=== PATIENT | female | born 1940 | race African-American/Black ===

== ENCOUNTER 2019-10-04 09:08 | Outpatient (CLI) | payer MEDICARE, SELFPAY ==
--- NOTE | ~2019-10-04 | US_ITS ---
EXAMINATION: US renal BI, US retroperitoneal duplex ltd DATE: 10/04/2019 10:21 INDICATION: Stage IV chronic kidney disease. Atherosclerosis of the renal artery. TECHNIQUE: 1. Multiple grayscale and color Doppler images of the kidneys were obtained. 2. Multiple grayscale and pulsed Doppler images of the aorta and renal arteries were obtained. COMPARISON: None. FINDINGS: Kidneys: The right kidney measures 8.1 x 3.4 x 4.2 cm. The left kidney measures 8.8 x 4.4 x 4.1 cm. The kidney s demonstrate increased echogenicity consistent with medical renal disease. There are several simple appearing anechoic renal cysts, one at the lower pole of the right kidney measuring up to 1.8 cm in m aximal diameter and the largest of four in the left kidney at the upper pole measuring 1.7 cm. There is no hydronephrosis in either kidney. No stones identified. The bladder is normal. Renal arteries/vascular: The aorta peak systolic velocity is 44 cm/s. The right renal artery peak systolic velocity is 171 cm/ s in the proximal segment, 52 cm/s in the mid segment, and 82 cm/s in the distal segment. The relativ paris elevated velocity at the origin of the right renal artery remains less than the threshold for wou ld be expected for a >50% stenosis. The left renal artery peak systolic velocity is 53 cm/s in the pr oximal segment, 51 cm/s in the mid segment, and 53 cm/s in the distal segment. IMPRESSION: 1. Bilateral increased renal cortical echogenicity consistent with medical renal disease. No hydronep hrosis. 2. No Doppler evidence of significant renal artery stenosis. Reviewed, dictated and finalized at location A. IMPRESSION: 1. Bilateral increased renal cortical echogenicity consistent with medical bert l disease. No hydronephrosis. 2. No Doppler evidence of significant renal artery stenosis.
== END 2019-10-04 09:09 | disposition home or self-care (01) ==
PROVIDERS: PCP Internal Medicine
DX: I70.1 Atherosclerosis of renal artery (principal); N18.4 Chronic kidney disease, stage 4 (severe)
CPT/HCPCS: 76775; 93976

== ENCOUNTER 2019-10-12 09:02 | Outpatient (CLI) | payer MEDICARE, SELFPAY ==
--- NOTE | ~2019-10-12 | MM_ITS ---
EXAMINATION: MM screening [facility] BI w ramo HISTORY: Screening TECHNIQUE: Craniocaudal and mediolateral oblique 3-D tomosynthesis images were obtained and synthetic 2-D images were generated. CAD analysis was submitted and interpreted. COMPARISON: Comparison to multiple prior studies sequentially, with oldest reviewed study dated 01/28. BREAST PARENCHYMAL COMPOSITION: There are scattered areas of fibroglandular density. FINDINGS: There are benign calcifications. There is no evidence of suspicious mass, calcification, or architectural distortion to suggest malignancy in either breast. There has been no suspicious interv al change. IMPRESSION: 1. No mammographic evidence of malignancy. 2. Recommend routine screening mammography in one year. BI-RADS Category 2: Benign finding(s). Reviewed, dictated and finalized at location A.
== END 2019-10-12 09:03 | disposition home or self-care (01) ==
PROVIDERS: PCP Internal Medicine; Visit Provider Radiology Radiation Oncology
DX: Z12.31 Encounter for screening mammogram for malignant neoplasm of breast (principal)
CPT/HCPCS: 77063; 77067

== ENCOUNTER 2021-03-20 15:17 | Outpatient (CLI) | payer MEDICARE, SELFPAY ==
--- NOTE | ~2021-03-20 | MM_ITS ---
EXAMINATION: MM screening [facility] BI w ramo HISTORY: Screening TECHNIQUE: Craniocaudal and mediolateral oblique 3-D tomosynthesis images were obtained and synthetic 2-D images were generated. CAD analysis was submitted and interpreted. COMPARISON: Comparison to multiple prior studies sequentially, with oldest reviewed study dated 01/28. BREAST PARENCHYMAL COMPOSITION: There are scattered areas of fibroglandular density. FINDINGS: There is no evidence of suspicious mass, calcification, or architectural distortion to sugg est malignancy in either breast. There has been no suspicious interval change. IMPRESSION: 1. No mammographic evidence of malignancy. 2. Recommend routine screening mammography in one year. BI-RADS Category 1: Negative Reviewed, dictated and finalized at location A. [employer]
== END 2021-03-20 15:18 | disposition home or self-care (01) ==
LOC: ANHIMG 15:23
PROVIDERS: PCP Internal Medicine; Visit Provider Internal Medicine Medical Oncology
DX: Z12.31 Encounter for screening mammogram for malignant neoplasm of breast (principal)
CPT/HCPCS: 77063; 77067

== ENCOUNTER 2021-05-30 11:57 | Inpatient (IN) | payer MEDICARE, SELFPAY ==
--- NOTE | ~2021-05-30 | XR_ITS ---
EXAMINATION: XR abdomen/kub 1V DATE: 06/01/2021 08:40 INDICATION: Small bowel obstruction. TECHNIQUE: A supine view of the abdomen on 2 radiographs was obtained. COMPARISON: Small bowel series 05/31/21 FINDINGS: There are multiple dilated loops of small bowel containing oral contrast. The colon is deco mpressed. The nasogastric tube tip is in the stomach. IMPRESSION: 1. Persistent small bowel obstruction. Reviewed, dictated and finalized at location A.
--- NOTE | ~2021-05-30 | XR_ITS ---
EXAMINATION: XR chest 1V portable DATE: 06/02/2021 16:47 INDICATION: Tachycardia. Crackles on exam. TECHNIQUE: frontal view of the chest was obtained. COMPARISON: Chest radiograph dated 05/31/2021 FINDINGS: Nasogastric tube coiled in the body of the stomach. Pulmonary vascular congestion. Increased intersti tial pattern in the bilateral lower lung zones, right greater than left. No pleural effusion or pneum othorax. Small calcified nodule at the left costophrenic angle consistent with old granulomatous dise ase. No pneumothorax. Heart size is normal. Surgical clip at the thoracic inlet. Additional surgical clips at the lateral right breast. IMPRESSION: 1. Pulmonary vascular congestion and increased interstitial pattern in the lower lungs and favor mild pulmonary edema over pneumonia. Reviewed, dictated and finalized at location B. IMPRESSION: 1. Pulmonary vascular congestion and increased interstitial pattern in the lowe r lungs and favor mild pulmonary edema over pneumonia.
--- NOTE | ~2021-05-30 | XR_ITS ---
EXAMINATION: XR small bowel follow through DATE: 05/31/2021 17:17 INDICATION: Small bowel obstruction. TECHNIQUE: Oral contrast was administered, and a time course of radiographs of the abdomen was obtain ed. Fluoroscopy of the small bowel was not performed. Fluoroscopy exposure time was 0 minutes. The to meet number of images was 8. COMPARISON: CT abdomen and pelvis 05/31/2021 FINDINGS: The nasogastric tube tip is in the stomach. There is oral contrast in stomach and multiple dilated lo ops of small bowel. At 3.5 hours, the contrast has not passed beyond the transition point in right ab domen identified by CT. The colon is normal in caliber. There is reflux of contrast into the esophagu s. IMPRESSION: 1. Small bowel obstruction. Reviewed, dictated and finalized at location E. IMPRESSION: 1. Small bowel obstruction.
--- NOTE | ~2021-05-30 | XR_ITS ---
EXAMINATION: XR fl Dobhoff insert/rad w img DATE: 06/11/2021 14:52 INDICATION: Aspiration. TECHNIQUE: I placed in a nasoenteric tube with fluoroscopic guidance. One image was obtained. The flu oroscopy exposure time was 1.1 minutes. COMPARISON: None. FINDINGS: The nasoenteric tube tip is in the distal stomach. IMPRESSION: 1. Fluoroscopy guided nasoenteric tube placement with tip in the distal stomach. Reviewed, dictated and finalized at location A. IMPRESSION: 1. Fluoroscopy guided nasoenteric tube placement with tip in the distal stomach .
--- NOTE | ~2021-05-30 | XR_ITS ---
EXAMINATION: XR barium swallow modified EXAM DATE: 06/16/2021 10:53 INDICATION: Dysphagia TECHNIQUE: Modified barium esophagram was performed by speech pathologist with radiologist Dr. Royal Hansen present to administered fluoroscopy. Speech pathologist administered barium in varying consis tencies as per speech pathologist documentation. This was recorded on tape. There was total fluorosc opic time of 2.6 minutes. The DAP for this procedure was 1.6 Gycm2. A total of 3 images sent to PAC S from the exam. FINDINGS: Oral stage: Adequate function. Pharyngeal phase: Mild reduced laryngeal elevation, tongue base retraction. Vallecular residual. Laryngeal penetration: Trace, ejected. Aspiration: None. Laryngeal sensitivity: Present. IMPRESSION: Patient tolerated oral feedings in the upright position. Please refer to speech patholo gist findings and specific feeding recommendations. Reviewed, dictated and finalized at location A. IMPRESSION: Patient tolerated oral feedings in the upright position. Please r efer to speech pathologist findings and specific feeding recommendations.
--- NOTE | ~2021-05-30 | XR_ITS ---
EXAMINATION: XR abdomen/kub 1V EXAM DATE: 06/08/2021 10:59 INDICATION: distended abd. . TECHNIQUE: Frontal projection(s) of the abdomen for interpretation. Comparison is made to prior exami nation from 06/05/2021. FINDINGS: Previously seen feeding tube has been removed. There are laparotomy latoya. Significantly distended air-filled small bowel, containing some amount of contrast and also some contrast within n onobstructed colon. Likely postoperative ileus. Small right pleural effusion. IMPRESSION: Interval progression of stomach, significant small bowel gas, likely postoperative ileus. Reviewed, dictated and finalized at location B. IMPRESSION: Interval progression of stomach, significant small bowel gas, likel y postoperative ileus.
--- NOTE | ~2021-05-30 | XR_ITS ---
EXAMINATION: XR abdomen/kub 1V DATE: 06/03/2021 05:33 INDICATION: Nasogastric tube placement. TECHNIQUE: A supine view of the abdomen was obtained. COMPARISON: CT abdomen and pelvis 05/31/2021 FINDINGS: There are multiple dilated loops of small bowel. The colon is decompressed. Skin latoya ar e noted. The nasogastric tube tip is in the stomach. IMPRESSION: 1. Nasogastric tube tip in the stomach. 2. Dilated small bowel, likely adynamic ileus. Reviewed, dictated and finalized at location A.
--- NOTE | ~2021-05-30 | CT_ITS ---
EXAMINATION: CT abdomen pelvis wo con DATE: 05/31/2021 13:28 INDICATION: Small bowel obstruction. TECHNIQUE: Computed tomography (CT) of the abdomen and pelvis was performed without intravenous contr ast. Automated exposure control and iterative reconstruction technique were employed. The dose-length product was 179.64 mGy-cm. COMPARISON: CT abdomen and pelvis 05/30/2021 FINDINGS: There are small pleural effusions. There is dependent atelectasis bilaterally. There is mil d emphysema. There is peripheral radiation fibrosis in anterolateral right lung. The heart size is no rmal. There are coronary artery calcifications. There is a small pericardial effusion. The nasogastri c tube tip is in the stomach. There is a small sliding hiatal hernia. The liver is normal. The gallbl adder is distended. The spleen, pancreas, are normal. There are masses in the adrenal glands measurin g low-attenuation measuring up to 2.1 cm on the right, consistent with adenomas. There are cysts in t he kidneys measuring up to 1.6 cm the left. There are changes of right hemicolectomy. There are multi ple dilated loops of small bowel. There is decompressed distal small bowel. There is a transition poi nt in right abdomen. There is a moderate volume of ascites. There is mild lumbar spondylosis. IMPRESSION: 1. Small bowel obstruction with transition point in right abdomen. 2. Worsened moderate volume of ascites. 3. Worsened small pleural effusions. 4. Stable small pericardial effusion. 5. Small sliding hiatal hernia. 6. Distended gallbladder, which may secondary to fasting. Reviewed, dictated and finalized at location E.
--- NOTE | ~2021-05-30 | XR_ITS ---
EXAMINATION: XR chest PICC line EXAM DATE: 06/03/2021 14:07 INDICATION: PICC line placement. TECHNIQUE: Portable AP frontal chest x-ray was obtained. Comparison is made to prior examination from 06/02/2021. FINDINGS: There is a new right-sided PICC line, tip at the cavoatrial junction. There is a feeding tu be tip and side-port projecting over gastric bubble. There are multiple loops of moderately distended air-filled jejunum in the left upper quadrant. This could be postoperative ileus given the laparotom y latoya. Small right pleural effusion with adjacent right basilar airspace disease probably atelect asis. IMPRESSION: 1. PICC line, feeding tube in position. 2. Small right pleural effusion, right basilar opacity probably subsegmental atelectasis. 3. Dilated jejunum probably postoperative ileus. Reviewed, dictated and finalized at location A. IMPRESSION: 1. PICC line, feeding tube in position. 2. Small right pleural effusion, right basilar opacity probably subsegmental a telectasis. 3. Dilated jejunum probably postoperative ileus.
--- NOTE | ~2021-05-30 | CT_ITS ---
EXAMINATION: CTA chest PE protocol EXAM DATE: 06/05/2021 09:40 INDICATION: hypoxia . TECHNIQUE: Spiral CTA of the chest (pulmonary arteries) was performed with 100 cc Omnipaque 350 intr avenous contrast injection. Images were acquired during the pulmonary arterial phase. Coronal maxi mum intensity projection 3D-reconstructions were created by the technologist on dedicated workstation . Axial, coronal and sagittal reformatted images were reviewed. The dose-length product (DLP) for t his examination was 115.68 mGy-cm. The exposure was tailored according to patient size (auto mA exp osure control), and iterative reconstruction (ASIR) was used as additional dose reduction technique. Correlation is made to abdomen pelvis CT from 05/31/2021. FINDINGS: The main, central pulmonary arteries are dilated which can indicate elevated pulmonary frida rial pressure, pulmonary arterial hypertension. There are no filling defects within the pulmonary art eries, no urinary emboli. There is mild cardiomegaly. Small pericardial and bilateral pleural effusio ns. Right basilar airspace disease with endobronchial mucous, appearance is consistent with pneumonia and atelectasis. Less amount of left basilar pneumonia and atelectasis. Mild to moderate emphysema. No pneumothorax. Small amount of ascites. Feeding tube is in position. Bilateral adrenal adenomas. There is small to m oderate sliding gastroesophageal hiatal hernia. No mediastinal lymphadenopathy. Left thyroid lobe enl argement, the right may have been resected. There are no osteoblastic or osteolytic lesions identifie d. Lung bases were imaged on recent abdomen pelvis CT. Pleural and pericardial effusions are present. Th e airspace disease has progressed. IMPRESSION: 1. Multi segmental right lower lobe, segmental left lower lobe pneumonia and atelectasis. Can't excl ude aspiration as etiology. 2. Cardiomegaly. Dilated pulmonary arteries. 3. Small pericardial, pleural effusions. Small ascites. 4. Small to moderate hiatal hernia. 5. Adrenal adenomas. 6. No pulmonary emboli suspected. Reviewed, dictated and finalized at location A. IMPRESSION: 1. Multi segmental right lower lobe, segmental left lower lobe pneumonia and a telectasis. Can't exclude aspiration as etiology. 2. Cardiomegaly. Dilated pulmonary arteries. 3. Small pericardial, pleural effusions. Small ascites. 4. Small to moderate hiatal hernia. 5. Adrenal adenomas. 6. No pulmonary emboli suspected.
--- NOTE | ~2021-05-30 | NM_ITS ---
EXAMINATION: NM pulmonary perfusion DATE: 06/04/2021 15:51 INDICATION: Tachycardia. Hypoxia. TECHNIQUE: 4.5 mCi Tc-99m MAA by intravenous route. Scintigraphic images of the chest were obtained. COMPARISON: Chest radiograph dated 06/04/2021 FINDINGS: Moderate-sized perfusion defects in the medial segment of the right middle lobe and anterobasilar seg ment of the right lower lobe. Stripe signs overlying the superior segments of the bilateral lower lob es on the posterior oblique projections. IMPRESSION: 1. Intermediate probability for pulmonary embolism. Reviewed, dictated and finalized at location B.
--- NOTE | ~2021-05-30 | US_ITS ---
EXAMINATION: US venous doppler [facility] DATE: 06/02/2021 17:19 INDICATION: Tachycardia. TECHNIQUE: Cook scale images without and with compression and Doppler images of the bilateral lower e xtremity veins were obtained. COMPARISON: None FINDINGS: The right common femoral vein, profunda femoral vein, femoral vein, popliteal vein, peroneal trunk, p osterior tibial veins, and greater saphenous vein are patent. The left common femoral vein, profunda femoral vein, femoral vein, popliteal vein, peroneal trunk, po sterior tibial veins, and greater saphenous vein are patent. IMPRESSION: 1. Patent bilateral lower extremity veins. No evidence of deep venous thrombosis. Reviewed, dictated and finalized at location K. IMPRESSION: 1. Patent bilateral lower extremity veins. No evidence of deep venous thrombosi s.
--- NOTE | ~2021-05-30 | XR_ITS ---
EXAMINATION: XR barium swallow modified DATE: 06/09/2021 13:12 INDICATION: Cough TECHNIQUE: Modified barium esophagram was performed by myself to administered fluoroscopy, in conjun ction with speech pathologist who administered barium in varying consistencies as per speech patholog ist documentation. This was recorded on tape. A single fluoroscopic spot image was recorded. The DAP for this procedure was 0.954 Gycm2. Fluoroscopy exposure time was 1.9 minutes. FINDINGS: Oral stage: Adequate function. Pharyngeal phase: Reduced laryngeal elevation, reduced laryngeal adduction, reduced tongue base retra ction, reduced pharyngeal squeeze, vallecular and piriform sinus residue. Laryngeal penetration: Present. Aspiration: Suspected. Laryngeal sensitivity: Absent. IMPRESSION: Abnormal modified barium swallow as described above. Please refer to speech pathologist f indings and specific feeding recommendations. Reviewed, dictated and finalized at location A. IMPRESSION: Abnormal modified barium swallow as described above. Please refer t o speech pathologist findings and specific feeding recommendations.
--- NOTE | ~2021-05-30 | XR_ITS ---
EXAMINATION: XR abdomen NG/feed tube insert DATE: 06/05/2021 01:28 INDICATION: Nasogastric tube placement. TECHNIQUE: A semiupright view of the abdomen was obtained. COMPARISON: Abdomen radiographs 06/03/2021 FINDINGS: There are dilated loops of small bowel containing oral contrast. The lower abdomen is exclu ded. Skin latoya are noted. The nasogastric tube tip is in the distal stomach. A right upper extremi ty peripherally inserted central venous catheter (PICC) is seen with tip in the proximal right atrium . IMPRESSION: 1. Nasogastric tube tip in the distal stomach. 2. Persistently dilated small bowel, consistent with adynamic ileus. Reviewed, dictated and finalized at location A.
--- NOTE | ~2021-05-30 | XR_ITS ---
EXAMINATION: XR chest 1V portable DATE: 06/04/2021 05:33 INDICATION: Hypoxia. TECHNIQUE: A single frontal view of the chest was obtained. COMPARISON: Chest single view 06/03/2021, CT abdomen and pelvis 05/31/2021 FINDINGS: There are interstitial opacities in right mid and lower lung zones, likely radiation fibros is. There is mild atelectasis in the lower lung zones. No pleural effusion or pneumothorax. The heart size is normal. The nasogastric tube tip is in the stomach. There is dilated small bowel in the abdo men, likely adynamic ileus. Surgical clips overlie the right chest wall. A right upper extremity jay pherally inserted central venous catheter (PICC) is seen with tip in the right atrium. IMPRESSION: 1. Mild atelectasis in the lower lung zones with interval improvement. 2. 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 3. Dilated small bowel, likely adynamic ileus. Reviewed, dictated and finalized at location A.
--- NOTE | ~2021-05-30 | CT_ITS ---
EXAMINATION: CT abdomen pelvis wo con DATE: 05/30/2021 13:04 INDICATION: Lower abdominal pain, history of breast cancer TECHNIQUE: Computed tomography (CT) of the abdomen and pelvis was performed without intravenous contr ast. The dose-length product (DLP) was 178.09 mGy-cm. Automated exposure control and iterative recons truction technique were employed. COMPARISON: None FINDINGS: Subpleural reticular opacities in the anterior right middle lobe likely reflect changes of radiation therapy. There is a small right pleural effusion. There is mild emphysema of the visualized lung bases. A small pericardial effusion is present. The heart size is normal. The liver, spleen, an d pancreas are normal. The gallbladder is distended. There are is a 2.1 cm adenoma of the right adren al gland. There is a 1.6 cm adenoma of the left adrenal gland. Cysts of the kidneys measure up to 2.2 cm on the right. There is calcified atherosclerosis of the aorta and many of the other arteries. No pathologically enlarged abdominal or pelvic lymph nodes are identified. There are changes of right he micolectomy. There are multiple dilated loops of small bowel with a transition point in the right mid abdomen. There is no free intraperitoneal gas. IMPRESSION: 1. Small bowel obstruction. Reviewed, dictated and finalized at location A. IMPRESSION: 1. Small bowel obstruction.
--- NOTE | ~2021-05-30 | XR_ITS ---
EXAMINATION: XR barium swallow modified EXAM DATE: 06/07/2021 13:53 INDICATION: Difficulty Swallowing/NG Removed TECHNIQUE: Modified barium esophagram was performed by speech pathologist with radiologist Dr. Royal Hansen present to administered fluoroscopy. Speech pathologist administered barium in varying consis tencies as per speech pathologist documentation. This was recorded on tape. There was total fluorosc opic time of 1.6 minutes The DAP for this procedure was 0.8 Gycm2. A total of 2 images sent to PAC S from the exam. FINDINGS: Oral stage: Uncoordinated. Pharyngeal phase: Dysfunction. Laryngeal penetration: Demonstrated. Aspiration: Demonstrated. Laryngeal sensitivity: Silent. IMPRESSION: Aspiration demonstrated; Please refer to speech pathologist findings and specific feedi ng recommendations. Reviewed, dictated and finalized at location A. IMPRESSION: Aspiration demonstrated; Please refer to speech pathologist findi ngs and specific feeding recommendations.
--- NOTE | ~2021-05-30 | XR_ITS ---
EXAMINATION: XR chest 2V DATE: 05/31/2021 13:50 INDICATION: Left sided crackles on exam. TECHNIQUE: Frontal and lateral views of the chest were obtained. COMPARISON: CT abdomen and pelvis 05/31/2021 FINDINGS: There are peripheral reticular opacities in right lung. There are airspace opacities in the lower lung zones. There are small pleural effusions. No pneumothorax. The heart size is normal. Ther e is oral contrast in the stomach and small bowel. There is dilated small bowel. The nasogastric tube tip is in the stomach. There are surgical clips overlying right chest. IMPRESSION: 1. Small pleural effusions. 2. Airspace opacities in the lower lung zones, likely atelectasis. 3. 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 4. Dilated small bowel, consistent with small bowel obstruction. Reviewed, dictated and finalized at location E.
--- NOTE | ~2021-05-30 | XR_ITS ---
EXAMINATION: XR chest 1V portable DATE: 06/17/2021 08:54 INDICATION: Aspiration. TECHNIQUE: A single frontal view of the chest was obtained. COMPARISON: Chest single view 06/04/2021, chest CT 06/05/2021 FINDINGS: There are airspace opacities in the lower lung zones. A calcified left lung nodule is consi stent with old granulomatous disease. There is a chronic interstitial pattern in right lung, consiste nt with radiation fibrosis. There is a small right pleural effusion. No pneumothorax. The heart size is normal. A right upper extremity peripherally inserted central venous catheter (PICC) is seen with tip at the superior cavoatrial junction. The nasoenteric tube tip is in either the distal stomach or proximal duodenum. IMPRESSION: 1. Airspace opacities in the lower lung zones, consistent with atelectasis versus pneumonia. 2. Small right pleural effusion. 3. 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 Reviewed, dictated and finalized at location B. IMPRESSION: 1. Airspace opacities in the lower lung zones, consistent with atelectasis vers us pneumonia. 2. Small right pleural effusion. 3. 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
--- NOTE | ~2021-05-30 | XR_ITS ---
EXAM: XR abdomen NG/feed tube insert HISTORY: Small bowel obstruction, NG TUBE INSERT COMPARISON: CT abdomen and pelvis performed on the same date. FINDINGS: NG tube, tip and side port object over the stomach. Multiple loops of dilated small bowel in the upper abdomen. Suture material projects over the right mid abdomen. Mild right costophrenic an gle blunting and basilar opacities. IMPRESSION: NG tube, in good position. Small bowel obstruction. Small right pleural effusion with adjacent subseg mental pulmonary opacities. Reviewed, dictated and finalized at location K. IMPRESSION: NG tube, in good position. Small bowel obstruction. Small right pleural effusio n with adjacent subsegmental pulmonary opacities.
[2021-05-30 11:59] VITALS: BP 140/89; PULSE 124; RESP 20; TEMP 36.6; O2SAT 100
[2021-05-30 12:27] LABS: Basophils Absolute Auto 0.1 K/mm3 (0.0-0.1); Basophils Percent Auto 0.6 % (0.2-1.2); Eosinophils Absolute Auto 0.3 K/mm3 (0-0.3); Eosinophils Percent Auto 3.1 % (0-4.4); Hematocrit 37.8 % (37.0-47.0); Immature Granulocyte Absolute 0.21 K/mm3 (0.00-0.031); Immature Granulocyte Percent A 2.6 % (0-0.5); Lymphocytes Absolute Auto 0.49 K/mm3 (0.9-3.2); Mean Corpuscular HGB Conc 31.7 g/dl (32-36); Mean Corpuscular Hemoglobin 36.1 pg (26-34); Mean Corpuscular Volume 113.9 fl (80-100); Mean Platelet Volume 11.8 fl (7.4-10.4); Monocytes Absolute Auto 1.4 K/mm3 (0.1-0.6); Monocytes Percent Auto 17.2 % (2.6-8.5); Neutrophils Absolute Auto 5.8 K/mm3 (1.3-6.7); Neutrophils Percent Auto 70.5 % (45.5-73.1); Nucleated Red Blood Cells Absolute Auto 0.3 K/mm3 (0.0-0.012); Nucleated Red Blood Cells Perc 3.1 % (0.0-0.2); Platelet Count Result 289 k/mm3 (150-375); Red Blood Count 3.32 M/mm3 (4.2-5.4); Red Cell Distribution Width 18.9 % (11.5-14.5); White Blood Count 8.2 K/mm3 (4.5-10.0)
[2021-05-30 12:41] LABS: Alanine Aminotransferase 15 U/L (4-35); Albumin Level 4.5 g/dL (3.5-5.1); Alkaline Phosphatase 81 U/L (38-126); Anion Gap 14 mmol/L (8-16); Aspartate Amino Transferase 33 U/L (14-36); Bilirubin,Total 0.8 mg/dL (0.2-1.3); Blood Urea Nitrogen 43 mg/dL (7-17); Calcium 9.3 mg/dL (8.4-10.2); Carbon Dioxide 18 mmol/L (22-30); Chloride 102 mmol/L (98-107); Estimated CRCL calculation 12 ml/min; Estimated Glomerular Filt Rate 23; Glucose 122 mg/dL (65-110); Lipase 58 U/L (23-300); Potassium 5.1 mmol/L (3.4-5.0); Sodium 134 mmol/L (137-145)
--- NOTE | 2021-05-30 13:14 | ED.ABDPAIN ---
HPI - Abdominal Pain General Chief Complaint: Abdominal Pain Stated Complaint: abd pain and hematuria x 3days Time Seen by Provider: 05/30/21 12:25 Source: patient and family History of Present Illness HPI narrative: Patient lives with her daughter who brought her to the emergency room because of chronic abdominal pain for over 1 year. Got worse over the last 3 days. Patient denies any fever, chills, nausea, vomiting, diarrhea, constipation. History of breast cancer, last colonoscopy was 1 year ago, polypectomy. Related Data Allergies Allergy/AdvReac Type Severity Reaction Status Date / Time No Known Allergies Allergy Verified 05/30/21 12:13 Review of Systems Review of Systems: CONSTITUTIONAL: Denies fever, chills, or sweats. EYES: Denies visual changes, redness, or discharge. ENT: Denies rhinorrhea, congestion, sore throat, or otalgia. CARDIOVASCULAR: Denies chest pain, palpitations, or edema. RESPIRATORY: Denies cough or dyspnea. GASTROINTESTINAL: Denies abdominal pain, nausea, vomiting, or diarrhea. GENITOURINARY: Denies dysuria or hematuria. SKIN: Denies rash or itching. MUSCULOSKELETAL: Denies back pain, joint pain, or myalgia. NEUROLOGIC: Denies headache, numbness, or weakness. PSYCHIATRIC: Denies anxiety or depression. [facility] Past Medical History Medical History (Updated 05/30/21 @ 15:22 by Luciana Gamble MD) Cancer of right breast Exam Narrative: General appearance: Well-developed, well-nourished Skin: Normal color Head: Normocephalic, nontraumatic Eyes: Clear conjunctiva ENT: Oropharynx normal, ears normal, nose normal Neck: Supple, nontender Chest and respiratory: Airway patent, no respiratory distress, no accessory muscle use Heart: Regular rate/rhythm Abdomen: Large distended abdomen, diffusely tender, midline old surgical scar, patient does not know what was for Vascular: Normal peripheral pulses, normal capillary refill. Musculoskeletal: Normal range of motion, nontender back Neurologic: Alert and oriented ?3, [employer] is normal as tested, no gross motor deficit Course Course Emergency Course: Work-up showed partial small bowel obstruction, admit to hospitalist, consult surgery Consultations Consultation #1: Dr. Hidalgo Date: 05/30/21 Time: 15:23 Vital Signs Vital signs: Vital Signs Temperature 36.6 C 05/30/21 11:59 Pulse Rate 124 H 05/30/21 11:59 Respiratory Rate 20 05/30/21 11:59 Blood Pressure 140/89 05/30/21 11:59 Pulse Oximetry 100 05/30/21 11:59 Temperature 36.6 C 05/30/21 11:59 Pulse Rate 95 05/30/21 14:28 Respiratory Rate 18 05/30/21 14:28 Blood Pressure 137/59 L 05/30/21 14:28 Pulse Oximetry 100 05/30/21 14:28 MDM - Abdominal Pain MDM Narrative Medical decision making narrative: Differential diagnosis as below Differential Diagnosis Differential diagnosis: Likely abdominal pain, constipation, diverticulitis, gastroenteritis, pancreatitis and small bowel obstruction Lab Data Result diagrams: 05/30/21 12:22 05/30/21 12:22 Labs: Lab Results 05/30/21 05/30/21 05/30/21 Range/Units 12:22 12:22 13:31 WBC 8.2 (4.5-10.0) K/mm3 RBC 3.32 L (4.2-5.4) M/mm3 Hgb 12.0 (12.0-15.0) g/dL Hct 37.8 (37.0-47.0) % MCV 113.9 H (80-100) fl MCH 36.1 H (26-34) pg MCHC 31.7 L (32-36) g/dl RDW 18.9 H (11.5-14.5) % Plt Count 289 (150-375) k/mm3 MPV 11.8 H (7.4-10.4) fl Immature Gran % (Auto) 2.6 H (0-0.5) % Neut % (Auto) 70.5 (45.5-73.1) % Lymph % (Auto) 6.0 L (18.3-44.2) % [place] % (Auto) 17.2 H (2.6-8.5) % Eos % (Auto) 3.1 (0-4.4) % Baso % (Auto) 0.6 (0.2-1.2) % Lymph # (Auto) 0
[2021-05-30] MEDS: SODIUM CHLORIDE 0.9% IV 1,000 ML 999 ML IV CONT (13:23)
[2021-05-30] MEDS: ONDANSETRON INJ 4 MG/2 ML VIAL IV PUSH (13:23)
[2021-05-30] MEDS: MORPHINE SULFATE (*CRX) 4 MG/ML INJ IV PUSH (13:23)
[2021-05-30 13:44] LABS: Add Urine Microscopic? YES; Appearance Urine Cloudy (Clear); Bacteria Urine Trace /hpf; Bilirubin Urine Negative (Negative); Blood Urine Negative (Negative); Color Urine Yellow (Yellow); Glucose Urine UA Negative (Negative); Ketones Urine Trace mg/dL (Negative); Leukocyte Esterase Ur Negative LEU/UL (Negative); Mucus Urine Rare /lpf; Nitrate Urine Negative (Negative); Protein Urine Negative (Negative); RBC Urine 0-2 /hpf (0-2); Specific Grav Ur 1.026 (1.001-1.035); Squamous Epithelial Cell Urine Rare /hpf (Few); Urobilinogen Urine Negative mg/dL (<2.0)
[2021-05-30 14:28] VITALS: BP 137/59; PULSE 95; RESP 18; O2SAT 100
--- NOTE | 2021-05-30 14:45 | PM.IMHP ---
H&P: HPI History of Present Illness Date/Time: 05/30/21 14:45 Chief Complaint: Abdominal pain. Narrative: This is a pleasant 80-year-old female smoker with history of emphysema, hypothyroidism, anxiety, breast cancer, and colon polyp status post right hemicolectomy who presented to the emergency department from home for evaluation of abdominal pain. The patient reports having intermittent abdominal pain over the past 1 year and in fact she has been to several specialists including machine bobbin winder Dr. Ontiveros. Apparently she has had several tests to include capsule endoscopy and colonoscopy, both which were reportedly unrevealing. Her pain once again returned 3 days ago and it has been pretty constant since that time. She describes a fairly diffuse throbbing discomfort throughout her abdomen although it seems to be worse in the right mid to lower quadrant. She has some mild nausea with bad in her appetite has been poor but she denies emesis. She had a normal bowel movement yesterday without blood or mucus in the stool. CT of the abdomen and pelvis today showed evidence of a small-bowel obstruction with transition point in the right mid abdomen and she is being admitted in this setting. She has no known history of bowel obstruction but again she has had intermittent episodes of abdominal pain over the year as detailed above. Currently she has no specific complaints and she denies fever, chills, sweats, chest pain, shortness a breath, vomiting, and diarrhea. Review of Systems Review of Systems: Twelve systems were reviewed and are negative except for as per HPI. [facility] Past Medical History Medical History (Updated 05/30/21 @ 20:27 by Zoe Baker PA-C) Anxiety Cancer of right breast Status post lumpectomy and radiation therapy. Chronic kidney disease Baseline creatinine and GFR unknown. Emphysema of lung Hypothyroidism Tobacco dependence Vitamin D deficiency Surgical History Surgical History (Updated 05/30/21 @ 20:18 by Zoe Baker PA-C) History of colonoscopy with polypectomy History of lumpectomy of right breast History of right hemicolectomy For a large, benign colon polyp. History of thyroidectomy For treatment of a goiter. Family History Family History (Updated 05/30/21 @ 20:19 by Zoe Baker PA-C) Other Cancer Diabetes mellitus Social History Social History (Updated 05/30/21 @ 20:20 by Zoe Baker PA-C) Social History: Surrogate decision maker: Stephanie Simental, daughter. Code status: Full code. Smoking packs per day: 1 Smoking cigarettes per day: 20.0 Years smoked: 60 Smoking pack-years: 60.00 Smoking status: Current every day smoker Tobacco type: cigarettes Alcohol intake: never Substance use: never Additional living arrangements comments: The patient lives in [place] with her daughter and son-in-law. Additional occupation/education comments: Retired, worked in [employer] at [employer] for many years. Spiritual care concerns: No Meds Home Medications and Allergies Home Medications Medication Instructions Recorded Confirmed Type anastrozole 1 mg PO DAILY 05/30/21 05/30/21 History calcitriol 0.25 mcg PO 2XW 05/30/21 05/30/21 History clonidine HCl 0.1 mg PO Q12H 05/30/21 05/30/21 History levothyroxine 50 mcg PO DAILY 05/30/21 05/30/21 History nortriptyline 50 mg PO HS 05/30/21 05/30/21 History olanzapine 20 mg PO DAILY 05/30/21 05/30/21 History sodium bicarbonate 1,300 mg PO TID 05/30/21 05/30/21 History umeclidinium-vilanterol [Anoro 1 inh INHALATION DAILY PRN 05/30/21 05/30/21 History Ellipta] Allergies Allergy/AdvReac Type Severity Reaction Status Date / Time No Known Allergies Allergy Verified 05/30/21 15:56 Vital Signs Vital Signs - 24 hr 05/30/21 11:59 Temperature 97.8 F Pulse Rate 124 H Respiratory Rate 20 Blood Pressure 140/89 Pulse Oximetry 100 Exam Narrative: General: Thin elderly female in the
--- NOTE | 2021-05-30 15:50 | ADMGEN ---
This patient, Rachel Lazar, was admitted to Medical Room 348-01. Patient/family oriented to hospital policies and general routines including ID bracelet, bed and alarms, visiting hours, pain management, procedures, bathroom and other care routines, personal items, smoking policy, room service/diet, and visiting hours. Information on how to activate the Rapid Response Team has been discussed. Patient/Family are encouraged to report perceived risks to care and to ask questions if they do not understand what they are told or what they should do.
[2021-05-30 16:00] VITALS: BP 132/82; PULSE 103; RESP 20; TEMP 36.1; O2SAT 100; BMI 18.8
[2021-05-30] MEDS: LACTATED RINGERS 1,000 ML 150 ML IV CONT (16:18)
[2021-05-30 21:04] VITALS: BP 148/55; PULSE 109; RESP 18; TEMP 36.2; O2SAT 96
[2021-05-30 21:50] VITALS: O2SAT 96
[2021-05-31] MEDS: LACTATED RINGERS 1,000 ML 75 ML IV CONT ×2 (00:01→15:04)
[2021-05-31 04:41] VITALS: BP 142/64; PULSE 102; RESP 16; TEMP 36.6; O2SAT 97
[2021-05-31 05:50] LABS: Hematocrit 34.2 % (37.0-47.0); Hemoglobin 11.2 g/dL (12.0-15.0); Mean Corpuscular HGB Conc 32.7 g/dl (32-36); Mean Corpuscular Hemoglobin 36.2 pg (26-34); Mean Corpuscular Volume 110.7 fl (80-100); Mean Platelet Volume 11.9 fl (7.4-10.4); Platelet Count Result 227 k/mm3 (150-375); Red Blood Count 3.09 M/mm3 (4.2-5.4); Red Cell Distribution Width 18.6 % (11.5-14.5); White Blood Count 4.9 K/mm3 (4.5-10.0)
[2021-05-31 06:02] LABS: Alanine Aminotransferase 8 U/L (4-35); Albumin Level 3.3 g/dL (3.5-5.1); Alkaline Phosphatase 82 U/L (38-126); Anion Gap 3 mmol/L (8-16); Aspartate Amino Transferase 20 U/L (14-36); Bilirubin,Total 0.5 mg/dL (0.2-1.3); Blood Urea Nitrogen 40 mg/dL (7-17); Calcium 8.8 mg/dL (8.4-10.2); Carbon Dioxide 25 mmol/L (22-30); Chloride 106 mmol/L (98-107); Estimated CRCL calculation 19 ml/min; Estimated Glomerular Filt Rate 33; Glucose 88 mg/dL (65-110); Magnesium 1.9 mg/dL (1.6-2.3); Potassium 4.4 mmol/L (3.4-5.0); Sodium 134 mmol/L (137-145)
[2021-05-31] MEDS: LEVOTHYROXINE SODIUM INJ 100 MCG/5 ML VIAL 25 MCG IV PUSH (06:16)
[2021-05-31 07:07] LABS: Thyroid Stimulating Hormone Reflex 0.808 uIU/mL (0.465-4.68)
[2021-05-31 07:39] VITALS: BP 138/73; PULSE 110; RESP 16; TEMP 35.8; O2SAT 96
[2021-05-31] MEDS: UMECLIDINIUM/VILANTEROL 62.5-25 MCG ELLIPTA 1 PUFF INHALATION (08:03)
[2021-05-31 08:05] VITALS: O2SAT 91
[2021-05-31] MEDS: NICOTINE (*PBKC) 14 MG PATCH 1 PATCH TRANSDERM (08:47)
[2021-05-31 08:59] LABS: Lactic Acid Reflex 0.8 mmol/L (0.7-2.1)
[2021-05-31 09:17] LABS: Procalcitonin 0.5 ng/mL
--- NOTE | 2021-05-31 11:12 | PM.IMPN ---
Progress Note: A&P Assessment and Plan (1) Small bowel obstruction: Code(s): K56.609 - Unspecified intestinal obstruction, unspecified as to partial versus complete obstruction Status: Acute Assessment and Plan: White blood cell count 4.9 this morning, procalcitonin 0.5, lactic acid 0.8. As of most recent vitals, Pt is mildly hypertensive and tachycardic, but resting comfortably. She is in some discomfort, however she states her pain is more a tightness in her belly which has improved greatly since starting the NG tube suction. NG tube has pulled 650 mL of bowel contents at the time of my exam this morning. Surgery, Dr. Hidalgo has been consulted. 05/31 CT abdomen pelvis not come showed multiple dilated loops of small bowel with a transition point in the right mid abdomen. There is no free intraperitoneal gas. -serial abdominal exams -trend procalcitonin -trend WBCs -monitor hemodynamics -daily CT -keep NPO -continue IV fluids (2) Altered breathing pattern: Code(s): R06.89 - Other abnormalities of breathing Status: Acute Assessment and Plan: Patient was noted to be tachypneic with shallow breathing during exam today, new crackles appreciated on the left side. CT abdomen pelvis on 05/30 showed mild emphysema in the lung bases along with a small right pleural effusion, and subpleural reticular opacities in the anterior right middle lobe, likely changes due to radiation, which do not explain the crackles on today's exam. Will proceed with imaging. Patient's O2 saturations at 91%, then rechecked to 95%. -Will start supplemental O2 via nasal cannula if O2 sats drop below 94% -CXR (3) Emphysema of lung: Code(s): J43.9 - Emphysema, unspecified Status: Acute Assessment and Plan: Continue home inhaler. - Supplemental O2 as necessary. (4) Hypothyroidism: Code(s): E03.9 - Hypothyroidism, unspecified Status: Acute Assessment and Plan: Patient is hypothyroid on 50 levothyroxine daily, continued IV Here. - Check TSH. (5) Chronic kidney disease: Code(s): N18.9 - Chronic kidney disease, unspecified Status: Acute Assessment and Plan: Today's creatinine 1.5, down from 2.1 yesterday. Patient has CKD, awaiting primary care records for baseline creatinine. -will continue IV fluids Additional Plan Patient on anastrozole, status post right right breast lumpectomy due to breast cancer. Held at this time due to NPO status. -All home medications that cannot be given IV are being held at this time due to small-bowel obstruction. Subjective Date/time seen: 05/31/21 11:12 Mrs. Lagunas is a pleasant 78-year-old female smoker with history of emphysema, hypothyroidism, anxiety, breast cancer, and colon polyp, s/p right hemicolectomy who was admitted to our care for a small-bowel obstruction. She was resting comfortably during our conversation. She endorses continued abdominal pain, although she has had Tylenol today. She states her abdomen was feeling quite tense and taut previously, and it has improved significantly after the NG tube was placed. She is able to sit up in bed. She denied chest pain, shortness a breath, diarrhea, nausea, vomiting, urinary or bowel changes. She denies fevers, chills. Exam Narrative: GENERAL APPEARANCE: Alert and oriented x 3, in no apparent distress. HEENT: PERRL, EOMI. Sclerae anicteric. Moist mucous membranes. NECK: Supple. No JVD or obvious carotid bruits. RESPIRATORY: Her breathing is shallow. Crackles in the left mid-lower lobe. No wheezes, Rhonchi, or rales. CARDIOVASCULAR: Regular rate and rhythm with normal S1-S2. No murmurs, gallops, or rubs. GASTROINTESTINAL: Tense, distended, tender. No peritoneal signs. hypoactive bowel sounds. SKIN: Warm, dry, well perfused. Good turgor. No lesions, nodules, or rashes noted. Warm and dry. No rash or lesions on limited exam. EX
[2021-05-31 11:55] VITALS: BP 141/63; PULSE 103; RESP 16; TEMP 36.3; O2SAT 95
--- NOTE | 2021-05-31 12:09 | PM.CNGS ---
Assessment and Plan Assessment and plan (1) Small bowel obstruction: Code(s): K56.609 - Unspecified intestinal obstruction, unspecified as to partial versus complete obstruction Status: Acute (2) Emphysema of lung: Code(s): J43.9 - Emphysema, unspecified Status: Acute Assessment and Plan: stable, mgmt per primary team (3) Tobacco dependence: Code(s): F17.200 - Nicotine dependence, unspecified, uncomplicated Status: Acute Assessment and Plan: discussed cessation, pt not interested History of Present Illness Consult details Consult date: 05/31/21 Reason for consult: abdominal pain Requesting physician: Dread Martins M.A., MD Narrative: Pt is a 80 y/o F c multiple med issues presenting to ED c/o crampy abd pain worsening over last 3 days. Pt reports she has had intermittent episodes over the last yr but this was more severe and constant. Pt reports assoc nausea, poor appetite. Pt has had extensive workup for the abd pain, but all tests have been essentially negative. Pt reports last BM was yest and normal. Pt reports pain is diffuse, but most severe in R abd. Pt does have h/o R colectomy for benign mass. Review of Systems Constitutional: Constitutional: Reports anorexia, Denies chills, Reports fatigue, Denies fever(s), Denies increased appetite, Reports lethargy, Denies malaise, Reports poor appetite, Reports weakness, Denies weight gain and Denies weight loss Eyes: Eyes: Reports no additional eye complaints ENT: Reports system reviewed and no additional complaints, except as documented Cardiovascular: Cardiovascular: Reports no additional cardiovascular complaints Respiratory: Respiratory: Reports no additional respiratory complaints Gastrointestinal: Gastrointestinal: Reports as per HPI, Reports abdominal pain, Reports bloating, Reports GI cramping, Reports nausea and Denies vomiting Genitourinary: Genitourinary: Reports no additional female genitourinary complaints Musculoskeletal: Musculoskeletal: Reports no additional musculoskeletal complaints Integumentary/Breasts: Skin/Breast: Reports system reviewed and no additional complaints, except as docu Neurologic: Reports system reviewed and no additional complaints, except as documented Psychiatric: Psychiatric: Reports no additional psychiatric complaints Endocrine: Endocrine: Reports no additional endocrine complaints Hematologic/Lymphatic: Hematologic/Lymphatic: Reports no additional hematologic/lymphatic complaints Allergic/Immunologic: Allergic/Immunologic: Reports no additional allergic/immunologic complaints PMFSH Past Medical History Medical History Anxiety Cancer of right breast Status post lumpectomy and radiation therapy. Chronic kidney disease Baseline creatinine and GFR unknown. Emphysema of lung Hypothyroidism Tobacco dependence Vitamin D deficiency Surgical History Surgical History History of colonoscopy with polypectomy History of lumpectomy of right breast History of right hemicolectomy For a large, benign colon polyp. History of thyroidectomy For treatment of a goiter. Family History Family History Other Cancer Diabetes mellitus Social History Social History Social History: Surrogate decision maker: Stephanie Simental, daughter. Code status: Full code. Smoking packs per day: 1 Smoking cigarettes per day: 20.0 Years smoked: 60 Smoking pack-years: 60.00 Smoking status: Current every day smoker Tobacco type: cigarettes Alcohol intake: never Substance use: never Additional living arrangements comments: The patient lives in [place] with her daughter and son-in-law. Additional occupation/education comments: Retired, worked in dietary at [employer]
[2021-05-31 13:55] LABS: Thyroid Stimulating Hormone Reflex 0.534 uIU/mL (0.465-4.68)
[2021-05-31] MEDS: ONDANSETRON INJ 4 MG/2 ML VIAL IV PUSH (15:03)
[2021-05-31 16:00] VITALS: BP 165/76; PULSE 124; RESP 18; TEMP 36.1; O2SAT 96
[2021-05-31 19:42] VITALS: BP 154/64; PULSE 110; RESP 18; TEMP 36.6; O2SAT 96
[2021-06-01] VITALS (17 sets, daily range): BP systolic 140–177; BP diastolic 40–71; PULSE 84–118; RESP 16–99; TEMP 36.2–37.4; O2SAT 93–100; BMI 18.6
[2021-06-01 05:30] LABS: Basophils Absolute Auto 0.1 K/mm3 (0.0-0.1); Basophils Percent Auto 0.6 % (0.2-1.2); Eosinophils Absolute Auto 0.2 K/mm3 (0-0.3); Eosinophils Percent Auto 2.5 % (0-4.4); Hematocrit 34.2 % (37.0-47.0); Hemoglobin 10.6 g/dL (12.0-15.0); Immature Granulocyte Absolute 0.11 K/mm3 (0.00-0.031); Immature Granulocyte Percent A 1.3 % (0-0.5); Lymphocytes Absolute Auto 0.33 K/mm3 (0.9-3.2); Lymphocytes Percent Auto 3.9 % (18.3-44.2); Mean Corpuscular Hemoglobin 36.1 pg (26-34); Mean Corpuscular Volume 116.3 fl (80-100); Mean Platelet Volume 12.2 fl (7.4-10.4); Monocytes Absolute Auto 1.7 K/mm3 (0.1-0.6); Monocytes Percent Auto 20.4 % (2.6-8.5); Neutrophils Percent Auto 71.3 % (45.5-73.1); Nucleated Red Blood Cells Absolute Auto 0.1 K/mm3 (0.0-0.012); Nucleated Red Blood Cells Perc 0.9 % (0.0-0.2); Platelet Count Result 242 k/mm3 (150-375); Red Blood Count 2.94 M/mm3 (4.2-5.4); Red Cell Distribution Width 19.2 % (11.5-14.5); White Blood Count 8.5 K/mm3 (4.5-10.0)
[2021-06-01] MEDS: LACTATED RINGERS 1,000 ML 75 ML IV CONT (06:29)
[2021-06-01] MEDS: LEVOTHYROXINE SODIUM INJ 100 MCG/5 ML VIAL 25 MCG IV PUSH (06:29)
[2021-06-01 06:41] LABS: Procalcitonin 0.8 ng/mL
[2021-06-01] MEDS: NICOTINE (*PBKC) 14 MG PATCH 1 PATCH TRANSDERM (07:52)
--- NOTE | 2021-06-01 10:42 | PM.PNGS ---
Progress Note: A&P Assessment and Plan (1) Small bowel obstruction: Code(s): K56.609 - Unspecified intestinal obstruction, unspecified as to partial versus complete obstruction Status: Acute Assessment and Plan: exam benign, imaging reviewed, will cont conservative mgmt x 1 more day, if no improvement plan for ex lap tomorrow Subjective Subjective Date/Time Seen: 06/01/21 10:42 feels better, but still no bowel fxn, pain still present but not as severe Review of Systems Review of Systems: All systems reviewed & are unremarkable except as noted in HPI and below Exam Const: General: cooperative, comfortable, no acute distress and ill appearing Nutritional Appearance: thin Orientation/consciousness: patient oriented x3 Limitations: no limitations Resp: Auscultation: clear to auscultation bilaterally Cardio: Rate: regular rate Rhythm: regular rhythm GI: Inspection: normal to inspection and distended GI Palp: Yes Soft to palpation, Yes Tenderness to palpation present (GI), No Guarding due to palpation present (GI) and No Rigid due to palpation Objective Data Vital Signs Vital Signs: Vital Signs - 24 hr 05/31/21 11:55 05/31/21 16:00 05/31/21 19:42 Temperature 36.3 C L 36.1 C L 36.6 C Pulse Rate 103 H 124 H 110 H Respiratory Rate 16 18 18 Blood Pressure 141/63 H 165/76 H 154/64 H Pulse Oximetry 95 96 96 06/01/21 03:55 06/01/21 07:55 Temperature 36.6 C Pulse Rate 112 H Respiratory Rate 16 Blood Pressure 158/71 H Pulse Oximetry 94 93 Intake/Output Intake/Output: Intake & Output 05/29/21 05/30/21 05/31/21 06/01/21 23:59 23:59 23:59 23:59 Intake Total 1000 2400 1000 Output Total 200 3000 1150 Balance 800 -600 -150 Meds/Results Medications: Active Medications Generic Name Dose Route Start Last Admin Trade Name Freq PRN Reason Stop Dose Admin Lactated Ringer's 1,000 mls @ 75 mls/hr 05/30/21 15:00 06/01/21 06:29 Lr - Lactated Ringers Iv IV CONT 75 mls/hr .[id number] JENISE Administration Acetaminophen 1,000 mg in 100 mls @ 400 mls/hr 05/31/21 14:59 05/31/21 21:55 Ofirmev 1,000 Mg Ivpb IVPB Infused Q6H PRN Infusion Pain Rated 4-6 Levothyroxine Sodium 25 mcg 05/31/21 06:30 06/01/21 06:29 Levothyroxine Sodium Inj 100 Mcg/5 Ml Vial IV PUSH 25 mcg DAILY@0630 JENISE Administration Nicotine 1 patch 05/31/21 09:00 06/01/21 07:52 Nicotine (*Nichokc) 14 Mg Patch TRANSDERM 1 patch QAM JENISE Administration Ondansetron HCl 4 mg 05/30/21 14:17 05/31/21 15:03 Ondansetron Inj 4 Mg/2 Ml Vial IV PUSH 4 mg Q4H PRN Administration Nausea Umeclidinium/Vilanterol 1 puff 05/30/21 20:32 05/31/21 08:03 Umeclidinium/Vilanterol 62.5-25 Mcg Ellipta INHALATION 1 puff DAILY PRN Administration Shortness Of Breath Radiology Results: ITS Impressions Chest X-Ray 05/31/21 15:48 IMPRESSION: 1. Small pleural effusions. 2. Airspace opacities in the lower lung zones, likely atelectasis. 3. 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 4. Dilated small bowel, consistent with small bowel obstruction. Abdomen/Pelvis CT 05/31/21 15:54 IMPRESSION: 1. Small bowel obstruction with transition point in right abdomen. 2. Worsened moderate volume of ascites. 3. Worsened small pleural effusions. 4. Stable small pericardial effusion. 5. Small sliding hiatal hernia. 6. Distended gallbladder, which may secondary to fasting. Upper GI and Small Bowel X-Ray 05/31/21 17:17 IMPRESSION: 1. Small bowel obstruction. Abdomen X-Ray 06/01/21 08:44 IMPRESSION: 1. Persistent small bowel obstruction. Labs Labs: Laboratory Results - last 24 hr 05/31/21 06/01/21 06/01/21 13:10 05:19 05:19 WBC 8.5 RBC 2.94 L Hgb 10.6 L Hct 34.2 L MCV 116.3 H D MCH 36.1 H MCHC 31.0 L RDW 19.2 H Plt Count 242 MPV 12.2 H Immature Gran % (Auto) 1.3 H Neut % (Auto) 71.3
[2021-06-01 11:49] LABS: Alanine Aminotransferase 10 U/L (4-35); Albumin Level 3.9 g/dL (3.5-5.1); Alkaline Phosphatase 88 U/L (38-126); Anion Gap 17 mmol/L (8-16); Aspartate Amino Transferase 43 U/L (14-36); Bilirubin,Total 0.5 mg/dL (0.2-1.3); Blood Urea Nitrogen 45 mg/dL (7-17); Calcium 9.4 mg/dL (8.4-10.2); Carbon Dioxide 22 mmol/L (22-30); Chloride 103 mmol/L (98-107); Estimated CRCL calculation 16 ml/min; Estimated Glomerular Filt Rate 29; Glucose 118 mg/dL (65-110); Potassium 4.4 mmol/L (3.4-5.0); Sodium 142 mmol/L (137-145)
--- NOTE | 2021-06-01 12:51 | WPDHPUPDATE1 ---
History and Physical Update Update Date/Time: 06/01/21 12:51 History and Physical has been reviewed, including an updated exam of the patient. There are NO changes in the patient's condition. Risks, benefits, and alternatives have been discussed and questions answered. Patient agrees to proceed with procedure. After reviewing KUB and d/w pt decision to proceed with ex lap today.
--- NOTE | 2021-06-01 13:35 | WPDANESEPPF ---
Anes - Initial Pre Proc Eval Procedure: Operation Date: 06/01/21 16:00 Proposed Procedures p Exploratory Laparotomy, Possible Bowel Resection - Jasmyn Hidalgo MD Date/Time: 06/01/21 13:35 Surgeon: Marian Dasilva PA-C Pre Op Diagnosis: Small bowel obstruction Patient Data Age: 80 Gender: F Height: 1.55 m Weight: 44.8 kg Last Vital Signs Temp 37.4 C 06/01/21 13:34 Pulse 114 H 06/01/21 13:34 Resp 18 06/01/21 13:34 BP 177/70 H 06/01/21 13:34 Pulse Ox 93 06/01/21 13:34 Allergies Allergy/AdvReac Type Severity Reaction Status Date / Time No Known Allergies Allergy Verified 05/30/21 15:56 Home Medications Medication Instructions Recorded Confirmed Type anastrozole 1 mg PO DAILY 05/30/21 05/30/21 History calcitriol 0.25 mcg PO 2XW 05/30/21 05/30/21 History clonidine HCl 0.1 mg PO Q12H 05/30/21 05/30/21 History levothyroxine 50 mcg PO DAILY 05/30/21 05/30/21 History nortriptyline 50 mg PO HS 05/30/21 05/30/21 History olanzapine 20 mg PO DAILY 05/30/21 05/30/21 History sodium bicarbonate 1,300 mg PO TID 05/30/21 05/30/21 History umeclidinium-vilanterol [Anoro 1 inh INHALATION DAILY PRN 05/30/21 05/30/21 History Ellipta] Laboratory Tests 05/31/21 06/01/21 06/01/21 13:10 05:19 05:19 WBC 8.5 K/mm3 K/mm3 (4.5-10.0) RBC 2.94 M/mm3 L M/mm3 (4.2-5.4) Hgb 10.6 g/dL L g/dL (12.0-15.0) Hct 34.2 % L % (37.0-47.0) MCV 116.3 fl H D fl (80-100) MCH 36.1 pg H pg (26-34) MCHC 31.0 g/dl L g/dl (32-36) RDW 19.2 % H % (11.5-14.5) Plt Count 242 k/mm3 k/mm3 (150-375) MPV 12.2 fl H fl (7.4-10.4) Immature Gran % (Auto) 1.3 % H % (0-0.5) Neut % (Auto) 71.3 % % (45.5-73.1) Lymph % (Auto) 3.9 % L % (18.3-44.2) [place] % (Auto) 20.4 % H % (2.6-8.5) Eos % (Auto) 2.5 % % (0-4.4) Baso % (Auto) 0.6 % % (0.2-1.2) Lymph # (Auto) 0.33 K/mm3 L K/mm3 (0.9-3.2) [place] # (Auto) 1.7 K/mm3 H K/mm3 (0.1-0.6) Eos # (Auto) 0.2 K/mm3 K/mm3 (0-0.3) Baso # (Auto) 0.1 K/mm3 K/mm3 (0.0-0.1) Abs Immat Gran (auto) 0.11 K/mm3 H K/mm3 (0.00-0.031) Absolute Neuts (auto) 6.0 K/mm3 K/mm3 (1.3-6.7) Absolute Nucleated RBC 0.1 K/mm3 H K/mm3 (0.0-0.012) Nucleated RBC % 0.9 % H % (0.0-0.2) Sodium 142 mmol/L mmol/L (137-145) Potassium 4.4 mmol/L mmol/L (3.4-5.0) Chloride 103 mmol/L mmol/L (98-107) Carbon Dioxide 22 mmol/L mmol/L (22-30) Anion Gap 17 mmol/L H mmol/L (8-16) BUN 45 mg/dL H mg/dL (7-17) Creatinine 1.70 mg/dL H mg/dL (0.7-1.0) Estim Creat Clear Calc 16 ml/min ml/min Estimated GFR 29 L (59 - ) Glucose 118 mg/dL H mg/dL (65-110) Calcium 9.4 mg/dL mg/dL (8.4-10.2) Total Bilirubin 0.5 mg/dL mg/dL (0.2-1.3) AST 43 U/L H U/L (14-36) ALT 10 U/L U/L (4-35) Alkaline Phosphatase 88 U/L U/L (38-126) Total Protein 7.0 g/dL g/dL (6.3-8.2) Albumin 3.9 g/dL g/dL (3.5-5.1) Procalcitonin TSH (Reflex) 0.534 uIU/mL uIU/mL (0.465-4.68) 06/01/21 05:19 WBC RBC Hgb Hct MCV MCH MCHC RDW Plt Count MPV Immature Gran % (Auto) Neut % (Auto) Lymph % (Auto) [place] % (Auto) Eos % (Auto) Baso % (Auto) Lymph # (Auto) [place] # (Auto) Eos # (Auto) Baso # (Auto) Abs Immat Gran (auto) Absolute Neuts (auto) Absolute Nucleated RBC Nucleated RBC % Sodium Potassium Chloride Carbon Dioxide Anion Gap BUN Creatinine Estim Creat Clear Calc Estimated GFR Gl
[2021-06-01] MEDS: LACTATED RINGERS 1,000 ML 30 ML IV CONT ×3 (13:39→16:02)
[2021-06-01] MEDS: fentaNYL CITRATE INJ (*CRX) 100 MCG/2 ML VIAL 25 MCG IV PUSH ×6 (13:46→16:43)
--- NOTE | 2021-06-01 13:57 | SUR.PREOP ---
[id number]; DR KUHN IN ROOM SPEAKING TO PT AND DAUGHTER. ORDERED IVF TO CONTINUE INFUSING QUICKLY TO FINISH 1 LITER
--- NOTE | 2021-06-01 14:01 | PM.IMPN ---
Progress Note: A&P Assessment and Plan (1) Small bowel obstruction: Code(s): K56.609 - Unspecified intestinal obstruction, unspecified as to partial versus complete obstruction Status: Acute Assessment and Plan: White blood cell count 8.5 this morning, procalcitonin 0.8, up from 0.5 yesterday. 06/01 KUB showed persistent small bowel obstruction. As of most recent vitals, Pt is mildly hypertensive and tachycardic, and she is uncomfortable today. NG tube hold 2400 mL yesterday, and additional 1000 today. 05/31 Small-bowel follow-through showed small-bowel obstruction, also confirmed by CT abdomen pelvis. Dr. Hidalgo has taken her for exploratory laparotomy with possible bowel resection today. -surgery today, who will direct her postoperative care. -pain control per surgery -continue to monitor hemodynamics -keep NPO -continue IV fluids (2) Altered breathing pattern: Code(s): R06.89 - Other abnormalities of breathing Status: Acute Assessment and Plan: Patient was noted to be tachypneic with shallow breathing during exam today, crackles not appreciated during today's exam. 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 Patient's O2 saturations at 93%, on room air today. -Will start supplemental O2 via nasal cannula if O2 sats drop below 94% (3) Emphysema of lung: Code(s): J43.9 - Emphysema, unspecified Status: Acute Assessment and Plan: Continue home inhaler. - Supplemental O2 as necessary. (4) Hypothyroidism: Code(s): E03.9 - Hypothyroidism, unspecified Status: Acute Assessment and Plan: TSH 0.534, will continue home medication (5) Chronic kidney disease: Code(s): N18.9 - Chronic kidney disease, unspecified Status: Acute Assessment and Plan: Today's creatinine 1.7, slightly increased from yesterday.. Patient has CKD, still awaiting primary care records for baseline creatinine. -will continue IV fluids Additional Plan Patient on anastrozole, status post right right breast lumpectomy due to breast cancer. Held at this time due to NPO status. -Continue to hold p.o. medications at this time. Subjective Date/time seen: 06/01/21 14:01 Ms. Lazar is a pleasant 80-year-old female smoker with past medical history emphysema, hypothyroidism, anxiety, breast cancer, colon polyps status post right hemicolectomy, who presented to the ER for abdominal pain. She slept well, however, continues to have pain, and reports a tight belly. She endorses nausea and vomiting late yesterday, continues to have nausea today. She denies fevers, chills, chest pain, or shortness of breath. She has not had a bowel movement since her admission, and she is not passing gas. She had her small-bowel follow-through yesterday, which she reports was difficult that caused her to throw up. She is requesting ice chips. Review of Systems Review of Systems: All systems reviewed & are unremarkable except as noted in HPI and below Exam Narrative: GENERAL APPEARANCE: Alert and oriented x 3, visibly uncomfortable. HEENT: PERRL, EOMI. Sclerae anicteric. Dry mucous membranes. NECK: Supple. No JVD or obvious carotid bruits. RESPIRATORY: Respirations are shallow and rapid. Breath sounds are diminished on the left side. CARDIOVASCULAR: Tachycardia with normal rhythm with normal S1-S2. No murmurs, gallops, or rubs. GASTROINTESTINAL: Tense abdomen, bowel sounds present, no rebound, but diffuse tenderness to palpation. No organomegaly or hernia. SKIN: Warm, dry, well perfused. Poor turgor, no lesions, nodules, or rashes noted. Warm and dry. No rash or lesions on limited exam. EXTREMITIES: No cyanosis. Radial and pedal pulses intact. NEUROLOGICAL: Alert. Cranial nerves 2-12 are grossly intact. No gross
[2021-06-01] MEDS: ceFAZolin 2 GM/D5W 50 ML 2 GM/50 ML BAG IVPB (14:18)
--- NOTE | 2021-06-01 15:34 | W.PM.PROC2 ---
Procedure Note - Detailed Date of Procedure 06/01/21 Pre-op Diagnosis Small bowel obstruction Post-op Diagnosis Same Procedure Performed Exploratory laparotomy, extensive lysis of adhesions approximately 30 minutes, small-bowel resection Surgeon Jasmyn Hidalgo MD Anesthesia General Indications 80 y/o F with history of previous abdominal surgery including right colectomy, presenting with complete bowel obstruction Findings dense adhesions in right lower quadrant causing complete bowel obstruction in mid ileum, noted ischemic changes in mid ileum Description of Procedure The patient was taken to the operating room and placed the supine position. After adequate induction of general anesthesia, the patient was prepped and draped in the normal sterile fashion. A time-out was then done to verify the patient's identity, as well as the procedure being performed. I began by making a midline incision through her previous open incision. This was carried into her peritoneal cavity. Once in her peritoneal cavity, a moderate amount of free fluid was encountered. There was noted to be adhesions to the anterior abdominal wall, especially near the right lower quadrant. I began by taking down these adhesions so I could run the entirety of the small intestine. Lysis of adhesions took approximately 1/2 hour. The proximal small intestine was noted to be extremely dilated until a transition point in the right lower quadrant. There was noted to be some duskiness in the jejunum however this resolved through the case. Upon freeing the adhesions in the right lower quadrant, I was able to bring up the area of obstruction. The area was noted to be quite ischemic appearing likely secondary to the tight adhesion. The bowel around this 6 in area was completely unremarkable. Given this finding, I went ahead and resected this area. During reanastomosis, we decompressed the proximal small intestine and approximately 1 L of succus was evacuated. I then performed a [id number] functional end-to-end anastomosis in the mid ileum using a 55 RAFAL followed by Tx 60 stapler. The mesenteric defect was closed with a running 3-0 silk suture. The anastomosis was noted to be widely patent and tension-free. I then again ran the entirety of the small bowel which was again dilated but viable. I then copiously irrigated the abdomen. No other pathology was encountered. I then closed the fascia with a looped PDS suture x2. The skin was closed with skin latoya. The patient tolerated the procedure well and was extubated in the operating room postoperatively. She will be sent to the recovery room in stable condition. Estimated Blood Loss 50 Urine Output 150 Drains No Packing No Pathology Yes Complications No immediate complications Condition Stable Disposition PACU
[2021-06-01] MEDS: MORPHINE SULFATE (*CRX) 2 MG/ML INJ IV PUSH (19:19)
[2021-06-01] MEDS: FAMOTIDINE 20 MG/2 ML VIAL IV PUSH (20:10)
[2021-06-01 20:25] LABS: Glucose Point of Care 153 mg/dl (65-105)
[2021-06-02] VITALS (9 sets, daily range): BP systolic 133–158; BP diastolic 41–62; PULSE 104–122; RESP 18–20; TEMP 35.9–37.2; O2SAT 92–100
[2021-06-02] MEDS: LACTATED RINGERS 1,000 ML 75 ML IV CONT (00:13)
[2021-06-02] MEDS: MORPHINE SULFATE (*CRX) 2 MG/ML INJ IV PUSH ×2 (00:14→11:57)
[2021-06-02 05:52] LABS: Basophils Percent Auto 0.3 % (0.2-1.2); Eosinophils Percent Auto 0.3 % (0-4.4); Hematocrit 30.3 % (37.0-47.0); Hemoglobin 9.7 g/dL (12.0-15.0); Immature Granulocyte Absolute 0.07 K/mm3 (0.00-0.031); Immature Granulocyte Percent A 0.7 % (0-0.5); Lymphocytes Absolute Auto 0.21 K/mm3 (0.9-3.2); Lymphocytes Percent Auto 2.2 % (18.3-44.2); Mean Corpuscular Hemoglobin 36.2 pg (26-34); Mean Corpuscular Volume 113.1 fl (80-100); Mean Platelet Volume 12.1 fl (7.4-10.4); Monocytes Absolute Auto 2.2 K/mm3 (0.1-0.6); Monocytes Percent Auto 22.5 % (2.6-8.5); Neutrophils Absolute Auto 7.1 K/mm3 (1.3-6.7); Nucleated Red Blood Cells Absolute Auto 0.1 K/mm3 (0.0-0.012); Nucleated Red Blood Cells Perc 1.1 % (0.0-0.2); Platelet Count Result 247 k/mm3 (150-375); Red Blood Count 2.68 M/mm3 (4.2-5.4); Red Cell Distribution Width 18.6 % (11.5-14.5); White Blood Count 9.6 K/mm3 (4.5-10.0)
[2021-06-02 06:08] LABS: Anion Gap 13 mmol/L (8-16); Blood Urea Nitrogen 42 mg/dL (7-17); Calcium 8.7 mg/dL (8.4-10.2); Carbon Dioxide 23 mmol/L (22-30); Chloride 106 mmol/L (98-107); Estimated CRCL calculation 20 ml/min; Estimated Glomerular Filt Rate 36; Glucose 142 mg/dL (65-110); Potassium 4.9 mmol/L (3.4-5.0); Sodium 142 mmol/L (137-145)
[2021-06-02 06:31] LABS: Procalcitonin 4.3 ng/mL
[2021-06-02] MEDS: LEVOTHYROXINE SODIUM INJ 100 MCG/5 ML VIAL 25 MCG IV PUSH (06:37)
[2021-06-02] MEDS: ENOXAPARIN 40 MG/0.4 ML SYRINGE SUB-Q (09:02)
[2021-06-02] MEDS: NICOTINE (*PBKC) 14 MG PATCH 1 PATCH TRANSDERM (09:02)
[2021-06-02] MEDS: FAMOTIDINE 20 MG/2 ML VIAL IV PUSH (09:02)
[2021-06-02 09:50] LABS: Partial Thromboplastin Time 38.5 SECONDS (22.3-36.8)
[2021-06-02] MEDS: FAT EMULSIONS IV 20% 250 ML 20.83 ML IVPB (09:53)
[2021-06-02] MEDS: AMINO ACIDS 4.25%/D5W/LYTES/CA 2,000 ML 80 ML IV CONT (09:53)
[2021-06-02 09:57] LABS: Transferrin 109 mg/dL (206-381)
--- NOTE | 2021-06-02 11:19 | PCNFU ---
Nutrition Follow-Up Complete: Altered GI function as related to SBO as evidenced by NPO Goal: Meet estimated nutritional needs Patient is progressing towards goal we will continue current goal. Pt current nutrition is PPN. Last recorded weight is 48.6 kg, up from 44.8 kg on admit. Bowel Motility: No BM to report. Labs Reviewed:Glu 142, BUN 42, Cr 1.4,Hct 30.3,Hgb 9.7 Meds Noted:Clinimix 4.25/5 at 80 ml/hr with 20% of 250 ml of Lipid Emulsion, Synthroid, Morphine Sulfate, Lovenox, Pepcid. Skin: WNL Additional Notes: Patient had right colectomy 06/01. PPN started today providing 1153 kcals and 82 gms protein. PPN is currently meeting 69% of caloric needs and 100% protein needs. Agree with PPN orders at this time. Will monitor every Tuesday and Tuesday.
--- NOTE | 2021-06-02 11:24 | PM.PNGS ---
Progress Note: A&P Assessment and Plan (1) Small bowel obstruction: Code(s): K56.609 - Unspecified intestinal obstruction, unspecified as to partial versus complete obstruction Status: Acute Assessment and Plan: Await return of bowel function Continue NG tube and bowel rest. Will start PPN/Clinimix today, stop IV fluids. May need to consider PICC/TPN if this needs to be longer term. Encouraged OOB/IS use Additional Plan I have discussed the patient's case and plan of care with Dr. Hidalgo. Subjective Subjective Date/Time Seen: 06/02/21 11:24 Post Op day: 1 (Ex lap, adhesiolysis, small bowel resection) Patient reports: no flatus, no bowel movement and afebrile Interval history: Patient seen and examined, chart reviewed. Her only complaint is incisional pain. She reports it is painful to move or sit up but she is comfortable at rest. She did have Morphine overnight that helped her pain. Per the nurse, she has not complained of pain for her this morning. Denies any other complaints or issues overnight. Review of Systems Review of Systems: All systems reviewed & are unremarkable except as noted in HPI and below Constitutional: Constitutional: Reports as per HPI, Reports no additional constitutional complaints, Denies chills and Denies fever(s) Cardiovascular: Cardiovascular: Reports no additional cardiovascular complaints, Denies chest pain, Denies leg edema and Denies dyspnea Respiratory: Respiratory: Reports no additional respiratory complaints, Denies cough and Denies dyspnea Gastrointestinal: Gastrointestinal: Reports as per HPI and Reports no additional gastrointestinal complaints Neurologic: Reports system reviewed and no additional complaints, except as documented, Denies Abnormal speech present and Denies focal weakness Exam Const: General: comfortable, no acute distress, alert and awake Orientation/consciousness: patient oriented x3 Cardio: Rate: tachycardic Rhythm: regular rhythm GI: Inspection: incision (Dressing saturated with serosang drainage, will change sterile gauze drsg) and other (mildly distended) GI Palp: Yes Soft to palpation and Yes Tenderness to palpation present (GI) (generalized abdominal tenderness) Auscultation: absent bowel sounds Neuro: General: moves all extremities and no focal motor deficits Extrem: General: no clubbing, cyanosis or edema and no calf tenderness Psych: Insight: Good insight present (Psych) Judgement: Good judgement present (Psych) Objective Data Vital Signs Vital Signs: Vital Signs - 24 hr 06/01/21 12:43 06/01/21 13:34 06/01/21 15:38 Temperature 97.6 F 99.3 F 98.2 F Pulse Rate 110 H 114 H 84 Respiratory Rate 16 18 99 H Blood Pressure 177/70 H 145/55 H Pulse Oximetry 93 93 99 06/01/21 15:53 06/01/21 16:08 06/01/21 16:23 Temperature 98.6 F Pulse Rate 93 97 102 H Respiratory Rate 24 H 22 H 23 H Blood Pressure 166/54 H 170/57 H 163/52 H Pulse Oximetry 99 100 93 06/01/21 16:38 06/01/21 16:53 06/01/21 17:10 Temperature 97.3 F L Pulse Rate 104 H 104 H 111 H Respiratory Rate 21 H 20 16 Blood Pressure 160/56 H 166/59 H 142/48 H Pulse Oximetry 97 96 96 06/01/21 17:25 06/01/21 17:55 06/01/21 18:55 Temperature 97.1 F L 97.2 F L 97.5 F L Pulse Rate 98 116 H 118 H Respiratory Rate 16 18 16 Blood Pressure 142/43 H 142/40 H 142/48 H Pulse Oximetry 96 98 98 06/01/21 18:56 06/01/21 20:00 06/01/21 21:00 Temperature 97.8 F 97.2 F L Pulse Rate 106 H 102 H Respiratory Rate 16 18 Blood Pressure 148/68 H 140/58 L Pulse Oximetry 96 96 100 06/02/21 00:00 06/02/21 04:13 06/02/21 05:47 Temperature 96.7 F L 98.9 F Pulse Rate 104 H 112 H Respiratory Rate 20 18 Blood Pressure 151/61 H 145/49 H Pulse Oximetry 100 92 100 06/02/21 06:58 06/02/21 10:00 Temperature 97.2 F L Pulse Rate 119 H Respiratory Rate 18 Blood Pressure 133/55 L Pulse Oximetry 96 92 Intake/Output Intake/Output: Intake & Output 05/30/21
--- NOTE | 2021-06-02 11:50 | WPDANESPN ---
Anes - Prog Note Post-Op Date/Time: 06/02/21 11:50 Cardiovascular status: normal Respiratory status: normal Airway patency: baseline Mental status: baseline Post-Op hydration status: normal Vital Signs: Last Vital Signs Temp 36.2 C L 06/02/21 10:00 Pulse 119 H 06/02/21 10:00 Resp 18 06/02/21 10:00 BP 133/55 L 06/02/21 10:00 Pulse Ox 92 06/02/21 10:00 Pain Score (VAS): 05/07 I/O: Intake & Output 06/01/21 06/02/21 06/02/21 23:59 07:59 15:59 Intake Total 1700 0 Output Total 405 400 Balance 1295 -400 0 Laboratory Tests 06/02/21 05:39 06/02/21 05:39 06/01/21 06/02/21 06/02/21 20:14 05:39 05:39 WBC 9.6 RBC 2.68 L Hgb 9.7 L Hct 30.3 L MCV 113.1 H MCH 36.2 H MCHC 32.0 RDW 18.6 H Plt Count 247 MPV 12.1 H Immature Gran % (Auto) 0.7 H Neut % (Auto) 74.0 H Lymph % (Auto) 2.2 L [place] % (Auto) 22.5 H Eos % (Auto) 0.3 Baso % (Auto) 0.3 Lymph # (Auto) 0.21 L [place] # (Auto) 2.2 H Eos # (Auto) 0.0 Baso # (Auto) 0.0 Abs Immat Gran (auto) 0.07 H Absolute Neuts (auto) 7.1 H Absolute Nucleated RBC 0.1 H Nucleated RBC % 1.1 H APTT Sodium Potassium Chloride Carbon Dioxide Anion Gap BUN Creatinine Estim Creat Clear Calc Estimated GFR Glucose POC Capillary Glucose 153 H Calcium Transferrin Procalcitonin 4.3 06/02/21 06/02/21 06/02/21 05:39 09:28 09:28 WBC RBC Hgb Hct MCV MCH MCHC RDW Plt Count MPV Immature Gran % (Auto) Neut % (Auto) Lymph % (Auto) [place] % (Auto) Eos % (Auto) Baso % (Auto) Lymph # (Auto) [place] # (Auto) Eos # (Auto) Baso # (Auto) Abs Immat Gran (auto) Absolute Neuts (auto) Absolute Nucleated RBC Nucleated RBC % APTT 38.5 H Sodium 142 Potassium 4.9 Chloride 106 Carbon Dioxide 23 Anion Gap 13 BUN 42 H Creatinine 1.40 H Estim Creat Clear Calc 20 Estimated GFR 36 L Glucose 142 H POC Capillary Glucose Calcium 8.7 Transferrin 109 L Procalcitonin Post-procedural complaints: none Patient Feedback: Patient satisfied with anesthetic care.
[2021-06-02 11:53] LABS: Glucose Point of Care 153 mg/dl (65-105)
--- NOTE | 2021-06-02 15:26 | ECG_ITS ---
Measurements Intervals [place] Rate: 116 P: 50 NE: 110 QRS: 15 QRSD: 84 T: 75 QT: 289 QTc: 402 Interpretive Statements SINUS TACHYCARDIA WITH SHORT NE INTERVAL NONSPECIFIC T-WAVE ABNORMALITY ABNORMAL RHYTHM ECG NO PREVIOUS ECG AVAILABLE FOR COMPARISON Electronically Signed On 06-02-2021 16:53:05 CDT by Polly Gil M.D.
--- NOTE | 2021-06-02 15:37 | PM.IMPN ---
Progress Note: A&P Assessment and Plan (1) Small bowel obstruction: Code(s): K56.609 - Unspecified intestinal obstruction, unspecified as to partial versus complete obstruction Status: Acute Assessment and Plan: Patient is 1 day s/p ex lap w/ adhesiolysis, partial small bowel resection. No elevations in WBC today, mild anemia noted on CBC. Patient is comfortable. -surgery will direct her postoperative care. -pain control per surgery -continue to monitor hemodynamics -continue IV nutrition -Await for return of bowel function. -Patient started on lovenox per surgery. (2) Altered breathing pattern: Code(s): R06.89 - Other abnormalities of breathing Status: Acute Assessment and Plan: Patient's O2 sats dipped to 92% today and she was started on supplemental O2 (2L) was noted to be tachypneic with shallow breathing during exam today, patient's lungs sound wet today, with rhonchi and inspiratory crackles. 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 - CXR & EKG today - Supplemental O2 if below 90% (3) Emphysema of lung: Code(s): J43.9 - Emphysema, unspecified Status: Acute Assessment and Plan: Continue home inhaler. (4) Hypothyroidism: Code(s): E03.9 - Hypothyroidism, unspecified Status: Acute Assessment and Plan: TSH 0.534, will continue home medication. (5) Chronic kidney disease: Code(s): N18.9 - Chronic kidney disease, unspecified Status: Acute Assessment and Plan: Today's creatinine 1.4, down from yesterday.. Patient has CKD, still awaiting primary care records for baseline creatinine. (6) Tachycardia: Code(s): R00.0 - Tachycardia, unspecified Status: Acute Assessment and Plan: Patient has been observed to be mildly tachycardic since arrival. She continues to be tachycardic 1 day s/p ex lap, with additional concerning lung findings on exam and oxygen desaturations. We will order an EKG and CXR to check for NSR. - EKG - Continue DVT prophylaxis with lovenox/ SCDs - Venous doppler Additional Plan Patient on anastrozole, status post right right breast lumpectomy due to breast cancer. Held at this time due to NPO status. -Continue to hold p.o. medications at this time. Subjective Date/time seen: 06/02/21 15:37 Ms. Lazar is an 80 yo female smoker w/ history of emphysema, hypothyroidism, anxiety, breast cancer, colon cancer s/p hemicolectomy, and now 1 day s/p ex lap due to SBO w/ partial small bowel resection. She reports minimal pain today. She denies chest pain, shortness of breath, fevers, chills, lower extremity swelling. She has been keeping an ice pack on her surgical site, and her nurse has changed the dressing once today. Review of Systems Review of Systems: All systems reviewed & are unremarkable except as noted in HPI and below Exam Narrative: GENERAL APPEARANCE: drousy, but easily roused, and oriented. HEENT: PERRL, EOMI. Sclerae anicteric. Ddry mucous membranes. NECK: Supple. No JVD or obvious carotid bruits. RESPIRATORY: Respirations are shallow and but non-rapid. Breath sounds wet with expiratory rhonci bilaterally and inspiratory crackles. CARDIOVASCULAR: tachycardic with regular rhythm with normal S1-S2. No murmurs, gallops, or rubs. GASTROINTESTINAL: bandage over midline laparotomy surgical site. + tenderness. No organomegaly or hernia. Bowel sounds are present. SKIN: Warm, dry, well perfused. poor turgor. No lesions, nodules, or rashes noted. No rash or lesions on limited exam. EXTREMITIES: No cyanosis edema. Radial and pedal pulses intact. NEUROLOGICAL: Alert. Cranial nerves 2-12 are grossly intact. No gross focal deficits to casual conversation. PSYCHIATRIC: Pleasant and cooperat
[2021-06-02 18:23] LABS: Glucose Point of Care 121 mg/dl (65-105)
[2021-06-03 02:12] LABS: Glucose Point of Care 123 mg/dl (65-105)
[2021-06-03 04:45] VITALS: BP 160/82; PULSE 117; RESP 18; TEMP 37.6; O2SAT 96
[2021-06-03 06:11] LABS: Hematocrit 26.4 % (37.0-47.0); Hemoglobin 8.4 g/dL (12.0-15.0); Mean Corpuscular HGB Conc 31.8 g/dl (32-36); Mean Corpuscular Hemoglobin 36.1 pg (26-34); Mean Corpuscular Volume 113.3 fl (80-100); Mean Platelet Volume 11.8 fl (7.4-10.4); Platelet Count Result 185 k/mm3 (150-375); Red Blood Count 2.33 M/mm3 (4.2-5.4); Red Cell Distribution Width 18.3 % (11.5-14.5); White Blood Count 7.3 K/mm3 (4.5-10.0)
[2021-06-03 06:27] LABS: Anion Gap 7 mmol/L (8-16); Blood Urea Nitrogen 42 mg/dL (7-17); Calcium 9.2 mg/dL (8.4-10.2); Carbon Dioxide 29 mmol/L (22-30); Chloride 105 mmol/L (98-107); Estimated CRCL calculation 24 ml/min; Estimated Glomerular Filt Rate 43; Glucose 115 mg/dL (65-110); Phosphorus 3.1 mg/dL (2.5-4.5); Potassium 4.2 mmol/L (3.4-5.0); Sodium 141 mmol/L (137-145); Triglycerides 54 mg/dL (<150)
[2021-06-03 06:39] LABS: Glucose Point of Care 133 mg/dl (65-105)
[2021-06-03 06:49] LABS: Procalcitonin 3.4 ng/mL
[2021-06-03] MEDS: NICOTINE (*PBKC) 14 MG PATCH 1 PATCH TRANSDERM (09:17)
[2021-06-03] MEDS: ENOXAPARIN 40 MG/0.4 ML SYRINGE SUB-Q (09:17)
--- NOTE | 2021-06-03 10:12 | PM.PNGS ---
Progress Note: A&P Assessment and Plan (1) Small bowel obstruction: Code(s): K56.609 - Unspecified intestinal obstruction, unspecified as to partial versus complete obstruction Status: Acute Assessment and Plan: Await return of bowel function Continue NG tube, NPO. Lost peripheral IV access, nursing calling [facility] to place midline or PICC line for TPN. Encouraged OOB/IS use. Ordered PT/OT to start increasing activity. Additional Plan I have discussed the patient's case and plan of care with Dr. Hidalgo. Discussed case with hospitalist regarding oxygen requirement and respiratory status, as well as confusion. They will assess today for need for diuresis or further diagnostic testing. Subjective Subjective Date/Time Seen: 06/03/21 09:12 Post Op day: 2 Patient reports: no new complaints, feels better, pain is less, no flatus, no bowel movement and afebrile Interval history: Patient seen and examined. She reportedly got confused overnight and pulled her NG tube out, and another NG has been replaced. Staff had to call family to come sit with her at the bedside overnight due to her confusion. Per nursing, this has improved this morning. The patient is oriented to person/time and is able to tell me she is in the hospital, but cannot recall what town. She also did not recall that she recently had surgery. She denies any pain at the time of my exam. She is still on 1 L O2 and denies cough or shortness of breath at rest. There is no documented NG output from yesterday or overnight. When looking at the canister, there is no additional output from yesterday --- and on further inspection the suction appears to be off. It is unclear how long the NG was off suction. Nursing fixed the problem while I was in the room. She also lost IV access overnight. They tried to call and there is no IV access nurse available in the hospital today. Nursing will try to call ICU to see if a nurse could come try to place a peripheral IV and if unable to do so, they will call in [facility] to evaluate for PICC/midline. No other acute events overnight. Review of Systems Review of Systems: ROS unobtainable: Yes unobtainable due to mental status Exam Const: General: comfortable, no acute distress and awake Orientation/consciousness: oriented to person, No oriented to place, oriented to time and confusion (improved this morning) Other: Calm and cooperative Resp: Effort & Inspection: normal respiratory effort Auscultation: crackles (coarse) diffuse and rhonchi throughout Cardio: Rate: tachycardic Rhythm: regular rhythm GI: Inspection: Abdominal wall edema (mild abd edema diffusely) and non-distended GI Palp: Yes Soft to palpation, Yes Tenderness to palpation present (GI) (incisional, improved today), No Guarding due to palpation present (GI) and No Rebound tenderness present Auscultation: Hypoactive bowel sounds present Other: Midline incision with latoya intact, min serosanguineous drainage at base of incision, no erythema or warmth Urinary Catheter: Urinary Catheter: patent and draining and urine clear Neuro: General: moves all extremities and no focal motor deficits Extrem: General: normal to inspection and no calf tenderness Psych: Insight: Fair insight present (Psych) Judgement: Fair judgement present (Psych) Objective Data Vital Signs Vital Signs: Vital Signs - 24 hr 06/02/21 13:04 06/02/21 16:46 06/02/21 20:00 Temperature 97.1 F L 97.0 F L 97.6 F Pulse Rate 120 H 122 H 119 H Respiratory Rate 20 18 18 Blood Pressure 158/41 H 144/51 H 145/62 H Pulse Oximetry 94 92 95 06/02/21 21:50 06/03/21 04:45 Temperature 99.6 F Pulse Rate 117 H Respiratory Rate 18 Blood Pressure 160/82 H Pulse Oximetry 94 96 Intake/Output Intake/Output: Intake & Output 05/31/21 06/01/21 06/02/21 06/03/21 23:59 23:59 23:59 23:59 Intake Total 2400 3750 0 Output Total 3000 2102 825 725 Balance -600 1645 -825 -725 Meds/Results Medications: A
[2021-06-03 11:43] LABS: Glucose Point of Care 109 mg/dl (65-105)
[2021-06-03 14:00] VITALS: BP 152/75; PULSE 103; RESP 18; TEMP 36.1; O2SAT 98
[2021-06-03] MEDS: AMINO ACIDS 4.25%/D5W/LYTES/CA 2,000 ML 80 ML IV CONT (14:10)
[2021-06-03] MEDS: FAT EMULSIONS IV 20% 250 ML 20.83 ML IVPB (14:12)
[2021-06-03] MEDS: LIDOCAINE HCL 1% PF INJ 5 ML VIAL INFILTRATE (14:13)
[2021-06-03] MEDS: FAMOTIDINE 20 MG/2 ML VIAL IV PUSH ×2 (14:13→20:49)
--- NOTE | 2021-06-03 14:19 | PM.IMPN ---
Progress Note: A&P Assessment and Plan (1) Small bowel obstruction: Code(s): K56.609 - Unspecified intestinal obstruction, unspecified as to partial versus complete obstruction Status: Acute Assessment and Plan: Patient is 2 day s/p ex lap w/ adhesiolysis, partial small bowel resection. No elevations in WBC today, mild anemia noted on CBC. Patient is comfortable. -surgery will direct her postoperative care. -pain control per surgery -continue to monitor hemodynamics -continue IV nutrition -Await for return of bowel function. -Patient started on lovenox per surgery. (2) Altered breathing pattern: Code(s): R06.89 - Other abnormalities of breathing Status: Acute Assessment and Plan: -Patient's O2 sats dipped to 92% 06/02/21 and she was started on supplemental O2 (2L) was noted to be tachypneic with shallow breathing during exam -patient's lungs sound wet today, with rhonchi and inspiratory crackles. 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 -repeat CXR today with small pleural effusion -will give one time dose of lasix 20 IV and monitor respiratory status and kidney function closely -Continue Supplemental O2 if below 90% -check a covid test (3) Emphysema of lung: Code(s): J43.9 - Emphysema, unspecified Status: Acute Assessment and Plan: -Continue home inhaler. (4) Hypothyroidism: Code(s): E03.9 - Hypothyroidism, unspecified Status: Acute Assessment and Plan: -TSH 0.534, will continue home medication. (5) Chronic kidney disease: Code(s): N18.9 - Chronic kidney disease, unspecified Status: Acute Assessment and Plan: -Patient has CKD, still awaiting primary care records for baseline creatinine. -creat was 2.1 on admission, down to 1.2 today (6) Tachycardia: Code(s): R00.0 - Tachycardia, unspecified Status: Acute Assessment and Plan: -Patient has been observed to be mildly tachycardic since arrival. She continues to be tachycardic 2 days s/p ex lap, with additional concerning lung findings on exam and oxygen desaturations. - EKG shows sinus tach - Continue DVT prophylaxis with lovenox/ SCDs - Venous dopplers negative bilaterally -seems to be improving today -will monitor closely (7) Pleural effusion: Code(s): J90 - Pleural effusion, not elsewhere classified Status: Acute Assessment and Plan: -lasix 20 IV once -repeat CXR in AM Subjective Date/time seen: 06/03/21 14:19 Interval history: 80-year-old female smoker with history of emphysema, hypothyroidism, anxiety, breast cancer, and colon polyp status post right hemicolectomy, admitted for SBO. Pt is POD 2. This afternoon she tells me she is feeling much better. Apparently had some confusion overnight but is A/Ox4 and answering all questions appropriately for me. She denies N/V/abd pain. She is not passing gas at this time. No cp/sob/cough. Review of Systems Review of Systems: All systems reviewed & are unremarkable except as noted in HPI and below Exam Narrative: General: No acute distress, non toxic appearing, elderly Eyes: PERRL, no scleral icterus HEENT: NCAT, external ears normal, MMM, edentulous Respiratory: No respiratory distress, breath sounds wet with expiratory rhonchi and inspiratory crackles bilaterally Cardiovascular: tachycardic with regular rhythm, no murmur Abdominal: Soft, nontender, no rebound or guarding, hypoactive bowel sounds Musculoskeletal: Moves all 4 extremities, no edema Neurological: A/Ox4, speech normal, no facial asymmetry Skin: Warm, dry, no rashes Psychiatric: Normal affect, normal mood Objective Data Vital Signs Vital Signs: Vital Signs - 24 hr 0
[2021-06-03] MEDS: FUROSEMIDE INJ 40 MG/4 ML VIAL 20 MG IV PUSH (14:50)
[2021-06-03 16:28] LABS: SARS-CoV-2 RNA PCR Negative
[2021-06-03] MEDS: MORPHINE SULFATE (*CRX) 2 MG/ML INJ IV PUSH (17:25)
[2021-06-03] MEDS: CENTRAL LINE FLUSH 10 ML IV PUSH (20:50)
[2021-06-03 21:30] VITALS: BP 155/65; PULSE 117; RESP 16; TEMP 36.1; O2SAT 91
[2021-06-04 04:43] VITALS: BP 170/72; PULSE 119; RESP 18; TEMP 36.4; O2SAT 94
[2021-06-04] MEDS: CENTRAL LINE FLUSH 10 ML IV PUSH ×3 (05:03→20:12)
[2021-06-04 05:08] LABS: Glucose Point of Care 126 mg/dl (65-105)
[2021-06-04 05:16] LABS: Hematocrit 26.9 % (37.0-47.0); Mean Corpuscular HGB Conc 33.5 g/dl (32-36); Mean Corpuscular Hemoglobin 36.4 pg (26-34); Mean Corpuscular Volume 108.9 fl (80-100); Mean Platelet Volume 12.6 fl (7.4-10.4); Platelet Count Result 190 k/mm3 (150-375); Red Blood Count 2.47 M/mm3 (4.2-5.4); Red Cell Distribution Width 17.8 % (11.5-14.5); White Blood Count 8.9 K/mm3 (4.5-10.0)
[2021-06-04 05:43] LABS: Alanine Aminotransferase 10 U/L (4-35); Albumin Level 3.3 g/dL (3.5-5.1); Alkaline Phosphatase 62 U/L (38-126); Anion Gap 6 mmol/L (8-16); Aspartate Amino Transferase 25 U/L (14-36); Blood Urea Nitrogen 43 mg/dL (7-17); Calcium 9.3 mg/dL (8.4-10.2); Carbon Dioxide 31 mmol/L (22-30); Chloride 99 mmol/L (98-107); Estimated CRCL calculation 29 ml/min; Estimated Glomerular Filt Rate 53; Glucose 124 mg/dL (65-110); Magnesium 1.9 mg/dL (1.6-2.3); Phosphorus 2.9 mg/dL (2.5-4.5); Potassium 4.2 mmol/L (3.4-5.0); Sodium 136 mmol/L (137-145)
[2021-06-04] MEDS: LEVOTHYROXINE SODIUM INJ 100 MCG/5 ML VIAL 25 MCG IV PUSH (06:17)
[2021-06-04 06:55] LABS: Band Neutrophils Percent 12 % (0-6); Basophils Absolute Manual 0.08 K/mm3 (0.0-0.1); Basophils Percent Manual 1 % (0-1); Eosinophils Absolute Manual 0.35 K/mm3 (0.02-0.5); Eosinophils Percent Manual 4 % (0-4); Lymphocytes Absolute Manual 0.89 K/mm3 (1.1-4.5); Monocytes Absolute Manual 0.44 K/mm3 (0.1-0.90); Monocytes Percent Manual 5 % (3-9); Neutrophils Absolute Manual 7.12 K/mm3 (1.7-7.2); Neutrophils Percent Manual 68 % (46-73); Nucleated Red Blood Cells 3 %; Total Cells Counted 100
[2021-06-04 06:56] LABS: Anisocytosis 1+ (NORMAL); Ovalocytes 1+ (NORMAL); Platelet Estimate Adequate (Adequate)
[2021-06-04 07:42] LABS: Glucose Point of Care 140 mg/dl (65-105)
[2021-06-04 08:20] VITALS: O2SAT 95
[2021-06-04] MEDS: ENOXAPARIN 40 MG/0.4 ML SYRINGE SUB-Q (08:52)
[2021-06-04] MEDS: NICOTINE (*PBKC) 14 MG PATCH 1 PATCH TRANSDERM (08:53)
[2021-06-04] MEDS: FAMOTIDINE 20 MG/2 ML VIAL IV PUSH ×2 (08:54→20:10)
[2021-06-04 10:11] VITALS: PULSE 120
[2021-06-04] MEDS: METOPROLOL TARTRATE INJ 5 MG/5 ML VIAL 2.5 MG IV PUSH (10:11)
[2021-06-04] MEDS: AMINO ACIDS 4.25%/D5W/LYTES/CA 2,000 ML 80 ML IV CONT (10:12)
[2021-06-04] MEDS: FAT EMULSIONS IV 20% 250 ML 20.8 ML IVPB (10:12)
--- NOTE | 2021-06-04 11:06 | PM.PNGS ---
Progress Note: A&P Assessment and Plan (1) Small bowel obstruction: Code(s): K56.609 - Unspecified intestinal obstruction, unspecified as to partial versus complete obstruction Status: Acute Assessment and Plan: Await return of bowel function Continue NG tube, NPO, and Clinimix. Will switch Clinimix from PPN at a rate of 80 mL/hr to TPN at a rate of 40 mL/hr to allow better control of her fluids. She was given one dose of IV Lasix from the Hospitalist yesterday. Encouraged increasing activity, OOB, IS use. Continue PT/OT. (2) Tachycardia: Code(s): R00.0 - Tachycardia, unspecified Status: Acute Assessment and Plan: Patient remains tachycardic following surgery. Pain is well-controlled. She is also now slightly hypoxic requiring oxygen. CXRs noted. EKG on 06/02 showed sinus tachycardia. Hospitalist ordered VQ scan to evaluate for PE. Additional Plan I have discussed the patient's case and plan of care with Dr. Hidalgo. Subjective Subjective Date/Time Seen: 06/04/21 11:06 Post Op day: 3 Patient reports: no new complaints, feels better, pain is less, no flatus, no bowel movement, shortness of breath and afebrile Interval history: Patient sitting up in the chair when seen today. She was able to walk in the room and get up to the chair yesterday with PT as well. She reports her post-op pain is well controlled and is improving daily. She does report feeling slightly short of breath today and yesterday. She is on 1L O2 currently. She has no other complaints at this time. 50 cc NG output yesterday and 200 cc output from NG overnight. No issues with confusion overnight per nursing. Patient appears more awake today and is oriented x 3. Review of Systems Review of Systems: All systems reviewed & are unremarkable except as noted in HPI and below Constitutional: Constitutional: Reports as per HPI, Reports no additional constitutional complaints, Denies chills and Denies fever(s) Cardiovascular: Cardiovascular: Reports no additional cardiovascular complaints, Denies chest pain and Denies leg edema Respiratory: Respiratory: Reports no additional respiratory complaints, Denies cough and Reports dyspnea Gastrointestinal: Gastrointestinal: Reports as per HPI and Reports no additional gastrointestinal complaints Neurologic: Reports system reviewed and no additional complaints, except as documented, Denies Abnormal speech present and Denies focal weakness Exam Const: General: comfortable, no acute distress and awake Nutritional Appearance: thin Orientation/consciousness: patient oriented x3 Resp: Effort & Inspection: normal respiratory effort Auscultation: rhonchi throughout Cardio: Rate: tachycardic Rhythm: regular rhythm GI: Inspection: incision (midline incision clean and dry, latoya intact) and other (mildly distended) GI Palp: Yes Soft to palpation, Yes Tenderness to palpation present (GI) (incisional) and No Guarding due to palpation present (GI) Auscultation: Hypoactive bowel sounds present (very hypoactive) Urinary Catheter: Urinary Catheter: patent and draining and urine clear Extrem: General: normal to inspection and no calf tenderness Psych: Judgement: Good judgement present (Psych) Objective Data Vital Signs Vital Signs: Vital Signs - 24 hr 06/03/21 14:00 06/03/21 21:30 06/04/21 04:43 Temperature 96.9 F L 97 F L 97.5 F L Pulse Rate 103 H 117 H 119 H Respiratory Rate 18 16 18 Blood Pressure 152/75 H 155/65 H 170/72 H Pulse Oximetry 98 91 94 06/04/21 10:11 Temperature Pulse Rate 120 H Respiratory Rate Blood Pressure Pulse Oximetry Intake/Output Intake/Output: Intake & Output 06/01/21 06/02/21 06/03/21 06/04/21 23:59 23:59 23:59 23:59 Intake Total 3750 0 2250 2350 Output Total 2105 825 1825 1500 Balance 1645 -825 425 850 Meds/Results Medications: Active Medications Generic Name Dose Route Start Last Admin Trade Name Freq PRN Reason Stop Dose Admi
[2021-06-04 11:14] LABS: Glucose Point of Care 132 mg/dl (65-105)
--- NOTE | 2021-06-04 11:20 | PM.IMPN ---
Progress Note: A&P Assessment and Plan (1) Small bowel obstruction: Code(s): K56.609 - Unspecified intestinal obstruction, unspecified as to partial versus complete obstruction Status: Acute Assessment and Plan: Patient is 3 day s/p ex lap w/ adhesiolysis, partial small bowel resection. -No elevations in WBC, mild anemia noted on CBC but stable -continue IV nutrition -Await for return of bowel function. -continue NG tube -Patient started on lovenox per surgery. -continued management per surgery (2) Acute respiratory failure: Code(s): J96.00 - Acute respiratory failure, unspecified whether with hypoxia or hypercapnia Status: Acute Assessment and Plan: -Patient's O2 sats dipped to 92% 06/02/21 and she was started on supplemental O2 (2L) was noted to be tachypneic with shallow breathing during exam -patient's lungs sound wet, with rhonchi and inspiratory crackles. 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 -repeat CXR 06/03/21 with small pleural effusion -gave one time dose of 20 IV lasix 06/03/21 and breath sounds have significantly improved. On 1L NC currently. -CXR 06/04/21 with improvement in atelectasis, no infiltrates -venous doppler negative for DVT, low creatinine clearance so will check VQ scan to evaluate for PE (3) Tachycardia: Code(s): R00.0 - Tachycardia, unspecified Status: Acute Assessment and Plan: -Patient has been observed to be mildly tachycardic since arrival. She continues to be tachycardic 3 days s/p ex lap, with oxygen desaturations. -EKG shows sinus tach -Continue DVT prophylaxis with lovenox/ SCDs -Venous dopplers negative bilaterally -check VQ scan for PE (4) Emphysema of lung: Code(s): J43.9 - Emphysema, unspecified Status: Acute Assessment and Plan: -Continue home inhaler. (5) Hypothyroidism: Code(s): E03.9 - Hypothyroidism, unspecified Status: Acute Assessment and Plan: -TSH 0.534, will continue home medication. (6) [id number]-edvnxpx kidney injury: Code(s): N17.9 - Acute kidney failure, unspecified; N18.9 - Chronic kidney disease, unspecified Status: Acute Assessment and Plan: -Patient has CKD, still awaiting primary care records for baseline creatinine. -creat was 2.1 on admission, down to 1.0 today (7) Pleural effusion: Code(s): J90 - Pleural effusion, not elsewhere classified Status: Acute Assessment and Plan: -lasix 20 IV once -repeat CXR with improvement, lung sounds also improved Additional Plan Patient on anastrozole, status post right right breast lumpectomy due to breast cancer. Held at this time due to NPO status. -Continue to hold p.o. medications at this time. Subjective Date/time seen: 06/04/21 11:20 Interval history: 80-year-old female smoker with history of emphysema, hypothyroidism, anxiety, breast cancer, and colon polyp status post right hemicolectomy, admitted for SBO. Pt is POD 3. A/Ox4 and answering all questions appropriately. No N/V but she is having some abdominal pain over her incision. No BM and she is not passing gas. No cp but does report some sob today. Denies cough but RN notes that she has heard her coughing at times. Walked 60 feet today with therapy. Review of Systems Review of Systems: All systems reviewed & are unremarkable except as noted in HPI and below Exam Narrative: General: No acute distress, non toxic appearing, elderly Eyes: PERRL, no scleral icterus HEENT: NCAT, external ears normal, MMM, edentulous Respiratory: No respiratory distress, breath sounds improved, still some crackles at the left lung base, no wheezing Cardiovascular: tachycardic with regular rhythm, no murmur Abd
[2021-06-04] MEDS: SODIUM CHLORIDE 0.9% IV 1,000 ML 30 ML IV CONT (13:03)
[2021-06-04] MEDS: AMINO ACIDS 5%/D15W/E-LYTES/CA 2,000 ML with MULTIVITAMINS-12 INJ VIAL 1 2.5 ML, MULTIV... 40 ML IV CONT (13:03)
[2021-06-04 16:33] LABS: Glucose Point of Care 156 mg/dl (65-105)
[2021-06-04 18:14] VITALS: BP 148/70; PULSE 105; RESP 20; TEMP 36.2; O2SAT 94
[2021-06-04 20:00] VITALS: O2SAT 94
[2021-06-04 20:07] VITALS: BP 142/64; PULSE 108; RESP 18; TEMP 36.6; O2SAT 94
[2021-06-05] VITALS (9 sets, daily range): BP systolic 135–152; BP diastolic 57–64; PULSE 110–121; RESP 16–21; TEMP 36.1–36.6; O2SAT 85–98
--- NOTE | 2021-06-05 | ECHO_ITS ---
Patient Info Name: Rachel Lazar Age: 80 years : 1940 Gender: Female Ht: 61 in Wt: 107 lbs BSA: 1.45 m2 HR: 109 bpm BP: 152 / 64 mmHg Technical Quality: Poor Exam Date: 06/05/2021 1:09 PM Exam Location: [facility] Patient Status: Inpatient Admit Date: 05/30/2021 Staff Ordering Physician: Viviana Spangler PA-C [employer] Teacher: Daniela Cao RDCS Attending Provider: Viviana Spangler PA-C Referring Physician: Aníbal GAVIN; Exam Type: CA echo doppler color flow Study Info Indications I50.9 - Heart failure, unspecified Complete two-dimensional, color flow and Doppler transthoracic echocardiogram is performed. Reason for Poor Study: poor echocardiographic windows Summary 1. Complete two-dimensional, color flow and Doppler transthoracic echocardiogram is performed. 2. Technically suboptimal study due to poor sonographic images. 3. Left ventricular chamber dimension is normal. 4. Left ventricular systolic function is normal, estimated at 60-65%. 5. The left ventricular diastolic function is grade I diastolic dysfunction. 6. E/e' 17 is elevated. 7. The mitral valve has severe calcified annulus. Left Ventricle Technically suboptimal study due to poor sonographic images. E/e' 17 is elevated. Left ventricular chamber dimension is normal. Left ventricular systolic function is normal, estimated at 60-65%. The left ventricular diastolic function is grade I diastolic dysfunction. Right Ventricle Right ventricular chamber dimension is normal. Right ventricular systolic function is normal. Left Atria Left atrial chamber dimension is normal. Right Atria Right atrial chamber dimension is normal. Aortic Valve The aortic valve is not well visualized. Cannot determine number of aortic valve leaflets. There is no aortic valve stenosis based on valve area and gradients. There is no aortic valve regurgitation. Pulmonic Valve The pulmonic valve is not well visualized. Mitral Valve The mitral valve has severe calcified annulus. There is no mitral valve stenosis. There is no mitral valve regurgitation. Tricuspid Valve The tricuspid valve leaflets are not well visualized. There is no tricuspid valve regurgitation. Pericardium/Pleural There is trivial pericardial effusion. Inferior Vena Cava Normal inferior vena cava with >50% collapse upon inspiration consistent with normal right atrial pressure, 5 mmHg. Aorta The aortic root size at the sinus of Valsalva is not well visualized. Left Ventricular Outflow Tract Name Value Normal LVOT 2D LVOT Diameter 1.9 cm LVOT Doppler LVOT Peak Gradient 7 mmHg LVOT Mean Gradient 4 mmHg LVOT VTI 20 cm LVOT VTI/AV VTI Ratio 0.9 LVOT Stroke Volume 57 ml LVOT CO 6.3 l/min LVOT CI 4.4 l/min/m2 Pulmonic Valve Name Value
--- NOTE | 2021-06-05 00:45 | PC.NURSE ---
QUILT MAKER informed this nurse during rounds that patient had removed O2, NG tube and stat lock. family at bedside at this time. O2 SAT currently at 94% on 1L. Denies nausea and any episode of emesis. Catheter garcia remains in place stat lock replaced.
[2021-06-05 01:15] LABS: Glucose Point of Care 119 mg/dl (65-105)
[2021-06-05] MEDS: LEVOTHYROXINE SODIUM INJ 100 MCG/5 ML VIAL 25 MCG IV PUSH (05:17)
[2021-06-05] MEDS: CENTRAL LINE FLUSH 20 ML IV PUSH (05:18)
[2021-06-05 05:27] LABS: Hematocrit 27.1 % (37.0-47.0); Hemoglobin 8.7 g/dL (12.0-15.0); Mean Corpuscular HGB Conc 32.1 g/dl (32-36); Mean Corpuscular Hemoglobin 35.4 pg (26-34); Mean Corpuscular Volume 110.2 fl (80-100); Mean Platelet Volume 12.9 fl (7.4-10.4); Platelet Count Result 183 k/mm3 (150-375); Red Blood Count 2.46 M/mm3 (4.2-5.4); Red Cell Distribution Width 17.2 % (11.5-14.5); White Blood Count 10.3 K/mm3 (4.5-10.0)
[2021-06-05 05:39] LABS: Alanine Aminotransferase 12 U/L (4-35); Albumin Level 3.2 g/dL (3.5-5.1); Alkaline Phosphatase 72 U/L (38-126); Anion Gap 4 mmol/L (8-16); Aspartate Amino Transferase 26 U/L (14-36); Bilirubin,Total 1.1 mg/dL (0.2-1.3); Blood Urea Nitrogen 38 mg/dL (7-17); Calcium 9.1 mg/dL (8.4-10.2); Carbon Dioxide 29 mmol/L (22-30); Chloride 101 mmol/L (98-107); Estimated CRCL calculation 36 ml/min; Estimated Glomerular Filt Rate > 60; Glucose 147 mg/dL (65-110); Phosphorus 2.8 mg/dL (2.5-4.5); Potassium 3.9 mmol/L (3.4-5.0); Sodium 134 mmol/L (137-145); Triglycerides 75 mg/dL (<150)
[2021-06-05 06:03] LABS: Band Neutrophils Percent 7 % (0-6); Eosinophils Percent Manual 2 % (0-4); Lymphocytes Percent Manual 3 % (18-44); Monocytes Absolute Manual 1.03 K/mm3 (0.1-0.90); Monocytes Percent Manual 10 % (3-9); Neutrophils Absolute Manual 8.75 K/mm3 (1.7-7.2); Neutrophils Percent Manual 78 % (46-73); Nucleated Red Blood Cells 3 %; Platelet Estimate Adequate (Adequate); Total Cells Counted 100
[2021-06-05 06:05] LABS: Anisocytosis 1+ (NORMAL)
[2021-06-05 06:21] LABS: Glucose Point of Care 144 mg/dl (65-105)
--- NOTE | 2021-06-05 08:05 | PCOTNOTE ---
Attempted to see patient this am, however patient sleeping soundly and did not wake upon entry. Daughter at beside stated She had a bad night. The last two nights actually. She's been getting confused on where she's at and pulling everything out.
--- NOTE | 2021-06-05 08:35 | PM.PNGS ---
Progress Note: A&P Assessment and Plan (1) Small bowel obstruction: Code(s): K56.609 - Unspecified intestinal obstruction, unspecified as to partial versus complete obstruction Status: Acute Assessment and Plan: will clamp NG, cont TPN for now, encourage OOB/IS Subjective Subjective Date/Time Seen: 06/05/21 08:35 feels ok, +flatus, no BM Review of Systems Review of Systems: All systems reviewed & are unremarkable except as noted in HPI and below Exam Const: General: cooperative, comfortable, no acute distress and ill appearing Orientation/consciousness: oriented to person and confusion Resp: Effort & Inspection: normal respiratory effort Auscultation: crackles and diminished lung sounds Cardio: Rate: tachycardic Rhythm: regular rhythm GI: Inspection: normal to inspection, distended and incision GI Palp: Yes Soft to palpation, No Tenderness to palpation present (GI), No Guarding due to palpation present (GI) and No Rigid due to palpation Objective Data Vital Signs Vital Signs: Vital Signs - 24 hr 06/04/21 10:11 06/04/21 18:14 06/04/21 20:00 Temperature 36.2 C L Pulse Rate 120 H 105 H Respiratory Rate 20 Blood Pressure 148/70 H Pulse Oximetry 94 94 06/04/21 20:07 06/05/21 04:22 06/05/21 08:28 Temperature 36.6 C 36.6 C Pulse Rate 108 H 110 H Respiratory Rate 18 18 Blood Pressure 142/64 H 152/64 H Pulse Oximetry 94 93 92 Intake/Output Intake/Output: Intake & Output 06/02/21 06/03/21 06/04/21 06/05/21 23:59 23:59 23:59 23:59 Intake Total 0 2250 2480 Output Total 825 1825 2250 825 Balance -825 425 230 -825 Meds/Results Medications: Active Medications Generic Name Dose Route Start Last Admin Trade Name Freq PRN Reason Stop Dose Admin Enoxaparin Sodium 40 mg 06/02/21 09:00 06/04/21 08:52 Enoxaparin 40 Mg/0.4 Ml Syringe SUB-Q 40 mg DAILY JENISE Administration Famotidine 20 mg 06/01/21 21:00 06/04/21 20:10 Famotidine 20 Mg/2 Ml Vial IV PUSH 20 mg Q12HR JENISE Administration Acetaminophen 1,000 mg in 100 mls @ 400 mls/hr 05/31/21 14:59 06/04/21 17:14 Ofirmev 1,000 Mg Ivpb IVPB Infused Q6H PRN Infusion Pain Rated 4-6 Dextrose 1,000 mls @ 50 mls/hr 06/02/21 08:41 Dextrose 10% IV CONT .Q20H PRN if PN is interrupted Fat Emulsion Intravenous 250 mls @ 20.833 mls/hr 06/02/21 09:00 06/04/21 10:12 Lipids 20% IVPB 20.8 mls/hr Q24H JENISE Administration Multivitamins 2.5 ml/ 2,005 mls @ 40 mls/hr 06/04/21 11:10 06/04/21 13:03 Multivitamins 2.5 ml/ Amino IV CONT 40 mls/hr Acids/Electrolytes/Dextrose .Q24H JENISE Administration Protocol Sodium Chloride 1,000 mls @ 30 mls/hr 06/04/21 11:45 06/04/21 13:03 Normal Saline Iv IV CONT 30 mls/hr .Q24H JENISE Administration Levothyroxine Sodium 25 mcg 05/31/21 06:30 06/05/21 05:17 Levothyroxine Sodium Inj 100 Mcg/5 Ml Vial IV PUSH 25 mcg DAILY@0630 JENISE Administration Morphine Sulfate 2 mg 06/01/21 16:59 06/03/21 17:25 Morphine Sulfate (*Crx) 2 Mg/Ml Inj IV PUSH 2 mg Q2H PRN Administration Pain Rated 4-6 Naloxone HCl 0.1 mg 06/01/21 16:59 Naloxone Hcl 0.4 Mg/Ml Vial IV PUSH Q2M PRN Opiate Reversal Nicotine 1 patch 05/31/21 09:00 06/04/21 08:53 Nicotine (*Pbkc) 14 Mg Patch TRANSDERM 1 patch QAM JENISE Administration Ondansetron HCl 4 mg 05/30/21 14:17 05/31/21 15:03 Ondansetron Inj 4 Mg/2 Ml Vial IV PUSH 4 mg Q4H PRN Administration Nausea Sodium Chloride 10 ml 06/03/21 22:00 06/05/21 05:18 Central Line Flush IV PUSH Not Given Q8HR JENISE Sodium Chloride 10 ml 06/03/21 14:32 Central Line Flush IV PUSH PRN PRN with TPN bag changes Sodium Chloride 20 ml 06/03/21 14:32 06/05/21 05:18 Central Line Flush IV PUSH 20 ml PRN PRN Administration after blood draws Umeclidinium/Vilanterol 1 puff 05/30/21 20:32 05/31/21 08:03 Umeclidinium/Vilanterol
[2021-06-05] MEDS: FAT EMULSIONS IV 20% 250 ML 20.8 ML IVPB (08:48)
[2021-06-05] MEDS: ENOXAPARIN 40 MG/0.4 ML SYRINGE SUB-Q (08:48)
[2021-06-05] MEDS: FAMOTIDINE 20 MG/2 ML VIAL IV PUSH ×2 (08:48→20:30)
[2021-06-05] MEDS: NICOTINE (*PBKC) 14 MG PATCH 1 PATCH TRANSDERM (08:49)
--- NOTE | 2021-06-05 09:42 | PM.IMPN ---
Progress Note: A&P Assessment and Plan (1) Small bowel obstruction: Code(s): K56.609 - Unspecified intestinal obstruction, unspecified as to partial versus complete obstruction Status: Acute Assessment and Plan: Patient is 4 day s/p ex lap w/ adhesiolysis, partial small bowel resection. -very minimal uptrend in WBC 10.3 today, mild anemia noted on CBC but stable -continue IV nutrition -Await for return of bowel function. -Surgery restarted Lovenox and clamped NG today -further management per surgery (2) Acute respiratory failure: Code(s): J96.00 - Acute respiratory failure, unspecified whether with hypoxia or hypercapnia Status: Acute Assessment and Plan: -Patient's O2 sats dipped to 92% 06/02/21 and she was started on supplemental O2 (2L) was noted to be tachypneic with shallow breathing during exam -patient's lungs sound wet, with rhonchi and inspiratory crackles. 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 -repeat CXR 06/03/21 with small pleural effusion -gave one time dose of 20 IV lasix 06/03/21 and breath sounds have significantly improved. On 1L NC currently. -CXR 06/04/21 with improvement in atelectasis, no infiltrates -venous doppler negative for DVT, low creatinine clearance so will check VQ scan to evaluate for PE -06/06/21 VQ intermediate probability for PE, kidney function improved so able to check CTA today. Her lungs sound worse again today wet with rhonchi and crackles. Will give another one time dose of lasix but need to be cautious due to her previous SARAH during this admission. We also reduced the rate of the clinimix and IVF (3) Tachycardia: Code(s): R00.0 - Tachycardia, unspecified Status: Acute Assessment and Plan: -Patient has been observed to be mildly tachycardic since arrival. She continues to be tachycardic 4 days s/p ex lap, with oxygen desaturations. -EKG shows sinus tach -Continue DVT prophylaxis with lovenox/ SCDs -Venous dopplers negative bilaterally -VQ scan intermediate probability for PE -CTA this morning (4) Emphysema of lung: Code(s): J43.9 - Emphysema, unspecified Status: Acute Assessment and Plan: -Continue home inhaler. (5) Hypothyroidism: Code(s): E03.9 - Hypothyroidism, unspecified Status: Acute Assessment and Plan: -TSH 0.534, will continue home medication. (6) Dexxf-za-atxiele kidney injury: Code(s): N17.9 - Acute kidney failure, unspecified; N18.9 - Chronic kidney disease, unspecified Status: Acute Assessment and Plan: -Patient has CKD, still awaiting primary care records for baseline creatinine. -creat was 2.1 on admission, down to 0.8 today -caution with lasix being used for fluid overload (7) Pleural effusion: Code(s): J90 - Pleural effusion, not elsewhere classified Status: Acute Assessment and Plan: -improved on CXR 06/04/21 after one dose of lasix however lung sounds are wet with crackles again today -checking CTA and giving another dose of lasix which seemed to help the first time Additional Plan Patient on anastrozole, status post right right breast lumpectomy due to breast cancer. Held at this time due to NPO status. -Continue to hold p.o. medications at this time. Subjective Date/time seen: 06/05/21 09:42 Interval history: 80-year-old female smoker with history of emphysema, hypothyroidism, anxiety, breast cancer, and colon polyp status post right hemicolectomy, admitted for SBO. Pt is POD 4. A/Ox4 and answering all questions appropriately. No N/V but she is having some abdominal pain over her incision. No BM but she is passing flatus. No cp or sob today. Admits to cough with some clear sputum a times. Remains
--- NOTE | 2021-06-05 11:13 | PCOTNOTE ---
Patient with PT. Echo and blood draw also waiting to see patient. Will continue plan of care.
[2021-06-05 11:21] LABS: Add Urine Microscopic? YES; Appearance Urine Clear (Clear); Bacteria Urine Trace /hpf; Bilirubin Urine Negative (Negative); Blood Urine 1+ (Negative); Color Urine Yellow (Yellow); Glucose Urine UA Negative (Negative); Ketones Urine Negative (Negative); Leukocyte Esterase Ur Negative LEU/UL (Negative); Nitrate Urine Negative (Negative); Protein Urine 2+ mg/dL (Negative); Squamous Epithelial Cell Urine Rare /hpf (Few)
--- NOTE | 2021-06-05 11:48 | PCNFU ---
Nutrition Follow-Up Complete: Altered GI function as related to SBO as evidenced by NPO goal: Meet estimated nutritional needs Patient will continue with current goal. Pt current nutrition is TPN. Last recorded weight is 48.6 kg, up from 44.8 kg on admit. Bowel Motility: No BM reported. Labs Reviewed: Glu 147, BUN 38, Na 134, Hct 27.1,Hgb 8.7 Meds Noted:Clinimix 5/15 at 40 ml/hr with 20% of Lipid Emulsion, Lovenox, Pepcid, Synthroid, NS Skin: WNL Additional Notes: Patient remains on TPN at 40 ml/hr providing 1152 kcals/60 gms protein. CTA today showing possible aspiration. NGT clamped today. Current TPN is meeting 70% of caloric needs and 100% protein needs. Nutrition recommendations for goal rate at 50 ml/hr. Will monitor every Tuesday and Tuesday.
[2021-06-05] MEDS: AMINO ACIDS 5%/D15W/E-LYTES/CA 2,000 ML with MULTIVITAMINS-12 INJ VIAL 1 2.5 ML, MULTIV... 40 ML IV CONT (12:17)
[2021-06-05] MEDS: FUROSEMIDE INJ 40 MG/4 ML VIAL 20 MG IV PUSH (12:18)
[2021-06-05] MEDS: SODIUM CHLORIDE 0.9% IV 1,000 ML 30 ML IV CONT (12:18)
[2021-06-05] MEDS: CENTRAL LINE FLUSH 10 ML IV PUSH ×2 (13:26→20:30)
--- NOTE | 2021-06-05 13:59 | PCOTNOTE ---
Attempted to see pt. for occupational therapy treatment, pt. declined d/t fatigue
[2021-06-05 17:50] LABS: Glucose Point of Care 150 mg/dl (65-105)
[2021-06-05 23:28] LABS: Glucose Point of Care 181 mg/dl (65-105)
[2021-06-06 05:16] LABS: Glucose Point of Care 159 mg/dl (65-105)
[2021-06-06 05:22] LABS: Basophils Percent Auto 0.4 % (0.2-1.2); Eosinophils Absolute Auto 0.1 K/mm3 (0-0.3); Hematocrit 25.9 % (37.0-47.0); Hemoglobin 8.4 g/dL (12.0-15.0); Immature Granulocyte Absolute 0.22 K/mm3 (0.00-0.031); Immature Platelet Fraction Pct 11.3 % (0.9-11.2); Lymphocytes Absolute Auto 0.41 K/mm3 (0.9-3.2); Lymphocytes Percent Auto 3.8 % (18.3-44.2); Mean Corpuscular HGB Conc 32.4 g/dl (32-36); Mean Corpuscular Hemoglobin 35.3 pg (26-34); Mean Corpuscular Volume 108.8 fl (80-100); Mean Platelet Volume 12.4 fl (7.4-10.4); Monocytes Absolute Auto 1.1 K/mm3 (0.1-0.6); Monocytes Percent Auto 10.4 % (2.6-8.5); Neutrophils Absolute Auto 8.8 K/mm3 (1.3-6.7); Neutrophils Percent Auto 82.4 % (45.5-73.1); Nucleated Red Blood Cells Absolute Auto 0.1 K/mm3 (0.0-0.012); Nucleated Red Blood Cells Perc 0.7 % (0.0-0.2); Platelet Count Result 173 k/mm3 (150-375); Red Blood Count 2.38 M/mm3 (4.2-5.4); Red Cell Distribution Width 17.2 % (11.5-14.5); White Blood Count 10.7 K/mm3 (4.5-10.0)
[2021-06-06 05:32] LABS: Alanine Aminotransferase 25 U/L (4-35); Albumin Level 3.1 g/dL (3.5-5.1); Alkaline Phosphatase 96 U/L (38-126); Anion Gap 7 mmol/L (8-16); Aspartate Amino Transferase 45 U/L (14-36); Bilirubin,Total 1.7 mg/dL (0.2-1.3); Blood Urea Nitrogen 43 mg/dL (7-17); Calcium 9.2 mg/dL (8.4-10.2); Carbon Dioxide 30 mmol/L (22-30); Chloride 102 mmol/L (98-107); Estimated CRCL calculation 26 ml/min; Estimated Glomerular Filt Rate 48; Glucose 158 mg/dL (65-110); Phosphorus 3.2 mg/dL (2.5-4.5); Potassium 4.2 mmol/L (3.4-5.0); Sodium 139 mmol/L (137-145)
[2021-06-06 05:46] LABS: Anisocytosis 1+ (NORMAL); Platelet Estimate Adequate (Adequate)
[2021-06-06 06:00] VITALS: BP 144/63; PULSE 109; RESP 18; TEMP 36.3; O2SAT 96
[2021-06-06] MEDS: CENTRAL LINE FLUSH 20 ML IV PUSH (06:05)
[2021-06-06] MEDS: LEVOTHYROXINE SODIUM INJ 100 MCG/5 ML VIAL 25 MCG IV PUSH (06:05)
--- NOTE | 2021-06-06 07:36 | PM.IMPN ---
Progress Note: A&P Assessment and Plan (1) Small bowel obstruction: Code(s): K56.609 - Unspecified intestinal obstruction, unspecified as to partial versus complete obstruction Status: Acute Assessment and Plan: Patient is 5 day s/p ex lap w/ adhesiolysis, partial small bowel resection. -very minimal uptrend in WBC 10.7 today, mild anemia noted on CBC but stable -continue IV nutrition -Await for return of bowel function -Surgery restarted Lovenox and clamped NG -further management per surgery (2) Acute respiratory failure with hypoxia: Code(s): J96.01 - Acute respiratory failure with hypoxia Status: Acute Assessment and Plan: -pulmonary edema/fluid overload vs pneumonia, likely combination of both -continue to wean oxygen as tolerated -gave two doses of lasix with improvement, also on IV abx (3) Tachycardia: Code(s): R00.0 - Tachycardia, unspecified Status: Acute Assessment and Plan: -EKG shows sinus tach -Continue DVT prophylaxis with lovenox/ SCDs -Venous dopplers negative bilaterally -VQ scan intermediate probability for PE -CTA negative for PE but does show pneumonia and atelectasis, tachy secondary to infection? (4) Pneumonia: Code(s): J18.9 - Pneumonia, unspecified organism Status: Acute Assessment and Plan: -seen on CTA -possibly aspiration pneumonia, also with atelectasis -blood cultures draw -started on zosyn and incentive spirometer -consider swallow study when no longer NPO as family reports hx of recurrent PNA (5) Pleural effusion: Code(s): J90 - Pleural effusion, not elsewhere classified Status: Acute Assessment and Plan: -resolved on CXR 06/04/21 after one dose of lasix (6) Lsfwx-vk-szwrvvw kidney injury: Code(s): N17.9 - Acute kidney failure, unspecified; N18.9 - Chronic kidney disease, unspecified Status: Acute Assessment and Plan: -Patient has CKD, still awaiting primary care records for baseline creatinine. -creat was 2.1 on admission -had improved but yesterday had to give lasix for fluid overload and IV contrast for a CTA. Creat up to 1.1 again. Holding additional lasix at this time, continue cautious IVF and IV nutrition as she is still NPO. (7) Emphysema of lung: Code(s): J43.9 - Emphysema, unspecified Status: Acute Assessment and Plan: -Continue home inhaler (8) Cardiomegaly: Code(s): I51.7 - Cardiomegaly Status: Acute Assessment and Plan: -echo w/ normal systolic function EF 60-65%, grade 1 diastolic dysfunction (9) Hypothyroidism: Code(s): E03.9 - Hypothyroidism, unspecified Status: Acute Assessment and Plan: -TSH 0.534, will continue home medication. Additional Plan Patient on anastrozole, status post right right breast lumpectomy due to breast cancer. Held at this time due to NPO status. -Continue to hold p.o. medications at this time. Subjective Date/time seen: 06/06/21 07:36 Interval history: 80-year-old female smoker with history of emphysema, hypothyroidism, anxiety, breast cancer, and colon polyp status post right hemicolectomy, admitted for SBO. Pt is POD 5. A/Ox4 and answering all questions appropriately however she is quite sleepy today. States breathing is better. Still coughing. No N/V but is having some mild abdominal pain. No BM yet. Review of Systems Review of Systems: All systems reviewed & are unremarkable except as noted in HPI and below Exam Narrative: General: No acute distress, non toxic appearing, elderly, thin stature Eyes: PERRL, no scleral icterus HEENT: NCAT, external ears normal, MMM, edentulous Respiratory: No respiratory distress, lung sounds wet with rhonchi and crackles Cardiovascular: tachycardic with regular rhythm, no murmur Abdominal: Soft, mildly tender diffusely, no rebound or
[2021-06-06] MEDS: FAMOTIDINE 20 MG/2 ML VIAL IV PUSH ×2 (09:11→20:38)
[2021-06-06] MEDS: ENOXAPARIN 40 MG/0.4 ML SYRINGE SUB-Q (09:11)
[2021-06-06] MEDS: NICOTINE (*PBKC) 14 MG PATCH 1 PATCH TRANSDERM (09:11)
--- NOTE | 2021-06-06 09:29 | PCOTNOTE ---
Attempted to see patient this am however RN advised not to see stating, She just fell asleep. She had a few bowel movements and didn't get much sleep through the night, so I'm trying to let her nap a little this morning.
--- NOTE | 2021-06-06 10:30 | PCOTNOTE ---
Attempted to see patient second time this am, however patient was still sleeping. Did not disturb for this reason.
[2021-06-06] MEDS: FAT EMULSIONS IV 20% 250 ML 20.8 ML IVPB (11:15)
[2021-06-06] MEDS: AMINO ACIDS 5%/D15W/E-LYTES/CA 2,000 ML with MULTIVITAMINS-12 INJ VIAL 1 2.5 ML, MULTIV... 40 ML IV CONT (11:15)
[2021-06-06 11:20] LABS: Glucose Point of Care 154 mg/dl (65-105)
--- NOTE | 2021-06-06 11:32 | PM.PNGS ---
Progress Note: A&P Assessment and Plan (1) Small bowel obstruction: Code(s): K56.609 - Unspecified intestinal obstruction, unspecified as to partial versus complete obstruction Status: Acute Assessment and Plan: bowel function returning now postop day 5. Tolerated NG tube being clamped. Will discontinue NG and start full liquids. Continue TPN for now. Monitor daily with exam, labs as before. (2) Emphysema of lung: Code(s): J43.9 - Emphysema, unspecified Status: Chronic Subjective Subjective Date/Time Seen: 06/06/21 11:32 Post Op day: 5 Patient reports: feels better, pain is less, bowel movement and afebrile Exam GI: Inspection: non-distended, incision ( Dressing dry and intact) and scaphoid GI Palp: Yes Soft to palpation and Yes Tenderness to palpation present (GI) ( mild appropriate tenderness) Auscultation: normal bowel sounds Objective Data Vital Signs Vital Signs: Vital Signs - 24 hr 06/05/21 17:30 06/05/21 17:49 06/05/21 20:00 Temperature 36.3 C L Pulse Rate 121 H Respiratory Rate 21 H Blood Pressure 142/57 H Pulse Oximetry 98 98 94 06/05/21 20:08 06/05/21 20:38 06/05/21 22:00 Temperature 36.1 C L Pulse Rate 115 H Respiratory Rate 16 Blood Pressure 135/59 L Pulse Oximetry 85 L 93 94 06/06/21 06:00 Temperature 36.3 C L Pulse Rate 109 H Respiratory Rate 18 Blood Pressure 144/63 H Pulse Oximetry 96 Intake/Output Intake/Output: Intake & Output 06/03/21 06/04/21 06/05/21 06/06/21 23:59 23:59 23:59 23:59 Intake Total 2250 2730 3405 2005 Output Total 1825 2250 1375 600 Balance 435 428 4085 1405 Meds/Results Medications: Active Medications Generic Name Dose Route Start Last Admin Trade Name Freq PRN Reason Stop Dose Admin Enoxaparin Sodium 40 mg 06/02/21 09:00 06/06/21 09:11 Enoxaparin 40 Mg/0.4 Ml Syringe SUB-Q 40 mg DAILY JENISE Administration Famotidine 20 mg 06/01/21 21:00 06/06/21 09:11 Famotidine 20 Mg/2 Ml Vial IV PUSH 20 mg Q12HR JENISE Administration Acetaminophen 1,000 mg in 100 mls @ 400 mls/hr 05/31/21 14:59 06/04/21 17:14 Ofirmev 1,000 Mg Ivpb IVPB Infused Q6H PRN Infusion Pain Rated 4-6 Dextrose 1,000 mls @ 50 mls/hr 06/02/21 08:41 Dextrose 10% IV CONT .Q20H PRN if PN is interrupted Fat Emulsion Intravenous 250 mls @ 20.833 mls/hr 06/02/21 09:00 06/06/21 11:15 Lipids 20% IVPB 20.8 mls/hr Q24H JENISE Administration Multivitamins 2.5 ml/ 2,005 mls @ 40 mls/hr 06/04/21 11:10 06/06/21 11:15 Multivitamins 2.5 ml/ Amino IV CONT 40 mls/hr Acids/Electrolytes/Dextrose .Q24H JENISE Administration Protocol Sodium Chloride 1,000 mls @ 30 mls/hr 06/04/21 11:45 06/05/21 12:18 Normal Saline Iv IV CONT 30 mls/hr .Q24H JENISE Administration Piperacillin Sod/Tazobactam Sod 2.25 gm in 50 mls @ 100 mls/hr 06/05/21 11:00 06/06/21 06:05 Zosyn 2.25 Gm/D5w 50 Ml IVPB 100 mls/hr Q6HR JENISE Administration Levothyroxine Sodium 25 mcg 05/31/21 06:30 06/06/21 06:05 Levothyroxine Sodium Inj 100 Mcg/5 Ml Vial IV PUSH 25 mcg DAILY@0630 JENISE Administration Morphine Sulfate 2 mg 06/01/21 16:59 06/03/21 17:25 Morphine Sulfate (*Crx) 2 Mg/Ml Inj IV PUSH 2 mg Q2H PRN Administration Pain Rated 4-6 Naloxone HCl 0.1 mg 06/01/21 16:59 Naloxone Hcl 0.4 Mg/Ml Vial IV PUSH Q2M PRN Opiate Reversal Nicotine 1 patch 05/31/21 09:00 06/06/21 09:11 Nicotine (*Pbkc) 14 Mg Patch TRANSDERM 1 patch QAM JENISE Administration Ondansetron HCl 4 mg 05/30/21 14:17 05/31/21 15:03 Ondansetron Inj 4 Mg/2 Ml Vial IV PUSH 4 mg Q4H PRN Administration Nausea Perflutren Lipid Microsphere 0 ml 06/05/21 10:13 Perflutren Lipid Microspheres 1.5 Ml Vial Diluted To 10 Ml Total Volume IV PUSH ONCE PRN adequate visualization Protocol Sodium Chloride 10 ml 06/03/21 22:00 06/06/21 06:06 Central Line Flush IV PU
[2021-06-06] MEDS: SODIUM CHLORIDE 0.9% IV 1,000 ML 30 ML IV CONT (11:52)
[2021-06-06 14:00] VITALS: BP 135/56; PULSE 106; RESP 14; TEMP 35.9; O2SAT 96
[2021-06-06] MEDS: MORPHINE SULFATE (*CRX) 2 MG/ML INJ IV PUSH (17:17)
[2021-06-06] MEDS: ONDANSETRON INJ 4 MG/2 ML VIAL IV PUSH (17:31)
[2021-06-06 18:07] LABS: Glucose Point of Care 163 mg/dl (65-105)
[2021-06-06 20:00] VITALS: O2SAT 99
[2021-06-06] MEDS: CENTRAL LINE FLUSH 10 ML IV PUSH (20:38)
[2021-06-06 20:45] VITALS: BP 141/63; PULSE 102; RESP 16; TEMP 36.9; O2SAT 99
--- NOTE | 2021-06-06 22:32 | PC.NURSE ---
1930: communicated from dayshift nursing staff. per Viviana Spangler to reinsert NG and reconnect to LIS if abdomen pain is unresolved with pain medication.
[2021-06-06 23:28] LABS: Glucose Point of Care 294 mg/dl (65-105)
[2021-06-06 23:28] LABS: Glucose Point of Care 204 mg/dl (65-105)
[2021-06-06 23:28] LABS: Glucose Point of Care 145 mg/dl (65-105)
[2021-06-07] VITALS (8 sets, daily range): BP systolic 134–146; BP diastolic 54–68; PULSE 91–101; RESP 16–20; TEMP 36.4–36.9; O2SAT 90–98
[2021-06-07] MEDS: LEVOTHYROXINE SODIUM INJ 100 MCG/5 ML VIAL 25 MCG IV PUSH (05:43)
[2021-06-07] MEDS: CENTRAL LINE FLUSH 20 ML IV PUSH (05:44)
[2021-06-07 06:07] LABS: Basophils Percent Auto 0.4 % (0.2-1.2); Eosinophils Absolute Auto 0.4 K/mm3 (0-0.3); Eosinophils Percent Auto 4.2 % (0-4.4); Hematocrit 24.5 % (37.0-47.0); Hemoglobin 7.8 g/dL (12.0-15.0); Immature Granulocyte Absolute 0.31 K/mm3 (0.00-0.031); Immature Granulocyte Percent A 3.6 % (0-0.5); Immature Platelet Fraction Pct 12.8 % (0.9-11.2); Lymphocytes Absolute Auto 0.33 K/mm3 (0.9-3.2); Lymphocytes Percent Auto 3.9 % (18.3-44.2); Mean Corpuscular HGB Conc 31.8 g/dl (32-36); Mean Corpuscular Hemoglobin 34.2 pg (26-34); Mean Corpuscular Volume 107.5 fl (80-100); Monocytes Absolute Auto 0.7 K/mm3 (0.1-0.6); Neutrophils Absolute Auto 6.8 K/mm3 (1.3-6.7); Neutrophils Percent Auto 79.9 % (45.5-73.1); Nucleated Red Blood Cells Absolute Auto 0.1 K/mm3 (0.0-0.012); Nucleated Red Blood Cells Perc 1.1 % (0.0-0.2); Platelet Count Result 151 k/mm3 (150-375); Red Blood Count 2.28 M/mm3 (4.2-5.4); Red Cell Distribution Width 17.7 % (11.5-14.5); White Blood Count 8.5 K/mm3 (4.5-10.0)
[2021-06-07 06:16] LABS: Anion Gap 6 mmol/L (8-16); Blood Urea Nitrogen 49 mg/dL (7-17); Calcium 9.1 mg/dL (8.4-10.2); Carbon Dioxide 27 mmol/L (22-30); Chloride 105 mmol/L (98-107); Estimated CRCL calculation 24 ml/min; Estimated Glomerular Filt Rate 43; Glucose 157 mg/dL (65-110); Phosphorus 3.6 mg/dL (2.5-4.5); Potassium 3.5 mmol/L (3.4-5.0); Sodium 138 mmol/L (137-145); Triglycerides 138 mg/dL (<150)
[2021-06-07 06:44] LABS: Glucose Point of Care 142 mg/dl (65-105)
[2021-06-07 07:09] LABS: Platelet Estimate Adequate (Adequate)
[2021-06-07 07:11] LABS: Anisocytosis 1+ (NORMAL); Helmet Cells 1+ (NORMAL); Poikilocytosis 1+ (NORMAL)
--- NOTE | 2021-06-07 08:02 | PM.IMPN ---
Progress Note: A&P Assessment and Plan (1) Small bowel obstruction: Code(s): K56.609 - Unspecified intestinal obstruction, unspecified as to partial versus complete obstruction Status: Acute Assessment and Plan: Patient is 6 day s/p ex lap w/ adhesiolysis, partial small bowel resection. -Slow decline in CBC currently with H&H today of 7.85/24.5. Was 8.4/25.9 yesterday. -continue IV nutrition with TPN and lipids. -Await for return of bowel function -Surgery ordered NG discontinued last evening. Full liquid diet started. -further management per surgery - 06/07: Surgery advance to soft diet. Patient has intact bowel sounds in all 4 quadrants. Per surgery TPN is discontinued at this time. (2) Acute respiratory failure with hypoxia: Code(s): J96.01 - Acute respiratory failure with hypoxia Status: Acute Assessment and Plan: -pulmonary edema/fluid overload vs pneumonia, likely combination of both -continue to wean oxygen as tolerated -gave two doses of lasix with improvement, also on IV abx - VSS without any decline. (3) Tachycardia: Code(s): R00.0 - Tachycardia, unspecified Status: Acute Assessment and Plan: -EKG shows sinus tach -Continue DVT prophylaxis with lovenox/ SCDs -Venous dopplers negative bilaterally -VQ scan intermediate probability for PE -CTA negative for PE but does show pneumonia and atelectasis, tachy secondary to infection? - 06/07/21: Remains tachycardic, low [id number]. BP is stable and running 130s-150s Systolic/40s-60s Diastolic. Low dose Beta Geovanna (Toprol XL 12.5 mg), ordered at this time for rate control. - Will continue to monitor VS trend. (4) Pneumonia: Qualifiers: Laterality: unspecified laterality Lung location: unspecified part of lung Pneumonia type: due to unspecified organism Qualified Code(s): J18.9 - Pneumonia, unspecified organism Code(s): J18.9 - Pneumonia, unspecified organism Status: Acute Assessment and Plan: -seen on CTA -possibly aspiration pneumonia, also with atelectasis -blood cultures draw -started on zosyn and incentive spirometer -06/07/21: Swallow evaluation ordered. Continuing IS and abx. Preliminary blood cultures are negative x2 as evaluated today. (5) Pleural effusion: Code(s): J90 - Pleural effusion, not elsewhere classified Status: Resolved Assessment and Plan: -resolved on CXR 06/04/21 after one dose of lasix - 06/07/21: RESOLVED (6) Ecsht-zn-bszrnhg kidney injury: Qualifiers: Acute renal failure type: unspecified Chronic kidney disease stage: unspecified stage Qualified Code(s): N17.9 - Acute kidney failure, unspecified; N18.9 - Chronic kidney disease, unspecified Code(s): N17.9 - Acute kidney failure, unspecified; N18.9 - Chronic kidney disease, unspecified Status: Acute Assessment and Plan: -Patient has CKD, still awaiting primary care records for baseline creatinine. -creat was 2.1 on admission -had improved but yesterday had to give lasix for fluid overload and IV contrast for a CTA. Creat up to 1.1 again. Holding additional lasix at this time, continue cautious IVF and IV nutrition as she is still NPO. - 06/07/21: TPN and lipids continued. Creatinine now 1.2 with BUN of 49 and GFR 43. Will continue to trend daily. Suspicion now that patient is taking in full liquids, her hydration level change.. Following. (7) Emphysema of lung: Qualifiers: Emphysema type: unspecified Qualified Code(s): J43.9 - Emphysema, unspecified Code(s): J43.9 - Emphysema, unspecified Status: Chronic Assessment and Plan: -Continue home inhaler (8) Cardiomegaly: Code(s): I51.7 - Cardiomegaly Status: Acute Assessment and Plan: -echo w/ normal systolic function EF 60-65%, grade 1 diastolic dysfunction (9) Hypothyroidism: Dustin
[2021-06-07] MEDS: FAT EMULSIONS IV 20% 250 ML 20.8 ML IVPB (08:35)
[2021-06-07] MEDS: ENOXAPARIN 40 MG/0.4 ML SYRINGE SUB-Q (08:39)
[2021-06-07] MEDS: METOPROLOL SUCCINATE EXT REL 12.5 MG TABCR PO (08:39)
[2021-06-07] MEDS: FAMOTIDINE 20 MG/2 ML VIAL IV PUSH ×2 (08:39→20:43)
[2021-06-07] MEDS: NICOTINE (*PBKC) 14 MG PATCH 1 PATCH TRANSDERM (08:41)
--- NOTE | 2021-06-07 11:14 | PM.PNGS ---
Progress Note: A&P Assessment and Plan (1) Small bowel obstruction: Code(s): K56.609 - Unspecified intestinal obstruction, unspecified as to partial versus complete obstruction Status: Acute Assessment and Plan: tolerated full liquids well. Wound healing nicely and has active normal bowel sounds. Will advance to soft diet. Stop TPN. Doing well from surgical standpoint. COPD management per hospitalist. Subjective Subjective Date/Time Seen: 06/07/21 11:14 Patient reports: no new complaints, feels better, tolerating liquids well and bowel movement Exam GI: Inspection: incision ( dry and healing well) GI Palp: Yes Soft to palpation and No Tenderness to palpation present (GI) Auscultation: normal bowel sounds Objective Data Vital Signs Vital Signs: Vital Signs - 24 hr 06/06/21 14:00 06/06/21 20:00 06/06/21 20:45 Temperature 35.9 C L 36.9 C Pulse Rate 106 H 102 H Respiratory Rate 14 16 Blood Pressure 135/56 L 141/63 H Pulse Oximetry 96 99 99 06/07/21 06:13 06/07/21 08:00 06/07/21 08:39 Temperature 36.9 C Pulse Rate 101 H 97 Respiratory Rate 16 Blood Pressure 146/58 H Pulse Oximetry 97 98 06/07/21 09:00 06/07/21 10:47 Temperature Pulse Rate Respiratory Rate Blood Pressure Pulse Oximetry 94 95 Intake/Output Intake/Output: Intake & Output 06/04/21 06/05/21 06/06/21 06/07/21 23:59 23:59 23:59 23:59 Intake Total 2730 3405 3955 180 Output Total 2250 1375 950 450 Balance 480 2030 3005 -270 Meds/Results Medications: Active Medications Generic Name Dose Route Start Last Admin Trade Name Freq PRN Reason Stop Dose Admin Acetaminophen 500 mg 06/06/21 11:30 Acetaminophen 500 Mg Tablet PO Q6H PRN Mild Pain (1-3) or Fever Hydrocodone Bitart/Acetaminophen 1 tab 06/06/21 11:30 Hydrocodone/Acetaminophen (*Crx) 5-325 Mg Tablet PO Q4H PRN Pain Rated 4-6 Enoxaparin Sodium 40 mg 06/02/21 09:00 06/07/21 08:39 Enoxaparin 40 Mg/0.4 Ml Syringe SUB-Q 40 mg DAILY JENISE Administration Famotidine 20 mg 06/01/21 21:00 06/07/21 08:39 Famotidine 20 Mg/2 Ml Vial IV PUSH 20 mg Q12HR JENISE Administration Dextrose 1,000 mls @ 50 mls/hr 06/02/21 08:41 Dextrose 10% IV CONT .Q20H PRN if PN is interrupted Sodium Chloride 1,000 mls @ 30 mls/hr 06/04/21 11:45 06/06/21 11:52 Normal Saline Iv IV CONT 30 mls/hr .Q24H JENISE Administration Piperacillin Sod/Tazobactam Sod 2.25 gm in 50 mls @ 100 mls/hr 06/05/21 11:00 06/07/21 05:43 Zosyn 2.25 Gm/D5w 50 Ml IVPB 50 mls/hr Q6HR JENISE Administration Levothyroxine Sodium 25 mcg 05/31/21 06:30 06/07/21 05:43 Levothyroxine Sodium Inj 100 Mcg/5 Ml Vial IV PUSH 25 mcg DAILY@0630 JENISE Administration Metoprolol Succinate 12.5 mg 06/07/21 09:00 06/07/21 08:39 Metoprolol Succinate Ext Rel 12.5 Mg Tabcr PO 12.5 mg QAM JENISE Administration Morphine Sulfate 2 mg 06/01/21 16:59 06/06/21 17:17 Morphine Sulfate (*Crx) 2 Mg/Ml Inj IV PUSH 2 mg Q2H PRN Administration Pain Rated 4-6 Naloxone HCl 0.1 mg 06/01/21 16:59 Naloxone Hcl 0.4 Mg/Ml Vial IV PUSH Q2M PRN Opiate Reversal Nicotine 1 patch 05/31/21 09:00 06/07/21 08:41 Nicotine (*Pbkc) 14 Mg Patch TRANSDERM 1 patch QAM JENISE Administration Ondansetron HCl 4 mg 05/30/21 14:17 06/06/21 17:31 Ondansetron Inj 4 Mg/2 Ml Vial IV PUSH 4 mg Q4H PRN Administration Nausea Perflutren Lipid Microsphere 0 ml 06/05/21 10:13 Perflutren Lipid Microspheres 1.5 Ml Vial Diluted To 10 Ml Total Volume IV PUSH ONCE PRN adequate visualization Protocol Sodium Chloride 10 ml 06/03/21 22:00 06/07/21 05:44 Central Line Flush IV PUSH Not Given Q8HR JENISE Sodium Chloride 10 ml 06/03/21 14:32 Central Line Flush IV PUSH PRN PRN with TPN bag changes Sodium Chloride 20 ml 06/03/21 14:32 06/07/21 05:44 Central Line Flush
[2021-06-07 12:35] LABS: Glucose Point of Care 149 mg/dl (65-105)
[2021-06-07] MEDS: CENTRAL LINE FLUSH 10 ML IV PUSH ×2 (12:42→20:47)
--- NOTE | 2021-06-07 13:09 | PCSTNOTE ---
Please refer to the Bedside Swallow Evaluation in the EMR. Please note, silent aspiration cannot be ruled out at bedside.
--- NOTE | 2021-06-07 14:55 | PCSTNOTE ---
Please refer to the Modified Barium Swallow Evaluation in the EMR.
[2021-06-07] MEDS: SODIUM CHLORIDE 0.9% IV 1,000 ML 100 ML IV CONT (15:57)
[2021-06-07 18:49] LABS: Glucose Point of Care 129 mg/dl (65-105)
[2021-06-07] MEDS: MORPHINE SULFATE (*CRX) 2 MG/ML INJ IV PUSH (19:40)
[2021-06-07] MEDS: ONDANSETRON INJ 4 MG/2 ML VIAL IV PUSH (20:47)
[2021-06-08 00:06] VITALS: RESP 20; O2SAT 90
[2021-06-08 00:06] LABS: Glucose Point of Care 85 mg/dl (65-105)
[2021-06-08] MEDS: SODIUM CHLORIDE 0.9% IV 1,000 ML 100 ML IV CONT ×2 (03:59→16:24)
[2021-06-08 05:15] LABS: Glucose Point of Care 111 mg/dl (65-105)
[2021-06-08] MEDS: CENTRAL LINE FLUSH 20 ML IV PUSH (05:17)
[2021-06-08 05:20] LABS: Basophils Percent Auto 0.3 % (0.2-1.2); Eosinophils Absolute Auto 0.5 K/mm3 (0-0.3); Eosinophils Percent Auto 5.3 % (0-4.4); Hematocrit 23.9 % (37.0-47.0); Hemoglobin 7.6 g/dL (12.0-15.0); Immature Granulocyte Absolute 0.61 K/mm3 (0.00-0.031); Immature Granulocyte Percent A 6.9 % (0-0.5); Immature Platelet Fraction Pct 13.3 % (0.9-11.2); Lymphocytes Absolute Auto 0.54 K/mm3 (0.9-3.2); Lymphocytes Percent Auto 6.1 % (18.3-44.2); Mean Corpuscular HGB Conc 31.8 g/dl (32-36); Mean Corpuscular Volume 110.1 fl (80-100); Mean Platelet Volume 13.9 fl (7.4-10.4); Monocytes Absolute Auto 0.8 K/mm3 (0.1-0.6); Monocytes Percent Auto 9.4 % (2.6-8.5); Neutrophils Absolute Auto 6.4 K/mm3 (1.3-6.7); Nucleated Red Blood Cells Absolute Auto 0.1 K/mm3 (0.0-0.012); Nucleated Red Blood Cells Perc 1.4 % (0.0-0.2); Platelet Count Result 185 k/mm3 (150-375); Red Blood Count 2.17 M/mm3 (4.2-5.4); Red Cell Distribution Width 18.5 % (11.5-14.5); White Blood Count 8.9 K/mm3 (4.5-10.0)
[2021-06-08 05:30] VITALS: BP 138/55; PULSE 92; RESP 20; TEMP 36.6; O2SAT 91
[2021-06-08 05:30] LABS: Alanine Aminotransferase 93 U/L (4-35); Albumin Level 2.7 g/dL (3.5-5.1); Alkaline Phosphatase 195 U/L (38-126); Anion Gap 8 mmol/L (8-16); Aspartate Amino Transferase 83 U/L (14-36); Bilirubin,Total 1.6 mg/dL (0.2-1.3); Blood Urea Nitrogen 44 mg/dL (7-17); Carbon Dioxide 23 mmol/L (22-30); Chloride 108 mmol/L (98-107); Estimated CRCL calculation 23 ml/min; Estimated Glomerular Filt Rate 39; Glucose 115 mg/dL (65-110); Magnesium 1.9 mg/dL (1.6-2.3); Potassium 3.6 mmol/L (3.4-5.0); Sodium 139 mmol/L (137-145)
[2021-06-08] MEDS: LEVOTHYROXINE SODIUM INJ 100 MCG/5 ML VIAL 25 MCG IV PUSH (05:33)
[2021-06-08 06:44] LABS: Anisocytosis 1+ (NORMAL); Helmet Cells 1+ (NORMAL); Hypochromasia 1+ (NORMAL); Platelet Estimate Adequate (Adequate); Poikilocytosis 1+ (NORMAL)
[2021-06-08 08:27] VITALS: PULSE 98
[2021-06-08] MEDS: ENOXAPARIN 40 MG/0.4 ML SYRINGE SUB-Q (08:27)
[2021-06-08] MEDS: FAMOTIDINE 20 MG/2 ML VIAL IV PUSH ×2 (08:27→21:08)
[2021-06-08] MEDS: NICOTINE (*PBKC) 14 MG PATCH 1 PATCH TRANSDERM (08:27)
[2021-06-08] MEDS: METOPROLOL SUCCINATE EXT REL 12.5 MG TABCR PO (08:27)
[2021-06-08 08:30] VITALS: O2SAT 92
--- NOTE | 2021-06-08 10:31 | PM.IMPN ---
Progress Note: A&P Assessment and Plan (1) Small bowel obstruction: Code(s): K56.609 - Unspecified intestinal obstruction, unspecified as to partial versus complete obstruction Status: Acute Assessment and Plan: Patient is 7 day s/p ex lap w/ adhesiolysis, partial small bowel resection. A slow decline in patient's hemoglobin and hematocrit, continue to trend IV nutrition discontinued, patient had a barium swallow on 06/07/2021 which revealed aspiration. Speech therapy suggested NPO status -Surgery ordered NG discontinued last evening. -further management per surgery (2) Acute respiratory failure with hypoxia: Code(s): J96.01 - Acute respiratory failure with hypoxia Status: Acute Assessment and Plan: -pulmonary edema/fluid overload vs pneumonia, likely combination of both -continue to wean oxygen as tolerated, patient is currently on room air. No signs of fluid volume overload (3) Tachycardia: Code(s): R00.0 - Tachycardia, unspecified Status: Acute Assessment and Plan: -EKG shows sinus tach, heart rate currently controlled -Continue DVT prophylaxis with lovenox/ SCDs -Venous dopplers negative bilaterally -VQ scan intermediate probability for PE -CTA negative for PE but does show pneumonia and atelectasis, tachy secondary to infection? Remains tachycardic, 90s to 110s. BP is stable and running 130s-150s Systolic/40s-60s Diastolic. Suggested tachycardia may be contributed to hypovolemia given her anemia - Will continue to monitor VS trend. (4) Pneumonia: Qualifiers: Pneumonia type: due to unspecified organism Laterality: unspecified laterality Lung location: unspecified part of lung Qualified Code(s): J18.9 - Pneumonia, unspecified organism Code(s): J18.9 - Pneumonia, unspecified organism Status: Acute Assessment and Plan: -seen on CTA -possibly aspiration pneumonia, also with atelectasis -blood cultures draw -started on zosyn and incentive spirometer -06/07/21: Swallow evaluation ordered. Which revealed aspiration, speech therapy suggested keeping patient NPO (5) Pleural effusion: Code(s): J90 - Pleural effusion, not elsewhere classified Status: Resolved Assessment and Plan: -resolved on CXR 06/04/21 after one dose of lasix - 06/07/21: RESOLVED (6) [id number] kidney injury: Qualifiers: Acute renal failure type: unspecified Chronic kidney disease stage: unspecified stage Qualified Code(s): N17.9 - Acute kidney failure, unspecified; N18.9 - Chronic kidney disease, unspecified Code(s): N17.9 - Acute kidney failure, unspecified; N18.9 - Chronic kidney disease, unspecified Status: Acute Assessment and Plan: -Patient has CKD, still awaiting primary care records for baseline creatinine. -creat was 2.1 on admission Will continue to trend daily. (7) Emphysema of lung: Qualifiers: Emphysema type: unspecified Qualified Code(s): J43.9 - Emphysema, unspecified Code(s): J43.9 - Emphysema, unspecified Status: Chronic Assessment and Plan: -Continue home inhaler (8) Cardiomegaly: Code(s): I51.7 - Cardiomegaly Status: Acute Assessment and Plan: -echo w/ normal systolic function EF 60-65%, grade 1 diastolic dysfunction (9) Hypothyroidism: Qualifiers: Hypothyroidism type: unspecified Qualified Code(s): E03.9 - Hypothyroidism, unspecified Code(s): E03.9 - Hypothyroidism, unspecified Status: Acute Assessment and Plan: -TSH 0.534, will continue home medication. (10) Acute anemia: Code(s): D64.9 - Anemia, unspecified Status: Acute Assessment and Plan: Monitor serum electrolytes, CBC, hemoglobin/hematocrit q.8 hours. If hemoglobin drops below 7 transfuse packed red blood cells Monitor for bloody bowel movement
--- NOTE | 2021-06-08 11:23 | PM.PNGS ---
Progress Note: A&P Assessment and Plan (1) Small bowel obstruction: Code(s): K56.609 - Unspecified intestinal obstruction, unspecified as to partial versus complete obstruction Status: Acute Assessment and Plan: Doing well from surgical standpoint and was previously tolerating her diet before being made NPO. Concern for silent aspiration that could have contributed to aspiration pneumonia. Speech therapy seeing patient and states they will speak with the Hospitalist today about her diet after reviewing the MBS. Okay from our standpoint to resume a diet per ST recommendations. Okay to remove garcia catheter from our standpoint if okay with medicine. Encouraged increasing activity, OOB, IS use - continue PT/OT. (2) Silent aspiration: Code(s): T17.900A - Unspecified foreign body in respiratory tract, part unspecified causing asphyxiation, initial encounter Status: Acute (3) Pneumonia: Qualifiers: Pneumonia type: due to unspecified organism Laterality: unspecified laterality Lung location: unspecified part of lung Qualified Code(s): J18.9 - Pneumonia, unspecified organism Code(s): J18.9 - Pneumonia, unspecified organism Status: Acute Additional Plan I have discussed the patient's case and plan of care with Dr. Hidalgo. Subjective Subjective Date/Time Seen: 06/08/21 11:23 Post Op day: 7 Patient reports: no new complaints, flatus, bowel movement and afebrile Interval history: Patient seen and examined. Chart reviewed from last evaluation. She is sitting in the chair and just finished with speech therapy. She reports feeling well today. She has some abdominal pain at the incision, but well controlled. She has been participating with PT/OT. She reports BM last night and yesterday, not yet today but passing gas. She was tolerating food up until there was concern for possible aspiration and she has been made NPO by the Hospitalist following a modified barium swallow. Review of Systems Review of Systems: All systems reviewed & are unremarkable except as noted in HPI and below Exam Const: General: no acute distress and awake Orientation/consciousness: patient oriented x3 GI: Inspection: non-distended and incision ( dry and healing well) GI Palp: Yes Soft to palpation, Yes Tenderness to palpation present (GI) (incisional) and No Guarding due to palpation present (GI) Auscultation: normal bowel sounds Urinary Catheter: Urinary Catheter: patent and draining and urine clear Neuro: General: moves all extremities and no focal motor deficits Extrem: General: normal to inspection and no calf tenderness Psych: Judgement: Good judgement present (Psych) Objective Data Vital Signs Vital Signs: Vital Signs - 24 hr 06/07/21 14:00 06/07/21 20:00 06/08/21 00:06 Temperature 97.6 F 97.8 F Pulse Rate 91 96 Respiratory Rate 16 20 20 Blood Pressure 139/68 134/54 L Pulse Oximetry 96 90 90 06/08/21 05:30 06/08/21 08:27 06/08/21 08:30 Temperature 97.8 F Pulse Rate 92 98 Respiratory Rate 20 Blood Pressure 138/55 L Pulse Oximetry 91 92 Intake/Output Intake/Output: Intake & Output 06/05/21 06/06/21 06/07/21 06/08/21 23:59 23:59 23:59 23:59 Intake Total 3405 3955 3087 1100 Output Total 1375 950 900 450 Balance 2030 3005 2187 650 Meds/Results Medications: Active Medications Generic Name Dose Route Start Last Admin Trade Name Freq PRN Reason Stop Dose Admin Acetaminophen 500 mg 06/06/21 11:30 Acetaminophen 500 Mg Tablet PO Q6H PRN Mild Pain (1-3) or Fever Hydrocodone Bitart/Acetaminophen 1 tab 06/06/21 11:30 Hydrocodone/Acetaminophen (*Crx) 5-325 Mg Tablet PO Q4H PRN Pain Rated 4-6 Enoxaparin Sodium 40 mg 06/02/21 09:00 06/08/21 08:27 Enoxaparin 40 Mg/0.4 Ml Syringe SUB-Q 40 mg DAILY JENISE Administration Famotidine 20 mg 06/01/21 21:00 06/08/21 08:27 Famotidine 20 Mg/2 Ml Vial IV PUSH 20 mg Q12HR
--- NOTE | 2021-06-08 11:52 | PCNFU ---
Nutrition Follow-Up Complete: Altered GI function as related to SBO as evidenced by NPO Goal: Meet estimated nutritional needs Patient has limited progress towards goal. Pt current nutrition is NPO. Last recorded weight is 48.6 kg, up from 44.8 gm on admit. Bowel Motility: +BM reported 06/08 Labs Reviewed:Glu 147, BUN 38, Na 134,Alb 3.2, Hct 27.1,Hgb 8.7 Meds Noted:Lovenox, Morphine Sulfate, Pepcid, Toprol. Skin: WNL Additional Notes: Patient remains NPO. MBS performed 06/07 recommending NPO. Tube feeding recommendations: Jevity 1.2 at 10 ml/hr over 22 hours advance by 10 ml q 4 hours to goal rate of 65 ml/hr over 22 hours, providing 1716 kcals/79 gms protein/1154 ml water. Free water flush 30 ml q 4 hours. Monitoring: Will monitor every 3 days.
[2021-06-08] MEDS: CENTRAL LINE FLUSH 10 ML IV PUSH ×2 (13:52→21:08)
[2021-06-08 13:59] LABS: Glucose Point of Care 100 mg/dl (65-105)
[2021-06-08 14:37] VITALS: BP 123/69; PULSE 90; RESP 18; TEMP 36.2; O2SAT 95
[2021-06-08 20:00] VITALS: BP 124/45; PULSE 86; RESP 18; TEMP 35.8; O2SAT 94
[2021-06-08 23:19] LABS: Glucose Point of Care 103 mg/dl (65-105)
[2021-06-09] MEDS: SODIUM CHLORIDE 0.9% IV 1,000 ML 100 ML IV CONT ×2 (04:09→17:11)
[2021-06-09] MEDS: LEVOTHYROXINE SODIUM INJ 100 MCG/5 ML VIAL 25 MCG IV PUSH (06:12)
[2021-06-09] MEDS: CENTRAL LINE FLUSH 20 ML IV PUSH (06:12)
[2021-06-09] MEDS: CENTRAL LINE FLUSH 10 ML IV PUSH ×3 (06:12→20:59)
[2021-06-09 06:13] LABS: Glucose Point of Care 92 mg/dl (65-105)
[2021-06-09 06:17] VITALS: BP 138/48; PULSE 88; RESP 16; TEMP 36.6; O2SAT 100
[2021-06-09 06:20] LABS: Hematocrit 23.3 % (37.0-47.0); Hemoglobin 7.3 g/dL (12.0-15.0); Immature Platelet Fraction Pct 13.7 % (0.9-11.2); Mean Corpuscular HGB Conc 31.3 g/dl (32-36); Mean Corpuscular Hemoglobin 35.4 pg (26-34); Mean Corpuscular Volume 113.1 fl (80-100); Mean Platelet Volume 13.6 fl (7.4-10.4); Platelet Count Result 246 k/mm3 (150-375); Red Blood Count 2.06 M/mm3 (4.2-5.4); Red Cell Distribution Width 18.6 % (11.5-14.5)
[2021-06-09 06:31] LABS: Alanine Aminotransferase 49 U/L (4-35); Albumin Level 2.6 g/dL (3.5-5.1); Alkaline Phosphatase 147 U/L (38-126); Anion Gap 8 mmol/L (8-16); Aspartate Amino Transferase 39 U/L (14-36); Bilirubin,Total 1.2 mg/dL (0.2-1.3); Blood Urea Nitrogen 37 mg/dL (7-17); Calcium 8.8 mg/dL (8.4-10.2); Carbon Dioxide 21 mmol/L (22-30); Chloride 113 mmol/L (98-107); Estimated CRCL calculation 23 ml/min; Estimated Glomerular Filt Rate 39; Glucose 99 mg/dL (65-110); Magnesium 1.8 mg/dL (1.6-2.3); Potassium 3.6 mmol/L (3.4-5.0); Sodium 142 mmol/L (137-145)
[2021-06-09 06:57] LABS: IFOB Positive Control Positive; Immunochemical Fecal Occult Bl Positive (N)
[2021-06-09 07:24] LABS: Anisocytosis 3+ (NORMAL); Atypical Lymphocytes Present; Band Neutrophils Percent 19 % (0-6); Basophils Absolute Manual 0.18 K/mm3 (0.0-0.1); Basophils Percent Manual 2 % (0-1); Eosinophils Absolute Manual 0.45 K/mm3 (0.02-0.5); Eosinophils Percent Manual 5 % (0-4); Hypochromasia 1+ (NORMAL); Lymphocytes Absolute Manual 0.81 K/mm3 (1.1-4.5); Metamyelocytes Percent 1 %; Microcytosis 1+ (NORMAL); Monocytes Absolute Manual 0.36 K/mm3 (0.1-0.90); Monocytes Percent Manual 4 % (3-9); Neutrophils Absolute Manual 7.11 K/mm3 (1.7-7.2); Neutrophils Percent Manual 60 % (46-73); Nucleated Red Blood Cells 2 %; Ovalocytes 1+ (NORMAL); Platelet Estimate Adequate (Adequate); Total Cells Counted 100
[2021-06-09 07:38] LABS: Glucose Point of Care 99 mg/dl (65-105)
[2021-06-09 08:03] LABS: Hematocrit 29.6 % (37.0-47.0); Hemoglobin 9.1 g/dL (12.0-15.0)
[2021-06-09 09:00] VITALS: PULSE 88
[2021-06-09] MEDS: NICOTINE (*PBKC) 14 MG PATCH 1 PATCH TRANSDERM (09:00)
[2021-06-09] MEDS: METOPROLOL SUCCINATE EXT REL 12.5 MG TABCR PO (09:00)
[2021-06-09] MEDS: PANTOPRAZOLE SODIUM IV 40 MG VIAL IV PUSH ×2 (09:03→20:59)
--- NOTE | 2021-06-09 10:28 | PM.IMPN ---
Progress Note: A&P Assessment and Plan (1) Small bowel obstruction: Code(s): K56.609 - Unspecified intestinal obstruction, unspecified as to partial versus complete obstruction Status: Acute Assessment and Plan: Patient is 8 day s/p ex lap w/ adhesiolysis, partial small bowel resection. A slow decline in patient's hemoglobin and hematocrit, continue to trend IV nutrition discontinued, patient had a barium swallow on 06/07/2021 which revealed aspiration. Speech therapy suggested NPO status -Surgery ordered NG discontinued -further management per surgery (2) Acute respiratory failure with hypoxia: Code(s): J96.01 - Acute respiratory failure with hypoxia Status: Acute Assessment and Plan: -pulmonary edema/fluid overload vs pneumonia, likely combination of both -continue to wean oxygen as tolerated, patient is currently on room air. No signs of fluid volume overload (3) Tachycardia: Code(s): R00.0 - Tachycardia, unspecified Status: Acute Assessment and Plan: -EKG shows sinus tach, heart rate currently controlled -Continue DVT prophylaxis with lovenox/ SCDs -Venous dopplers negative bilaterally -VQ scan intermediate probability for PE -CTA negative for PE but does show pneumonia and atelectasis, tachy secondary to infection? Remains tachycardic, 90s to 110s. BP is stable and running 130s-150s Systolic/40s-60s Diastolic. Suggested tachycardia may be contributed to hypovolemia given her anemia - Will continue to monitor VS trend. (4) Pneumonia: Qualifiers: Pneumonia type: due to unspecified organism Laterality: unspecified laterality Lung location: unspecified part of lung Qualified Code(s): J18.9 - Pneumonia, unspecified organism Code(s): J18.9 - Pneumonia, unspecified organism Status: Acute Assessment and Plan: -seen on CTA -possibly aspiration pneumonia, also with atelectasis -blood cultures draw -continue zosyn and incentive spirometer -06/07/21: Swallow evaluation ordered. Which revealed aspiration, speech therapy suggested keeping patient NPO (5) Pleural effusion: Code(s): J90 - Pleural effusion, not elsewhere classified Status: Resolved Assessment and Plan: -resolved on CXR 06/04/21 after one dose of lasix - 06/07/21: RESOLVED (6) Zxhrr-cd-bwevxoe kidney injury: Qualifiers: Acute renal failure type: unspecified Chronic kidney disease stage: unspecified stage Qualified Code(s): N17.9 - Acute kidney failure, unspecified; N18.9 - Chronic kidney disease, unspecified Code(s): N17.9 - Acute kidney failure, unspecified; N18.9 - Chronic kidney disease, unspecified Status: Acute Assessment and Plan: -Patient has CKD, still awaiting primary care records for baseline creatinine. -creat was 2.1 on admission Will continue to trend daily. (7) Emphysema of lung: Qualifiers: Emphysema type: unspecified Qualified Code(s): J43.9 - Emphysema, unspecified Code(s): J43.9 - Emphysema, unspecified Status: Chronic Assessment and Plan: -Continue home inhaler (8) Cardiomegaly: Code(s): I51.7 - Cardiomegaly Status: Acute Assessment and Plan: -echo w/ normal systolic function EF 60-65%, grade 1 diastolic dysfunction (9) Hypothyroidism: Qualifiers: Hypothyroidism type: unspecified Qualified Code(s): E03.9 - Hypothyroidism, unspecified Code(s): E03.9 - Hypothyroidism, unspecified Status: Acute Assessment and Plan: -TSH 0.534, will continue home medication. (10) Acute anemia: Code(s): D64.9 - Anemia, unspecified Status: Acute Assessment and Plan: Monitor serum electrolytes, CBC, hemoglobin/hematocrit q.8 hours. If hemoglobin drops below 7 transfuse packed red blood cells Monitor for bloody bowel movements,chest pain,SOB
--- NOTE | 2021-06-09 11:06 | PM.PNGS ---
Progress Note: A&P Assessment and Plan (1) Small bowel obstruction: Code(s): K56.609 - Unspecified intestinal obstruction, unspecified as to partial versus complete obstruction Status: Acute Assessment and Plan: MBS and speech eval showed silent aspiration and recommending NPO. Hospitalist speaking with family/patient regarding possible PEG tube and GI consult. Okay to start a diet from our standpoint once decision is made regarding feedings. Hgb slowly trending down, 7.3 this morning with repeat 9.1. No signs of active bleeding. Will switch Pepcid to Protonix in case of gastritis or PUD. Hemodynamically stable and patient asymptomatic. Hospitalist transfused one unit PRBC this morning and held Lovenox. Trend labs. Encouraged increasing activity, OOB, IS use - continue PT/OT. (2) Silent aspiration: Code(s): T17.900A - Unspecified foreign body in respiratory tract, part unspecified causing asphyxiation, initial encounter Status: Acute (3) Pneumonia: Qualifiers: Laterality: unspecified laterality Lung location: unspecified part of lung Pneumonia type: due to unspecified organism Qualified Code(s): J18.9 - Pneumonia, unspecified organism Code(s): J18.9 - Pneumonia, unspecified organism Status: Acute Additional Plan I have discussed the patient's case and plan of care with Dr. Hidalgo. Subjective Subjective Date/Time Seen: 06/09/21 11:06 Post Op day: 8 Patient reports: no new complaints, flatus and afebrile Interval history: Patient seen and examined. She is lying in bed asleep when entering the room. Easily aroused and denies any specific complaints. She denies abdominal pain, nausea, bloating, or vomiting. She reports flatus but has not had a BM since two nights ago. She has also been NPO due to silent aspiration. I spoke with the Hospitalist who has been talking with her daughters regarding feeding and gastrostomy tube. Per the patient, she is agreeable to having a PEG tube placed for feedings. Review of Systems Review of Systems: All systems reviewed & are unremarkable except as noted in HPI and below Constitutional: Constitutional: Reports as per HPI, Reports no additional constitutional complaints, Denies chills, Denies fever(s), Denies headache(s) and Denies weakness Cardiovascular: Cardiovascular: Reports no additional cardiovascular complaints, Denies chest pain and Denies leg edema Respiratory: Respiratory: Reports no additional respiratory complaints, Denies cough and Denies dyspnea Gastrointestinal: Gastrointestinal: Reports as per HPI, Reports no additional gastrointestinal complaints and Denies bloating Neurologic: Reports system reviewed and no additional complaints, except as documented, Denies Abnormal speech present, Denies dizziness, Denies syncope and Denies focal weakness Exam Const: General: no acute distress and awake Nutritional Appearance: thin Orientation/consciousness: patient oriented x3 GI: Inspection: incision ( dry and healing well) and other (mildly distended) GI Palp: Yes Soft to palpation, Yes Tenderness to palpation present (GI) (only incisional), No Guarding due to palpation present (GI) and No Rebound tenderness present Auscultation: normal bowel sounds Neuro: General: moves all extremities and no focal motor deficits Extrem: General: normal to inspection and no calf tenderness Psych: Judgement: Good judgement present (Psych) Objective Data Vital Signs Vital Signs: Vital Signs - 24 hr 06/08/21 14:37 06/08/21 20:00 06/09/21 06:17 Temperature 97.1 F L 96.4 F L 97.8 F Pulse Rate 90 86 88 Respiratory Rate 18 18 16 Blood Pressure 123/69 124/45 L 138/48 L Pulse Oximetry 95 94 100 06/09/21 09:00 Temperature Pulse Rate 88 Respiratory Rate Blood Pressure Pulse Oximetry Intake/Output Intake/Output: Intake & Output 06/06/21 06/07/21 06/08/21 06/09/21 23:59 23:59 23:59 23:59 Intake Total 7504 3656 2200 1050
[2021-06-09 11:28] LABS: Glucose Point of Care 87 mg/dl (65-105)
[2021-06-09 12:02] LABS: Hematocrit 23.8 % (37.0-47.0); Hemoglobin 7.4 g/dL (12.0-15.0); Immature Platelet Fraction Pct 12.2 % (0.9-11.2); Mean Corpuscular HGB Conc 31.1 g/dl (32-36); Mean Corpuscular Hemoglobin 34.6 pg (26-34); Mean Corpuscular Volume 111.2 fl (80-100); Platelet Count Result 274 k/mm3 (150-375); Red Blood Count 2.14 M/mm3 (4.2-5.4); Red Cell Distribution Width 19.1 % (11.5-14.5); White Blood Count 8.9 K/mm3 (4.5-10.0)
[2021-06-09 12:12] LABS: Alanine Aminotransferase 47 U/L (4-35); Albumin Level 2.8 g/dL (3.5-5.1); Alkaline Phosphatase 145 U/L (38-126); Anion Gap 9 mmol/L (8-16); Aspartate Amino Transferase 28 U/L (14-36); Bilirubin,Total 1.2 mg/dL (0.2-1.3); Blood Urea Nitrogen 34 mg/dL (7-17); Calcium 9.1 mg/dL (8.4-10.2); Carbon Dioxide 20 mmol/L (22-30); Chloride 114 mmol/L (98-107); Estimated CRCL calculation 24 ml/min; Estimated Glomerular Filt Rate 43; Glucose 104 mg/dL (65-110); Magnesium 1.8 mg/dL (1.6-2.3); Potassium 3.7 mmol/L (3.4-5.0); Sodium 143 mmol/L (137-145)
--- NOTE | 2021-06-09 13:48 | PCSTNOTE ---
Please refer to the Modified Barium Swallow Evaluation in the EMR.
[2021-06-09 14:00] VITALS: BP 144/54; PULSE 95; RESP 18; TEMP 36.1; O2SAT 97
[2021-06-09 16:21] LABS: Glucose Point of Care 101 mg/dl (65-105)
[2021-06-09 20:40] VITALS: O2SAT 91
[2021-06-09 21:01] VITALS: BP 128/77; PULSE 91; RESP 18; TEMP 35.8; O2SAT 93
[2021-06-10] VITALS (8 sets, daily range): BP systolic 146–182; BP diastolic 55–78; PULSE 79–98; RESP 16–17; TEMP 36.1–36.8; O2SAT 93–100
[2021-06-10 00:01] LABS: Glucose Point of Care 86 mg/dl (65-105)
[2021-06-10] MEDS: SODIUM CHLORIDE 0.9% IV 1,000 ML 100 ML IV CONT ×2 (05:34→22:40)
[2021-06-10] MEDS: CENTRAL LINE FLUSH 10 ML IV PUSH ×3 (06:18→20:33)
[2021-06-10] MEDS: LEVOTHYROXINE SODIUM INJ 100 MCG/5 ML VIAL 25 MCG IV PUSH (06:18)
[2021-06-10 06:44] LABS: Hematocrit 22.8 % (37.0-47.0); Hemoglobin 7.1 g/dL (12.0-15.0); Mean Corpuscular HGB Conc 31.1 g/dl (32-36); Mean Corpuscular Hemoglobin 34.6 pg (26-34); Mean Corpuscular Volume 111.2 fl (80-100); Mean Platelet Volume 12.9 fl (7.4-10.4); Platelet Count Result 288 k/mm3 (150-375); Red Blood Count 2.05 M/mm3 (4.2-5.4)
[2021-06-10 06:51] LABS: Alanine Aminotransferase 34 U/L (4-35); Albumin Level 2.7 g/dL (3.5-5.1); Alkaline Phosphatase 117 U/L (38-126); Anion Gap 11 mmol/L (8-16); Aspartate Amino Transferase 26 U/L (14-36); Bilirubin,Total 1.1 mg/dL (0.2-1.3); Blood Urea Nitrogen 29 mg/dL (7-17); Calcium 8.9 mg/dL (8.4-10.2); Carbon Dioxide 17 mmol/L (22-30); Chloride 117 mmol/L (98-107); Estimated CRCL calculation 24 ml/min; Estimated Glomerular Filt Rate 43; Glucose 104 mg/dL (65-110); Potassium 3.3 mmol/L (3.4-5.0); Sodium 145 mmol/L (137-145)
[2021-06-10 08:22] LABS: Band Neutrophils Percent 10 % (0-6); Eosinophils Percent Manual 5 % (0-4); Metamyelocytes Percent 3 %; Monocytes Percent Manual 3 % (3-9); Neutrophils Percent Manual 70 % (46-73); Platelet Estimate Adequate (Adequate); Total Cells Counted 100
[2021-06-10 08:26] LABS: Anisocytosis 2+ (NORMAL); Hypochromasia 1+ (NORMAL); Microcytosis 1+ (NORMAL)
[2021-06-10 08:27] LABS: Ovalocytes 1+ (NORMAL)
--- NOTE | 2021-06-10 08:59 | PM.IMPN ---
Progress Note: A&P Assessment and Plan (1) Small bowel obstruction: Code(s): K56.609 - Unspecified intestinal obstruction, unspecified as to partial versus complete obstruction Status: Acute Assessment and Plan: Rachel is POD 9, partial S/P bowel resection and reattachment on 06/01/21. s/p ex lap w/ adhesiolysis A slow decline in patient's hemoglobin and hematocrit - acute anemia discussed below. -Surgery ordered NG discontinued -IV nutrition discontinued, patient had a barium swallow on 06/07/2021 which revealed aspiration. Speech therapy suggested NPO status -further management per surgery -currently NPO -ST has worked with her the last 3 days, , , . No N/V but is having some mild abdominal pain, moderately bloated but Rachel said that her abd distension had improved. Had BM yesterday and today - dark brown and black and soft. Also having flatus today. Consulted GI for evaluation of PEG tube placement. May consider repeat Barrium Swallow eval on Tuesday before proceeding with PEG. 06/10 - Discussed NG/PEG placement with family, awaiting GI recommendations. (2) Acute respiratory failure with hypoxia: Code(s): J96.01 - Acute respiratory failure with hypoxia Status: Acute Assessment and Plan: -pulmonary edema/fluid overload vs pneumonia, likely combination of both -continue to wean oxygen as tolerated, patient is currently on room air. No signs of fluid volume overload - improved, resolved. (3) Tachycardia: Code(s): R00.0 - Tachycardia, unspecified Status: Acute Assessment and Plan: Differential diagnoses include s/p Surgery? vs. Dehydration vs. Hypovolemia vs. Anemia? vs. Infection? -EKG and Tele shows sinus tach, 90-110s -Continue DVT prophylaxis with lovenox/ SCDs -Venous dopplers negative bilaterally -VQ scan intermediate probability for PE -CTA negative for PE but does show pneumonia and atelectasis - BP is stable and running 130s-150s Systolic/40s-60s Diastolic. - Anemic, Hgb. 7.1 with Hct 22.8 today on 06/10 ordered stool culture and occult ordered strict I/Os, ordered transfuse 1 RBC transfusion ordered GI consult. (4) Pneumonia: Qualifiers: Laterality: unspecified laterality Lung location: unspecified part of lung Pneumonia type: due to unspecified organism Qualified Code(s): J18.9 - Pneumonia, unspecified organism Code(s): J18.9 - Pneumonia, unspecified organism Status: Acute Assessment and Plan: -seen on CTA -possibly aspiration pneumonia, also with atelectasis -06/05/21 blood cultures drawn showed no growth -continue zosyn started on 06/05/21 (continue for 5-7 days, stop on 06/12) and encourage incentive spirometer -06/07/21: Swallow evaluation ordered. Which revealed aspiration, speech therapy suggested keeping patient NPO -Continue ST/PT/OT and NPO status. - Appreciate Surgery and GI recommendations regarding swallowing/eating/NG vs. PEG tube placement - Repeat barium swallow evaluation on 06/15 - will likely need NG placement in the morning for medication/hydration/nutrition - need to Surgery to order/approve. (5) Pleural effusion: Code(s): J90 - Pleural effusion, not elsewhere classified Status: Resolved Assessment and Plan: -resolved on CXR 06/04/21 after one dose of lasix - 06/07/21: RESOLVED (6) Hzpww-oh-lieghjy kidney injury: Qualifiers: Acute renal failure type: unspecified Chronic kidney disease stage: unspecified stage Qualified Code(s): N17.9 - Acute kidney failure, unspecified; N18.9 - Chronic kidney disease, unspecified Code(s): N17.9 - Acute kidney failure, unspecified; N18.9 - Chronic kidney disease, unspecified Status: Acute Assessment and Plan: -Patient has CKD, still awaiting primary care records for baseline creatinine. -creat was 2.1 on admission -creatinine 1.2 today - much improved. - strict I/O's. (7) Emphysema of lung:
[2021-06-10] MEDS: METOPROLOL SUCCINATE EXT REL 12.5 MG TABCR PO (09:04)
[2021-06-10] MEDS: ENOXAPARIN 40 MG/0.4 ML SYRINGE SUB-Q (09:04)
[2021-06-10] MEDS: PANTOPRAZOLE SODIUM IV 40 MG VIAL IV PUSH ×2 (09:05→20:33)
[2021-06-10] MEDS: NICOTINE (*PBKC) 14 MG PATCH 1 PATCH TRANSDERM (09:05)
--- NOTE | 2021-06-10 10:47 | WPDCDIQUERY2 ---
CDI Query Clarification Request 06/08 Hospitalist documented: Acute anemia: Code(s): D64.9 - Anemia, unspecified Status: Acute Assessment and Plan: Monitor serum electrolytes, CBC, hemoglobin/hematocrit q.8 hours. If hemoglobin drops below 7 transfuse packed red blood cells Monitor for bloody bowel movements,chest pain,SOB or dizziness/lightheadedness Diet: NPO DVT Px: SCDs Consider stopping anti-coagulations if the patient has a positive occult stool 06/07 Lab results are as follows: -H&H equals: 06/07 (7.8/24.5), 06/08 (9.1/29.6), 06/09 (7.4/23.8), 06/10 (7.1/22.8). Please clarify if Acute Anemia diagnosis is: Please clarify the status of the patient's renal function, if known. -Acute blood loss anemia -Chronic blood loss anemia -Anemia of chronic disease (CKD,neoplasm, other) -Aplastic anemia -Dilutional anemia -Iron Deficiency anemia -Pernicious anemia -Nutritional anemia (e.g., scorbutic anemia) -Other anemia -Unknown/unable to determine <Kelin Stone - Last Filed: 06/10/21 11:02> Clarified Diagnosis (1) Acute anemia: Code(s): D64.9 - Anemia, unspecified <Kelin Craigle - Last Filed: 06/10/21 11:02> Status: Acute <Kelin Stone - Last Filed: 06/10/21 11:02> Assessment and Plan: Anemia is multifactorial related to small blood loss of surgery (50ml), chronic iron deficiency (low iron panel results), anemia of chronic disease including breast cancer, nutritional anemia due to NPO status. H/H on 05/30/21 was 12/37.8 and H/H on 05/31 was 11.2/34.2 today H/H 7.1/22.8 -->Anemia likely related to the fact that the patient had bowel surgery, with likely lower rate of nutritional absorption at this time, as well as not unable to return to normal dietary intake after her surgery. --> anemia also related to the fact that she has low iron stores, iron deficiency anemia and will need iron supplementation. Monitor serum electrolytes, CBC, hemoglobin/hematocrit q.8 hours. If hemoglobin drops below 7 transfuse packed red blood cells Diet: NPO DVT Px: SCDs and Lovenox SQ Daily ordered by Surgery -->Consider stopping anti-coagulations, patient has a positive occult stool. Monitor for bloody bowel movements,chest pain,SOB or dizziness/lightheadedness Anemic, Hgb. 7.1 with Hct 22.8 today on 06/10 ordered stool culture and occult ordered strict I/Os ordered transfuse 1 RBC transfusion, check for Iron Deficiency, treat with IV Venofer and/or PO Iron. ordered GI consult. <Lilliam Garcia NP - Last Filed: 06/10/21 21:05> (2) Carid-vv-qskwcqj kidney injury: Qualifiers: Acute renal failure type: unspecified Chronic kidney disease stage: unspecified stage Qualified Code(s): N17.9 - Acute kidney failure, unspecified; N18.9 - Chronic kidney disease, unspecified <Kelin Stone - Last Filed: 06/10/21 11:02> Code(s): N17.9 - Acute kidney failure, unspecified; N18.9 - Chronic kidney disease, unspecified <Kelin Stone - Last Filed: 06/10/21 11:02> Status: Acute <Kelin Stone - Last Filed: 06/10/21 11:02> Assessment and Plan: -Patient has CKD, still awaiting primary care records for baseline creatinine. -creat was 2.1 on admission -creatinine 1.2 today - much improved. -with adequate hydration, will likely continue to improve. - strict I/O's. <Lilliam Garcia NP - Last Filed: 06/10/21 21:05>
[2021-06-10 11:06] LABS: Iron 30 ug/dL (37-170)
[2021-06-10 11:15] LABS: Percent Iron Saturation 18 % (20-50)
--- NOTE | 2021-06-10 11:18 | PM.PNGS ---
Progress Note: A&P Assessment and Plan (1) Small bowel obstruction: Code(s): K56.609 - Unspecified intestinal obstruction, unspecified as to partial versus complete obstruction Status: Acute Assessment and Plan: Surgically stable and doing well from our standpoint. Incision healing well. MBS repeated yesterday and still showing aspiration. Patient NPO and GI has been consulted to evaluate for PEG placement. Okay to start a diet from our standpoint once decision is made regarding feedings/PEG tube. Hgb slowly trending down, 7.1 this morning. No signs of active bleeding. Hemodynamically stable and patient asymptomatic. 1 unit PRBCs ordered by Hospitalist with Lovenox put on hold. Trend labs. Encouraged increasing activity, OOB, IS use - continue PT/OT. (2) Silent aspiration: Code(s): T17.900A - Unspecified foreign body in respiratory tract, part unspecified causing asphyxiation, initial encounter Status: Acute (3) Pneumonia: Qualifiers: Pneumonia type: due to unspecified organism Laterality: unspecified laterality Lung location: unspecified part of lung Qualified Code(s): J18.9 - Pneumonia, unspecified organism Code(s): J18.9 - Pneumonia, unspecified organism Status: Acute Additional Plan I have discussed the patient's case and plan of care with Dr. Hidalgo. Subjective Subjective Date/Time Seen: 06/10/21 09:18 Post Op day: 9 Patient reports: no new complaints, bowel movement (x3 overnight) and afebrile Interval history: Patient seen and examined. She is still NPO with continuous IV fluids running. She is sitting in the chair. Nursing reports she is getting up multiple times during the day and walking in the room without any issues and had 3 BMs overnight. The patient denies any abdominal pain, nausea, or bloating. She has no specific complaints. Review of Systems Review of Systems: All systems reviewed & are unremarkable except as noted in HPI and below Exam Const: General: comfortable, no acute distress and awake Nutritional Appearance: thin Orientation/consciousness: patient oriented x3 GI: Inspection: incision ( dry and healing well) and other (mildly distended but improved and softer today) GI Palp: Yes Soft to palpation, Yes Tenderness to palpation present (GI) (incisional), No Guarding due to palpation present (GI) and No Hernia present Auscultation: normal bowel sounds Neuro: General: moves all extremities and no focal motor deficits Extrem: General: normal to inspection and no calf tenderness Psych: Judgement: Good judgement present (Psych) Objective Data Vital Signs Vital Signs: Vital Signs - 24 hr 06/09/21 14:00 06/09/21 20:40 06/09/21 21:01 Temperature 97.0 F L 96.5 F L Pulse Rate 95 91 Respiratory Rate 18 18 Blood Pressure 144/54 H 128/77 Pulse Oximetry 97 91 93 06/10/21 06:00 06/10/21 09:04 Temperature 97.0 F L Pulse Rate 92 98 Respiratory Rate 16 Blood Pressure 146/55 H Pulse Oximetry 93 Intake/Output Intake/Output: Intake & Output 06/07/21 06/08/21 06/09/21 06/10/21 23:59 23:59 23:59 23:59 Intake Total 3087 2200 2200 1050 Output Total 900 850 900 351 Balance 2187 1350 1300 699 Meds/Results Medications: Active Medications Generic Name Dose Route Start Last Admin Trade Name Freq PRN Reason Stop Dose Admin Acetaminophen 500 mg 06/06/21 11:30 Acetaminophen 500 Mg Tablet PO Q6H PRN Mild Pain (1-3) or Fever Hydrocodone Bitart/Acetaminophen 1 tab 06/06/21 11:30 Hydrocodone/Acetaminophen (*Crx) 5-325 Mg Tablet PO Q4H PRN Pain Rated 4-6 Enoxaparin Sodium 40 mg 06/02/21 09:00 06/10/21 09:04 Enoxaparin 40 Mg/0.4 Ml Syringe SUB-Q 40 mg DAILY JENISE Administration Sodium Chloride 1,000 mls @ 100 mls/hr 06/04/21 11:45 06/10/21 05:34 Normal Saline Iv IV CONT 100 mls/hr .Q10H JENISE Administration Piperacillin Sod/Tazobactam Sod 2.25 gm in 50 mls @ 100 mls/hr
[2021-06-10 11:54] LABS: Glucose Point of Care 92 mg/dl (65-105)
[2021-06-10] MEDS: SODIUM CHLORIDE 0.9% IV 250 ML 30 ML IV CONT (12:09)
[2021-06-10 12:16] LABS: Folic Acid 6.4 ng/mL (2.76->20)
--- NOTE | 2021-06-10 14:59 | WPDGICN ---
Assessment and Plan Assessment and plan (1) Silent aspiration: Code(s): T17.900A - Unspecified foreign body in respiratory tract, part unspecified causing asphyxiation, initial encounter Status: Acute Assessment and Plan: Patient with apparent silent aspiration on recent modified barium swallow. This is done at the same interval that her postoperative ileus is improving. G-tube has been requested. I am somewhat suspicious that difficulty swallowing may be related to her weak and postoperative state along with resolving ileus. Peg tube would be very difficult in the best of circumstances because of new midline scarring and recent surgery. I would suggest allowing ileus to continue to resolved. Nursing staff reports good bowel movements over the last 2-3 days. Repeat modified barium swallow on Tuesday06/15/2021. In defer attempts at PEG tube at least until that time. Given her normal swallowing prior to this hospitalization I would assume that she should return to baseline at some point. We will follow with you in the interim. (2) Small bowel obstruction: Code(s): K56.609 - Unspecified intestinal obstruction, unspecified as to partial versus complete obstruction Status: Acute Assessment and Plan: Patient is status post small-bowel resection and resection of adhesions on 06/01/2021. Patient now recovering slowly. (3) Pneumonia: Qualifiers: Pneumonia type: due to unspecified organism Laterality: unspecified laterality Lung location: unspecified part of lung Qualified Code(s): J18.9 - Pneumonia, unspecified organism Code(s): J18.9 - Pneumonia, unspecified organism Status: Acute GI Consult Note Consult date/time: 06/10/21 14:59 HPI: Rachel Lazar is a 80 year old female I am asked to see at the request of the hospitalist service. Patient admitted the hospital was found to have a small-bowel obstruction secondary to adhesions. She wonder when exploratory laparotomy and lysis of adhesions with small bowel resection on 06/01/2021. Since that time patient has been recovering from postoperative ileal ileus. Nursing staff reports over the last 3 days or bowel habits begun returned normal. She has had barium swallow to assess swallowing on 06/07 and again yesterday which shows aspiration risk. KUB performed yesterday reveals dilated loops of small bowel consistent with possible ileus. I have been asked to see the patient to consider a possible PEG tube. Patient is quite comfortable at rest. She reports that prior to admission the hospital she was eating well with no coughing or choking. Nursing staff report reports that with her modified barium swallow no coughing or choking was noted at that time as well either. Review of Systems Review of Systems: All systems reviewed & are unremarkable except as noted in HPI and below PMFSH Past Medical History Medical History Anxiety Cancer of right breast Status post lumpectomy and radiation therapy. Chronic kidney disease Baseline creatinine and GFR unknown. Emphysema of lung Hypothyroidism Tobacco dependence Vitamin D deficiency Surgical History Surgical History History of colonoscopy with polypectomy History of lumpectomy of right breast History of right hemicolectomy For a large, benign colon polyp. History of thyroidectomy For treatment of a goiter. Family History Family History Other Cancer Diabetes mellitus Social History Social History Social History: Surrogate decision maker: Stephanie Simental, daughter. Code status: Full code. Smoking packs per day: 1 Smoking cigarettes per day: 20.0 Years smoked: 60 Smoking pack-years: 60.00 Smoking status: Current every day smoker Tobacco ty
--- NOTE | 2021-06-10 16:06 | PCSTNOTE ---
Order received for repeat Modified Barium Swallow placed in chart however it is dated for and planned for 06/15/21.
[2021-06-10 16:12] LABS: Hematocrit 28.8 % (37.0-47.0); Hemoglobin 8.9 g/dL (12.0-15.0)
[2021-06-10] MEDS: IRON SUCROSE COMPLEX 200 MG in SODIUM CHLORIDE 0.9% IV 50 ML 120 MG IVPB (16:13)
[2021-06-11 01:51] LABS: Glucose Point of Care 89 mg/dl (65-105)
[2021-06-11 05:09] VITALS: BP 150/64; PULSE 91; RESP 16; TEMP 36.5; O2SAT 95
[2021-06-11] MEDS: LEVOTHYROXINE SODIUM INJ 100 MCG/5 ML VIAL 25 MCG IV PUSH (05:19)
[2021-06-11] MEDS: CENTRAL LINE FLUSH 10 ML IV PUSH ×3 (05:19→20:46)
[2021-06-11 06:25] LABS: Hematocrit 28.2 % (37.0-47.0); Hemoglobin 8.9 g/dL (12.0-15.0); Mean Corpuscular HGB Conc 31.6 g/dl (32-36); Mean Corpuscular Hemoglobin 32.6 pg (26-34); Mean Corpuscular Volume 103.3 fl (80-100); Mean Platelet Volume 12.9 fl (7.4-10.4); Platelet Count Result 346 k/mm3 (150-375); Red Blood Count 2.73 M/mm3 (4.2-5.4); Red Cell Distribution Width 24.3 % (11.5-14.5); White Blood Count 10.4 K/mm3 (4.5-10.0)
[2021-06-11 06:34] LABS: Alanine Aminotransferase 29 U/L (4-35); Albumin Level 2.7 g/dL (3.5-5.1); Alkaline Phosphatase 103 U/L (38-126); Anion Gap 10 mmol/L (8-16); Aspartate Amino Transferase 30 U/L (14-36); Bilirubin,Total 1.3 mg/dL (0.2-1.3); Blood Urea Nitrogen 22 mg/dL (7-17); Calcium 8.7 mg/dL (8.4-10.2); Carbon Dioxide 18 mmol/L (22-30); Chloride 117 mmol/L (98-107); Estimated CRCL calculation 26 ml/min; Estimated Glomerular Filt Rate 48; Glucose 93 mg/dL (65-110); Sodium 145 mmol/L (137-145)
[2021-06-11 07:10] LABS: Acanthocytes 1+ (NORMAL); Anisocytosis 2+ (NORMAL); Band Neutrophils Percent 6 % (0-6); Eosinophils Absolute Manual 0.41 K/mm3 (0.02-0.5); Eosinophils Percent Manual 4 % (0-4); Lymphocytes Absolute Manual 1.56 K/mm3 (1.1-4.5); Monocytes Absolute Manual 0.41 K/mm3 (0.1-0.90); Monocytes Percent Manual 4 % (3-9); Neutrophils Percent Manual 71 % (46-73); Nucleated Red Blood Cells 7 %; Ovalocytes 1+ (NORMAL); Platelet Estimate Adequate (Adequate); Total Cells Counted 100
[2021-06-11 07:33] LABS: Glucose Point of Care 97 mg/dl (65-105)
[2021-06-11] MEDS: PANTOPRAZOLE SODIUM IV 40 MG VIAL IV PUSH ×2 (09:05→20:46)
[2021-06-11] MEDS: NICOTINE (*PBKC) 14 MG PATCH 1 PATCH TRANSDERM (09:05)
[2021-06-11] MEDS: SODIUM CHLORIDE 0.9% IV 1,000 ML 100 ML IV CONT (09:05)
[2021-06-11] MEDS: METOPROLOL SUCCINATE EXT REL 12.5 MG TABCR PO (09:05)
[2021-06-11] MEDS: POTASSIUM CHLORIDE INJ 40 MEQ in SODIUM CHLORIDE 0.9% IV 500 ML 130 MEQ IVPB (09:23)
[2021-06-11 11:42] LABS: Glucose Point of Care 95 mg/dl (65-105)
--- NOTE | 2021-06-11 12:29 | PM.PNGS ---
Progress Note: A&P Assessment and Plan (1) Small bowel obstruction: Code(s): K56.609 - Unspecified intestinal obstruction, unspecified as to partial versus complete obstruction Status: Acute Assessment and Plan: Surgically stable and doing well from our standpoint. Incision healing well. MBS and ST suggesting silent aspiration. Patient NPO, GI would like to defer G-tube placement and repeat MBS on 06/15. Patient agreeable to Dobhoff and then she could have tube feedings, discussed with Hospitalist. Okay to start tube feedings from our standpoint. Encouraged increasing activity, OOB, IS use - continue PT/OT. (2) Silent aspiration: Code(s): T17.900A - Unspecified foreign body in respiratory tract, part unspecified causing asphyxiation, initial encounter Status: Acute Assessment and Plan: GI consulted and felt this is likely related to her weak post-op state and resolving ileus. Repeat MBS on 06/15. (3) Pneumonia: Qualifiers: Pneumonia type: due to unspecified organism Laterality: unspecified laterality Lung location: unspecified part of lung Qualified Code(s): J18.9 - Pneumonia, unspecified organism Code(s): J18.9 - Pneumonia, unspecified organism Status: Acute Additional Plan I have discussed the patient's case and plan of care with Dr. Hidalgo. Subjective Subjective Date/Time Seen: 06/11/21 10:29 Post Op day: 10 Patient reports: no new complaints, flatus, bowel movement and afebrile Interval history: Patient seen and examined. She reports feeling well and is sitting up in the chair. No new complaints. She is hungry. GI saw patient and would like her to repeat a MBS study again on 06/15. I discussed feeding options in the meantime of either a Dobhoff/feeding tube or Clinimix, and she agreed to trying a Dobhoff. Review of Systems Review of Systems: All systems reviewed & are unremarkable except as noted in HPI and below Exam Const: General: no acute distress and awake Orientation/consciousness: patient oriented x3 Resp: Auscultation: clear to auscultation bilaterally Cardio: Rhythm: regular rhythm GI: Inspection: incision ( dry and healing well) and other (mildly distended but improved and softer today) GI Palp: Yes Soft to palpation, Yes Tenderness to palpation present (GI) (incisional), No Guarding due to palpation present (GI) and No Rebound tenderness present Auscultation: normal bowel sounds Neuro: General: moves all extremities and no focal motor deficits Extrem: General: normal to inspection and no calf tenderness Psych: Insight: Fair insight present (Psych) Judgement: Good judgement present (Psych) Objective Data Vital Signs Vital Signs: Vital Signs - 24 hr 06/10/21 13:00 06/10/21 14:00 06/10/21 19:40 Temperature 98.2 F 98.1 F 97.6 F Pulse Rate 81 86 89 Respiratory Rate 17 16 16 Blood Pressure 180/71 H 182/68 H 166/78 H Pulse Oximetry 100 100 97 06/10/21 23:17 06/11/21 05:09 Temperature 97.7 F Pulse Rate 91 Respiratory Rate 16 Blood Pressure 150/64 H Pulse Oximetry 96 95 Intake/Output Intake/Output: Intake & Output 06/08/21 06/09/21 06/10/21 06/11/21 23:59 23:59 23:59 23:59 Intake Total 2200 2200 2610 1100 Output Total 364 229 7492 1000 Balance 1350 1300 1159 100 Meds/Results Medications: Active Medications Generic Name Dose Route Start Last Admin Trade Name Freq PRN Reason Stop Dose Admin Acetaminophen 500 mg 06/06/21 11:30 Acetaminophen 500 Mg Tablet PO Q6H PRN Mild Pain (1-3) or Fever Hydrocodone Bitart/Acetaminophen 1 tab 06/06/21 11:30 Hydrocodone/Acetaminophen (*Crx) 5-325 Mg Tablet PO Q4H PRN Pain Rated 4-6 Enoxaparin Sodium 40 mg 06/02/21 09:00 06/10/21 09:04 Enoxaparin 40 Mg/0.4 Ml Syringe SUB-Q 40 mg DAILY JENISE Administration Sodium Chloride 1,000 mls @ 100 mls/hr 06/04/21 11:45 06/11/21 09:05 Normal Saline Iv IV CONT 100 mls/hr .Q10H
--- NOTE | 2021-06-11 12:55 | PCNFU ---
Nutrition Follow-Up Complete: Altered GI function as related to SBO as evidenced by NPO Goal: Meet estimated nutritional needs Patient has limited progress towards goal. We will continue current goal. Pt current nutrition is NPO. Tube feeding recommendations: Jevity 1.2 at 10 ml/hr over 22 hours advance by 10 ml q 4 hours to goal rate of 65 ml/hr over 22 hours, providing 1716 kcals/79 gms protein/1154 ml water. Free water flush 30 ml q 4 hours. Last recorded weight is 48.6 kg-stable Bowel Motility:+BM reported 06/11 Labs Reviewed:GFR 48, K 3.0,Alb 2.7,Hct 28.2,Hgb 8.9 Meds Noted:Synthroid, Toprol, Lovenox, Protonix, Zosyn,NS Skin: WNL Additional Notes: Patient had MBS on 06/07-recommending NPO. Plans to repeat MBS on 06/15. Plans for Dobbhoff feedings. Tube feeding recommendations given above. Agree with diet orders. Monitoring: Will monitor every Tuesday and Tuesday.
[2021-06-11 14:03] VITALS: BP 162/69; PULSE 78; RESP 16; TEMP 36.1; O2SAT 99
--- NOTE | 2021-06-11 14:15 | WPDGIPROGNO ---
Progress Note: A&P Assessment and Plan (1) Anemia: Code(s): D64.9 - Anemia, unspecified Status: Acute Assessment and Plan: Anemia peers to be fluctuating. Appears to have developed primarily after surgery. Suspect this is postoperative anemia. Blood was noted in the stool today suspicious for bleeding from recent bowel anastomosis. Would continue to observe. It is too soon after surgery to plan invasive testing such as endoscopies. Continue monitor hemoglobin transfuse if necessary. (2) Blood in stool: Code(s): K92.1 - Melena Status: Acute (3) Silent aspiration: Code(s): T17.900A - Unspecified foreign body in respiratory tract, part unspecified causing asphyxiation, initial encounter Status: Acute Assessment and Plan: Patient described as having silent aspiration on modified barium swallow. She has a good gag reflex period with swallowing very well prior to admission the hospital. This could be related to edentulous status. I would prefer to defer PEG tube for now and hopefully increase oral intake. For nutritional purposes Dobbhoff tube appears appropriate for now. We can still try to advance diet with observation over the next several days. (4) Pneumonia: Qualifiers: Pneumonia type: due to unspecified organism Laterality: unspecified laterality Lung location: unspecified part of lung Qualified Code(s): J18.9 - Pneumonia, unspecified organism Code(s): J18.9 - Pneumonia, unspecified organism Status: Acute (5) Chronic kidney disease: Code(s): N18.9 - Chronic kidney disease, unspecified Status: Acute (6) Small bowel obstruction: Code(s): K56.609 - Unspecified intestinal obstruction, unspecified as to partial versus complete obstruction Status: Acute Assessment and Plan: Bowel obstruction secondary to adhesions. Patient is now status post small bowel resection and lysis of adhesions. As this improves hopefully we be able to increase her. Subjective Date/time seen: 06/11/21 14:15 Patient alert comfortable this morning. Hungry and anxious to start eating. According to nursing staff passed a small amount of bright red blood per rectum this morning. Transfused yesterday. Hemoglobin noted to fluctuate over the last week. Up and down. Review of Systems Review of Systems: All systems reviewed & are unremarkable except as noted in HPI and below Exam Narrative: Physical exam reveals patient to be alert. Vital signs stable. HEENT exam unremarkable. Patient anicteric. She is edentulous. Good gag reflex bilaterally. Lungs are clear. Heart without murmur. Abdomen bowel sounds are present soft midline scar with bandage. Objective Data Vital Signs Vital Signs: Vital Signs - 24 hr 06/10/21 19:40 06/10/21 23:17 06/11/21 05:09 Temperature 97.6 F 97.7 F Pulse Rate 89 91 Respiratory Rate 16 16 Blood Pressure 166/78 H 150/64 H Pulse Oximetry 97 96 95 Intake/Output Intake/Output: Intake & Output 06/08/21 06/09/21 06/10/21 06/11/21 23:59 23:59 23:59 23:59 Intake Total 2200 2200 2610 1100 Output Total 691 156 0056 1000 Balance 1350 1300 1159 100 Meds/Results Medications: Active Medications Generic Name Dose Route Start Last Admin Trade Name Freq PRN Reason Stop Dose Admin Acetaminophen 500 mg 06/06/21 11:30 Acetaminophen 500 Mg Tablet PO Q6H PRN Mild Pain (1-3) or Fever Hydrocodone Bitart/Acetaminophen 1 tab 06/06/21 11:30 Hydrocodone/Acetaminophen (*Crx) 5-325 Mg Tablet PO Q4H PRN Pain Rated 4-6 Enoxaparin Sodium 40 mg 06/02/21 09:00 06/10/21 09:04 Enoxaparin 40 Mg/0.4 Ml Syringe SUB-Q 40 mg DAILY JENISE Administration Sodium Chloride 1,000 mls @ 100 mls/hr 06/04/21 11:45 06/11/21 09:05 Normal Saline Iv IV CONT 100 mls/hr .Q10H JENISE Administration Piperacillin Sod/Tazobactam Sod 2.25 gm in 50 mls @ 100 mls/hr 06/05/21 11:00
--- NOTE | 2021-06-11 14:20 | P.PNIM_ITS ---
Progress Note: A&P Assessment and Plan (1) Small bowel obstruction: Code(s): K56.609 - Unspecified intestinal obstruction, unspecified as to partial versus complete obstruction Status: Acute Assessment and Plan: patient presented with increased abdominal pain ongoing for a year but worse over the past 3 days * obstruction did not resolve with conservative management * 06/01/2021 patient underwent exploratory laparotomy with adhesiolysis and small-bowel resection * appreciate general surgery consultation * bowel function has returned * supportive care. continue to increase activity, out of bed time, incentive spirometry, PT/OT * okay to advance diet from surgical standpoint, however issues with aspiration have prevented this (see below) (2) Silent aspiration: Code(s): T17.900A - Unspecified foreign body in respiratory tract, part unspecified causing asphyxiation, initial encounter Status: Acute Assessment and Plan: patient has had bedside swallow study an MBS x2 which shows evidence of silent aspiration * appreciate speech therapy eval * GI was consulted for consideration of PEG tube. at this time would like to defer PEG tube and hopefully diet can be advanced as patient improved strength and swallow abilities * patient had no issues with aspiration or dysphagia prior to admission. Perhaps this could be related to her recent surgery and weakness. * At this time, will initiate Dobbhoff placement for tube feeding until MBS is repeated once patient has shown some improvement * will discuss with ST tomorrow to determine timing of next evaluation (3) Acute anemia: Code(s): D64.9 - Anemia, unspecified Status: Acute Assessment and Plan: patient has had fluctuation in hemoglobin and hematocrit throughout hospital stay. likely multifactorial to include blood loss from surgery, chronic iron deficiency, anemia of chronic disease * hemoglobin declined to 7.1 on 06/10/2021 and patient received 1 unit PRBC * hemoglobin stable at 8.9 today * repeat H&H is afternoon to ensure remaining stable * prophylactic Lovenox is on hold (4) GI bleed: Code(s): K92.2 - Gastrointestinal hemorrhage, unspecified Status: Acute Assessment and Plan: Patient had kenton bloody stool today. * Appreciate gastroenterology and general surgery consultation * continue to monitor stool patterns as well as H&H as described above * continue IV Protonix b.i.d. (5) Eubtu-ce-kegczhh kidney injury: Qualifiers: Acute renal failure type: unspecified Chronic kidney disease stage: unspecified stage Qualified Code(s): N17.9 - Acute kidney failure, unspecified; N18.9 - Chronic kidney disease, unspecified Code(s): N17.9 - Acute kidney failure, unspecified; N18.9 - Chronic kidney disease, unspecified Status: Acute Assessment and Plan: creatinine elevated on presentation up to 2.1 * baseline appears fluctuant, 0.8-1.2 * appears to be back at baseline * continue to monitor BMP (6) Pneumonia: Qualifiers: Pneumonia type: due to unspecified organism Laterality: unspecified laterality Lung location: unspecified part of lung Qualified Code(s): J18.9 - Pneumonia, unspecified organism Code(s): J18.9 - Pneumonia, unspecified organism Status: Acute Assessment and Plan: patient with evidence of pneumonia on CTA in right lower lobe * possibly related to aspiration pneumonia * continue IV Zosyn (started on 06/05/2021). today will be day 7. And will be di
--- NOTE | 2021-06-11 14:20 | PM.IMPN ---
Progress Note: A&P Assessment and Plan (1) Small bowel obstruction: Code(s): K56.609 - Unspecified intestinal obstruction, unspecified as to partial versus complete obstruction Status: Acute Assessment and Plan: patient presented with increased abdominal pain ongoing for a year but worse over the past 3 days obstruction did not resolve with conservative management 06/01/2021 patient underwent exploratory laparotomy with adhesiolysis and small-bowel resection appreciate general surgery consultation bowel function has returned supportive care. continue to increase activity, out of bed time, incentive spirometry, PT/OT okay to advance diet from surgical standpoint, however issues with aspiration have prevented this (see below) (2) Silent aspiration: Code(s): T17.900A - Unspecified foreign body in respiratory tract, part unspecified causing asphyxiation, initial encounter Status: Acute Assessment and Plan: patient has had bedside swallow study an MBS x2 which shows evidence of silent aspiration appreciate speech therapy eval GI was consulted for consideration of PEG tube. at this time would like to defer PEG tube and hopefully diet can be advanced as patient improved strength and swallow abilities patient had no issues with aspiration or dysphagia prior to admission. Perhaps this could be related to her recent surgery and weakness. At this time, will initiate Dobbhoff placement for tube feeding until MBS is repeated once patient has shown some improvement will discuss with ST tomorrow to determine timing of next evaluation (3) Acute anemia: Code(s): D64.9 - Anemia, unspecified Status: Acute Assessment and Plan: patient has had fluctuation in hemoglobin and hematocrit throughout hospital stay. likely multifactorial to include blood loss from surgery, chronic iron deficiency, anemia of chronic disease hemoglobin declined to 7.1 on 06/10/2021 and patient received 1 unit PRBC hemoglobin stable at 8.9 today repeat H&H is afternoon to ensure remaining stable prophylactic Lovenox is on hold (4) GI bleed: Code(s): K92.2 - Gastrointestinal hemorrhage, unspecified Status: Acute Assessment and Plan: Patient had kenton bloody stool today. Appreciate gastroenterology and general surgery consultation continue to monitor stool patterns as well as H&H as described above continue IV Protonix b.i.d. (5) Zulbb-ou-vvycgkm kidney injury: Qualifiers: Acute renal failure type: unspecified Chronic kidney disease stage: unspecified stage Qualified Code(s): N17.9 - Acute kidney failure, unspecified; N18.9 - Chronic kidney disease, unspecified Code(s): N17.9 - Acute kidney failure, unspecified; N18.9 - Chronic kidney disease, unspecified Status: Acute Assessment and Plan: creatinine elevated on presentation up to 2.1 baseline appears fluctuant, 0.8-1.2 appears to be back at baseline continue to monitor BMP (6) Pneumonia: Qualifiers: Pneumonia type: due to unspecified organism Laterality: unspecified laterality Lung location: unspecified part of lung Qualified Code(s): J18.9 - Pneumonia, unspecified organism Code(s): J18.9 - Pneumonia, unspecified organism Status: Acute Assessment and Plan: patient with evidence of pneumonia on CTA in right lower lobe possibly related to aspiration pneumonia continue IV Zosyn (started on 06/05/2021). today will be day 7. And will be discontinued tomorrow supportive care. Patient is asymptomatic at this time. Maintaining adequate O2 sats. (7) Hypokalemia: Code(s): E87.6 - Hypokalemia Status: Acute Assessment and Plan: Potassium is 3.0 today likely due to NPO diet administer 40 mEq IV KCl monitor BMP and magnesium Subjective Date/time seen: 06/11/21 14:20 Interval history: d
[2021-06-11 18:37] LABS: Glucose Point of Care 79 mg/dl (65-105)
[2021-06-11 20:54] VITALS: BP 157/74; PULSE 88; RESP 16; TEMP 36.4; O2SAT 100
[2021-06-11 21:59] VITALS: O2SAT 95
[2021-06-11] MEDS: ACETAMINOPHEN 500 MG TABLET PO (22:10)
[2021-06-11 23:51] LABS: Glucose Point of Care 127 mg/dl (65-105)
[2021-06-12] MEDS: LEVOTHYROXINE SODIUM INJ 100 MCG/5 ML VIAL 25 MCG IV PUSH (05:45)
[2021-06-12] MEDS: CENTRAL LINE FLUSH 10 ML IV PUSH ×3 (05:45→20:10)
[2021-06-12 05:53] LABS: Glucose Point of Care 146 mg/dl (65-105)
[2021-06-12 06:09] LABS: Basophils Absolute Auto 0.1 K/mm3 (0.0-0.1); Basophils Percent Auto 1.1 % (0.2-1.2); Eosinophils Absolute Auto 0.4 K/mm3 (0-0.3); Eosinophils Percent Auto 4.5 % (0-4.4); Hematocrit 26.2 % (37.0-47.0); Hemoglobin 8.5 g/dL (12.0-15.0); Immature Granulocyte Absolute 0.97 K/mm3 (0.00-0.031); Immature Granulocyte Percent A 11.5 % (0-0.5); Lymphocytes Absolute Auto 0.39 K/mm3 (0.9-3.2); Lymphocytes Percent Auto 4.6 % (18.3-44.2); Mean Corpuscular HGB Conc 32.4 g/dl (32-36); Mean Corpuscular Hemoglobin 32.6 pg (26-34); Mean Corpuscular Volume 100.4 fl (80-100); Mean Platelet Volume 12.5 fl (7.4-10.4); Monocytes Absolute Auto 0.7 K/mm3 (0.1-0.6); Neutrophils Percent Auto 70.3 % (45.5-73.1); Nucleated Red Blood Cells Absolute Auto 0.6 K/mm3 (0.0-0.012); Nucleated Red Blood Cells Perc 7.6 % (0.0-0.2); Platelet Count Result 382 k/mm3 (150-375); Red Blood Count 2.61 M/mm3 (4.2-5.4); Red Cell Distribution Width 24.2 % (11.5-14.5); White Blood Count 8.5 K/mm3 (4.5-10.0)
[2021-06-12 06:10] LABS: Alanine Aminotransferase 28 U/L (4-35); Albumin Level 2.5 g/dL (3.5-5.1); Alkaline Phosphatase 103 U/L (38-126); Anion Gap 7 mmol/L (8-16); Aspartate Amino Transferase 28 U/L (14-36); Bilirubin,Total 0.7 mg/dL (0.2-1.3); Blood Urea Nitrogen 23 mg/dL (7-17); Calcium 8.3 mg/dL (8.4-10.2); Carbon Dioxide 20 mmol/L (22-30); Chloride 119 mmol/L (98-107); Estimated CRCL calculation 26 ml/min; Estimated Glomerular Filt Rate 48; Glucose 146 mg/dL (65-110); Magnesium 1.5 mg/dL (1.6-2.3); Potassium 3.2 mmol/L (3.4-5.0); Sodium 146 mmol/L (137-145)
[2021-06-12 06:18] VITALS: BP 146/61; PULSE 89; RESP 16; TEMP 36.2; O2SAT 100
[2021-06-12 07:06] LABS: Anisocytosis 1+ (NORMAL); Platelet Estimate Adequate (Adequate)
[2021-06-12 07:07] LABS: Ovalocytes 1+ (NORMAL); Poikilocytosis 1+ (NORMAL)
[2021-06-12 07:08] LABS: Hematocrit 27.8 % (37.0-47.0); Hemoglobin 8.5 g/dL (12.0-15.0)
[2021-06-12 07:24] LABS: Glucose Point of Care 152 mg/dl (65-105)
[2021-06-12] MEDS: PANTOPRAZOLE SODIUM IV 40 MG VIAL IV PUSH ×2 (08:37→20:10)
[2021-06-12] MEDS: NICOTINE (*PBKC) 14 MG PATCH 1 PATCH TRANSDERM (08:37)
[2021-06-12] MEDS: MAGNESIUM SULF 2 GM/WATER 50ML 2 GM/50 ML BAG IVPB (09:42)
[2021-06-12] MEDS: POTASSIUM CHLORIDE INJ 40 MEQ in SODIUM CHLORIDE 0.9% IV 500 ML 130 MEQ IVPB (09:43)
[2021-06-12 11:35] LABS: Glucose Point of Care 161 mg/dl (65-105)
--- NOTE | 2021-06-12 11:48 | PCNFU ---
Nutrition Follow-Up Complete: Altered GI function as related to SBO as evidenced by NPO Goal: Meet estimated nutritional needs Patient is progressing towards goal. We will continue current goal. Pt current nutrition is Jevity 1.2 at 50 ml/hr goal rate at 65 ml/hr over 22 hours. Last recorded weight is 48.6 kg, up from 44.8 kg on admit. Bowel Motility:+BM reported 06/12 Labs Reviewed:Mg 1.5,GFR 48,BUN 23, CR 1.10,Glu 146,Hct 26.2,Hgb 8.5,K 3.2 Meds Noted: Toprol,Synthroid,Protonix, Potassium Chloride,Zosyn. Skin: WNL Additional Notes: Patient started on Dobbhoff feedings of Jevity 1.2. Current rate per nursing at 50 ml/hr, goal rate at 65 ml/hr over 22 hours. Tube feeding will be providing 1716 kcals/79 gms protein/1154 ml water. Free water flush 30 ml q 4 hours. Current tube feeding is meeting caloric and protein needs. Plans for repeat MBS on Tuesday06/15/21. Agree with diet orders. Monitoring: Will monitor every Tuesday and Tuesday.
--- NOTE | 2021-06-12 12:13 | P.PNIM_ITS ---
Progress Note: A&P Assessment and Plan (1) Small bowel obstruction: Code(s): K56.609 - Unspecified intestinal obstruction, unspecified as to partial versus complete obstruction Status: Acute Assessment and Plan: Presented with increased abdominal pain ongoing for a year but worse over the past 3 days * obstruction did not resolve with conservative management * 06/01/2021 patient underwent exploratory laparotomy with adhesiolysis and small-bowel resection * appreciate general surgery consultation and management * bowel function has returned * supportive care. continue to increase activity, out of bed time, incentive spirometry, PT/OT * okay to advance diet from surgical standpoint, however issues with aspiration have prevented this (see below) (2) Silent aspiration: Code(s): T17.900A - Unspecified foreign body in respiratory tract, part unspecified causing asphyxiation, initial encounter Status: Acute Assessment and Plan: Patient has had bedside swallow study and MBS x2 which showed evidence of silent aspiration * Appreciate speech therapy eval * GI was consulted for consideration of PEG tube. At this time would like to defer PEG tube and hopefully diet can be advanced as patient improves strength and swallow abilities. Continue to work with ST * patient had no issues with aspiration or dysphagia prior to admission. Perhaps this could be related to her recent surgery and weakness. * 06/11/21 Dobhoff initiated for tube feeding until MBS repeat * Plan for MBS on Tuesday (3) Acute anemia: Code(s): D64.9 - Anemia, unspecified Status: Acute Assessment and Plan: patient has had fluctuation in hemoglobin and hematocrit throughout hospital stay. likely multifactorial to include blood loss from surgery, chronic iron deficiency, anemia of chronic disease * hemoglobin declined to 7.1 on 06/10/2021 and patient received 1 unit PRBC * hemoglobin stable at 8.5 today * repeat H&H is afternoon to ensure remaining stable as she continues to endorse blood in stool * prophylactic Lovenox is on hold (4) GI bleed: Code(s): K92.2 - Gastrointestinal hemorrhage, unspecified Status: Acute Assessment and Plan: Onset of kenton bloody stool 06/11. Continues to endorse bright red bleeding per rectum * Appreciate gastroenterology and general surgery consultation * Continue to monitor stool patterns as well as H&H as described above * Continue IV Protonix b.i.d. (5) Fjrdr-bo-kpojzyd kidney injury: Qualifiers: Acute renal failure type: unspecified Chronic kidney disease stage: unspecified stage Qualified Code(s): N17.9 - Acute kidney failure, unspecified; N18.9 - Chronic kidney disease, unspecified Code(s): N17.9 - Acute kidney failure, unspecified; N18.9 - Chronic kidney disease, unspecified Status: Acute Assessment and Plan: creatinine elevated on presentation up to 2.1 * baseline appears fluctuant, 0.8-1.2 * appears to be back at baseline, creatinine 1.1 today * continue to monitor BMP (6) Pneumonia: Qualifiers: Pneumonia type: due to unspecified organism Laterality: unspecified laterality Lung location: unspecified part of lung Qualified Code(s): J18.9 - Pneumonia, unspecified organism Code(s): J18.9 - Pneumonia, unspecified organism Status: Acute Assessment and Plan: Patient with evidence of pneumonia on CTA in right lower lobe * possibly related to aspiration pneumonia * She has completed 7 days of IV Zosyn with clinical i
--- NOTE | 2021-06-12 12:13 | PM.IMPN ---
Progress Note: A&P Assessment and Plan (1) Small bowel obstruction: Code(s): K56.609 - Unspecified intestinal obstruction, unspecified as to partial versus complete obstruction Status: Acute Assessment and Plan: Presented with increased abdominal pain ongoing for a year but worse over the past 3 days obstruction did not resolve with conservative management 06/01/2021 patient underwent exploratory laparotomy with adhesiolysis and small-bowel resection appreciate general surgery consultation and management bowel function has returned supportive care. continue to increase activity, out of bed time, incentive spirometry, PT/OT okay to advance diet from surgical standpoint, however issues with aspiration have prevented this (see below) (2) Silent aspiration: Code(s): T17.900A - Unspecified foreign body in respiratory tract, part unspecified causing asphyxiation, initial encounter Status: Acute Assessment and Plan: Patient has had bedside swallow study and MBS x2 which showed evidence of silent aspiration Appreciate speech therapy eval GI was consulted for consideration of PEG tube. At this time would like to defer PEG tube and hopefully diet can be advanced as patient improves strength and swallow abilities. Continue to work with ST patient had no issues with aspiration or dysphagia prior to admission. Perhaps this could be related to her recent surgery and weakness. 06/11/21 Dobhoff initiated for tube feeding until MBS repeat Plan for MBS on Tuesday (3) Acute anemia: Code(s): D64.9 - Anemia, unspecified Status: Acute Assessment and Plan: patient has had fluctuation in hemoglobin and hematocrit throughout hospital stay. likely multifactorial to include blood loss from surgery, chronic iron deficiency, anemia of chronic disease hemoglobin declined to 7.1 on 06/10/2021 and patient received 1 unit PRBC hemoglobin stable at 8.5 today repeat H&H is afternoon to ensure remaining stable as she continues to endorse blood in stool prophylactic Lovenox is on hold (4) GI bleed: Code(s): K92.2 - Gastrointestinal hemorrhage, unspecified Status: Acute Assessment and Plan: Onset of kenton bloody stool 06/11. Continues to endorse bright red bleeding per rectum Appreciate gastroenterology and general surgery consultation Continue to monitor stool patterns as well as H&H as described above Continue IV Protonix b.i.d. (5) Wwjxz-yy-opghpiu kidney injury: Qualifiers: Acute renal failure type: unspecified Chronic kidney disease stage: unspecified stage Qualified Code(s): N17.9 - Acute kidney failure, unspecified; N18.9 - Chronic kidney disease, unspecified Code(s): N17.9 - Acute kidney failure, unspecified; N18.9 - Chronic kidney disease, unspecified Status: Acute Assessment and Plan: creatinine elevated on presentation up to 2.1 baseline appears fluctuant, 0.8-1.2 appears to be back at baseline, creatinine 1.1 today continue to monitor BMP (6) Pneumonia: Qualifiers: Pneumonia type: due to unspecified organism Laterality: unspecified laterality Lung location: unspecified part of lung Qualified Code(s): J18.9 - Pneumonia, unspecified organism Code(s): J18.9 - Pneumonia, unspecified organism Status: Acute Assessment and Plan: Patient with evidence of pneumonia on CTA in right lower lobe possibly related to aspiration pneumonia She has completed 7 days of IV Zosyn with clinical improvement. Remains afebrile with normal WBC supportive care. patient is asymptomatic. Maintaining adequate O2 sats. (7) Electrolyte abnormality: Code(s): E87.8 - Other disorders of electrolyte and fluid balance, not elsewhere classified Status: Acute Assessment and Plan: Likely secondary to NPO status Hypokalemia: Potassium is 3.2 today. Administer 40 mEq IV KCl
--- NOTE | 2021-06-12 12:49 | WPDGIPROGNO ---
Progress Note: A&P Assessment and Plan (1) Silent aspiration: Code(s): T17.900A - Unspecified foreign body in respiratory tract, part unspecified causing asphyxiation, initial encounter Status: Acute Assessment and Plan: Patient felt to have silent aspiration on modified barium swallow. Currently getting nutrition through Dobbhoff tube. She has a good gag reflex. At the time of previous modified barium swallow I suspect she was still healing from postoperative ileus. I would be slow to proceed with PEG tube at this juncture. Agree with repeating modified barium swallow Tuesday. Continue Dobbhoff tube feedings for nutrition for now. Perhaps her lack of teeth also contributes to swallowing difficulties. (2) Small bowel obstruction: Code(s): K56.609 - Unspecified intestinal obstruction, unspecified as to partial versus complete obstruction Status: Acute Assessment and Plan: Patient with small-bowel obstruction. She is now status post resection of adhesions and partial small-bowel resection. Recovering well at this time. Agree with advancing diet when we can get beyond her aspiration risk. Subjective Date/time seen: 06/12/21 12:49 Patient alert comfortable this morning. She now has a Dobbhoff tube in place. Tolerating tube feedings well. Review of Systems Review of Systems: All systems reviewed & are unremarkable except as noted in HPI and below Exam Narrative: Physical exam reveals patient be alert. Vital signs are stable. HEENT exam reveals Dobbhoff and to place. Tolerated well. She does have a good gag reflex. Lungs reveal a few rhonchi. Heart without murmur. Abdomen soft flat midline scar healing well. Bowel sounds are present soft with no localized tenderness at this time. Objective Data Vital Signs Vital Signs: Vital Signs - 24 hr 06/11/21 14:03 06/11/21 20:54 06/11/21 21:59 Temperature 96.9 F L 97.5 F L Pulse Rate 78 88 Respiratory Rate 16 16 Blood Pressure 162/69 H 157/74 H Pulse Oximetry 99 100 95 06/12/21 06:18 Temperature 97.1 F L Pulse Rate 89 Respiratory Rate 16 Blood Pressure 146/61 H Pulse Oximetry 100 Intake/Output Intake/Output: Intake & Output 06/09/21 06/10/21 06/11/21 06/12/21 23:59 23:59 23:59 23:59 Intake Total 2200 2610 1200 100 Output Total 900 1451 1300 Balance 1300 1159 -100 100 Meds/Results Medications: Active Medications Generic Name Dose Route Start Last Admin Trade Name Freq PRN Reason Stop Dose Admin Acetaminophen 500 mg 06/06/21 11:30 06/11/21 22:10 Acetaminophen 500 Mg Tablet PO 500 mg Q6H PRN Administration Mild Pain (1-3) or Fever Hydrocodone Bitart/Acetaminophen 1 tab 06/06/21 11:30 Hydrocodone/Acetaminophen (*Crx) 5-325 Mg Tablet PO Q4H PRN Pain Rated 4-6 Enoxaparin Sodium 40 mg 06/02/21 09:00 06/10/21 09:04 Enoxaparin 40 Mg/0.4 Ml Syringe SUB-Q 40 mg DAILY JENISE Administration Levothyroxine Sodium 25 mcg 05/31/21 06:30 06/12/21 05:45 Levothyroxine Sodium Inj 100 Mcg/5 Ml Vial IV PUSH 25 mcg DAILY@0630 JENISE Administration Metoprolol Succinate 12.5 mg 06/07/21 09:00 06/12/21 08:42 Metoprolol Succinate Ext Rel 12.5 Mg Tabcr PO Not Given QAM JENISE Naloxone HCl 0.1 mg 06/01/21 16:59 Naloxone Hcl 0.4 Mg/Ml Vial IV PUSH Q2M PRN Opiate Reversal Nicotine 1 patch 05/31/21 09:00 06/12/21 08:37 Nicotine (*Pbkc) 14 Mg Patch TRANSDERM 1 patch QAM JENISE Administration Ondansetron HCl 4 mg 05/30/21 14:17 06/07/21 20:47 Ondansetron Inj 4 Mg/2 Ml Vial IV PUSH 4 mg Q4H PRN Administration Nausea Pantoprazole Sodium 40 mg 06/09/21 09:00 06/12/21 08:37 Pantoprazole Sodium Iv 40 Mg Vial IV PUSH 40 mg Q12HR JENISE Administration Perflutren Lipid Microsphere 0 ml 06/05/21 10:13 Perflutren Lipid Microspheres 1.5 Ml Vial Diluted To 10 Ml Total Volume IV PUSH ONCE PRN adequate visualization Pr
[2021-06-12 14:00] VITALS: BP 175/63; PULSE 88; RESP 22; TEMP 36.6; O2SAT 100
[2021-06-12 14:28] LABS: Hematocrit 24.7 % (37.0-47.0)
--- NOTE | 2021-06-12 14:50 | PCPTNOTE ---
Patient refused therapy at this time. Patient reports she is tired and does not want to walk or exercises at this time. [employer]CEAN EXPORT AGENT was present in room assisting patient to commode.
[2021-06-12 20:09] VITALS: BP 143/61; PULSE 88; RESP 16; TEMP 36.8; O2SAT 96
[2021-06-12 21:01] VITALS: O2SAT 93
[2021-06-12 23:13] LABS: Glucose Point of Care 161 mg/dl (65-105)
[2021-06-12 23:15] LABS: Hematocrit 25.6 % (37.0-47.0)
[2021-06-13] MEDS: LEVOTHYROXINE SODIUM INJ 100 MCG/5 ML VIAL 25 MCG IV PUSH (05:52)
[2021-06-13] MEDS: CENTRAL LINE FLUSH 20 ML IV PUSH (05:53)
[2021-06-13 06:08] LABS: Basophils Absolute Auto 0.1 K/mm3 (0.0-0.1); Basophils Percent Auto 0.8 % (0.2-1.2); Eosinophils Absolute Auto 0.4 K/mm3 (0-0.3); Eosinophils Percent Auto 3.9 % (0-4.4); Hematocrit 25.2 % (37.0-47.0); Hemoglobin 7.8 g/dL (12.0-15.0); Immature Granulocyte Absolute 0.92 K/mm3 (0.00-0.031); Immature Granulocyte Percent A 9.3 % (0-0.5); Lymphocytes Absolute Auto 0.23 K/mm3 (0.9-3.2); Lymphocytes Percent Auto 2.3 % (18.3-44.2); Mean Corpuscular Hemoglobin 32.2 pg (26-34); Mean Corpuscular Volume 104.1 fl (80-100); Mean Platelet Volume 12.1 fl (7.4-10.4); Monocytes Absolute Auto 0.9 K/mm3 (0.1-0.6); Monocytes Percent Auto 9.1 % (2.6-8.5); Neutrophils Absolute Auto 7.3 K/mm3 (1.3-6.7); Neutrophils Percent Auto 74.6 % (45.5-73.1); Nucleated Red Blood Cells Absolute Auto 0.8 K/mm3 (0.0-0.012); Nucleated Red Blood Cells Perc 8.3 % (0.0-0.2); Platelet Count Result 376 k/mm3 (150-375); Red Blood Count 2.42 M/mm3 (4.2-5.4); Red Cell Distribution Width 24.6 % (11.5-14.5); White Blood Count 9.9 K/mm3 (4.5-10.0)
[2021-06-13 06:16] LABS: Alanine Aminotransferase 22 U/L (4-35); Albumin Level 2.5 g/dL (3.5-5.1); Alkaline Phosphatase 113 U/L (38-126); Anion Gap 4 mmol/L (8-16); Aspartate Amino Transferase 25 U/L (14-36); Bilirubin,Total 0.4 mg/dL (0.2-1.3); Blood Urea Nitrogen 24 mg/dL (7-17); Calcium 8.3 mg/dL (8.4-10.2); Carbon Dioxide 20 mmol/L (22-30); Chloride 124 mmol/L (98-107); Estimated CRCL calculation 26 ml/min; Estimated Glomerular Filt Rate 48; Glucose 158 mg/dL (65-110); Sodium 148 mmol/L (137-145)
[2021-06-13 06:37] VITALS: BP 142/58; PULSE 90; RESP 16; TEMP 36.7; O2SAT 100
[2021-06-13 06:44] LABS: Anisocytosis 1+ (NORMAL); Hypochromasia 1+ (NORMAL); Ovalocytes 1+ (NORMAL)
[2021-06-13 07:06] LABS: Glucose Point of Care 140 mg/dl (65-105)
[2021-06-13 08:00] VITALS: PULSE 90; RESP 16; O2SAT 100
[2021-06-13] MEDS: METOPROLOL SUCCINATE EXT REL 12.5 MG TABCR PO (08:00)
[2021-06-13] MEDS: PANTOPRAZOLE SODIUM IV 40 MG VIAL IV PUSH ×2 (08:01→19:36)
[2021-06-13] MEDS: NICOTINE (*PBKC) 14 MG PATCH 1 PATCH TRANSDERM (08:01)
[2021-06-13 11:41] LABS: Glucose Point of Care 135 mg/dl (65-105)
--- NOTE | 2021-06-13 11:42 | PCSTNOTE ---
Attempted treatment. Patient with other rehab services.
--- NOTE | 2021-06-13 13:01 | P.PNIM_ITS ---
Progress Note: A&P Assessment and Plan (1) Small bowel obstruction: Code(s): K56.609 - Unspecified intestinal obstruction, unspecified as to partial versus complete obstruction Status: Acute Assessment and Plan: Presented with increased abdominal pain ongoing for a year but worse over the past 3 days * obstruction did not resolve with conservative management * 06/01/2021 patient underwent exploratory laparotomy with adhesiolysis and small-bowel resection * appreciate general surgery consultation and management * bowel function has returned. Reports frequent loose stools but this is improving * supportive care. continue to increase activity, out of bed time, incentive spirometry, PT/OT * okay to advance diet from surgical standpoint, however issues with aspiration have prevented this (see below) (2) Silent aspiration: Code(s): T17.900A - Unspecified foreign body in respiratory tract, part unspecified causing asphyxiation, initial encounter Status: Acute Assessment and Plan: Patient has had bedside swallow study and MBS x2 which showed evidence of silent aspiration * Appreciate speech therapy eval * GI was consulted for consideration of PEG tube. At this time would like to defer PEG tube and hopefully diet can be advanced as patient improves strength and swallow abilities. Continue to work with ST * patient had no issues with aspiration or dysphagia prior to admission. Perhaps this could be related to her recent surgery and weakness. * 06/11/21 Dobhoff initiated for tube feeding until MBS repeat * Plan for MBS on Tuesday, 06/15 (3) Acute anemia: Code(s): D64.9 - Anemia, unspecified Status: Acute Assessment and Plan: patient has had fluctuation in hemoglobin and hematocrit throughout hospital stay. likely multifactorial to include blood loss from surgery, chronic iron deficiency, anemia of chronic disease * hemoglobin declined to 7.1 on 06/10/2021 and patient received 1 unit PRBC * H&H has remained stable following transfusion. Hgb fluctuating between 7.5- 8.5 * repeat H&H this evening to ensure remaining stable (4) GI bleed: Code(s): K92.2 - Gastrointestinal hemorrhage, unspecified Status: Acute Assessment and Plan: Onset of kenton bloody stool 06/11. Per nursing staff, last episode of bleeding was early yesterday morning * Appreciate gastroenterology and general surgery consultation * Continue to monitor stool patterns as well as H&H as described above * Continue IV Protonix b.i.d. * Prophylactic lovenox is on hold (5) Mhfmw-ap-mzmosef kidney injury: Qualifiers: Acute renal failure type: unspecified Chronic kidney disease stage: unspecified stage Qualified Code(s): N17.9 - Acute kidney failure, unspecified; N18.9 - Chronic kidney disease, unspecified Code(s): N17.9 - Acute kidney failure, unspecified; N18.9 - Chronic kidney disease, unspecified Status: Acute Assessment and Plan: Creatinine elevated on presentation up to 2.1 * baseline appears fluctuant, 0.8-1.2 * appears to be back at baseline, creatinine 1.1 today * continue to monitor BMP (6) Pneumonia: Qualifiers: Laterality: unspecified laterality Lung location: unspecified part of lung Pneumonia type: due to unspecified organism Qualified Code(s): J18.9 - Pneumonia, unspecified organism Code(s): J18.9 - Pneumonia, unspecified organism Status: Acute Assessment and Plan: Patient with evidence of pneumonia on CTA in right lower lobe * possibly re
--- NOTE | 2021-06-13 13:01 | PM.IMPN ---
Progress Note: A&P Assessment and Plan (1) Small bowel obstruction: Code(s): K56.609 - Unspecified intestinal obstruction, unspecified as to partial versus complete obstruction Status: Acute Assessment and Plan: Presented with increased abdominal pain ongoing for a year but worse over the past 3 days obstruction did not resolve with conservative management 06/01/2021 patient underwent exploratory laparotomy with adhesiolysis and small-bowel resection appreciate general surgery consultation and management bowel function has returned. Reports frequent loose stools but this is improving supportive care. continue to increase activity, out of bed time, incentive spirometry, PT/OT okay to advance diet from surgical standpoint, however issues with aspiration have prevented this (see below) (2) Silent aspiration: Code(s): T17.900A - Unspecified foreign body in respiratory tract, part unspecified causing asphyxiation, initial encounter Status: Acute Assessment and Plan: Patient has had bedside swallow study and MBS x2 which showed evidence of silent aspiration Appreciate speech therapy eval GI was consulted for consideration of PEG tube. At this time would like to defer PEG tube and hopefully diet can be advanced as patient improves strength and swallow abilities. Continue to work with ST patient had no issues with aspiration or dysphagia prior to admission. Perhaps this could be related to her recent surgery and weakness. 06/11/21 Dobhoff initiated for tube feeding until MBS repeat Plan for MBS on Tuesday, 06/15 (3) Acute anemia: Code(s): D64.9 - Anemia, unspecified Status: Acute Assessment and Plan: patient has had fluctuation in hemoglobin and hematocrit throughout hospital stay. likely multifactorial to include blood loss from surgery, chronic iron deficiency, anemia of chronic disease hemoglobin declined to 7.1 on 06/10/2021 and patient received 1 unit PRBC H&H has remained stable following transfusion. Hgb fluctuating between 7.5-8.5 repeat H&H this evening to ensure remaining stable (4) GI bleed: Code(s): K92.2 - Gastrointestinal hemorrhage, unspecified Status: Acute Assessment and Plan: Onset of kenton bloody stool 06/11. Per nursing staff, last episode of bleeding was early yesterday morning Appreciate gastroenterology and general surgery consultation Continue to monitor stool patterns as well as H&H as described above Continue IV Protonix b.i.d. Prophylactic lovenox is on hold (5) Pdiph-vm-qlecelw kidney injury: Qualifiers: Acute renal failure type: unspecified Chronic kidney disease stage: unspecified stage Qualified Code(s): N17.9 - Acute kidney failure, unspecified; N18.9 - Chronic kidney disease, unspecified Code(s): N17.9 - Acute kidney failure, unspecified; N18.9 - Chronic kidney disease, unspecified Status: Acute Assessment and Plan: Creatinine elevated on presentation up to 2.1 baseline appears fluctuant, 0.8-1.2 appears to be back at baseline, creatinine 1.1 today continue to monitor BMP (6) Pneumonia: Qualifiers: Laterality: unspecified laterality Lung location: unspecified part of lung Pneumonia type: due to unspecified organism Qualified Code(s): J18.9 - Pneumonia, unspecified organism Code(s): J18.9 - Pneumonia, unspecified organism Status: Acute Assessment and Plan: Patient with evidence of pneumonia on CTA in right lower lobe possibly related to aspiration pneumonia She completed 7 days of IV Zosyn on 06/12/21 with clinical improvement. Remains afebrile with normal WBC supportive care. patient is asymptomatic. Maintaining adequate O2 sats. (7) Electrolyte abnormality: Code(s): E87.8 - Other disorders of electrolyte and fluid balance, not elsewhere classified Status: Acute Assessment and Plan: Like
[2021-06-13 14:00] VITALS: BP 140/62; PULSE 82; RESP 20; TEMP 36.8; O2SAT 100
[2021-06-13] MEDS: CENTRAL LINE FLUSH 10 ML IV PUSH ×2 (14:00→19:36)
[2021-06-13 17:26] LABS: Glucose Point of Care 111 mg/dl (65-105)
[2021-06-13 18:26] LABS: Hematocrit 24.6 % (37.0-47.0); Hemoglobin 7.6 g/dL (12.0-15.0)
[2021-06-13 19:34] VITALS: BP 167/69; PULSE 98; RESP 16; TEMP 36.1; O2SAT 100
[2021-06-14 00:12] LABS: Glucose Point of Care 126 mg/dl (65-105)
[2021-06-14 04:23] VITALS: BP 144/53; PULSE 89; RESP 14; TEMP 36.5; O2SAT 98
[2021-06-14 05:25] LABS: Hematocrit 25.2 % (37.0-47.0); Hemoglobin 7.5 g/dL (12.0-15.0); Mean Corpuscular HGB Conc 29.8 g/dl (32-36); Mean Corpuscular Hemoglobin 32.3 pg (26-34); Mean Corpuscular Volume 108.6 fl (80-100); Mean Platelet Volume 12.3 fl (7.4-10.4); Platelet Count Result 386 k/mm3 (150-375); Red Blood Count 2.32 M/mm3 (4.2-5.4); Red Cell Distribution Width 24.4 % (11.5-14.5); White Blood Count 9.4 K/mm3 (4.5-10.0)
[2021-06-14 05:29] LABS: Glucose Point of Care 125 mg/dl (65-105)
[2021-06-14 05:34] LABS: Hemoglobin A1C 4.8 % (<5.7)
[2021-06-14 05:36] LABS: Anion Gap 3 mmol/L (8-16); Blood Urea Nitrogen 27 mg/dL (7-17); Calcium 8.4 mg/dL (8.4-10.2); Carbon Dioxide 22 mmol/L (22-30); Chloride 124 mmol/L (98-107); Estimated CRCL calculation 26 ml/min; Estimated Glomerular Filt Rate 48; Glucose 132 mg/dL (65-110); Potassium 4.5 mmol/L (3.4-5.0); Sodium 149 mmol/L (137-145)
[2021-06-14] MEDS: LEVOTHYROXINE SODIUM INJ 100 MCG/5 ML VIAL 25 MCG IV PUSH (06:19)
[2021-06-14] MEDS: CENTRAL LINE FLUSH 20 ML IV PUSH (06:20)
[2021-06-14] MEDS: NICOTINE (*PBKC) 14 MG PATCH 1 PATCH TRANSDERM (08:37)
[2021-06-14] MEDS: METOPROLOL SUCCINATE EXT REL 12.5 MG TABCR PO (08:38)
[2021-06-14] MEDS: PANTOPRAZOLE SODIUM IV 40 MG VIAL IV PUSH ×2 (08:38→21:48)
[2021-06-14] MEDS: HYDROcodone/acetaminophen (*CRX) 5-325 MG TABLET 1 TAB PO (10:01)
[2021-06-14 11:57] LABS: Glucose Point of Care 124 mg/dl (65-105)
--- NOTE | 2021-06-14 12:37 | P.PNIM_ITS ---
Progress Note: A&P Assessment and Plan (1) Small bowel obstruction: Code(s): K56.609 - Unspecified intestinal obstruction, unspecified as to partial versus complete obstruction Status: Acute Assessment and Plan: Presented with increased abdominal pain ongoing for a year but worse over the past 3 days * obstruction did not resolve with conservative management * 06/01/2021 patient underwent exploratory laparotomy with adhesiolysis and small-bowel resection * appreciate general surgery consultation and management * bowel function has returned. Reports frequent loose stools but this is improving * supportive care. continue to increase activity, out of bed time, incentive spirometry, PT/OT * okay to advance diet from surgical standpoint, however issues with aspiration have prevented this (see below) (2) Silent aspiration: Code(s): T17.900A - Unspecified foreign body in respiratory tract, part unspecified causing asphyxiation, initial encounter Status: Acute Assessment and Plan: Patient has had bedside swallow study and MBS x2 which showed evidence of silent aspiration * Appreciate speech therapy eval * GI was consulted for consideration of PEG tube. At this time would like to defer PEG tube and hopefully diet can be advanced as patient improves strength and swallow abilities. Continue to work with ST * Patient had no issues with aspiration or dysphagia prior to admission. Perhaps this could be related to her recent surgery and weakness. * 06/11/21 Dobhoff initiated for tube feeding until MBS repeat. Continue tube feeds - she is tolerating well * Plan for MBS on Tuesday, 06/15 (3) Acute anemia: Code(s): D64.9 - Anemia, unspecified Status: Acute Assessment and Plan: Fluctuation in hemoglobin and hematocrit throughout hospital stay. Likely multifactorial to include blood loss from surgery, chronic iron deficiency, anemia of chronic disease * hemoglobin declined to 7.1 on 06/10/2021 and patient received 1 unit PRBC * H&H has remained stable following transfusion. Hgb fluctuating between 7.5- 8.5 * continue to monitor H&H closely (4) GI bleed: Code(s): K92.2 - Gastrointestinal hemorrhage, unspecified Status: Acute Assessment and Plan: Onset of kenton bloody stool 06/11. No episodes of bleeding today. * Appreciate gastroenterology and general surgery consultation * Continue to monitor stool patterns as well as H&H as described above * Continue IV Protonix b.i.d. * Prophylactic lovenox is on hold. Patient has been very ambulatory. (5) Vvegb-ve-tjkgkxh kidney injury: Qualifiers: Acute renal failure type: unspecified Chronic kidney disease stage: unspecified stage Qualified Code(s): N17.9 - Acute kidney failure, unspecified; N18.9 - Chronic kidney disease, unspecified Code(s): N17.9 - Acute kidney failure, unspecified; N18.9 - Chronic kidney disease, unspecified Status: Acute Assessment and Plan: Creatinine elevated on presentation up to 2.1 * baseline appears fluctuant, 0.8-1.2 * appears to be back at baseline, creatinine 1.1 today * continue to monitor BMP (6) Pneumonia: Qualifiers: Pneumonia type: due to unspecified organism Laterality: unspecified laterality Lung location: unspecified part of lung Qualified Code(s): J18.9 - Pneumonia, unspecified organism Code(s): J18.9 - Pneumonia, unspecified organism Status: Resolved Assessment and Plan: Resolved. Patient with evidence of pneumonia on CTA in right lower lo
--- NOTE | 2021-06-14 12:37 | PM.IMPN ---
Progress Note: A&P Assessment and Plan (1) Small bowel obstruction: Code(s): K56.609 - Unspecified intestinal obstruction, unspecified as to partial versus complete obstruction Status: Acute Assessment and Plan: Presented with increased abdominal pain ongoing for a year but worse over the past 3 days obstruction did not resolve with conservative management 06/01/2021 patient underwent exploratory laparotomy with adhesiolysis and small-bowel resection appreciate general surgery consultation and management bowel function has returned. Reports frequent loose stools but this is improving supportive care. continue to increase activity, out of bed time, incentive spirometry, PT/OT okay to advance diet from surgical standpoint, however issues with aspiration have prevented this (see below) (2) Silent aspiration: Code(s): T17.900A - Unspecified foreign body in respiratory tract, part unspecified causing asphyxiation, initial encounter Status: Acute Assessment and Plan: Patient has had bedside swallow study and MBS x2 which showed evidence of silent aspiration Appreciate speech therapy eval GI was consulted for consideration of PEG tube. At this time would like to defer PEG tube and hopefully diet can be advanced as patient improves strength and swallow abilities. Continue to work with ST Patient had no issues with aspiration or dysphagia prior to admission. Perhaps this could be related to her recent surgery and weakness. 06/11/21 Dobhoff initiated for tube feeding until MBS repeat. Continue tube feeds - she is tolerating well Plan for MBS on Tuesday, 06/15 (3) Acute anemia: Code(s): D64.9 - Anemia, unspecified Status: Acute Assessment and Plan: Fluctuation in hemoglobin and hematocrit throughout hospital stay. Likely multifactorial to include blood loss from surgery, chronic iron deficiency, anemia of chronic disease hemoglobin declined to 7.1 on 06/10/2021 and patient received 1 unit PRBC H&H has remained stable following transfusion. Hgb fluctuating between 7.5-8.5 continue to monitor H&H closely (4) GI bleed: Code(s): K92.2 - Gastrointestinal hemorrhage, unspecified Status: Acute Assessment and Plan: Onset of kenton bloody stool 06/11. No episodes of bleeding today. Appreciate gastroenterology and general surgery consultation Continue to monitor stool patterns as well as H&H as described above Continue IV Protonix b.i.d. Prophylactic lovenox is on hold. Patient has been very ambulatory. (5) Qmenh-uj-baigsia kidney injury: Qualifiers: Acute renal failure type: unspecified Chronic kidney disease stage: unspecified stage Qualified Code(s): N17.9 - Acute kidney failure, unspecified; N18.9 - Chronic kidney disease, unspecified Code(s): N17.9 - Acute kidney failure, unspecified; N18.9 - Chronic kidney disease, unspecified Status: Acute Assessment and Plan: Creatinine elevated on presentation up to 2.1 baseline appears fluctuant, 0.8-1.2 appears to be back at baseline, creatinine 1.1 today continue to monitor BMP (6) Pneumonia: Qualifiers: Pneumonia type: due to unspecified organism Laterality: unspecified laterality Lung location: unspecified part of lung Qualified Code(s): J18.9 - Pneumonia, unspecified organism Code(s): J18.9 - Pneumonia, unspecified organism Status: Resolved Assessment and Plan: Resolved. Patient with evidence of pneumonia on CTA in right lower lobe possibly related to aspiration pneumonia She completed 7 days of IV Zosyn on 06/12/21 with clinical improvement. Remains afebrile with normal WBC supportive care. patient is asymptomatic. Maintaining adequate O2 sats. (7) Electrolyte abnormality: Code(s): E87.8 - Other disorders of electrolyte and fluid balance, not elsewhere classified Status: Acute Assessm
[2021-06-14] MEDS: MORPHINE SULFATE (*CRX) 2 MG/ML INJ IV PUSH ×2 (13:48→22:28)
[2021-06-14] MEDS: CENTRAL LINE FLUSH 10 ML IV PUSH ×2 (13:48→21:50)
[2021-06-14 16:28] VITALS: BP 138/56; PULSE 93; RESP 16; TEMP 36.2; O2SAT 99
[2021-06-14 18:30] LABS: Glucose Point of Care 106 mg/dl (65-105)
[2021-06-14 19:19] VITALS: BP 155/58; PULSE 93; RESP 18; TEMP 36.6; O2SAT 100
[2021-06-15] VITALS (16 sets, daily range): BP systolic 122–160; BP diastolic 48–63; PULSE 78–92; RESP 16–18; TEMP 36.1–37.3; O2SAT 9–100
[2021-06-15 00:19] LABS: Glucose Point of Care 120 mg/dl (65-105)
[2021-06-15 05:18] LABS: Glucose Point of Care 131 mg/dl (65-105)
[2021-06-15 05:22] LABS: Hematocrit 21.8 % (37.0-47.0); Mean Corpuscular HGB Conc 30.7 g/dl (32-36); Mean Corpuscular Hemoglobin 32.7 pg (26-34); Mean Corpuscular Volume 106.3 fl (80-100); Mean Platelet Volume 12.4 fl (7.4-10.4); Platelet Count Result 349 k/mm3 (150-375); Red Blood Count 2.05 M/mm3 (4.2-5.4); Red Cell Distribution Width 24.9 % (11.5-14.5)
[2021-06-15 05:27] LABS: Hemoglobin 6.7 g/dL (12.0-15.0)
[2021-06-15 05:41] LABS: Anion Gap 3 mmol/L (8-16); Blood Urea Nitrogen 33 mg/dL (7-17); Calcium 8.3 mg/dL (8.4-10.2); Carbon Dioxide 24 mmol/L (22-30); Chloride 120 mmol/L (98-107); Estimated CRCL calculation 29 ml/min; Estimated Glomerular Filt Rate 53; Glucose 135 mg/dL (65-110); Magnesium 1.9 mg/dL (1.6-2.3); Potassium 4.9 mmol/L (3.4-5.0); Sodium 147 mmol/L (137-145)
[2021-06-15] MEDS: LEVOTHYROXINE SODIUM INJ 100 MCG/5 ML VIAL 25 MCG IV PUSH (06:02)
[2021-06-15] MEDS: CENTRAL LINE FLUSH 20 ML IV PUSH ×2 (06:03→21:52)
[2021-06-15 07:34] LABS: Glucose Point of Care 136 mg/dl (65-105)
[2021-06-15] MEDS: METOPROLOL SUCCINATE EXT REL 12.5 MG TABCR PO (08:16)
[2021-06-15] MEDS: PANTOPRAZOLE SODIUM IV 40 MG VIAL IV PUSH ×2 (08:16→21:52)
[2021-06-15] MEDS: NICOTINE (*PBKC) 14 MG PATCH 1 PATCH TRANSDERM (08:16)
[2021-06-15] MEDS: MORPHINE SULFATE (*CRX) 2 MG/ML INJ IV PUSH ×2 (08:57→15:05)
--- NOTE | 2021-06-15 09:38 | PCSTNOTE ---
MBS will not be completed due to receiving blood transfusions until at least mid-afternoon. MBS will have to be attempted tomorrow morning.
[2021-06-15 11:20] LABS: Glucose Point of Care 114 mg/dl (65-105)
[2021-06-15] MEDS: SODIUM CHLORIDE 0.9% IV 250 ML 30 ML IV CONT (11:45)
--- NOTE | 2021-06-15 12:12 | WPDGIPROGNO ---
Progress Note: A&P Assessment and Plan (1) Anemia: Code(s): D64.9 - Anemia, unspecified Status: Acute Assessment and Plan: Patient with macrocytic anemia. Gradual decline in hemoglobin noted. Patient did have bright red blood per rectum a week ago. Will repeat stool Hemoccult as she may have additional bleeding. Suspect that this may have been postoperative after her small-bowel resection. She also had lysis of adhesions at time. I would defer any consideration for GI endoscopy until she is healed after recent bowel resection (2) Blood in stool: Code(s): K92.1 - Melena Status: Acute Assessment and Plan: blood in stool described a week ago presumed to be from recent bowel resection surgery. Will repeat stool Hemoccult at this time. Given macrocytic indices folate B12 also advised. (3) Silent aspiration: Code(s): T17.900A - Unspecified foreign body in respiratory tract, part unspecified causing asphyxiation, initial encounter Status: Acute Assessment and Plan: Patient had modified barium swallow suggesting aspiration risk last week. She does have a good gag reflex at present. She was swallowing well prior to hospital administration. Would suggest repeat modified barium swallow over the next day or 2 in a re-attempt oral intake. Hopefully we canavoid PEG tube. (4) Partial small bowel obstruction: Code(s): K56.600 - Partial intestinal obstruction, unspecified as to cause Status: Acute Assessment and Plan: Patient had adhesions and subsequent bowel resection requiring resection of small bowel and lysis of adhesions. Patient appears to be recovering well after surgical therapy Subjective Date/time seen: 06/15/21 12:12 Patient alert and unchanged this morning. Received Dobbhoff tube feedings over the weekend. patient receiving transfusion this morning because of a low hemoglobin. No bleeding described by patient. No bleeding described by nursing service. Review of Systems Review of Systems: All systems reviewed & are unremarkable except as noted in HPI and below Exam Narrative: Physical exam reveals patient be alert. Vital signs stable. HEENT exam reveals Dobbhoff tube in place. Gag reflex appears adequate. Lungs are clear. Heart without murmur. Abdomen with midline healing scar bowel sounds are present soft no localized tenderness. Objective Data Vital Signs Vital Signs: Vital Signs - 24 hr 06/14/21 16:28 06/14/21 19:19 06/15/21 04:25 Temperature 97.1 F L 97.8 F 97.3 F L Pulse Rate 93 93 87 Respiratory Rate 16 18 16 Blood Pressure 138/56 L 155/58 H 135/48 L Pulse Oximetry 99 100 97 06/15/21 07:22 06/15/21 07:39 06/15/21 07:40 Temperature 97 F L 98.9 F 98.9 F Pulse Rate 92 92 92 Respiratory Rate 18 18 18 Blood Pressure 138/51 L 122/60 122/60 Pulse Oximetry 9 L 98 96 06/15/21 08:00 06/15/21 08:39 06/15/21 09:40 Temperature 98.3 F 98.3 F Pulse Rate 83 86 81 Respiratory Rate 16 16 16 Blood Pressure 142/54 H 142/52 H Pulse Oximetry 100 99 100 06/15/21 10:05 06/15/21 11:27 06/15/21 11:44 Temperature 98.9 F 98.5 F 99 F Pulse Rate 83 85 83 Respiratory Rate 18 16 16 Blood Pressure 145/57 H 148/53 H 132/51 L Pulse Oximetry 99 100 100 Intake/Output Intake/Output: Intake & Output 06/12/21 06/13/21 06/14/21 06/15/21 23:59 23:59 23:59 23:59 Intake Total 1254 1479 1933 1700 Output Total 600 300 750 250 Balance 654 1179 1183 1450 Meds/Results Medications: Active Medications Generic Name Dose Route Start Last Admin Trade Name Freq PRN Reason Stop Dose Admin Acetaminophen 500 mg 06/06/21 11:30 06/11/21 22:10 Acetaminophen 500 Mg Tablet PO 500 mg Q6H PRN Administration Mild Pain (1-3) or Fever Hydrocodone Bitart/Acetaminophen 1 tab 06/06/21 11:30 06/14/21 10:01 Hydrocodone/Acetaminophen (*Crx) 5-325 Mg Tablet PO 1 tab Q4H PRN Administration Pain Rated 4-6 Enoxaparin
[2021-06-15 13:49] LABS: Folic Acid 4.1 ng/mL (2.76->20)
[2021-06-15] MEDS: CENTRAL LINE FLUSH 10 ML IV PUSH ×2 (15:05→21:52)
--- NOTE | 2021-06-15 15:58 | P.PNIM_ITS ---
Progress Note: A&P Assessment and Plan (1) Small bowel obstruction: Code(s): K56.609 - Unspecified intestinal obstruction, unspecified as to partial versus complete obstruction Status: Acute Assessment and Plan: Presented with increased abdominal pain found to have SBO * obstruction did not resolve with conservative management * 06/01/2021 patient underwent exploratory laparotomy with adhesiolysis and small-bowel resection * appreciate general surgery consultation and management * bowel function has returned. Reports frequent loose stools but this is improving * supportive care. continue to increase activity, out of bed time, incentive spirometry, PT/OT * okay to advance diet from surgical standpoint, however issues with aspiration have prevented this (see below) (2) Silent aspiration: Code(s): T17.900A - Unspecified foreign body in respiratory tract, part unspecified causing asphyxiation, initial encounter Status: Acute Assessment and Plan: Patient had bedside swallow study and MBS x2 which showed evidence of silent aspiration * Appreciate speech therapy eval * GI was consulted for consideration of PEG tube. At this time would like to defer PEG tube and hopefully diet can be advanced as patient improves strength and swallow abilities. Continue to work with ST * Patient had no issues with aspiration or dysphagia prior to admission. Perhaps this could be related to her recent surgery and weakness. * 06/11/21 Dobhoff initiated for tube feeding until MBS repeat. Continue tube feeds - she is tolerating well * Planned for repeat MBS today but unable to be completed due to blood transfusion. Will proceed with this tomorrow. (3) Acute anemia: Code(s): D64.9 - Anemia, unspecified Status: Acute Assessment and Plan: Fluctuation in hemoglobin and hematocrit throughout hospital stay. Likely multifactorial to include blood loss from surgery, chronic iron deficiency, anemia of chronic disease * hemoglobin declined to 7.1 on 06/10/2021 and patient received 1 unit PRBC * H&H remained generally stable following transfusion. Hgb fluctuating between 7.5-8.5 * 06/15 Hgb declined to 6.5. Received 1 unit pRBC. Repeat H&H 1 hour following transfusion is pending. * continue to monitor H&H closely * b12 and folate within normal limits (4) GI bleed: Code(s): K92.2 - Gastrointestinal hemorrhage, unspecified Status: Acute Assessment and Plan: Onset of kenton bloody stool 06/11. * Appreciate gastroenterology and general surgery consultation * Continue to monitor stool patterns as well as H&H as described above * Continue IV Protonix b.i.d. * Stool occult blood test pending (5) Yovfw-mx-pekpycf kidney injury: Qualifiers: Acute renal failure type: unspecified Chronic kidney disease stage: unspecified stage Qualified Code(s): N17.9 - Acute kidney failure, unspecified; N18.9 - Chronic kidney disease, unspecified Code(s): N17.9 - Acute kidney failure, unspecified; N18.9 - Chronic kidney disease, unspecified Status: Acute Assessment and Plan: Creatinine elevated on presentation up to 2.1 * baseline appears fluctuant, 0.8-1.2 * appears to be back at baseline, creatinine 1.0 today * continue to monitor BMP (6) Pneumonia: Qualifiers: Laterality: unspecified laterality Lung location: unspecified part of lung Pneumonia type: due to unspecified organism Qualified Code(s): J18.9 - Pneumonia, unspecified organism Code(s): J18.9 - Pneumonia, unspecif
--- NOTE | 2021-06-15 15:58 | PM.IMPN ---
Progress Note: A&P Assessment and Plan (1) Small bowel obstruction: Code(s): K56.609 - Unspecified intestinal obstruction, unspecified as to partial versus complete obstruction Status: Acute Assessment and Plan: Presented with increased abdominal pain found to have SBO obstruction did not resolve with conservative management 06/01/2021 patient underwent exploratory laparotomy with adhesiolysis and small-bowel resection appreciate general surgery consultation and management bowel function has returned. Reports frequent loose stools but this is improving supportive care. continue to increase activity, out of bed time, incentive spirometry, PT/OT okay to advance diet from surgical standpoint, however issues with aspiration have prevented this (see below) (2) Silent aspiration: Code(s): T17.900A - Unspecified foreign body in respiratory tract, part unspecified causing asphyxiation, initial encounter Status: Acute Assessment and Plan: Patient had bedside swallow study and MBS x2 which showed evidence of silent aspiration Appreciate speech therapy eval GI was consulted for consideration of PEG tube. At this time would like to defer PEG tube and hopefully diet can be advanced as patient improves strength and swallow abilities. Continue to work with ST Patient had no issues with aspiration or dysphagia prior to admission. Perhaps this could be related to her recent surgery and weakness. 06/11/21 Dobhoff initiated for tube feeding until MBS repeat. Continue tube feeds - she is tolerating well Planned for repeat MBS today but unable to be completed due to blood transfusion. Will proceed with this tomorrow. (3) Acute anemia: Code(s): D64.9 - Anemia, unspecified Status: Acute Assessment and Plan: Fluctuation in hemoglobin and hematocrit throughout hospital stay. Likely multifactorial to include blood loss from surgery, chronic iron deficiency, anemia of chronic disease hemoglobin declined to 7.1 on 06/10/2021 and patient received 1 unit PRBC H&H remained generally stable following transfusion. Hgb fluctuating between 7.5-8.5 06/15 Hgb declined to 6.5. Received 1 unit pRBC. Repeat H&H 1 hour following transfusion is pending. continue to monitor H&H closely b12 and folate within normal limits (4) GI bleed: Code(s): K92.2 - Gastrointestinal hemorrhage, unspecified Status: Acute Assessment and Plan: Onset of k[place] bloody stool 06/11. Appreciate gastroenterology and general surgery consultation Continue to monitor stool patterns as well as H&H as described above Continue IV Protonix b.i.d. Stool occult blood test pending (5) Hnngo-bg-femepob kidney injury: Qualifiers: Acute renal failure type: unspecified Chronic kidney disease stage: unspecified stage Qualified Code(s): N17.9 - Acute kidney failure, unspecified; N18.9 - Chronic kidney disease, unspecified Code(s): N17.9 - Acute kidney failure, unspecified; N18.9 - Chronic kidney disease, unspecified Status: Acute Assessment and Plan: Creatinine elevated on presentation up to 2.1 baseline appears fluctuant, 0.8-1.2 appears to be back at baseline, creatinine 1.0 today continue to monitor BMP (6) Pneumonia: Qualifiers: Laterality: unspecified laterality Lung location: unspecified part of lung Pneumonia type: due to unspecified organism Qualified Code(s): J18.9 - Pneumonia, unspecified organism Code(s): J18.9 - Pneumonia, unspecified organism Status: Resolved Assessment and Plan: Resolved. Patient with evidence of pneumonia on CTA in right lower lobe possibly related to aspiration pneumonia She completed 7 days of IV Zosyn on 06/12/21 with clinical improvement. Remains afebrile with normal WBC supportive care. patient is asymptomatic. Maintaining adequate O2 sats. (7) Electrolyte abnormality:
[2021-06-15 16:30] LABS: Glucose Point of Care 104 mg/dl (65-105)
[2021-06-15 16:32] LABS: Hematocrit 31.3 % (37.0-47.0); Hemoglobin 10.2 g/dL (12.0-15.0)
[2021-06-15 22:05] LABS: Hematocrit 32.2 % (37.0-47.0); Hemoglobin 10.1 g/dL (12.0-15.0)
[2021-06-15 23:41] LABS: Glucose Point of Care 125 mg/dl (65-105)
[2021-06-16] VITALS (7 sets, daily range): BP systolic 147–158; BP diastolic 54–70; PULSE 74–93; RESP 16–20; TEMP 36.6–37.4; O2SAT 96–99
[2021-06-16] MEDS: LEVOTHYROXINE SODIUM INJ 100 MCG/5 ML VIAL 25 MCG IV PUSH (05:42)
[2021-06-16] MEDS: CENTRAL LINE FLUSH 10 ML IV PUSH ×3 (05:43→21:04)
[2021-06-16] MEDS: CENTRAL LINE FLUSH 20 ML IV PUSH (05:43)
[2021-06-16 06:05] LABS: Hematocrit 31.7 % (37.0-47.0); Mean Corpuscular HGB Conc 31.5 g/dl (32-36); Mean Corpuscular Hemoglobin 30.7 pg (26-34); Mean Corpuscular Volume 97.2 fl (80-100); Mean Platelet Volume 12.5 fl (7.4-10.4); Platelet Count Result 288 k/mm3 (150-375); Red Blood Count 3.26 M/mm3 (4.2-5.4); Red Cell Distribution Width 25.3 % (11.5-14.5); White Blood Count 7.5 K/mm3 (4.5-10.0)
[2021-06-16 06:14] LABS: Anion Gap 3 mmol/L (8-16); Blood Urea Nitrogen 37 mg/dL (7-17); Calcium 8.3 mg/dL (8.4-10.2); Carbon Dioxide 24 mmol/L (22-30); Chloride 115 mmol/L (98-107); Estimated CRCL calculation 29 ml/min; Estimated Glomerular Filt Rate 53; Glucose 118 mg/dL (65-110); Magnesium 1.8 mg/dL (1.6-2.3); Potassium 5.3 mmol/L (3.4-5.0); Sodium 142 mmol/L (137-145)
[2021-06-16 06:18] LABS: Glucose Point of Care 108 mg/dl (65-105)
[2021-06-16 07:29] LABS: Glucose Point of Care 111 mg/dl (65-105)
[2021-06-16] MEDS: PANTOPRAZOLE SODIUM IV 40 MG VIAL IV PUSH ×2 (09:09→21:04)
[2021-06-16] MEDS: NICOTINE (*PBKC) 14 MG PATCH 1 PATCH TRANSDERM (09:09)
[2021-06-16] MEDS: METOPROLOL SUCCINATE EXT REL 12.5 MG TABCR PO (09:09)
[2021-06-16 11:45] LABS: Glucose Point of Care 108 mg/dl (65-105)
--- NOTE | 2021-06-16 12:53 | PCNFU ---
Nutrition Follow-Up Complete: Altered GI function as related to SBO as evidenced by NPO goal: Meet estimated nutritional needs Patient is progressing towards goal. Pt current nutrition is Pureed, Level 4 with Moderately Thick liquids, Level 2. Last recorded weight is 48.6 kg up 8 ibs since admit. Bowel Motility:+Bm reported 06/16 Labs Reviewed:Glu 118, K 5.3,BUN 37, Hct 31.7, Hgb 10.0,GFR 53 Meds Noted:Synthroid,Toprol, Protonix Skin: WNL Additional Notes: Patient had re-peat MBS today. Per Speech therapy recommendations patient did pass MBS-Pureed, Level 4 with Moderately Thick liquids, Level 3. Spoke with RITO Fox. Diet orders changed, tube feedings discontinued. Diet supplements added of Ensure Enlive TID providing an additional 350 kcals and 20 gms protein. Agree with diet orders. Monitoring: BM, meds, skin, oral intake every 3 days.
--- NOTE | 2021-06-16 13:12 | WPDGIPROGNO ---
Progress Note: A&P Assessment and Plan (1) Anemia: Code(s): D64.9 - Anemia, unspecified Status: Acute Assessment and Plan: Anemia improved after transfusion. Suspect this is from postoperative bleeding after small-bowel resection. Continue monitor hemoglobin. Follow-up stool Hemoccult pending. (2) Blood in stool: Code(s): K92.1 - Melena Status: Acute Assessment and Plan: Blood noted in stool on 1 occasion several days after surgery. None recently. Will continue to monitor for additional blood loss. Likely related to bowel resection. (3) Silent aspiration: Code(s): T17.900A - Unspecified foreign body in respiratory tract, part unspecified causing asphyxiation, initial encounter Status: Acute Assessment and Plan: Previous modified barium swallow revealed patient to be at aspiration risk. Speech therapy swallow evaluation today was good. Agree with advancing diet per their recommendations with pureed diet at this time. Discontinue NG tube in advance per speech therapy direction (4) Small bowel obstruction: Code(s): K56.609 - Unspecified intestinal obstruction, unspecified as to partial versus complete obstruction Status: Acute Assessment and Plan: patient admitted with small-bowel obstruction all past status post small bowel resection and lysis of adhesions. Appears to be healing well clinically. Subjective Date/time seen: 06/16/21 13:12 Patient alert comfortable this morning. She has been on Dobbhoff tube feedings for some several days now. Still has a good gag reflex. Anxious to begin eating. No signs of additional bleeding. She was transfused yesterday with good response to her hemoglobin. Review of Systems Review of Systems: All systems reviewed & are unremarkable except as noted in HPI and below Exam Narrative: Physical exam reveals Vital Signs to be stable. HEENT exam reveals no icterus. HEENT exam reveals good gag reflex lungs are clear. Heart without murmur. Abdomen bowel sounds present soft in size midline incision healing well. Objective Data Vital Signs Vital Signs: Vital Signs - 24 hr 06/15/21 13:44 06/15/21 14:00 06/15/21 14:44 Temperature 98.6 F 98.5 F 98.3 F Pulse Rate 86 84 80 Respiratory Rate 16 16 18 Blood Pressure 155/63 H 140/56 L 160/62 H Pulse Oximetry 100 99 100 06/15/21 19:39 06/16/21 05:02 06/16/21 09:09 Temperature 98.2 F 97.9 F Pulse Rate 78 89 74 Respiratory Rate 16 18 Blood Pressure 152/55 H 158/70 H Pulse Oximetry 98 97 Intake/Output Intake/Output: Intake & Output 06/13/21 06/14/21 06/15/21 06/16/21 23:59 23:59 23:59 23:59 Intake Total 1479 1933 2082 365 Output Total 638 569 2039 200 Balance 1179 1183 1082 165 Meds/Results Medications: Active Medications Generic Name Dose Route Start Last Admin Trade Name Freq PRN Reason Stop Dose Admin Acetaminophen 500 mg 06/06/21 11:30 06/11/21 22:10 Acetaminophen 500 Mg Tablet PO 500 mg Q6H PRN Administration Mild Pain (1-3) or Fever Hydrocodone Bitart/Acetaminophen 1 tab 06/06/21 11:30 06/14/21 10:01 Hydrocodone/Acetaminophen (*Crx) 5-325 Mg Tablet PO 1 tab Q4H PRN Administration Pain Rated 4-6 Enoxaparin Sodium 40 mg 06/02/21 09:00 06/10/21 09:04 Enoxaparin 40 Mg/0.4 Ml Syringe SUB-Q 40 mg DAILY JENISE Administration Levothyroxine Sodium 25 mcg 05/31/21 06:30 06/16/21 05:42 Levothyroxine Sodium Inj 100 Mcg/5 Ml Vial IV PUSH 25 mcg DAILY@0630 JENISE Administration Metoprolol Succinate 12.5 mg 06/07/21 09:00 06/16/21 09:09 Metoprolol Succinate Ext Rel 12.5 Mg Tabcr PO 12.5 mg QAM JENISE Administration Morphine Sulfate 2 mg 06/14/21 12:44 06/15/21 15:05 Morphine Sulfate (*Crx) 2 Mg/Ml Inj IV PUSH 2 mg Q6H PRN Administration Pain Rated 7-10 Naloxone HCl 0.1 mg 06/01/21 16:59 Naloxone Hcl 0.4 Mg/Ml Vial IV PUSH Q2M PRN Opiate Reversal
--- NOTE | 2021-06-16 14:00 | P.PNIM_ITS ---
Progress Note: A&P Assessment and Plan (1) Small bowel obstruction: Code(s): K56.609 - Unspecified intestinal obstruction, unspecified as to partial versus complete obstruction Status: Acute Assessment and Plan: Presented with increased abdominal pain found to have SBO * obstruction did not resolve with conservative management * 06/01/2021 patient underwent exploratory laparotomy with adhesiolysis and small-bowel resection * appreciate general surgery consultation and management * bowel function has returned. Reports frequent loose stools but this is improving * supportive care. Out of bed for meals, increase activity, incentive spirometry, PT/OT (2) Silent aspiration: Code(s): T17.900A - Unspecified foreign body in respiratory tract, part unspecified causing asphyxiation, initial encounter Status: Acute Assessment and Plan: Resolved. Patient had bedside swallow study and MBS x2 which showed evidence of silent aspiration * Appreciate speech therapy eval * Seen in consultation by GI to consider PEG tube, however this was deferred to allow time for patient to improved condition and work with ST * Repeat MBS performed today and patient did pass this, no evidence of aspiration * Speech therapy recommends pureed diet and moderately thickened liquids. Will begin today * Dobbhoff tube feedings discontinued today * Appreciate dietitian consultation. Continue dietary supplements * Continue to progress with speech therapy (3) Acute anemia: Code(s): D64.9 - Anemia, unspecified Status: Acute Assessment and Plan: Fluctuation in hemoglobin and hematocrit throughout hospital stay. Likely multifactorial to include blood loss from surgery, chronic iron deficiency, anemia of chronic disease * hemoglobin declined to 7.1 on 06/10/2021 and patient received 1 unit PRBC * H&H remained generally stable following transfusion. Hgb fluctuated between 7.5-8.5 * 06/15 Hgb declined to 6.5. Received 1 unit pRBC and hemoglobin improved following * Hemoglobin 10.0 today. Repeat this evening. Continue to monitor closely * B12 and folate within normal limits (4) GI bleed: Code(s): K92.2 - Gastrointestinal hemorrhage, unspecified Status: Acute Assessment and Plan: Onset of k[place] bloody stool 06/11. * Etiology unclear. May be related to recent surgical resection vs peptic ulcer * Appreciate gastroenterology and general surgery consultation * Continue to monitor stool patterns as well as H&H as described above * Continue IV Protonix b.i.d. * Stool occult blood test pending (5) Sisny-qc-mbttrrk kidney injury: Qualifiers: Acute renal failure type: unspecified Chronic kidney disease stage: unspecified stage Qualified Code(s): N17.9 - Acute kidney failure, unspecified; N18.9 - Chronic kidney disease, unspecified Code(s): N17.9 - Acute kidney failure, unspecified; N18.9 - Chronic kidney disease, unspecified Status: Acute Assessment and Plan: Creatinine elevated on presentation up to 2.1 * baseline appears fluctuant, 0.8-1.2 * appears to be back at baseline, creatinine 1.0 today * continue to monitor BMP (6) Pneumonia: Qualifiers: Laterality: unspecified laterality Lung location: unspecified part of l ivana Pneumonia type: due to unspecified organism Qualified Code(s): J18.9 - Pneumonia, unspecified organism Code(s): J18.9 - Pneumonia, unspecified organism Status: Resolved Assessment and Plan: Resolved. Patient with eviden
--- NOTE | 2021-06-16 14:00 | PM.IMPN ---
Progress Note: A&P Assessment and Plan (1) Small bowel obstruction: Code(s): K56.609 - Unspecified intestinal obstruction, unspecified as to partial versus complete obstruction Status: Acute Assessment and Plan: Presented with increased abdominal pain found to have SBO obstruction did not resolve with conservative management 06/01/2021 patient underwent exploratory laparotomy with adhesiolysis and small-bowel resection appreciate general surgery consultation and management bowel function has returned. Reports frequent loose stools but this is improving supportive care. Out of bed for meals, increase activity, incentive spirometry, PT/OT (2) Silent aspiration: Code(s): T17.900A - Unspecified foreign body in respiratory tract, part unspecified causing asphyxiation, initial encounter Status: Acute Assessment and Plan: Resolved. Patient had bedside swallow study and MBS x2 which showed evidence of silent aspiration Appreciate speech therapy eval Seen in consultation by GI to consider PEG tube, however this was deferred to allow time for patient to improved condition and work with ST Repeat MBS performed today and patient did pass this, no evidence of aspiration Speech therapy recommends pureed diet and moderately thickened liquids. Will begin today Dobbhoff tube feedings discontinued today Appreciate dietitian consultation. Continue dietary supplements Continue to progress with speech therapy (3) Acute anemia: Code(s): D64.9 - Anemia, unspecified Status: Acute Assessment and Plan: Fluctuation in hemoglobin and hematocrit throughout hospital stay. Likely multifactorial to include blood loss from surgery, chronic iron deficiency, anemia of chronic disease hemoglobin declined to 7.1 on 06/10/2021 and patient received 1 unit PRBC H&H remained generally stable following transfusion. Hgb fluctuated between 7.5-8.5 06/15 Hgb declined to 6.5. Received 1 unit pRBC and hemoglobin improved following Hemoglobin 10.0 today. Repeat this evening. Continue to monitor closely B12 and folate within normal limits (4) GI bleed: Code(s): K92.2 - Gastrointestinal hemorrhage, unspecified Status: Acute Assessment and Plan: Onset of [place] bloody stool 06/11. Etiology unclear. May be related to recent surgical resection vs peptic ulcer Appreciate gastroenterology and general surgery consultation Continue to monitor stool patterns as well as H&H as described above Continue IV Protonix b.i.d. Stool occult blood test pending (5) Ukpti-sl-jqyxzla kidney injury: Qualifiers: Acute renal failure type: unspecified Chronic kidney disease stage: unspecified stage Qualified Code(s): N17.9 - Acute kidney failure, unspecified; N18.9 - Chronic kidney disease, unspecified Code(s): N17.9 - Acute kidney failure, unspecified; N18.9 - Chronic kidney disease, unspecified Status: Acute Assessment and Plan: Creatinine elevated on presentation up to 2.1 baseline appears fluctuant, 0.8-1.2 appears to be back at baseline, creatinine 1.0 today continue to monitor BMP (6) Pneumonia: Qualifiers: Laterality: unspecified laterality Lung location: unspecified part of lung Pneumonia type: due to unspecified organism Qualified Code(s): J18.9 - Pneumonia, unspecified organism Code(s): J18.9 - Pneumonia, unspecified organism Status: Resolved Assessment and Plan: Resolved. Patient with evidence of pneumonia on CTA in right lower lobe possibly related to aspiration pneumonia She completed 7 days of IV Zosyn on 06/12/21 with clinical improvement. Remains afebrile with normal WBC supportive care. patient is asymptomatic. Maintaining adequate O2 sats. (7) Electrolyte abnormality: Code(s): E87.8 - Other disorders of electrolyte and fluid balance, not elsewhere classified Status
[2021-06-16 14:10] LABS: Potassium 5.7 mmol/L (3.4-5.0)
[2021-06-16] MEDS: SODIUM POLYSTYRENE SULFONONATE 15 GM/60 ML BTL PO (14:33)
[2021-06-16 16:31] LABS: Glucose Point of Care 98 mg/dl (65-105)
[2021-06-16 17:41] LABS: Hematocrit 33.9 % (37.0-47.0); Hemoglobin 10.6 g/dL (12.0-15.0)
[2021-06-16 21:15] LABS: Potassium 4.7 mmol/L (3.4-5.0)
[2021-06-16 21:41] LABS: Glucose Point of Care 112 mg/dl (65-105)
[2021-06-17] VITALS (11 sets, daily range): BP systolic 135–160; BP diastolic 44–59; PULSE 71–87; RESP 16–18; TEMP 36.4–36.8; O2SAT 95–100
[2021-06-17 04:36] LABS: Glucose Point of Care 104 mg/dl (65-105)
[2021-06-17] MEDS: LEVOTHYROXINE SODIUM INJ 100 MCG/5 ML VIAL 25 MCG IV PUSH (05:17)
[2021-06-17] MEDS: CENTRAL LINE FLUSH 10 ML IV PUSH ×3 (05:17→20:16)
[2021-06-17 05:38] LABS: Hematocrit 30.8 % (37.0-47.0); Hemoglobin 9.5 g/dL (12.0-15.0); Mean Corpuscular HGB Conc 30.8 g/dl (32-36); Mean Corpuscular Hemoglobin 30.4 pg (26-34); Mean Corpuscular Volume 98.7 fl (80-100); Mean Platelet Volume 12.3 fl (7.4-10.4); Platelet Count Result 277 k/mm3 (150-375); Red Blood Count 3.12 M/mm3 (4.2-5.4); Red Cell Distribution Width 24.4 % (11.5-14.5)
[2021-06-17 05:43] LABS: Anion Gap 2 mmol/L (8-16); Blood Urea Nitrogen 33 mg/dL (7-17); Calcium 8.6 mg/dL (8.4-10.2); Carbon Dioxide 26 mmol/L (22-30); Chloride 112 mmol/L (98-107); Estimated CRCL calculation 29 ml/min; Estimated Glomerular Filt Rate 53; Glucose 103 mg/dL (65-110); Magnesium 1.9 mg/dL (1.6-2.3); Potassium 4.9 mmol/L (3.4-5.0); Sodium 140 mmol/L (137-145)
[2021-06-17 07:50] LABS: Glucose Point of Care 103 mg/dl (65-105)
[2021-06-17] MEDS: NICOTINE (*PBKC) 14 MG PATCH 1 PATCH TRANSDERM (08:04)
[2021-06-17] MEDS: METOPROLOL SUCCINATE EXT REL 12.5 MG TABCR PO (08:05)
[2021-06-17] MEDS: PANTOPRAZOLE SODIUM IV 40 MG VIAL IV PUSH ×2 (08:05→20:16)
--- NOTE | 2021-06-17 08:17 | WPDGIPROGNO ---
Progress Note: A&P Assessment and Plan (1) Anemia: Code(s): D64.9 - Anemia, unspecified Status: Acute Assessment and Plan: Anemia likely multifactorial. Now some postoperative anemia. Appears stable. No bleeding active. (2) Silent aspiration: Code(s): T17.900A - Unspecified foreign body in respiratory tract, part unspecified causing asphyxiation, initial encounter Status: Acute Assessment and Plan: Patient's swallowing is improved. Now able to tolerate diet. Will advance diet as tolerated. Start with pureed few foods. We should be able to DC the Dobbhoff tube at this point. (3) Small bowel obstruction: Code(s): K56.609 - Unspecified intestinal obstruction, unspecified as to partial versus complete obstruction Status: Acute Assessment and Plan: Patient recovering after small-bowel resection and lysis of adhesions. Abdomen appears benign at this point. Increase activity and diet. Subjective Date/time seen: 06/17/21 08:17 Patient now on diet under the direction of speech therapy. Tolerating this well. Dobbhoff tube can likely be discontinued. Advanced diet as tolerated. Review of Systems Review of Systems: All systems reviewed & are unremarkable except as noted in HPI and below Exam Narrative: Patient alert. Comfortable at rest. HEENT exam reveals no teeth. NG tube in place. Gag reflux good. Abdomen soft bowel sounds are present healing midline scar. Objective Data Vital Signs Vital Signs: Vital Signs - 24 hr 06/16/21 09:09 06/16/21 14:00 06/16/21 16:00 Temperature 98.2 F Pulse Rate 74 81 93 Respiratory Rate 16 Blood Pressure 147/56 H Pulse Oximetry 99 06/16/21 17:10 06/16/21 20:00 06/16/21 20:09 Temperature 99.3 F Pulse Rate 93 79 Respiratory Rate 20 Blood Pressure 147/54 H Pulse Oximetry 96 99 06/17/21 00:00 06/17/21 04:00 06/17/21 05:12 Temperature 98.1 F Pulse Rate 75 74 81 Respiratory Rate 18 Blood Pressure 136/56 L Pulse Oximetry 96 06/17/21 08:05 Temperature Pulse Rate 80 Respiratory Rate Blood Pressure Pulse Oximetry Intake/Output Intake/Output: Intake & Output 06/14/21 06/15/21 06/16/21 06/17/21 23:59 23:59 23:59 23:59 Intake Total 1933 2082 535 200 Output Total 750 1000 200 400 Balance 1183 1082 335 -200 Meds/Results Medications: Active Medications Generic Name Dose Route Start Last Admin Trade Name Freq PRN Reason Stop Dose Admin Acetaminophen 500 mg 06/06/21 11:30 06/11/21 22:10 Acetaminophen 500 Mg Tablet PO 500 mg Q6H PRN Administration Mild Pain (1-3) or Fever Hydrocodone Bitart/Acetaminophen 1 tab 06/06/21 11:30 06/14/21 10:01 Hydrocodone/Acetaminophen (*Crx) 5-325 Mg Tablet PO 1 tab Q4H PRN Administration Pain Rated 4-6 Enoxaparin Sodium 40 mg 06/02/21 09:00 06/10/21 09:04 Enoxaparin 40 Mg/0.4 Ml Syringe SUB-Q 40 mg DAILY JENISE Administration Levothyroxine Sodium 25 mcg 05/31/21 06:30 06/17/21 05:17 Levothyroxine Sodium Inj 100 Mcg/5 Ml Vial IV PUSH 25 mcg DAILY@0630 JENISE Administration Metoprolol Succinate 12.5 mg 06/07/21 09:00 06/17/21 08:05 Metoprolol Succinate Ext Rel 12.5 Mg Tabcr PO 12.5 mg QAM JENISE Administration Naloxone HCl 0.1 mg 06/01/21 16:59 Naloxone Hcl 0.4 Mg/Ml Vial IV PUSH Q2M PRN Opiate Reversal Nicotine 1 patch 05/31/21 09:00 06/17/21 08:04 Nicotine (*Pbkc) 14 Mg Patch TRANSDERM 1 patch QAM JENISE Administration Ondansetron HCl 4 mg 05/30/21 14:17 06/07/21 20:47 Ondansetron Inj 4 Mg/2 Ml Vial IV PUSH 4 mg Q4H PRN Administration Nausea Pantoprazole Sodium 40 mg 06/09/21 09:00 06/17/21 08:05 Pantoprazole Sodium Iv 40 Mg Vial IV PUSH 40 mg Q12HR JENISE Administration Perflutren Lipid Microsphere 0 ml 06/05/21 10:13 Perflutren Lipid Microspheres 1.5 Ml Vial Diluted To 10 Ml Total Volume IV PUSH ONCE PRN khari
[2021-06-17 11:33] LABS: IFOB Positive Control Positive; Immunochemical Fecal Occult Bl Positive (N)
[2021-06-17 12:08] LABS: Glucose Point of Care 116 mg/dl (65-105)
--- NOTE | 2021-06-17 12:28 | P.PNIM_ITS ---
Progress Note: A&P Assessment and Plan (1) Small bowel obstruction: Code(s): K56.609 - Unspecified intestinal obstruction, unspecified as to partial versus complete obstruction Status: Acute Assessment and Plan: Presented with increased abdominal pain found to have SBO * obstruction did not resolve with conservative management * 06/01/2021 patient underwent exploratory laparotomy with adhesiolysis and small-bowel resection * appreciate general surgery consultation and management * bowel function has returned. Reports frequent loose stools but this is improving * supportive care. Out of bed for meals, increase activity, incentive spirometry, PT/OT (2) Silent aspiration: Code(s): T17.900A - Unspecified foreign body in respiratory tract, part unspecified causing asphyxiation, initial encounter Status: Acute Assessment and Plan: Resolved. Patient had bedside swallow study and MBS x2 which showed evidence of silent aspiration * Appreciate speech therapy eval * Seen in consultation by GI to consider PEG tube, however this was deferred to allow time for patient to improved condition and work with ST * Repeat MBS performed today and patient did have evidence of reduced laryngeal function with penetration and required multiple commands to swallow order to clear secretions as well as chin tuck. Flash penetration was also visualized. Patient is trialed on pureed diet and moderate thick liquids. * Speech therapy recommends pureed diet and moderately thickened liquids. * Dobbhoff tube will be discontinued * Appreciate dietitian consultation. Continue dietary supplements * Continue to progress with speech therapy (3) Acute anemia: Code(s): D64.9 - Anemia, unspecified Status: Acute Assessment and Plan: Fluctuation in hemoglobin and hematocrit throughout hospital stay. Likely multifactorial to include blood loss from surgery, chronic iron deficiency, anemia of chronic disease * hemoglobin declined to 7.1 on 06/10/2021 and patient received 1 unit PRBC * H&H remained generally stable following transfusion. Hgb fluctuated between 7.5-8.5 * 06/15 Hgb declined to 6.5. Received 1 unit pRBC and hemoglobin improved following * Hemoglobin 10.0 today. Repeat this evening. Continue to monitor closely * B12 and folate within normal limits (4) GI bleed: Code(s): K92.2 - Gastrointestinal hemorrhage, unspecified Status: Acute Assessment and Plan: Onset of [place] bloody stool 06/11. * Etiology unclear. May be related to recent surgical resection vs peptic ulcer * Appreciate gastroenterology and general surgery consultation * Continue to monitor stool patterns as well as H&H as described above * Continue IV Protonix b.i.d. * Stool occult blood test positive, defer to GI (5) Pjccb-an-jrcwvos kidney injury: Qualifiers: Acute renal failure type: unspecified Chronic kidney disease stage: uns pecified stage Qualified Code(s): N17.9 - Acute kidney failure, unspecified; N18.9 - Chronic kidney disease, unspecified Code(s): N17.9 - Acute kidney failure, unspecified; N18.9 - Chronic kidney disease, unspecified Status: Acute Assessment and Plan: Creatinine elevated on presentation up to 2.1 * baseline appears fluctuant, 0.8-1.2 * appears to be back at baseline, creatinine 1.0 today * continue to monitor BMP (6) Pneumonia: Qualifiers: Pneumonia type: due to unspecified organism Laterality: unspecified laterality Lung location: unspecified part of lung Qualified
--- NOTE | 2021-06-17 12:28 | PM.IMPN ---
Progress Note: A&P Assessment and Plan (1) Small bowel obstruction: Code(s): K56.609 - Unspecified intestinal obstruction, unspecified as to partial versus complete obstruction Status: Acute Assessment and Plan: Presented with increased abdominal pain found to have SBO obstruction did not resolve with conservative management 06/01/2021 patient underwent exploratory laparotomy with adhesiolysis and small-bowel resection appreciate general surgery consultation and management bowel function has returned. Reports frequent loose stools but this is improving supportive care. Out of bed for meals, increase activity, incentive spirometry, PT/OT (2) Silent aspiration: Code(s): T17.900A - Unspecified foreign body in respiratory tract, part unspecified causing asphyxiation, initial encounter Status: Acute Assessment and Plan: Resolved. Patient had bedside swallow study and MBS x2 which showed evidence of silent aspiration Appreciate speech therapy eval Seen in consultation by GI to consider PEG tube, however this was deferred to allow time for patient to improved condition and work with ST Repeat MBS performed today and patient did have evidence of reduced laryngeal function with penetration and required multiple commands to swallow order to clear secretions as well as chin tuck. Flash penetration was also visualized. Patient is trialed on pureed diet and moderate thick liquids. Speech therapy recommends pureed diet and moderately thickened liquids. Dobbhoff tube will be discontinued Appreciate dietitian consultation. Continue dietary supplements Continue to progress with speech therapy (3) Acute anemia: Code(s): D64.9 - Anemia, unspecified Status: Acute Assessment and Plan: Fluctuation in hemoglobin and hematocrit throughout hospital stay. Likely multifactorial to include blood loss from surgery, chronic iron deficiency, anemia of chronic disease hemoglobin declined to 7.1 on 06/10/2021 and patient received 1 unit PRBC H&H remained generally stable following transfusion. Hgb fluctuated between 7.5-8.5 06/15 Hgb declined to 6.5. Received 1 unit pRBC and hemoglobin improved following Hemoglobin 10.0 today. Repeat this evening. Continue to monitor closely B12 and folate within normal limits (4) GI bleed: Code(s): K92.2 - Gastrointestinal hemorrhage, unspecified Status: Acute Assessment and Plan: Onset of [place] bloody stool 06/11. Etiology unclear. May be related to recent surgical resection vs peptic ulcer Appreciate gastroenterology and general surgery consultation Continue to monitor stool patterns as well as H&H as described above Continue IV Protonix b.i.d. Stool occult blood test positive, defer to GI (5) Tnhgo-ol-gcsevad kidney injury: Qualifiers: Acute renal failure type: unspecified Chronic kidney disease stage: unspecified stage Qualified Code(s): N17.9 - Acute kidney failure, unspecified; N18.9 - Chronic kidney disease, unspecified Code(s): N17.9 - Acute kidney failure, unspecified; N18.9 - Chronic kidney disease, unspecified Status: Acute Assessment and Plan: Creatinine elevated on presentation up to 2.1 baseline appears fluctuant, 0.8-1.2 appears to be back at baseline, creatinine 1.0 today continue to monitor BMP (6) Pneumonia: Qualifiers: Pneumonia type: due to unspecified organism Laterality: unspecified laterality Lung location: unspecified part of lung Qualified Code(s): J18.9 - Pneumonia, unspecified organism Code(s): J18.9 - Pneumonia, unspecified organism Status: Resolved Assessment and Plan: Resolved. Patient with evidence of pneumonia on CTA in right lower lobe possibly related to aspiration pneumonia She completed 7 days of IV Zosyn on 06/12/21 with clinical improvement. Remains afebrile with normal WBC supportive car
[2021-06-17 16:29] LABS: Glucose Point of Care 77 mg/dl (65-105)
[2021-06-17 20:31] LABS: Glucose Point of Care 128 mg/dl (65-105)
[2021-06-18] VITALS: PULSE 74
[2021-06-18 02:43] LABS: Glucose Point of Care 108 mg/dl (65-105)
[2021-06-18 04:00] VITALS: PULSE 73
[2021-06-18] MEDS: LEVOTHYROXINE SODIUM INJ 100 MCG/5 ML VIAL 25 MCG IV PUSH (05:30)
[2021-06-18] MEDS: CENTRAL LINE FLUSH 10 ML IV PUSH ×2 (05:30→08:54)
[2021-06-18 05:45] LABS: Hematocrit 30.2 % (37.0-47.0); Hemoglobin 9.5 g/dL (12.0-15.0); Mean Corpuscular HGB Conc 31.5 g/dl (32-36); Mean Corpuscular Hemoglobin 30.6 pg (26-34); Mean Corpuscular Volume 97.4 fl (80-100); Mean Platelet Volume 12.6 fl (7.4-10.4); Platelet Count Result 258 k/mm3 (150-375); Red Cell Distribution Width 23.5 % (11.5-14.5)
[2021-06-18 06:00] VITALS: BP 128/51; PULSE 79; RESP 18; TEMP 36.8
[2021-06-18 06:07] LABS: Alanine Aminotransferase 19 U/L (4-35); Alkaline Phosphatase 108 U/L (38-126); Anion Gap 6 mmol/L (8-16); Aspartate Amino Transferase 28 U/L (14-36); Bilirubin,Total 0.4 mg/dL (0.2-1.3); Blood Urea Nitrogen 30 mg/dL (7-17); Calcium 8.7 mg/dL (8.4-10.2); Carbon Dioxide 22 mmol/L (22-30); Chloride 111 mmol/L (98-107); Estimated CRCL calculation 29 ml/min; Estimated Glomerular Filt Rate 53; Glucose 97 mg/dL (65-110); Magnesium 1.7 mg/dL (1.6-2.3); Potassium 4.8 mmol/L (3.4-5.0); Sodium 139 mmol/L (137-145)
[2021-06-18 07:03] LABS: Band Neutrophils Percent 4 % (0-6); Eosinophils Absolute Manual 0.25 K/mm3 (0.02-0.5); Eosinophils Percent Manual 5 % (0-4); Lymphocytes Absolute Manual 1.35 K/mm3 (1.1-4.5); Monocytes Absolute Manual 0.05 K/mm3 (0.1-0.90); Monocytes Percent Manual 1 % (3-9); Myelocytes Percent 1 %; Neutrophils Percent Manual 62 % (46-73); Ovalocytes 1+ (NORMAL); Platelet Estimate Adequate (Adequate); Total Cells Counted 100
[2021-06-18 07:04] LABS: Anisocytosis 1+ (NORMAL)
[2021-06-18 07:49] LABS: Glucose Point of Care 103 mg/dl (65-105)
[2021-06-18 08:00] VITALS: PULSE 80; RESP 18; O2SAT 97
[2021-06-18 08:46] VITALS: PULSE 80
[2021-06-18] MEDS: NICOTINE (*PBKC) 14 MG PATCH 1 PATCH TRANSDERM (08:46)
[2021-06-18] MEDS: METOPROLOL SUCCINATE EXT REL 12.5 MG TABCR PO (08:46)
[2021-06-18] MEDS: PANTOPRAZOLE SODIUM IV 40 MG VIAL IV PUSH (08:46)
[2021-06-18] MEDS: HYDROcodone/acetaminophen (*CRX) 5-325 MG TABLET 1 TAB PO (08:52)
--- NOTE | 2021-06-18 11:16 | P.DS_ITS ---
DS: Admitting Diagnosis Discharge Date 06/18/2021 Admitting Diagnosis Small-bowel obstruction Emphysema of the lungs Hypothyroidism CKD Anxiety Tobacco dependence DS: Discharge Diagnosis Discharge Diagnosis (1) Small bowel obstruction: Code(s): K56.609 - Unspecified intestinal obstruction, unspecified as to partial versus complete obstruction Status: Acute Assessment and Plan: Presented with increased abdominal pain found to have SBO * obstruction did not resolve with conservative management * 06/01/2021 patient underwent exploratory laparotomy with adhesiolysis and small-bowel resection * appreciate general surgery consultation and management * bowel function has returned. Reports frequent loose stools but this is improving * supportive care. Out of bed for meals, increase activity, incentive spirometry, PT/OT (2) Silent aspiration: Code(s): T17.900A - Unspecified foreign body in respiratory tract, part unspecified causing asphyxiation, initial encounter Status: Acute Assessment and Plan: Resolved. Patient had bedside swallow study and MBS x2 which showed evidence of silent aspiration * Appreciate speech therapy eval * Seen in consultation by GI to consider PEG tube, however this was deferred to allow time for patient to improved condition and work with ST * Repeat MBS performed today and patient did have evidence of reduced laryngeal function with penetration and required multiple commands to swallow order to clear secretions as well as chin tuck. Flash penetration was also visualized. Patient is trialed on pureed diet and moderate thick liquids. * Speech therapy recommends pureed diet and moderately thickened liquids. * Dobbhoff tube will be discontinued * Appreciate dietitian consultation. Continue dietary supplements * Continue to progress with speech therapy (3) Acute anemia: Code(s): D64.9 - Anemia, unspecified Status: Acute Assessment and Plan: Fluctuation in hemoglobin and hematocrit throughout hospital stay. Likely multifactorial to include blood loss from surgery, chronic iron deficiency, anemia of chronic disease * hemoglobin declined to 7.1 on 06/10/2021 and patient received 1 unit PRBC * H&H remained generally stable following transfusion. Hgb fluctuated between 7.5-8.5 * 06/15 Hgb declined to 6.5. Received 1 unit pRBC and hemoglobin improved following * Hemoglobin 10.0 today. Repeat this evening. Continue to monitor closely * B12 and folate within normal limits (4) GI bleed: Code(s): K92.2 - Gastrointestinal hemorrhage, unspecified Status: Acute Assessment and Plan: Onset of [place] bloody stool 06/11. * Etiology unclear. May be related to recent surgical resection vs peptic ulcer * Appreciate gastroenterology and general surgery consultation * Continue to monitor stool patterns as well as H&H as described above * Continue IV Protonix b.i.d. * Stool occult blood test positive, defer to GI (5) Ocnla-yy-ifasbib kidney injury: Qualifiers: Acute renal failure type: unspecified Chronic kidney disease stage: unspecified stage Qualified Code(s): N17.9 - Acute kidney failure, unspecified; N18.9 - Chronic kidney disease, unspecified Code(s): N17.9 - Acute kidney failure, unspecified; N18.9 - Chronic kidney disease, unspecified Status: Acute Assessment and Plan: Creatinine elevated on presentation up to 2.1 * baseline appears fluctuant, 0.8-1.2 * appears to be back at baseline, creatinine 1.0 today * cont
--- NOTE | 2021-06-18 11:16 | PM.DS ---
DS: Admitting Diagnosis Discharge Date 06/18/2021 Admitting Diagnosis Small-bowel obstruction Emphysema of the lungs Hypothyroidism CKD Anxiety Tobacco dependence DS: Discharge Diagnosis Discharge Diagnosis (1) Small bowel obstruction: Code(s): K56.609 - Unspecified intestinal obstruction, unspecified as to partial versus complete obstruction Status: Acute Assessment and Plan: Presented with increased abdominal pain found to have SBO obstruction did not resolve with conservative management 06/01/2021 patient underwent exploratory laparotomy with adhesiolysis and small-bowel resection appreciate general surgery consultation and management bowel function has returned. Reports frequent loose stools but this is improving supportive care. Out of bed for meals, increase activity, incentive spirometry, PT/OT (2) Silent aspiration: Code(s): T17.900A - Unspecified foreign body in respiratory tract, part unspecified causing asphyxiation, initial encounter Status: Acute Assessment and Plan: Resolved. Patient had bedside swallow study and MBS x2 which showed evidence of silent aspiration Appreciate speech therapy eval Seen in consultation by GI to consider PEG tube, however this was deferred to allow time for patient to improved condition and work with ST Repeat MBS performed today and patient did have evidence of reduced laryngeal function with penetration and required multiple commands to swallow order to clear secretions as well as chin tuck. Flash penetration was also visualized. Patient is trialed on pureed diet and moderate thick liquids. Speech therapy recommends pureed diet and moderately thickened liquids. Dobbhoff tube will be discontinued Appreciate dietitian consultation. Continue dietary supplements Continue to progress with speech therapy (3) Acute anemia: Code(s): D64.9 - Anemia, unspecified Status: Acute Assessment and Plan: Fluctuation in hemoglobin and hematocrit throughout hospital stay. Likely multifactorial to include blood loss from surgery, chronic iron deficiency, anemia of chronic disease hemoglobin declined to 7.1 on 06/10/2021 and patient received 1 unit PRBC H&H remained generally stable following transfusion. Hgb fluctuated between 7.5-8.5 06/15 Hgb declined to 6.5. Received 1 unit pRBC and hemoglobin improved following Hemoglobin 10.0 today. Repeat this evening. Continue to monitor closely B12 and folate within normal limits (4) GI bleed: Code(s): K92.2 - Gastrointestinal hemorrhage, unspecified Status: Acute Assessment and Plan: Onset of [place] bloody stool 06/11. Etiology unclear. May be related to recent surgical resection vs peptic ulcer Appreciate gastroenterology and general surgery consultation Continue to monitor stool patterns as well as H&H as described above Continue IV Protonix b.i.d. Stool occult blood test positive, defer to GI (5) Cjlyn-py-hduenez kidney injury: Qualifiers: Acute renal failure type: unspecified Chronic kidney disease stage: unspecified stage Qualified Code(s): N17.9 - Acute kidney failure, unspecified; N18.9 - Chronic kidney disease, unspecified Code(s): N17.9 - Acute kidney failure, unspecified; N18.9 - Chronic kidney disease, unspecified Status: Acute Assessment and Plan: Creatinine elevated on presentation up to 2.1 baseline appears fluctuant, 0.8-1.2 appears to be back at baseline, creatinine 1.0 today continue to monitor BMP (6) Pneumonia: Qualifiers: Pneumonia type: due to unspecified organism Laterality: unspecified laterality Lung location: unspecified part of lung Qualified Code(s): J18.9 - Pneumonia, unspecified organism Code(s): J18.9 - Pneumonia, unspecified organism Status: Resolved Assessment and Plan: Resolved. Patient with evidence of pneumonia on CTA in [facility]
--- NOTE | 2021-06-18 11:18 | WPDGIPROGNO ---
Progress Note: A&P Assessment and Plan (1) Anemia: Code(s): D64.9 - Anemia, unspecified Status: Acute Assessment and Plan: Anemia appears to be postoperative. Hemoglobin stable after recent transfusion. (2) Blood in stool: Code(s): K92.1 - Melena Status: Acute Assessment and Plan: Occult blood in stool. Most likely related to recent bowel resection. Would defer any invasive testing for now. Consider elective colonoscopy later as an outpatient this persists. (3) Silent aspiration: Code(s): T17.900A - Unspecified foreign body in respiratory tract, part unspecified causing asphyxiation, initial encounter Status: Acute Assessment and Plan: Patient had modified barium swallow showed some risk of aspiration. Most recent MBS reveals she can tolerate food. Plan to continue swallow therapy. She she is expected to return to baseline. Soft diet with pureed texture advised currently. Continue monitor conservatively at this time. (4) Small bowel obstruction: Code(s): K56.609 - Unspecified intestinal obstruction, unspecified as to partial versus complete obstruction Status: Acute Assessment and Plan: Patient had adhesive lysis and resection of small bowel appears to be healing well after bowel obstruction. Subjective Date/time seen: 06/18/21 11:18 Patient alert comfortable this morning. Appears to be tolerating diet with duct too much difficulty. Denies abdominal pain. Bowel function appears adequate. Review of Systems Review of Systems: All systems reviewed & are unremarkable except as noted in HPI and below Exam Narrative: Physical exam reveals patient be alert. Vital signs stable. HEENT exam reveals no icterus. Good gag reflex. NG tube out today. Lungs are clear. Heart without murmur. Abdomen bowel sounds present soft midline scar healing well. No organomegaly evident. Objective Data Vital Signs Vital Signs: Vital Signs - 24 hr 06/17/21 12:00 06/17/21 14:03 06/17/21 16:00 Temperature 98.3 F Pulse Rate 82 73 71 Respiratory Rate 16 Blood Pressure 160/59 H Pulse Oximetry 100 06/17/21 20:00 06/17/21 21:06 06/17/21 22:00 Temperature 97.5 F L Pulse Rate 75 77 Respiratory Rate 16 Blood Pressure 135/44 L Pulse Oximetry 95 97 06/18/21 00:00 06/18/21 04:00 06/18/21 06:00 Temperature 98.2 F Pulse Rate 74 73 79 Respiratory Rate 18 Blood Pressure 128/51 L Pulse Oximetry 06/18/21 08:00 06/18/21 08:46 Temperature Pulse Rate 80 80 Respiratory Rate 18 Blood Pressure Pulse Oximetry 97 Intake/Output Intake/Output: Intake & Output 06/15/21 06/16/21 06/17/21 06/18/21 23:59 23:59 23:59 23:59 Intake Total 2082 535 920 340 Output Total 1000 200 400 900 Balance 1082 335 520 -560 Meds/Results Medications: Active Medications Generic Name Dose Route Start Last Admin Trade Name Freq PRN Reason Stop Dose Admin Acetaminophen 500 mg 06/06/21 11:30 06/11/21 22:10 Acetaminophen 500 Mg Tablet PO 500 mg Q6H PRN Administration Mild Pain (1-3) or Fever Hydrocodone Bitart/Acetaminophen 1 tab 06/06/21 11:30 06/18/21 08:52 Hydrocodone/Acetaminophen (*Crx) 5-325 Mg Tablet PO 1 tab Q4H PRN Administration Pain Rated 4-6 Enoxaparin Sodium 40 mg 06/02/21 09:00 06/10/21 09:04 Enoxaparin 40 Mg/0.4 Ml Syringe SUB-Q 40 mg DAILY JENISE Administration Levothyroxine Sodium 25 mcg 05/31/21 06:30 06/18/21 05:30 Levothyroxine Sodium Inj 100 Mcg/5 Ml Vial IV PUSH 25 mcg DAILY@0630 JENISE Administration Metoprolol Succinate 12.5 mg 06/07/21 09:00 06/18/21 08:46 Metoprolol Succinate Ext Rel 12.5 Mg Tabcr PO 12.5 mg QAM JENISE Administration Naloxone HCl 0.1 mg 06/01/21 16:59 Naloxone Hcl 0.4 Mg/Ml Vial IV PUSH Q2M PRN Opiate Reversal Nicotine 1 patch 05/31/21 09:00 06/18/21 08:46 Nicotine (*Pbkc) 14 Mg Patch TRANSDERM 1 pa
[2021-06-18 11:43] LABS: Glucose Point of Care 138 mg/dl (65-105)
--- NOTE | 2021-06-18 13:00 | PC.NURSE ---
PICC line discontinued from right arm per MD orders. Pt tolerated well. Catheter removed intact. Occlusive dressing applied.
--- NOTE | 2021-06-18 13:44 | PC.NURSE ---
Pt discharged home as ordered. Family here yesterday for dietary education. Verbalized understanding. Thickener provided with instruction to obtain more from pharmacy. Assisted out per wheelchair by hospital staff.
== END 2021-06-18 13:48 | disposition home health service (06) | DRG 329 ==
LOC: ANHED 15:22 → ANH3MED 05-31 04:27
PROVIDERS: Internal Medicine Gastroenterology; Nurse Practitioner; Nurse Practitioner Adult Health; Nurse Practitioner Family; Physician Assistant; Student in an Organized Health Care Education/Training Program; Surgery; Admitting Provider Internal Medicine; Emergency Provider Emergency Medicine; PCP Internal Medicine; Visit Provider Physician Assistant
PROC: 0DB80ZZ Excision of Small Intestine, Open Approach (ICD-10-PCS; CPT 49000; principal; 2021-06-01 16:00)
DX: K56.50 Intestinal adhesions [bands], unspecified as to partial versus complete obstruction (principal); J69.0 Pneumonitis due to inhalation of food and vomit; D62 Acute posthemorrhagic anemia; N17.9 Acute kidney failure, unspecified; J98.11 Atelectasis; J90 Pleural effusion, not elsewhere classified; K91.89 Other postprocedural complications and disorders of digestive system; K92.1 Melena; E87.0 Hyperosmolality and hypernatremia; T17.900A Unspecified foreign body in respiratory tract, part unspecified causing asphyxiation, initial encounter; K56.7 Ileus, unspecified; Z20.822 Contact with and (suspected) exposure to COVID-19; J43.9 Emphysema, unspecified; E03.9 Hypothyroidism, unspecified; I51.7 Cardiomegaly; F41.9 Anxiety disorder, unspecified; R06.03 Acute respiratory distress; E55.9 Vitamin D deficiency, unspecified; E87.6 Hypokalemia; E83.42 Hypomagnesemia; D63.1 Anemia in chronic kidney disease; D63.0 Anemia in neoplastic disease; D53.9 Nutritional anemia, unspecified; D50.8 Other iron deficiency anemias; N18.9 Chronic kidney disease, unspecified; R00.0 Tachycardia, unspecified; F17.210 Nicotine dependence, cigarettes, uncomplicated; Z85.3 Personal history of malignant neoplasm of breast
CPT/HCPCS: 36415; 36430; 36569; 43752; 51701; 71045; 71046; 71275; 74018; 74176; 74250; 78580; 80048; 80053; 81001; 82274; 82607; 82746; 82948; 83036; 83540; 83550; 83605; 83690; 83735; 84100; 84132; 84145; 84443; 84466; 84478; 85014; 85018; 85025; 85027; 85055; 85730; 86850; 86900; 86901; 86920; 87040; 88307; 92526; 92610; 92611; 93005; 93306; 93970; 94640; 96361; 96374; 96375; 97110; 97116; 97161; 97164; 97165; 97168; 97530; 97535; 99285; A9270; A9540; C1751; C9113; C9803; J0131; J0690; J1100; J1650; J1756; J1940; J2270; J2405; J2543; J2704; J2710; J3010; J3475; J3480; J7030; J7040; J7050; J7120; P9016; Q9967; U0003; U0005

== ENCOUNTER 2021-06-20 10:42 | Observation (INO) | payer MEDICARE, SELFPAY ==
[2021-06-20] VITALS (15 sets, daily range): BP systolic 122–156; BP diastolic 44–99; PULSE 88–107; RESP 14–27; TEMP 36.3–36.6; O2SAT 95–100; BMI 18.4
--- NOTE | ~2021-06-20 | MR_ITS ---
EXAMINATION: MR brain/brain stem wo con DATE: 06/22/2021 14:58 INDICATION: Stroke. TECHNIQUE: Magnetic resonance imaging (MRI) of the brain and brainstem was performed without intraven ous contrast. COMPARISON: Head CT 06/20/2021 FINDINGS: There are scattered areas of nonspecific increased T2-weighted signal intensity in the cere bral white matter. There is no intracranial hemorrhage, acute infarction, or abnormal intracranial ma ss lesion. The ventricles are normal in size. There are likely changes of ocular lens replacement dash geries. The paranasal sinuses are clear. The mastoid air cells are normal. IMPRESSION: 1. Moderate nonspecific cerebral white matter disease, which likely represents chronic small vessel i schemic disease. Reviewed, dictated and finalized at location A. IMPRESSION: 1. Moderate nonspecific cerebral white matter disease, which likely represents chronic small vessel ischemic disease.
--- NOTE | ~2021-06-20 | US_ITS ---
EXAMINATION: US carotid duplex BI DATE: 06/21/2021 09:29 INDICATION: Strokelike symptoms. Cerebral atherosclerosis. TECHNIQUE: Grayscale, color Doppler, and pulsed Doppler images of the cervical carotid arteries were obtained. The degree of vessel stenosis is placed in one of the following categories: normal, <50%, 5 0-69%, >=70% but less than near-occlusion, near-occlusion, or total occlusion. Note that percent sten osis relative to normal distal artery lumen diameter is indirectly measured from velocity measurement s as described by Geovanny, et al. Radiology 2003; [id number]. COMPARISON: None. FINDINGS: RIGHT: The right common carotid artery (CCA) peak systolic velocity (PSV) is 102 cm/s. The right internal ca rotid artery (ICA) PSV is 107 cm/s. The right ICA end-diastolic velocity (EDV) is 29 cm/s. The right ICA/CCA PSV ratio is 1.0. Grayscale and color Doppler images yield an estimate of <50% diameter reduc tion from plaque in the ICA. The external carotid artery (ECA) PSV is 60 cm/s. There is antegrade jack w in the right vertebral artery. LEFT: The left CCA PSV is 108 cm/s. The left ICA PSV is 86 cm/s. The left ICA EDV is 32 cm/s. The left ICA/ CCA PSV ratio is 0.8. Grayscale and color Doppler images yield an estimate of <50% diameter reduction from plaque in the ICA. The ECA PSV is 90 cm/s. There is antegrade flow in the left vertebral artery . IMPRESSION: 1. <50% stenosis in the right internal carotid artery. 2. <50% stenosis in the left internal carotid artery. Reviewed, dictated and finalized at location A.
--- NOTE | ~2021-06-20 | CT_ITS ---
EXAMINATION: CT brain wo con DATE: 06/20/2021 13:05 INDICATION: Slurred speech TECHNIQUE: Computed tomography (CT) of the head was performed without intravenous contrast. Sagittal and coronal reconstructions were performed. The mA was adjusted according to patient size. Iterative reconstruction technique was employed. The dose-length product was 605.33 mGy-cm. COMPARISON: None FINDINGS: No acute intracranial hemorrhage, acute infarction or abnormal extra axial fluid collection. There is mild to moderate scattered white matter hypoattenuation consistent with chronic small vessel ischemi c disease. Symmetric prominence of the sulci and ventricles consistent with mild to moderate age-appr opriate diffuse cerebral volume loss. No mass/mass effect. The orbits, paranasal sinuses and mastoid air cells are normal. IMPRESSION: 1. No acute intracranial process. 2. Age-related changes including mild to moderate diffuse volume loss and mild to moderate scattered white matter hypoattenuation consistent with chronic small vessel ischemic disease. Reviewed, dictated and finalized at location A. IMPRESSION: 1. No acute intracranial process. 2. Age-related changes including mild to moderate diffuse volume loss and mild to moderate scattered white matter hypoattenuation consistent with chronic smal l vessel ischemic disease.
--- NOTE | ~2021-06-20 | XR_ITS ---
EXAMINATION: XR chest 2V DATE: 06/20/2021 11:48 INDICATION: Weakness TECHNIQUE: frontal and lateral views of the chest were obtained. COMPARISON: Chest radiograph dated 06/17/2021, 06/14/[address] dated 06/05/2021 FINDINGS: Persistent opacities in bilateral lower lung zones, right greater than left. Possible small right ple ural effusion. No pulmonary edema, pneumothorax or left-sided pleural effusion. Mild cardiomegaly. At herosclerotic aorta. Surgical clips at the right breast suggest prior excisional biopsy. There are ad ditional surgical clips in the superior mediastinum. Widening of the superior mediastinum with rightw roxy deviation of the trachea which appears to result from a left intrathoracic goiter on prior CT. IMPRESSION: 1. Persistent opacities in the bilateral lower lung zones which could represent atelectasis and/or pn eumonia. 2. Likely small right pleural effusion. 3. Cardiomegaly. 4. Left intrathoracic goiter. Reviewed, dictated and finalized at location A. IMPRESSION: 1. Persistent opacities in the bilateral lower lung zones which could represent atelectasis and/or pneumonia. 2. Likely small right pleural effusion. 3. Cardiomegaly. 4. Left intrathoracic goiter.
--- NOTE | ~2021-06-20 | US_ITS ---
EXAMINATION: US venous doppler [facility] DATE: 06/21/2021 09:28 INDICATION: Lower limb swelling TECHNIQUE: Grayscale ultrasound images without and with compression and Doppler ultrasound images of the bilateral lower extremity veins were obtained. COMPARISON: None. FINDINGS: The visualized portions of right common femoral vein, profunda (deep) femoral vein, femoral vein, pop liteal vein, posterior tibial veins, peroneal veins and greater saphenous vein outflow are patent. The visualized portions of left common femoral vein, profunda femoral vein, femoral vein, popliteal v ein, posterior tibial veins, peroneal veins and greater saphenous vein outflow are patent. IMPRESSION: 1. No deep venous thrombosis in either lower limb. Reviewed, dictated and finalized at location A.
--- NOTE | ~2021-06-20 | XR_ITS ---
EXAMINATION: XR barium swallow modified DATE: 06/24/2021 08:51 INDICATION: Dysphagia. TECHNIQUE: The patient was given barium-containing material of multiple consistencies to swallow by delmi fisher speech pathologist while I performed fluoroscopy. Dose-area product was 0.655 Gy-cm2. 1.8 minutes fluoroscopy time FINDINGS: Oral Stage: Within functional limits Pharyngeal Phase: Within functional limits Cervical/Esophageal Stage: Within functional limits IMPRESSION: Modified esophagram findings as above. Please refer to the speech [facility] Reviewed, dictated and finalized at Location A. Reviewed, dictated and finalized at location A. IMPRESSION: Modified esophagram findings as above. Please refer to the speech t herapy report for specific recommendations.
--- NOTE | ~2021-06-20 | CT_ITS ---
EXAMINATION: CT lumbar spine wo con DATE: 06/21/2021 17:41 INDICATION: Abnormal gait, low back pain TECHNIQUE: Computed tomography (CT) of the lumbar spine was performed without intravenous contrast. T he dose-length product (DLP) was 155.42 mGy-cm. Iterative reconstruction was used. COMPARISON: None FINDINGS: Bone alignment is normal. There is no fracture. The vertebral body heights and intervertebr al disc spaces are maintained. There are slight posterior disc bulges at L3-4 and L5-S1. There is a d isc bulge with mild neuroforaminal stenosis on the left at L4-5. Calcified atherosclerosis is noted. There is a 2 cm adenoma of the right adrenal gland. IMPRESSION: 1. Mild lumbar spondylosis without acute findings. Reviewed, dictated and finalized at location F.
--- NOTE | 2021-06-20 11:24 | ECG_ITS ---
Measurements Intervals [place] Rate: 93 P: 61 MI: 109 QRS: 21 QRSD: 68 T: 99 QT: 316 QTc: 394 Interpretive Statements SINUS RHYTHM WITH SHORT MI INTERVAL POSSIBLE LEFT ATRIAL ENLARGEMENT [-0.1mV P-WAVE IN V1/V2] MODERATE T-WAVE ABNORMALITY, CONSIDER ANTERIOR ISCHEMIA [-0.1+ mV T-WAVE IN V3/V4] COMPARED TO ECG 06/02/2021 15:40:41 NO SIGNIFICANT CHANGE Electronically Signed On 06-21-2021 7:54:09 CDT by Giorgio Lafleur M.D.
--- NOTE | 2021-06-20 11:40 | PC.NURSE ---
Pt states she is unable to urinate.
[2021-06-20 12:05] LABS: Basophils Absolute Auto 0.1 K/mm3 (0.0-0.1); Basophils Percent Auto 1.3 % (0.2-1.2); Eosinophils Absolute Auto 0.2 K/mm3 (0-0.3); Hematocrit 31.7 % (37.0-47.0); Hemoglobin 9.7 g/dL (12.0-15.0); Immature Granulocyte Absolute 0.04 K/mm3 (0.00-0.031); Immature Granulocyte Percent A 0.9 % (0-0.5); Lymphocytes Absolute Auto 0.32 K/mm3 (0.9-3.2); Lymphocytes Percent Auto 7.2 % (18.3-44.2); Mean Corpuscular HGB Conc 30.6 g/dl (32-36); Mean Corpuscular Hemoglobin 31.2 pg (26-34); Mean Corpuscular Volume 101.9 fl (80-100); Mean Platelet Volume 11.5 fl (7.4-10.4); Monocytes Absolute Auto 0.5 K/mm3 (0.1-0.6); Monocytes Percent Auto 11.2 % (2.6-8.5); Neutrophils Absolute Auto 3.4 K/mm3 (1.3-6.7); Neutrophils Percent Auto 75.4 % (45.5-73.1); Nucleated Red Blood Cells Perc 0.4 % (0.0-0.2); Platelet Count Result 169 k/mm3 (150-375); Red Blood Count 3.11 M/mm3 (4.2-5.4); Red Cell Distribution Width 23.5 % (11.5-14.5); White Blood Count 4.5 K/mm3 (4.5-10.0)
[2021-06-20 12:16] LABS: Alanine Aminotransferase 19 U/L (4-35); Albumin Level 3.7 g/dL (3.5-5.1); Alkaline Phosphatase 110 U/L (38-126); Anion Gap 8 mmol/L (8-16); Aspartate Amino Transferase 20 U/L (14-36); Bilirubin,Total 0.5 mg/dL (0.2-1.3); Blood Urea Nitrogen 32 mg/dL (7-17); Calcium 8.8 mg/dL (8.4-10.2); Carbon Dioxide 22 mmol/L (22-30); Chloride 112 mmol/L (98-107); Estimated CRCL calculation 20 ml/min; Estimated Glomerular Filt Rate 39; Glucose 106 mg/dL (65-110); Potassium 4.4 mmol/L (3.4-5.0); Sodium 142 mmol/L (137-145)
[2021-06-20 12:16] LABS: Lactic Acid Reflex 0.9 mmol/L (0.7-2.1)
[2021-06-20 12:43] LABS: Add Urine Microscopic? YES; Appearance Urine Cloudy (Clear); Bilirubin Urine Negative (Negative); Blood Urine Negative (Negative); Color Urine Yellow (Yellow); Glucose Urine UA Negative (Negative); Ketones Urine Negative (Negative); Leukocyte Esterase Ur Negative LEU/UL (Negative); Mucus Urine Rare /lpf; Nitrate Urine Negative (Negative); Protein Urine Negative (Negative); RBC Urine 0-2 /hpf (0-2); Specific Grav Ur 1.016 (1.001-1.035); Squamous Epithelial Cell Urine Many /hpf (Few); Urobilinogen Urine Negative mg/dL (<2.0); WBC Urine 0-3 /hpf
--- NOTE | 2021-06-20 15:03 | ED.WEAKNESS ---
HPI - Weakness General Chief complaint: Weakness Stated complaint: weakness Time Seen by Provider: 06/20/21 12:02 History of Present Illness HPI Narrative: Patient is an 80-year-old female who presents ER with weakness and slurred speech. Patient reports she was discharged from the hospital 2 days ago. She was discharged home. She reports that after returning home she developed some very slurred speech. She also has been unable to ambulate due to new weakness in her legs. She reports significant weakness in her right lower extremity that she is able lift up off the table but not keep moving air. No new numbness or tingling. She does not believe she has any facial droop. Denies history of stroke. No fevers or chills or sweats. Reports the weakness and slurred speech have slightly improved over the last 2 days but have not resolved. On patient's previous admission did show that she had silent aspiration and needed to work with speech therapy but she denies any difficulty with speech. Patient reports no abdominal pain. She has been eating and drinking and having bowel movement and passing gas. Related Data Home Medications Medication Instructions Recorded Confirmed Anoro Ellipta 1 inh INHALATION DAILY PRN 05/30/21 06/20/21 anastrozole 1 mg PO DAILY 05/30/21 06/20/21 calcitriol 0.25 mcg PO 2XW 05/30/21 06/20/21 clonidine HCl 0.1 mg PO Q12H 05/30/21 06/20/21 levothyroxine 50 mcg PO DAILY 05/30/21 06/20/21 nortriptyline 50 mg PO HS 05/30/21 06/20/21 olanzapine 20 mg PO DAILY 05/30/21 06/20/21 sodium bicarbonate 1,300 mg PO TID 05/30/21 06/20/21 aspirin 81 mg PO DAILY 06/02/21 06/20/21 Allergies Allergy/AdvReac Type Severity Reaction Status Date / Time No Known Allergies Allergy Verified 06/20/21 19:43 Review of Systems Review of Systems: All systems reviewed & are unremarkable except as noted in HPI and below Constitutional: Constitutional: Denies chills, Denies fever(s) and Denies weakness ENT: Denies nasal congestion and Denies sore throat Cardiovascular: Cardiovascular: Denies chest pain, Denies rapid heart rate and Denies radiating jaw, neck or arm pain Respiratory: Respiratory: Denies cough, Denies dyspnea and Denies wheezing Neurologic: Denies headache(s), Reports focal weakness, Denies numbness and Reports weakness Comments: Slurred speech PMFSH Past Medical History Medical History (Updated 06/20/21 @ 21:18 by Dev Nicholas MD) Anxiety Cancer of right breast Status post lumpectomy and radiation therapy. Chronic kidney disease Baseline creatinine and GFR unknown. Emphysema of lung Hypothyroidism Tobacco dependence Vitamin D deficiency Surgical History Surgical History (Updated 06/20/21 @ 21:10 by Zoe Baker PA-C) History of colonoscopy with polypectomy History of exploratory laparotomy (06/01/21) With adhesiolysis and small-bowel resection for obstruction. History of lumpectomy of right breast History of right hemicolectomy For a large, benign colon polyp. History of thyroidectomy For treatment of a goiter. Family History Family History Other Cancer Diabetes mellitus Social History Social History Social History: Surrogate decision maker: Stephanie Simental, daughter. Code status: Full code. Smoking packs per day: 1 Smoking cigarettes per day: 20.0 Years smoked: 50 Smoking pack-years: 50.00 Smoking status: Current every day smoker Tobacco type: cigarettes Second hand tobacco smoke exposure: No Smoking end date: 06/20/21 Alcohol intake: never Substance use: never Substance use type: does not use Additional living arrangements comments: The patient lives in [place] with her daughter and son-in-law. 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
[2021-06-20] MEDS: ASPIRIN 81 MG CHEWABLE TABLET 324 MG PO (16:05)
--- NOTE | 2021-06-20 16:30 | PM.IMHP ---
H&P: HPI History of Present Illness Date/Time: 06/20/21 16:30 Chief Complaint: Weakness. Narrative: This is a pleasant 80-year-old female smoker with emphysema, hypothyroidism, anxiety, breast cancer, diastolic congestive heart failure, and colon polyp status post right hemicolectomy who presented to the emergency department from home with complaints of weakness. She was discharged from the hospital 2 days ago after a nearly 3 week stay in which she was admitted with a small-bowel obstruction, status post exploratory laparotomy with extensive adhesiolysis and small-bowel resection. Stay was complicated by acute blood loss anemia, acute on chronic kidney injury, and pneumonia felt to be related to silent aspiration for which she completed a 7 day course of IV Zosyn. On discharge he was tolerating a modified diet (pureed diet with moderately thickened liquids) and was ambulating with a cane and a walker with physical therapy. She felt okay on day of discharge and just yesterday, [facility] came to evaluate her at which time she was able to walk about 25 ft with her walker. Later that afternoon her daughter noticed that she was shuffling her feet while walking and it seemed her right leg was not doing what she wanted it to do. Additionally her speech was garbled and difficult to understand for a brief period of time last night. This morning she was still weak and came in for evaluation. Vital signs have been stable since arrival. Labs are stable comparatively. Brain CT showed no acute intracranial process and her chest x-ray showed persistent opacities in the lower lung zones. On physical exam she was noted to have right lower extremity weakness and she is being admitted in this setting for further evaluation. Currently she has no specific complaints aside from the weakness as detailed above. She denies headache, vertigo, visual changes, facial droop, and paresthesias. She also denies fall, back pain, saddle anesthesia, and incontinence. Review of Systems Review of Systems: Twelve systems were reviewed. No fever, chills, or sweats. She denies dysphagia and concerns for aspiration. No epigastric or abdominal pain. She denies nausea and vomiting. She reports 4 to 5 loose stools a day. Since being in the hospital she has developed some lower extremity edema which is unchanged. She also endorses shortness of breath with exertion. No orthopnea or paroxysmal nocturnal dyspnea. Except as documented, all other systems were reviewed and are negative. [facility] Past Medical History Medical History (Updated 06/20/21 @ 21:32 by Zoe Baker PA-C) Anxiety Cancer of right breast Status post lumpectomy and radiation therapy. Chronic kidney disease Baseline creatinine and GFR unknown. Diastolic dysfunction Emphysema of lung Hypothyroidism Tobacco dependence Vitamin D deficiency Surgical History Surgical History (Updated 06/20/21 @ 21:10 by Zoe Baker PA-C) History of colonoscopy with polypectomy History of exploratory laparotomy (06/01/21) With adhesiolysis and small-bowel resection for obstruction. History of lumpectomy of right breast History of right hemicolectomy For a large, benign colon polyp. History of thyroidectomy For treatment of a goiter. Family History Family History Other Cancer Diabetes mellitus Social History Social History Social History: Surrogate decision maker: Stephanie Ruizn, daughter. Code status: Full code. Smoking packs per day: 1 Smoking cigarettes per day: 20.0 Years smoked: 50 Smoking pack-years: 50.00 Smoking status: Current every day smoker Tobacco type: cigarettes Second hand tobacco smoke exposure: No Smoking end date: 06/20/21 Alcohol intake: never Substance use: never Substance use type: does not use Additional living arrangements comments: The patient lives in [facility]
[2021-06-20] MEDS: HYDROcodone/acetaminophen (*CRX) 5-325 MG TABLET 1 TAB PO (16:52)
--- NOTE | 2021-06-20 17:47 | PC.NURSE ---
Ashley pt daughter stated pt has DNR paperwork, informed family to bring in paperwork. Stephanie called, states pt has DNR paperwork. Inquired about POA or living will paperwork, Stephanie stated she didn't have. Stephanie informed pt currently full code.
--- NOTE | 2021-06-20 18:11 | PC.NURSE ---
Susanna Baker inform pt heavy smoker, stated will order pt 14mg nicotine patch.
[2021-06-20] MEDS: NICOTINE (*PBKC) 14 MG PATCH 1 PATCH TRANSDERM (20:59)
[2021-06-21] VITALS (9 sets, daily range): BP systolic 124–133; BP diastolic 48–88; PULSE 85–108; RESP 18–21; TEMP 36.5–37.4; O2SAT 94–100
[2021-06-21] MEDS: cloNIDine HCL 0.1 MG TABLET PO ×3 (00:41→20:31)
[2021-06-21] MEDS: NORTRIPTYLINE HCL 25 MG CAPSULE 50 MG PO ×2 (00:42→20:30)
[2021-06-21] MEDS: LEVOTHYROXINE SODIUM 50 MCG TABLET PO (06:13)
[2021-06-21 06:28] LABS: Hematocrit 28.7 % (37.0-47.0); Hemoglobin 8.4 g/dL (12.0-15.0); Mean Corpuscular HGB Conc 29.3 g/dl (32-36); Mean Corpuscular Hemoglobin 30.7 pg (26-34); Mean Corpuscular Volume 104.7 fl (80-100); Platelet Count Result 162 k/mm3 (150-375); Red Blood Count 2.74 M/mm3 (4.2-5.4); Red Cell Distribution Width 23.8 % (11.5-14.5); White Blood Count 4.1 K/mm3 (4.5-10.0)
[2021-06-21 06:41] LABS: Anion Gap 7 mmol/L (8-16); Blood Urea Nitrogen 31 mg/dL (7-17); Calcium 8.5 mg/dL (8.4-10.2); Carbon Dioxide 20 mmol/L (22-30); Chloride 113 mmol/L (98-107); Estimated CRCL calculation 22 ml/min; Estimated Glomerular Filt Rate 43; Glucose 91 mg/dL (65-110); Magnesium 1.6 mg/dL (1.6-2.3); Potassium 4.5 mmol/L (3.4-5.0); Sodium 140 mmol/L (137-145)
[2021-06-21 08:09] LABS: Glucose Point of Care 91 mg/dl (65-105)
[2021-06-21] MEDS: NICOTINE (*PBKC) 14 MG PATCH 1 PATCH TRANSDERM (09:13)
[2021-06-21] MEDS: PANTOPRAZOLE 40 MG TABLET PO (09:14)
[2021-06-21] MEDS: ANASTROZOLE (*CHEMO) 1 MG TABLET PO (09:14)
[2021-06-21] MEDS: SODIUM BICARBONATE TAB 650 MG TABLET 1300 MG PO ×3 (09:14→17:13)
[2021-06-21] MEDS: METOPROLOL SUCCINATE EXT REL 12.5 MG TABCR PO (09:14)
[2021-06-21] MEDS: ASPIRIN 81 MG CHEWABLE TABLET PO (09:14)
[2021-06-21] MEDS: OLANZapine 5 MG TABLET 20 MG PO (09:15)
--- NOTE | 2021-06-21 09:34 | PM.IMPN ---
Progress Note: A&P Assessment and Plan (1) Stroke-like symptoms: Code(s): R29.90 - Unspecified symptoms and signs involving the nervous system Status: Acute Assessment and Plan: Including right leg weakness and reported slurred speech though not appreciated on my exam. Brain CT today showed no acute findings. She will be monitor on telemetry overnight and we will continue neurologic checks q.4 hours. Brain MRI ordered however patient has a midline incision with latoya (2) Abnormal chest x-ray: Code(s): R93.89 - Abnormal findings on diagnostic imaging of other specified body structures Status: Acute Assessment and Plan: Chest x-ray shows persistent opacities in the bilateral lower lung zones which could represent atelectasis and/or pneumonia. She recently completed a 7 day course of IV Zosyn for presumed aspiration pneumonia. While she does have some dyspnea on exertion, that is likely due to her recent, lengthy hospitalization. Pulmonary embolism considered but less likely though with her equivocal Lilia sign and mild calf edema we will check a venous Doppler of her lower legs. (3) COPD with emphysema: Code(s): J43.9 - Emphysema, unspecified Status: Acute Assessment and Plan: No evidence of acute exacerbation. Continue maintenance inhalers. (4) Chronic kidney disease: Code(s): N18.9 - Chronic kidney disease, unspecified Status: Acute Assessment and Plan: Stable on review of previous labs. Baseline creatinine is probably between 1.10 and 1.40. (5) Anemia: Code(s): D64.9 - Anemia, unspecified Status: Acute Assessment and Plan: H&H are stable and will be monitored. (6) Tobacco dependence: Code(s): F17.200 - Nicotine dependence, unspecified, uncomplicated Status: Acute Assessment and Plan: Smoking cessation is encouraged though she is not really motivated. Nicotine patch ordered per patient request. (7) Diastolic dysfunction: Code(s): I51.89 - Other ill-defined heart diseases Status: Acute Assessment and Plan: Mild lower extremity edema on exam, otherwise clinically compensated. Avoid over-hydration. Subjective Date/time seen: 06/21/21 09:34 Patient alert and oriented. Patient reports significant weakness today. However bedside evaluation the patient had appropriate strength. Physical therapy, occupational therapy and speech therapy have been ordered. Discontinue Lovenox due to previous GI bleed. SCDs ordered. Pending further evaluation with physical therapy and occupational therapy. Patient was agreeable to going to a care home facility. During my evaluation the patient denies any numbness or tingling to bilateral lower extremities. No loss of bowel or bladder. No falls or recent injury to her spine. Review of Systems Review of Systems: All systems reviewed & are unremarkable except as noted in HPI and below Exam Narrative: General: Thin, frail elderly female supine in bed. Weight: 42.8 kg. BMI: 18.4. HEENT: PERRL, EOMI. Sclerae anicteric. Moist mucous membranes. Edentulous. Neck: Supple. No JVD. Respiratory: Respirations are nonlabored and she is speaking in full sentences. Faint crackles at the bases. Cardiovascular: Regular rate and rhythm with S1-S2. Gastrointestinal: Abdomen is soft and nondistended with positive bowel sounds. Midline incision is stapled. No evidence of infection or dehiscence. Bruising right lower quadrant, presumably from Lovenox injections. Skin: Warm and dry. No rash or lesions on limited exam. Extremities: No cyanosis or clubbing. Dependent edema of the posterior calves bilaterally. Equivocal Lilia sign bilaterally. Radial and pedal pulses intact. Neurological: Alert and oriented. Cranial nerves 2-12 are grossly intact. No drift with the upper extremities. Speech is clear. No facial asymmetry. Normal [id number] bila
--- NOTE | 2021-06-21 10:56 | PCSTNOTE ---
Please refer to the Bedside Swallow Evaluation in the EMR. Please note, silent aspiration cannot be ruled out at bedside.
[2021-06-22] VITALS (11 sets, daily range): BP systolic 104–133; BP diastolic 46–58; PULSE 86–105; RESP 16–20; TEMP 36.1–36.6; O2SAT 93–99; BMI 17.6
[2021-06-22] MEDS: HYDROcodone/acetaminophen (*CRX) 5-325 MG TABLET 1 TAB PO (01:19)
[2021-06-22 05:49] LABS: Basophils Percent Auto 1.1 % (0.2-1.2); Eosinophils Absolute Auto 0.2 K/mm3 (0-0.3); Eosinophils Percent Auto 6.7 % (0-4.4); Hemoglobin 8.5 g/dL (12.0-15.0); Immature Granulocyte Absolute 0.02 K/mm3 (0.00-0.031); Immature Granulocyte Percent A 0.6 % (0-0.5); Lymphocytes Absolute Auto 0.46 K/mm3 (0.9-3.2); Lymphocytes Percent Auto 12.8 % (18.3-44.2); Mean Corpuscular HGB Conc 30.4 g/dl (32-36); Mean Corpuscular Hemoglobin 30.9 pg (26-34); Mean Corpuscular Volume 101.8 fl (80-100); Monocytes Absolute Auto 0.4 K/mm3 (0.1-0.6); Monocytes Percent Auto 12.3 % (2.6-8.5); Neutrophils Absolute Auto 2.4 K/mm3 (1.3-6.7); Neutrophils Percent Auto 66.5 % (45.5-73.1); Platelet Count Result 152 k/mm3 (150-375); Red Blood Count 2.75 M/mm3 (4.2-5.4); Red Cell Distribution Width 23.4 % (11.5-14.5); White Blood Count 3.6 K/mm3 (4.5-10.0)
[2021-06-22 05:58] LABS: Alanine Aminotransferase 12 U/L (4-35); Albumin Level 3.1 g/dL (3.5-5.1); Alkaline Phosphatase 95 U/L (38-126); Anion Gap 4 mmol/L (8-16); Aspartate Amino Transferase 16 U/L (14-36); Bilirubin,Total 0.3 mg/dL (0.2-1.3); Blood Urea Nitrogen 29 mg/dL (7-17); Calcium 8.5 mg/dL (8.4-10.2); Carbon Dioxide 24 mmol/L (22-30); Chloride 111 mmol/L (98-107); Estimated CRCL calculation 24 ml/min; Estimated Glomerular Filt Rate 48; Glucose 100 mg/dL (65-110); Magnesium 1.6 mg/dL (1.6-2.3); Potassium 4.5 mmol/L (3.4-5.0); Sodium 139 mmol/L (137-145)
[2021-06-22] MEDS: LEVOTHYROXINE SODIUM 50 MCG TABLET PO (06:01)
[2021-06-22] MEDS: NICOTINE (*PBKC) 14 MG PATCH 1 PATCH TRANSDERM (07:49)
[2021-06-22] MEDS: calcitrioL 0.25 MCG CAPSULE PO (07:50)
[2021-06-22] MEDS: ASPIRIN 81 MG CHEWABLE TABLET PO (07:50)
[2021-06-22] MEDS: ANASTROZOLE (*CHEMO) 1 MG TABLET PO (07:50)
[2021-06-22] MEDS: OLANZapine 5 MG TABLET 20 MG PO (07:51)
[2021-06-22] MEDS: cloNIDine HCL 0.1 MG TABLET PO ×2 (07:51→20:12)
[2021-06-22] MEDS: METOPROLOL SUCCINATE EXT REL 12.5 MG TABCR PO (07:51)
[2021-06-22] MEDS: PANTOPRAZOLE 40 MG TABLET PO (07:51)
[2021-06-22] MEDS: SODIUM BICARBONATE TAB 650 MG TABLET 1300 MG PO ×3 (07:51→16:39)
--- NOTE | 2021-06-22 13:31 | PM.IMPN ---
Progress Note: A&P Assessment and Plan (1) Stroke-like symptoms: Code(s): R29.90 - Unspecified symptoms and signs involving the nervous system Status: Acute Assessment and Plan: Including right leg weakness and reported slurred speech though not appreciated on exam. Brain CT showed no acute findings. Brain MRI pending. Not able to be completed due to latoya. These will be removed today and will proceed with MRI Carotid doppler with <50% stenosis of bilateral internal carotid arteries PT/OT eval for leg weakness (2) Abnormal chest x-ray: Code(s): R93.89 - Abnormal findings on diagnostic imaging of other specified body structures Status: Acute Assessment and Plan: Chest x-ray showed persistent opacities in the bilateral lower lung zones which could represent atelectasis and/or pneumonia. She recently completed a 7 day course of IV Zosyn for presumed aspiration pneumonia. Patient is asymptomatic, no signs/symptoms to suggest infectious etiology Venous Doppler negative, pulmonary embolism unlikely (3) COPD with emphysema: Code(s): J43.9 - Emphysema, unspecified Status: Acute Assessment and Plan: No evidence of acute exacerbation. Continue maintenance inhalers. (4) Chronic kidney disease: Code(s): N18.9 - Chronic kidney disease, unspecified Status: Acute Assessment and Plan: Stable on review of previous labs. Baseline creatinine is probably between 1.10 and 1.40. Creatinine is 1.1 today (5) Anemia: Code(s): D64.9 - Anemia, unspecified Status: Acute Assessment and Plan: H&H are stable and will be monitored. (6) Tobacco dependence: Code(s): F17.200 - Nicotine dependence, unspecified, uncomplicated Status: Acute Assessment and Plan: Smoking cessation is encouraged though she is not really motivated. Continue nicotine patch per patient request. (7) Diastolic dysfunction: Code(s): I51.89 - Other ill-defined heart diseases Status: Acute Assessment and Plan: Appears clinically compensated. Monitor volume status and avoid over-hydration. Subjective Date/time seen: 06/22/21 13:31 Interval history: Date of service: 06/22/2021 Rachel Lazar is an 80-year-old female smoker with history of COPD, hypothyroidism, breast cancer, diastolic CHF; follow-up s/p right hemicolectomy, and recent hospitalization due to SBO requiring small bowel resection which was complicated by GI bleed and aspiration pneumonia. She is seen in follow-up now for weakness of her lower extremities. She states ?my legs will not go.? She has not been able to walk around. She denies any issues with her speech. Denies dysphagia or odynophagia. No shortness breath, cough, chest pain, nausea, or vomiting. Denies abdominal pain. Reports regular bowel movements. Denies any blood in her stool. Review of Systems Review of Systems: All systems reviewed & are unremarkable except as noted in HPI and below Exam Narrative: General: Thin, frail 80 year-old female, sitting up in bed, comfortable, NARD Neuro: awake, alert and oriented x4, speech clear, no focal neuro deficits noted, able to perform plantar flexion and dorsiflexion HEENMT: normocephalic, atraumatic, EOMI, sclerae anicteric, edentulous Respiratory: clear to auscultation bilaterally, nonlabored breathing Cardio: regular rate, regular rhythm with S1-S2 Abdomen: nondistended, normoactive bowel sounds, soft, nontender to palpation, midline latoya Extremities: no edema, erythema, or tenderness to palpation, DP pulses 2+ bilaterally Skin: no rashes or lesions, warm and dry Psych: appropriate mood and affect, judgment and insight intact Objective Data Vital Signs Vital Signs: Vital Signs - 24 hr 06/21/21 16:00 06/21/21 20:00 06/22/21 00:00 Temperature 99.3 F 97.7 F 97.0 F L Pulse Rate 92 95 99 Respiratory Rate 18 21 H 20 Blo
--- NOTE | 2021-06-22 14:45 | PCCCNOTE ---
On 06/22/21, the student, [Mis Oliver ], provided care and [facility] I have reviewed the student's documentation and agree with the findings.
[2021-06-22] MEDS: NORTRIPTYLINE HCL 25 MG CAPSULE 50 MG PO (20:12)
[2021-06-23] VITALS (15 sets, daily range): BP systolic 108–116; BP diastolic 42–52; PULSE 68–95; RESP 16–34; TEMP 36.3–37.2; O2SAT 93–100
[2021-06-23 05:37] LABS: Basophils Absolute Auto 0.1 K/mm3 (0.0-0.1); Basophils Percent Auto 1.8 % (0.2-1.2); Eosinophils Absolute Auto 0.3 K/mm3 (0-0.3); Eosinophils Percent Auto 9.7 % (0-4.4); Hematocrit 27.8 % (37.0-47.0); Hemoglobin 8.4 g/dL (12.0-15.0); Immature Granulocyte Absolute 0.04 K/mm3 (0.00-0.031); Immature Granulocyte Percent A 1.2 % (0-0.5); Lymphocytes Absolute Auto 0.56 K/mm3 (0.9-3.2); Lymphocytes Percent Auto 16.5 % (18.3-44.2); Mean Corpuscular HGB Conc 30.2 g/dl (32-36); Mean Corpuscular Volume 102.6 fl (80-100); Mean Platelet Volume 12.9 fl (7.4-10.4); Monocytes Absolute Auto 0.4 K/mm3 (0.1-0.6); Monocytes Percent Auto 10.6 % (2.6-8.5); Neutrophils Absolute Auto 2.1 K/mm3 (1.3-6.7); Neutrophils Percent Auto 60.2 % (45.5-73.1); Nucleated Red Blood Cells Perc 0.6 % (0.0-0.2); Platelet Count Result 175 k/mm3 (150-375); Red Blood Count 2.71 M/mm3 (4.2-5.4); Red Cell Distribution Width 22.9 % (11.5-14.5); White Blood Count 3.4 K/mm3 (4.5-10.0)
[2021-06-23 05:48] LABS: Alanine Aminotransferase 11 U/L (4-35); Albumin Level 2.8 g/dL (3.5-5.1); Alkaline Phosphatase 91 U/L (38-126); Anion Gap 5 mmol/L (8-16); Aspartate Amino Transferase 17 U/L (14-36); Bilirubin,Total 0.3 mg/dL (0.2-1.3); Blood Urea Nitrogen 31 mg/dL (7-17); Calcium 8.4 mg/dL (8.4-10.2); Carbon Dioxide 26 mmol/L (22-30); Chloride 108 mmol/L (98-107); Estimated CRCL calculation 21 ml/min; Estimated Glomerular Filt Rate 43; Glucose 101 mg/dL (65-110); Potassium 4.5 mmol/L (3.4-5.0); Sodium 139 mmol/L (137-145)
[2021-06-23] MEDS: LEVOTHYROXINE SODIUM 50 MCG TABLET PO (06:14)
[2021-06-23] MEDS: ANASTROZOLE (*CHEMO) 1 MG TABLET PO (08:39)
[2021-06-23] MEDS: NICOTINE (*PBKC) 14 MG PATCH 1 PATCH TRANSDERM (08:39)
[2021-06-23] MEDS: METOPROLOL SUCCINATE EXT REL 12.5 MG TABCR PO (08:41)
[2021-06-23] MEDS: ASPIRIN 81 MG CHEWABLE TABLET PO (08:42)
[2021-06-23] MEDS: PANTOPRAZOLE 40 MG TABLET PO (08:42)
[2021-06-23] MEDS: cloNIDine HCL 0.1 MG TABLET PO ×2 (08:42→20:28)
[2021-06-23] MEDS: SODIUM BICARBONATE TAB 650 MG TABLET 1300 MG PO ×3 (08:43→16:18)
[2021-06-23] MEDS: OLANZapine 5 MG TABLET 20 MG PO (08:43)
--- NOTE | 2021-06-23 11:24 | PCOTNOTE ---
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 All coursework and certification testing was completed and passed prior to this date.
--- NOTE | 2021-06-23 13:05 | PCPTNOTE ---
Patient refused treatment this session. Patient reported she does not feel like it.
--- NOTE | 2021-06-23 14:08 | P.PNIM_ITS ---
Progress Note: A&P Assessment and Plan (1) Stroke-like symptoms: Code(s): R29.90 - Unspecified symptoms and signs involving the nervous system Status: Acute Assessment and Plan: Resolved. Presented with right leg weakness and reported slurred speech concerning for stroke. Dysarthria not appreciated on my exam. * Brain CT showed no acute findings. * MRI showed no evidence of acute abnormalities * Carotid doppler with <50% stenosis of bilateral internal carotid arteries * PT/OT eval for leg weakness, see below (2) Leg weakness: Code(s): R29.898 - Other symptoms and signs involving the musculoskeletal system Status: Acute Assessment and Plan: Patient presents with lower extremity weakness, stating ?my feet will not go * May be due to physical deconditioning * No evidence of neurologic deficits, no neurologic concerns based on workup above * Continue physical therapy and occupational therapy * Planning for SNF on discharge per patient and family request. Insurance authorization pending (3) Abnormal chest x-ray: Code(s): R93.89 - Abnormal findings on diagnostic imaging of other specified body structures Status: Acute Assessment and Plan: Chest x-ray showed persistent opacities in the bilateral lower lung zones which could represent atelectasis and/or pneumonia. She recently completed a 7 day course of IV Zosyn for presumed aspiration pneumonia. * Patient is asymptomatic, no signs/symptoms to suggest acute infectious etiology * Venous Doppler negative, pulmonary embolism unlikely * Remains asymptomatic and maintaining adequate oxygen saturations, no further intervention required at this time (4) COPD with emphysema: Code(s): J43.9 - Emphysema, unspecified Status: Acute Assessment and Plan: No evidence of acute exacerbation. * Continue maintenance inhalers. (5) Chronic kidney disease: Code(s): N18.9 - Chronic kidney disease, unspecified Status: Acute Assessment and Plan: Stable on review of previous labs. Baseline creatinine is probably between 1.10 and 1.40. * Creatinine is 1.2 today (6) Anemia: Code(s): D64.9 - Anemia, unspecified Status: Acute Assessment and Plan: H&H are stable and will be monitored. (7) Tobacco dependence: Code(s): F17.200 - Nicotine dependence, unspecified, uncomplicated Status: Acute Assessment and Plan: Smoking cessation is encouraged though she is not really motivated. * Continue nicotine patch per patient request. (8) Diastolic dysfunction: Code(s): I51.89 - Other ill-defined heart diseases Status: Acute Assessment and Plan: Appears clinically compensated. * Monitor volume status and avoid over-hydration. (9) Dysphagia: Code(s): R13.10 - Dysphagia, unspecified Status: Acute Assessment and Plan: Issues with aspiration at last hospitalization 1 week prior * Discharged on pureed diet with moderately thickened liquids * Changed to soft and bite size diet per ST recommendations * Continue moderately thickened liquids * Plan to repeat MBS tomorrow to see if patient can transition to mildly thickened liquids * Aspiration precautions Subjective Date/time seen: 06/23/21 14:08 Interval history: Date of service: 06/23/2021 Rachelhakan Lazar is an 80-year-old female smoker with history of COPD, hypothyroidism, breast cancer, diastolic CHF; follow-up s/p right hemicol
--- NOTE | 2021-06-23 14:08 | PM.IMPN ---
Progress Note: A&P Assessment and Plan (1) Stroke-like symptoms: Code(s): R29.90 - Unspecified symptoms and signs involving the nervous system Status: Acute Assessment and Plan: Resolved. Presented with right leg weakness and reported slurred speech concerning for stroke. Dysarthria not appreciated on my exam. Brain CT showed no acute findings. MRI showed no evidence of acute abnormalities Carotid doppler with <50% stenosis of bilateral internal carotid arteries PT/OT eval for leg weakness, see below (2) Leg weakness: Code(s): R29.898 - Other symptoms and signs involving the musculoskeletal system Status: Acute Assessment and Plan: Patient presents with lower extremity weakness, stating ?my feet will not go May be due to physical deconditioning No evidence of neurologic deficits, no neurologic concerns based on workup above Continue physical therapy and occupational therapy Planning for SNF on discharge per patient and family request. Insurance authorization pending (3) Abnormal chest x-ray: Code(s): R93.89 - Abnormal findings on diagnostic imaging of other specified body structures Status: Acute Assessment and Plan: Chest x-ray showed persistent opacities in the bilateral lower lung zones which could represent atelectasis and/or pneumonia. She recently completed a 7 day course of IV Zosyn for presumed aspiration pneumonia. Patient is asymptomatic, no signs/symptoms to suggest acute infectious etiology Venous Doppler negative, pulmonary embolism unlikely Remains asymptomatic and maintaining adequate oxygen saturations, no further intervention required at this time (4) COPD with emphysema: Code(s): J43.9 - Emphysema, unspecified Status: Acute Assessment and Plan: No evidence of acute exacerbation. Continue maintenance inhalers. (5) Chronic kidney disease: Code(s): N18.9 - Chronic kidney disease, unspecified Status: Acute Assessment and Plan: Stable on review of previous labs. Baseline creatinine is probably between 1.10 and 1.40. Creatinine is 1.2 today (6) Anemia: Code(s): D64.9 - Anemia, unspecified Status: Acute Assessment and Plan: H&H are stable and will be monitored. (7) Tobacco dependence: Code(s): F17.200 - Nicotine dependence, unspecified, uncomplicated Status: Acute Assessment and Plan: Smoking cessation is encouraged though she is not really motivated. Continue nicotine patch per patient request. (8) Diastolic dysfunction: Code(s): I51.89 - Other ill-defined heart diseases Status: Acute Assessment and Plan: Appears clinically compensated. Monitor volume status and avoid over-hydration. (9) Dysphagia: Code(s): R13.10 - Dysphagia, unspecified Status: Acute Assessment and Plan: Issues with aspiration at last hospitalization 1 week prior Discharged on pureed diet with moderately thickened liquids Changed to soft and bite size diet per ST recommendations Continue moderately thickened liquids Plan to repeat MBS tomorrow to see if patient can transition to mildly thickened liquids Aspiration precautions Subjective Date/time seen: 06/23/21 14:08 Interval history: Date of service: 06/23/2021 Rachel Lazar is an 80-year-old female smoker with history of COPD, hypothyroidism, breast cancer, diastolic CHF; follow-up s/p right hemicolectomy, and recent hospitalization due to SBO requiring small bowel resection which was complicated by GI bleed and aspiration pneumonia. She is seen in follow-up now for weakness of her lower extremities. She is feeling a bit better today. Reports her speech is back to normal. She still has some trouble with her lower extremities, stating ?my feet won't go. She does state that she was able to get up in did have some walking today with therapy and tolerated this
--- NOTE | 2021-06-23 15:52 | PCSTNOTE ---
Order for MBS requested and received however it is not scheduled to be completed until 06/24/21. Hospitalist aware.
[2021-06-23] MEDS: NORTRIPTYLINE HCL 25 MG CAPSULE 50 MG PO (20:28)
[2021-06-24] VITALS (14 sets, daily range): BP systolic 100–114; BP diastolic 42–61; PULSE 62–109; RESP 10–20; TEMP 36.1–37.1; O2SAT 95–98
[2021-06-24] MEDS: HYDROcodone/acetaminophen (*CRX) 5-325 MG TABLET 1 TAB PO (00:38)
[2021-06-24 05:38] LABS: Hematocrit 29.6 % (37.0-47.0); Hemoglobin 8.9 g/dL (12.0-15.0); Immature Platelet Fraction Pct 12.1 % (0.9-11.2); Mean Corpuscular HGB Conc 30.1 g/dl (32-36); Mean Corpuscular Hemoglobin 31.1 pg (26-34); Mean Corpuscular Volume 103.5 fl (80-100); Mean Platelet Volume 13.1 fl (7.4-10.4); Platelet Count Result 172 k/mm3 (150-375); Red Blood Count 2.86 M/mm3 (4.2-5.4); Red Cell Distribution Width 22.5 % (11.5-14.5); White Blood Count 4.2 K/mm3 (4.5-10.0)
[2021-06-24 05:48] LABS: Alanine Aminotransferase 13 U/L (4-35); Albumin Level 3.3 g/dL (3.5-5.1); Alkaline Phosphatase 106 U/L (38-126); Anion Gap 8 mmol/L (8-16); Aspartate Amino Transferase 18 U/L (14-36); Bilirubin,Total 0.4 mg/dL (0.2-1.3); Blood Urea Nitrogen 34 mg/dL (7-17); Calcium 8.6 mg/dL (8.4-10.2); Carbon Dioxide 24 mmol/L (22-30); Chloride 107 mmol/L (98-107); Estimated CRCL calculation 19 ml/min; Estimated Glomerular Filt Rate 39; Glucose 105 mg/dL (65-110); Potassium 4.7 mmol/L (3.4-5.0); Sodium 139 mmol/L (137-145)
[2021-06-24] MEDS: LEVOTHYROXINE SODIUM 50 MCG TABLET PO (05:48)
[2021-06-24 06:55] LABS: Band Neutrophils Percent 16 % (0-6); Eosinophils Absolute Manual 0.21 K/mm3 (0.02-0.5); Eosinophils Percent Manual 5 % (0-4); Lymphocytes Absolute Manual 1.05 K/mm3 (1.1-4.5); Metamyelocytes Percent 1 %; Monocytes Absolute Manual 0.12 K/mm3 (0.1-0.90); Monocytes Percent Manual 3 % (3-9); Neutrophils Absolute Manual 2.77 K/mm3 (1.7-7.2); Neutrophils Percent Manual 50 % (46-73); Total Cells Counted 100
[2021-06-24 06:56] LABS: Burr Cells 1+ (NORMAL); Schistocytes 1+ (NORMAL)
[2021-06-24 06:57] LABS: Platelet Estimate Adequate (Adequate)
[2021-06-24] MEDS: ANASTROZOLE (*CHEMO) 1 MG TABLET PO (08:04)
[2021-06-24] MEDS: METOPROLOL SUCCINATE EXT REL 12.5 MG TABCR PO (08:05)
[2021-06-24] MEDS: ASPIRIN 81 MG CHEWABLE TABLET PO (08:06)
[2021-06-24] MEDS: SODIUM BICARBONATE TAB 650 MG TABLET 1300 MG PO ×3 (08:06→16:01)
[2021-06-24] MEDS: NICOTINE (*PBKC) 14 MG PATCH 1 PATCH TRANSDERM (08:06)
[2021-06-24] MEDS: PANTOPRAZOLE 40 MG TABLET PO (08:06)
[2021-06-24] MEDS: cloNIDine HCL 0.1 MG TABLET PO ×2 (08:06→21:48)
[2021-06-24] MEDS: OLANZapine 5 MG TABLET 20 MG PO (08:06)
--- NOTE | 2021-06-24 09:43 | PCSTNOTE ---
Please refer to the Bedside Swallow Evaluation in the EMR. Please note, silent aspiration cannot be ruled out at bedside.
--- NOTE | 2021-06-24 16:24 | P.PNIM_ITS ---
Progress Note: A&P Assessment and Plan (1) Stroke-like symptoms: Code(s): R29.90 - Unspecified symptoms and signs involving the nervous system Status: Acute Assessment and Plan: Resolved. Presented with right leg weakness and reported slurred speech concerning for stroke. Dysarthria not appreciated on my exam. * Brain CT showed no acute findings. * MRI showed no evidence of acute abnormalities * Carotid doppler with <50% stenosis of bilateral internal carotid arteries * PT/OT eval for leg weakness, see below (2) Leg weakness: Code(s): R29.898 - Other symptoms and signs involving the musculoskeletal system Status: Acute Assessment and Plan: Patient presents with lower extremity weakness, stating ?my feet will not go * Most likely due to physical deconditioning * No evidence of neurologic deficits, no neurologic concerns based on workup above * Continue physical therapy and occupational therapy * Planning for SNF on discharge per patient and family request. Insurance authorization denied. Peer to peer requested. (3) Abnormal chest x-ray: Code(s): R93.89 - Abnormal findings on diagnostic imaging of other specified body structures Status: Acute Assessment and Plan: Chest x-ray showed persistent opacities in the bilateral lower lung zones which could represent atelectasis and/or pneumonia. She recently completed a 7 day course of IV Zosyn for presumed aspiration pneumonia. * Patient is asymptomatic, no signs/symptoms to suggest acute infectious etiology * Venous Doppler negative, pulmonary embolism unlikely * Remains asymptomatic and maintaining adequate oxygen saturations, no further intervention required (4) COPD with emphysema: Code(s): J43.9 - Emphysema, unspecified Status: Acute Assessment and Plan: No evidence of acute exacerbation. * Continue maintenance inhalers. (5) Chronic kidney disease: Code(s): N18.9 - Chronic kidney disease, unspecified Status: Acute Assessment and Plan: Stable on review of previous labs. Baseline creatinine is between 1.10 and 1.40. * Creatinine is 1.3 today (6) Anemia: Code(s): D64.9 - Anemia, unspecified Status: Acute Assessment and Plan: H&H remaining stable (7) Tobacco dependence: Code(s): F17.200 - Nicotine dependence, unspecified, uncomplicated Status: Acute Assessment and Plan: Smoking cessation is encouraged though she is not really motivated. * Continue nicotine patch per patient request. (8) Diastolic dysfunction: Code(s): I51.89 - Other ill-defined heart diseases Status: Acute Assessment and Plan: Appears clinically compensated. * Monitor volume status and avoid over-hydration. (9) Dysphagia: Code(s): R13.10 - Dysphagia, unspecified Status: Acute Assessment and Plan: Issues with aspiration at last hospitalization 1 week prior * Discharged on pureed diet with moderately thickened liquids * Transitioned to soft and bite size diet per ST recommendations. Continue * Repeat MBS today. Patient now able to tolerate regular thin liquids * She should continue speech therapy on discharge to reinforce safe swallowing strategies and strengthening * Aspiration precautions implemented Subjective Date/time seen: 06/24/21 16:24 Interval history: Date of service: 06/23/2021 Rachel J Cady is an 80-year-old female smoker with history of COPD, hypothyroi
--- NOTE | 2021-06-24 16:24 | PM.IMPN ---
Progress Note: A&P Assessment and Plan (1) Stroke-like symptoms: Code(s): R29.90 - Unspecified symptoms and signs involving the nervous system Status: Acute Assessment and Plan: Resolved. Presented with right leg weakness and reported slurred speech concerning for stroke. Dysarthria not appreciated on my exam. Brain CT showed no acute findings. MRI showed no evidence of acute abnormalities Carotid doppler with <50% stenosis of bilateral internal carotid arteries PT/OT eval for leg weakness, see below (2) Leg weakness: Code(s): R29.898 - Other symptoms and signs involving the musculoskeletal system Status: Acute Assessment and Plan: Patient presents with lower extremity weakness, stating ?my feet will not go Most likely due to physical deconditioning No evidence of neurologic deficits, no neurologic concerns based on workup above Continue physical therapy and occupational therapy Planning for SNF on discharge per patient and family request. Insurance authorization denied. Peer to peer requested. (3) Abnormal chest x-ray: Code(s): R93.89 - Abnormal findings on diagnostic imaging of other specified body structures Status: Acute Assessment and Plan: Chest x-ray showed persistent opacities in the bilateral lower lung zones which could represent atelectasis and/or pneumonia. She recently completed a 7 day course of IV Zosyn for presumed aspiration pneumonia. Patient is asymptomatic, no signs/symptoms to suggest acute infectious etiology Venous Doppler negative, pulmonary embolism unlikely Remains asymptomatic and maintaining adequate oxygen saturations, no further intervention required (4) COPD with emphysema: Code(s): J43.9 - Emphysema, unspecified Status: Acute Assessment and Plan: No evidence of acute exacerbation. Continue maintenance inhalers. (5) Chronic kidney disease: Code(s): N18.9 - Chronic kidney disease, unspecified Status: Acute Assessment and Plan: Stable on review of previous labs. Baseline creatinine is between 1.10 and 1.40. Creatinine is 1.3 today (6) Anemia: Code(s): D64.9 - Anemia, unspecified Status: Acute Assessment and Plan: H&H remaining stable (7) Tobacco dependence: Code(s): F17.200 - Nicotine dependence, unspecified, uncomplicated Status: Acute Assessment and Plan: Smoking cessation is encouraged though she is not really motivated. Continue nicotine patch per patient request. (8) Diastolic dysfunction: Code(s): I51.89 - Other ill-defined heart diseases Status: Acute Assessment and Plan: Appears clinically compensated. Monitor volume status and avoid over-hydration. (9) Dysphagia: Code(s): R13.10 - Dysphagia, unspecified Status: Acute Assessment and Plan: Issues with aspiration at last hospitalization 1 week prior Discharged on pureed diet with moderately thickened liquids Transitioned to soft and bite size diet per ST recommendations. Continue Repeat MBS today. Patient now able to tolerate regular thin liquids She should continue speech therapy on discharge to reinforce safe swallowing strategies and strengthening Aspiration precautions implemented Subjective Date/time seen: 06/24/21 16:24 Interval history: Date of service: 06/23/2021 Rachel Lazar is an 80-year-old female smoker with history of COPD, hypothyroidism, breast cancer, diastolic CHF; follow-up s/p right hemicolectomy, and recent hospitalization due to SBO requiring small bowel resection which was complicated by GI bleed and aspiration pneumonia. She is seen in follow-up now for weakness of her lower extremities. She feels better today. She denies abdominal pain, cramping, or bloating. She is eating well. Denies shortness breath, cough, chest pain, palpitations, nausea, vomiting. Denies dizziness or l
[2021-06-24] MEDS: NORTRIPTYLINE HCL 25 MG CAPSULE 50 MG PO (21:39)
[2021-06-25] VITALS (8 sets, daily range): BP systolic 102–121; BP diastolic 47–52; PULSE 88–99; RESP 16; TEMP 36–37.1; O2SAT 94–100
[2021-06-25] MEDS: HYDROcodone/acetaminophen (*CRX) 5-325 MG TABLET 1 TAB PO (02:29)
[2021-06-25] MEDS: LEVOTHYROXINE SODIUM 50 MCG TABLET PO (06:35)
[2021-06-25] MEDS: SODIUM BICARBONATE TAB 650 MG TABLET 1300 MG PO (08:17)
[2021-06-25] MEDS: OLANZapine 5 MG TABLET 20 MG PO (08:17)
[2021-06-25] MEDS: METOPROLOL SUCCINATE EXT REL 12.5 MG TABCR PO (08:18)
[2021-06-25] MEDS: ASPIRIN 81 MG CHEWABLE TABLET PO (08:19)
[2021-06-25] MEDS: cloNIDine HCL 0.1 MG TABLET PO (08:19)
[2021-06-25] MEDS: ANASTROZOLE (*CHEMO) 1 MG TABLET PO (08:19)
[2021-06-25] MEDS: PANTOPRAZOLE 40 MG TABLET PO (08:19)
[2021-06-25] MEDS: NICOTINE (*PBKC) 14 MG PATCH 1 PATCH TRANSDERM (08:33)
--- NOTE | 2021-06-25 11:26 | P.DS_ITS ---
DS: Admitting Diagnosis Discharge Date 06/25/2021 Admitting Diagnosis Weakness DS: Discharge Diagnosis Discharge Diagnosis (1) Stroke-like symptoms: Code(s): R29.90 - Unspecified symptoms and signs involving the nervous system Status: Acute Assessment and Plan: Resolved. Presented with right leg weakness and reported slurred speech concerning for stroke. Dysarthria not appreciated on my exams. * Brain CT showed no acute findings. * MRI showed no evidence of acute abnormalities * Carotid doppler with <50% stenosis of bilateral internal carotid arteries * PT/OT for leg weakness, see below * Speech was at baseline on all encounters (2) Leg weakness: Code(s): R29.898 - Other symptoms and signs involving the musculoskeletal system Status: Acute Assessment and Plan: Patient presented with lower extremity weakness, stating ?my feet will not go * Most likely due to physical deconditioning given recent prolonged hospitalization * No evidence of neurologic deficits, no neurologic concerns based on workup above * Continue physical therapy and occupational therapy at SNF on discharge. (3) Abnormal chest x-ray: Code(s): R93.89 - Abnormal findings on diagnostic imaging of other specified body structures Status: Acute Assessment and Plan: Chest x-ray showed persistent opacities in the bilateral lower lung zones which could represent atelectasis and/or pneumonia. She recently completed a 7 day course of IV Zosyn for presumed aspiration pneumonia. * Patient is asymptomatic, no signs/symptoms to suggest acute infectious etiology * Venous Doppler negative, pulmonary embolism unlikely * Remained asymptomatic and maintained adequate oxygen saturations, no further intervention required (4) COPD with emphysema: Code(s): J43.9 - Emphysema, unspecified Status: Acute Assessment and Plan: Not in acute exacerbation. * Continue maintenance inhalers. (5) Chronic kidney disease: Code(s): N18.9 - Chronic kidney disease, unspecified Status: Acute Assessment and Plan: Remained stable on review of previous labs. Baseline creatinine is between 1.10 and 1.40. (6) Anemia: Code(s): D64.9 - Anemia, unspecified Status: Acute Assessment and Plan: H&H remained stable (7) Tobacco dependence: Code(s): F17.200 - Nicotine dependence, unspecified, uncomplicated Status: Acute Assessment and Plan: She was educated on smoking cessation * Nicotine patch provided during admission (8) Diastolic dysfunction: Code(s): I51.89 - Other ill-defined heart diseases Status: Acute Assessment and Plan: Clinically compensated. (9) Dysphagia: Code(s): R13.10 - Dysphagia, unspecified Status: Acute Assessment and Plan: Issues with aspiration at last hospitalization 1 week prior * Discharged on pureed diet with moderately thickened liquids * Transitioned to soft and bite size diet per ST recommendations which will be continued * Repeat MBS 06/24: Patient now able to tolerate regular thin liquids * She should continue speech therapy on discharge to reinforce safe swallowing strategies and strengthening * Aspiration precautions implemented DS: Summary Hospital Course Hospital Course: Date of admission: 06/20/2021 Date of discharge: 06/25/2021 Rachel Lazar is an 80-year-old female smoker with history of COPD, hypothyroid
--- NOTE | 2021-06-25 11:26 | PM.DS ---
DS: Admitting Diagnosis Discharge Date 06/25/2021 Admitting Diagnosis Weakness DS: Discharge Diagnosis Discharge Diagnosis (1) Stroke-like symptoms: Code(s): R29.90 - Unspecified symptoms and signs involving the nervous system Status: Acute Assessment and Plan: Resolved. Presented with right leg weakness and reported slurred speech concerning for stroke. Dysarthria not appreciated on my exams. Brain CT showed no acute findings. MRI showed no evidence of acute abnormalities Carotid doppler with <50% stenosis of bilateral internal carotid arteries PT/OT for leg weakness, see below Speech was at baseline on all encounters (2) Leg weakness: Code(s): R29.898 - Other symptoms and signs involving the musculoskeletal system Status: Acute Assessment and Plan: Patient presented with lower extremity weakness, stating ?my feet will not go Most likely due to physical deconditioning given recent prolonged hospitalization No evidence of neurologic deficits, no neurologic concerns based on workup above Continue physical therapy and occupational therapy at SNF on discharge. (3) Abnormal chest x-ray: Code(s): R93.89 - Abnormal findings on diagnostic imaging of other specified body structures Status: Acute Assessment and Plan: Chest x-ray showed persistent opacities in the bilateral lower lung zones which could represent atelectasis and/or pneumonia. She recently completed a 7 day course of IV Zosyn for presumed aspiration pneumonia. Patient is asymptomatic, no signs/symptoms to suggest acute infectious etiology Venous Doppler negative, pulmonary embolism unlikely Remained asymptomatic and maintained adequate oxygen saturations, no further intervention required (4) COPD with emphysema: Code(s): J43.9 - Emphysema, unspecified Status: Acute Assessment and Plan: Not in acute exacerbation. Continue maintenance inhalers. (5) Chronic kidney disease: Code(s): N18.9 - Chronic kidney disease, unspecified Status: Acute Assessment and Plan: Remained stable on review of previous labs. Baseline creatinine is between 1.10 and 1.40. (6) Anemia: Code(s): D64.9 - Anemia, unspecified Status: Acute Assessment and Plan: H&H remained stable (7) Tobacco dependence: Code(s): F17.200 - Nicotine dependence, unspecified, uncomplicated Status: Acute Assessment and Plan: She was educated on smoking cessation Nicotine patch provided during admission (8) Diastolic dysfunction: Code(s): I51.89 - Other ill-defined heart diseases Status: Acute Assessment and Plan: Clinically compensated. (9) Dysphagia: Code(s): R13.10 - Dysphagia, unspecified Status: Acute Assessment and Plan: Issues with aspiration at last hospitalization 1 week prior Discharged on pureed diet with moderately thickened liquids Transitioned to soft and bite size diet per ST recommendations which will be continued Repeat MBS 06/24: Patient now able to tolerate regular thin liquids She should continue speech therapy on discharge to reinforce safe swallowing strategies and strengthening Aspiration precautions implemented DS: Summary Hospital Course Hospital Course: Date of admission: 06/20/2021 Date of discharge: 06/25/2021 Rachel Lazar is an 80-year-old female smoker with history of COPD, hypothyroidism, breast cancer, diastolic CHF; follow-up s/p right hemicolectomy, and recent hospitalization due to SBO requiring small bowel resection presented to the emergency department on 06/20/2021 with complaints of increased weakness and concerns for slurred speech. On presentation, her head CT showed no acute findings. She was admitted to the hospitalist service for further evaluation and management. Please see above for further details. Her speech remained at baseline throughout the
[2021-06-25 12:26] LABS: EDCOVIDSCREEN Negative (Negative)
== END 2021-06-25 12:51 | disposition home or self-care (01) ==
LOC: ANHED 12:02 → ANH2MED 16:07
PROVIDERS: Emergency Medicine; Nurse Practitioner Family; Physician Assistant; Admitting Provider Internal Medicine; Emergency Provider Emergency Medicine; PCP Internal Medicine; Visit Provider Family Medicine
DX: R53.1 Weakness (principal); R47.81 Slurred speech; E03.9 Hypothyroidism, unspecified; J43.9 Emphysema, unspecified; F17.210 Nicotine dependence, cigarettes, uncomplicated; I50.30 Unspecified diastolic (congestive) heart failure; Z85.3 Personal history of malignant neoplasm of breast; N18.9 Chronic kidney disease, unspecified; D64.9 Anemia, unspecified; R60.9 Edema, unspecified; R91.8 Other nonspecific abnormal finding of lung field; R13.10 Dysphagia, unspecified
CPT/HCPCS: 36415; 70450; 70551; 71046; 72131; 80048; 80053; 81001; 82948; 83605; 83735; 84443; 85025; 85027; 85055; 87426; 92507; 92526; 92610; 92611; 93005; 93880; 93970; 97110; 97162; 97165; 97530; 97535; 99285; A9270; C9803; G0378

== ENCOUNTER 2022-03-26 08:03 | Outpatient (RCR) | payer MEDICARE, SELFPAY ==
--- NOTE | 2022-03-23 14:39 | PC.NURSE ---
spoke with patient on the phone to touch base with her. Explained to go to registration for her lab work on and to get checked in for her transfusion on tuesday. she said her daughter is driving her. She said she had a transfusion before years ago and does not recall having any antibodies.
[2022-03-25 13:49] LABS: Hematocrit 24.8 % (37.0-47.0); Hemoglobin 7.3 g/dL (12.0-15.0); Mean Corpuscular HGB Conc 29.4 g/dl (32-36); Mean Corpuscular Hemoglobin 32.4 pg (26-34); Mean Corpuscular Volume 110.2 fl (80-100); Mean Platelet Volume 11.4 fl (7.4-10.4); Platelet Count Result 315 k/mm3 (150-375); Red Blood Count 2.25 M/mm3 (4.2-5.4); Red Cell Distribution Width 22.9 % (11.5-14.5); White Blood Count 3.2 K/mm3 (4.5-10.0)
[2022-03-25 14:21] LABS: Band Neutrophils Percent 3 % (0-6); Basophils Absolute Manual 0.09 K/mm3 (0.0-0.1); Basophils Percent Manual 3 % (0-1); Eosinophils Absolute Manual 0.12 K/mm3 (0.02-0.5); Eosinophils Percent Manual 4 % (0-4); Lymphocytes Absolute Manual 0.64 K/mm3 (1.1-4.5); Metamyelocytes Percent 2 %; Monocytes Percent Manual 19 % (3-9); Neutrophils Absolute Manual 1.66 K/mm3 (1.7-7.2); Neutrophils Percent Manual 49 % (46-73); Nucleated Red Blood Cells 3 %; Total Cells Counted 100
[2022-03-25 14:22] LABS: Burr Cells 1+ (NORMAL); Macrocytosis 1+ (NORMAL); Ovalocytes 1+ (NORMAL); Platelet Estimate Adequate (Adequate)
[2022-03-25 14:23] LABS: Acanthocytes 1+ (NORMAL); Helmet Cells 1+ (NORMAL); Schistocytes Rare (NORMAL)
[2022-03-25 14:25] LABS: Basophilic Stippling 1+ (NORMAL)
--- NOTE | 2022-03-26 07:30 | PC.NURSE ---
Faxed lab results to [facility] as requested.
[2022-03-26 08:13] VITALS: BP 155/81; PULSE 92; RESP 18; TEMP 36.9; O2SAT 99
[2022-03-26] MEDS: SODIUM CHLORIDE 0.9% IV 250 ML 30 ML IV CONT (08:38)
[2022-03-26 08:48] VITALS: BP 126/47; PULSE 92; RESP 18; TEMP 36.9; O2SAT 98
[2022-03-26 09:03] VITALS: BP 130/51; PULSE 77; RESP 18; TEMP 36.9; O2SAT 98
[2022-03-26 10:03] VITALS: BP 145/51; PULSE 72; RESP 18; TEMP 37; O2SAT 100
[2022-03-26 11:03] VITALS: BP 147/55; PULSE 70; RESP 16; TEMP 36.9; O2SAT 100
[2022-03-26 11:52] VITALS: BP 159/52; PULSE 69; RESP 16; TEMP 37.1; O2SAT 100
== END 2022-06-23 23:59 | disposition home or self-care (01) ==
LOC: ANHCPCTRAN 08:03
PROVIDERS: Internal Medicine Medical Oncology; PCP Internal Medicine
DX: D50.0 Iron deficiency anemia secondary to blood loss (chronic) (principal)
CPT/HCPCS: 36415; 36430; 85025; 86850; 86900; 86901; 86923; J7050; P9016

== ENCOUNTER 2022-07-05 11:15 | Emergency (ER) | payer MEDICARE, SELFPAY ==
[2022-07-05] VITALS (7 sets, daily range): BP systolic 117–175; BP diastolic 53–81; PULSE 80–115; RESP 16–20; TEMP 36.4–36.7; O2SAT 98–100
--- NOTE | ~2022-07-05 | XR_ITS ---
EXAMINATION: XR chest 1V 07/05/2022 12:52 INDICATION: Cough and shortness of breath PROCEDURE: AP view of the chest COMPARISON: 06/20/2021 FINDINGS: The lungs are clear. There is mild cardiomegaly. There is deviation of the mediastinum to t he right suggesting right thoracic volume loss. There is atherosclerosis of the aorta. There are no p leural effusions. There is no pneumothorax suspected. IMPRESSION: 1: NO ACUTE CARDIOPULMONARY DISEASE. Reviewed, dictated and finalized at location B.
--- NOTE | ~2022-07-05 | CT_ITS ---
EXAMINATION: CT brain wo con DATE: 07/05/2022 12:47 INDICATION: Headache. TECHNIQUE: Computed tomography (CT) of the head was performed without intravenous contrast. The mA wa s adjusted according to patient size. Iterative reconstruction technique was employed. The dose-lengt h product was 605.33 mGy-cm. COMPARISON: Head CT 06/20/2021 FINDINGS: There are scattered areas of low attenuation in the cerebral white matter. There is no intr acranial hemorrhage, acute infarction, or abnormal intracranial mass lesion. The ventricles are margaret l in size. There are likely changes of ocular lens replacement surgeries. The paranasal sinuses are c lear. The mastoid air cells are normal. IMPRESSION: 1. Stable moderate nonspecific cerebral white matter disease, which likely represents chronic small v essel ischemic disease. Reviewed, dictated and finalized at location A. IMPRESSION: 1. Stable moderate nonspecific cerebral white matter disease, which likely repr esents chronic small vessel ischemic disease.
--- NOTE | 2022-07-05 12:15 | ECG_ITS ---
Measurements Intervals [place] Rate: 84 P: 63 RI: 122 QRS: 45 QRSD: 73 T: 79 QT: 356 QTc: 423 Interpretive Statements SINUS RHYTHM VOLTAGE CRITERIA FOR LVH NONSPECIFIC T-WAVE ABNORMALITY- HIGH LATERAL LEADS BASELINE WANDER- V2-V4 BORDERLINE ECG COMPARED TO ECG 06/20/2021 11:40:45 NO SIGNIFICANT CHANGES Electronically Signed On 07-05-2022 13:25:09 CDT by Duane Torres D.O.
--- NOTE | 2022-07-05 12:17 | ED.HA ---
HPI - Headache General Chief Complaint: Headache Stated Complaint: HEADACHE Time Seen by Provider: 07/05/22 12:01 History of Present Illness HPI Narrative: Patient is an 81-year-old female with a history of hypertension, hypothyroidism presenting with a headache. Patient states that for the last week and a half she has had a persistent frontal headache. States that she has also had nasal congestion and cough. States that she feels like she has a lot of pressure in her sinuses. States that she has also been feeling short of breath especially with exertion. Reports intermittent dysuria. Denies numbness or weakness, fevers, speech changes, facial droop, abdominal pain, nausea or vomiting, diarrhea, leg swelling. Patient states that she has been taking p.o. Tylenol with minimal relief. Related Data Home Medications Medication Instructions Recorded Confirmed anastrozole 1 mg tablet 1 mg PO DAILY 05/30/21 08/17/21 calcitriol 0.25 mcg capsule 0.25 mcg PO 2XW 05/30/21 08/17/21 clonidine HCl 0.1 mg tablet 0.1 mg PO Q12H 05/30/21 08/17/21 levothyroxine 50 mcg tablet 50 mcg PO DAILY 05/30/21 08/17/21 nortriptyline 50 mg capsule 50 mg PO HS 05/30/21 08/17/21 olanzapine 20 mg tablet 20 mg PO DAILY 05/30/21 08/17/21 sodium bicarbonate 650 mg tablet 1,300 mg PO TID 05/30/21 08/17/21 umeclidinium 62.5 mcg-vilanterol 1 inh inhalation DAILY PRN 05/30/21 08/17/21 25 mcg/actuation powdr for Shortness Of Breath inhalation (Anoro Ellipta) aspirin 81 mg tablet 81 mg PO DAILY 06/02/21 08/17/21 Allergies Allergy/AdvReac Type Severity Reaction Status Date / Time No Known Allergies Allergy Verified 03/23/22 14:39 Review of Systems Review of Systems: All systems reviewed & are unremarkable except as noted in HPI and below PMFSH Past Medical History Medical History Anxiety Cancer of right breast Status post lumpectomy and radiation therapy. Chronic kidney disease Baseline creatinine and GFR unknown. Diastolic dysfunction Emphysema of lung Hypothyroidism Tobacco dependence Vitamin D deficiency Surgical History Surgical History History of colonoscopy with polypectomy History of exploratory laparotomy (06/01/21) With adhesiolysis and small-bowel resection for obstruction. History of lumpectomy of right breast History of right hemicolectomy For a large, benign colon polyp. History of thyroidectomy For treatment of a goiter. Family History Family History Other Cancer Diabetes mellitus Social History Social History Social History: Surrogate decision maker: Stephanie Simental, daughter. Code status: Full code. Smoking packs per day: 1 Smoking cigarettes per day: 20.0 Years smoked: 50 Smoking pack-years: 50.00 Smoking status: Current every day smoker Tobacco type: cigarettes Second hand tobacco smoke exposure: No Smoking end date: 06/20/21 Alcohol intake: never Substance use: never Substance use type: does not use Additional living arrangements comments: The patient lives in [place] with her daughter and son-in-law. 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 Spiritual care concerns: No Exam Narrative: GENERAL: Well-appearing, well-nourished, and in no acute distress. HEAD: Normocephalic, atraumatic. EYES: PERRLA and EOMI. ENT: Nares clear, no rhinorrhea or epistaxis. Mucous membranes moist. NECK: Supple. CHEST: Clear to auscultation. No respiratory distress. HEART: Regular rate and rhythm. No murmur heard. Normal peripheral pulses. ABDOMEN: Soft, nontender, nondistended EXTREMITIES: Normal range of motion. No edema. SKIN: Warm, dry, no rash. NEURO: 5 out of 5 strength in all extremities, no sensory
[2022-07-05 12:32] LABS: Mean Corpuscular HGB Conc 30.3 g/dl (32-36); Mean Corpuscular Hemoglobin 31.9 pg (26-34); Mean Corpuscular Volume 105.3 fl (80-100); Mean Platelet Volume 12.2 fl (7.4-10.4); Platelet Count Result 265 k/mm3 (150-375); Red Blood Count 1.88 M/mm3 (4.2-5.4); Red Cell Distribution Width 24.7 % (11.5-14.5); White Blood Count 5.1 K/mm3 (4.5-10.0)
[2022-07-05] MEDS: SODIUM CHLORIDE 0.9% IV 1,000 ML 999 ML IV CONT (12:32)
[2022-07-05] MEDS: KETOROLAC 15 MG/ML VIAL (*BKC) IV PUSH (12:32)
[2022-07-05 12:37] LABS: Magnesium 1.7 mg/dL (1.6-2.3)
[2022-07-05 12:42] LABS: Hematocrit 19.8 % (37.0-47.0)
[2022-07-05 12:44] LABS: Prothrombin Time 13.3 Seconds (11.1-14.7)
[2022-07-05 12:50] LABS: Troponin I < 0.012 ng/mL (0.000-0.034)
[2022-07-05 12:57] LABS: Alanine Aminotransferase 13 U/L (6-35); Albumin Level 4.1 g/dL (3.5-5.1); Alkaline Phosphatase 55 U/L (38-126); Anion Gap 5 mmol/L (8-16); Aspartate Amino Transferase 24 U/L (14-36); Bilirubin,Total 0.5 mg/dL (0.2-1.3); Blood Urea Nitrogen 29 mg/dL (7-17); Calcium 10.2 mg/dL (8.4-10.2); Carbon Dioxide 25 mmol/L (22-30); Chloride 107 mmol/L (98-107); Estimated CRCL calculation 15 ml/min; Estimated Glomerular Filt Rate 37; Glucose 100 mg/dL (65-110); Potassium 4.7 mmol/L (3.4-5.0); Sodium 137 mmol/L (137-145)
[2022-07-05 13:06] LABS: NT Pro B Type Natriuretic Pept 1730 pg/mL (19.9-100)
[2022-07-05 13:11] LABS: Influenza A QL RT-PCR Negative (Negative); Influenza B QL RT-PCR Negative (Negative); RSV RNA, RT-PCR Negative (Negative); SARS-CoV-2 RNA PCR Negative (Negative)
[2022-07-05 13:41] LABS: Band Neutrophils Percent 10 % (0-6); Blastocytes 5 %; Eosinophils Percent Manual 6 % (0-4); Lymphocytes Absolute Manual 0.71 K/mm3 (1.1-4.5); Metamyelocytes Percent 1 %; Monocytes Absolute Manual 1.22 K/mm3 (0.1-0.90); Monocytes Percent Manual 24 % (3-9); Neutrophils Absolute Manual 2.49 K/mm3 (1.7-7.2); Neutrophils Percent Manual 39 % (46-73); Nucleated Red Blood Cells 14 %; Promyelocytes Percent 1 %; Total Cells Counted 100
[2022-07-05 13:42] LABS: Platelet Estimate Adequate (Adequate)
[2022-07-05 13:43] LABS: Anisocytosis 3+ (NORMAL); Poikilocytosis 2+ (NORMAL); Schistocytes 2+ (NORMAL)
[2022-07-05 13:46] LABS: Basophilic Stippling 1+ (NORMAL); Howell Jolly Bodies 1+ (NORMAL); Large Platelets Present
[2022-07-05 13:52] LABS: Appearance Urine Clear (Clear); Bilirubin Urine Negative (Negative); Blood Urine Negative (Negative); Color Urine Yellow (Yellow); Glucose Urine UA Negative (Negative); Ketones Urine Negative (Negative); Leukocyte Esterase Ur Negative LEU/UL (Negative); Nitrate Urine Negative (Negative); Protein Urine Negative (Negative); Specific Grav Ur 1.019 (1.001-1.035); Urobilinogen Urine 0.2 mg/dL (<2.0)
[2022-07-05 14:03] LABS: Add Urine Microscopic? NO
[2022-07-05] MEDS: TUBING, BLOOD PLUM PUMP TUBING 1 EACH XX (14:31)
[2022-07-05] MEDS: fentaNYL CITRATE INJ (*CRX) 100 MCG/2 ML VIAL 50 MCG IV PUSH (14:33)
[2022-07-05] MEDS: SODIUM CHLORIDE 0.9% IV 250 ML 30 ML IV CONT (15:02)
--- NOTE | 2022-07-05 17:31 | PC.NURSE ---
Patient states she does not want the other unit of blood. Provider made aware and new order for repeat H&H is made.
[2022-07-05 17:37] LABS: Hematocrit 24.3 % (37.0-47.0); Hemoglobin 7.9 g/dL (12.0-15.0)
[2022-07-05 17:57] LABS: Troponin I 0.012 ng/mL (0.000-0.034)
== END 2022-07-05 19:25 | disposition home or self-care (01) ==
PROVIDERS: Emergency Provider Emergency Medicine; PCP Internal Medicine
DX: R51.9 Headache, unspecified (principal); D64.9 Anemia, unspecified; Z20.822 Contact with and (suspected) exposure to COVID-19; R90.82 White matter disease, unspecified; F17.210 Nicotine dependence, cigarettes, uncomplicated; F41.9 Anxiety disorder, unspecified; N18.9 Chronic kidney disease, unspecified; E03.9 Hypothyroidism, unspecified; R06.02 Shortness of breath
CPT/HCPCS: 36415; 36430; 70450; 71045; 80053; 81003; 83735; 83880; 84484; 85014; 85018; 85025; 85610; 85730; 86850; 86900; 86901; 86923; 87637; 93005; 96361; 96365; 96375; 99284; J0131; J1885; J3010; J7030; J7050; P9016

== ENCOUNTER 2022-07-18 18:36 | Inpatient (IN) | payer MEDICARE, SELFPAY ==
[2022-07-18] VITALS (8 sets, daily range): BP systolic 131–164; BP diastolic 72–80; PULSE 101–127; RESP 18–44; TEMP 36.8; O2SAT 95
--- NOTE | ~2022-07-18 | CT_ITS ---
EXAMINATION: CT abdomen pelvis wo con DATE: 07/20/2022 16:42 INDICATION: gi bleed, lower abdominal pain TECHNIQUE: Computed tomography (CT) of the abdomen and pelvis was performed without intravenous contr ast. Automated exposure control and iterative reconstruction technique were employed. The dose-length product was 263.53 mGy-cm. COMPARISON: 05/31/2021. FINDINGS: Lower thorax: Aortic, coronary artery, and mitral calcifications. Small pericardial effusion. Rightwa rd shift of the mediastinum. Small right pleural effusion. Centrilobular opacities in the left upper lung and lingula. Dependent consolidation in the right lung base. Peripheral fibrosis in the right geni ng. Scattered pulmonary air cysts. Calcified left lower lobe granuloma. Liver: Hepatomegaly. Biliary/Gallbladder: Gallbladder is normal. No bile duct dilation. Pancreas: No mass or duct dilation. Spleen: Normal. Adrenals:Bilateral adrenal adenomas. Kidneys: No mass, stone, or hydronephrosis. GI tract: Diffuse mild small bowel dilation, without focal transition point. Appendix not confidently visualized, possibly surgically absent. Uncomplicated appearing bowel anastomoses. Mesentery/Peritoneum: No ascites, mass, or free air. Retroperitoneum: No mass. Atherosclerotic abdominal aortic and/or arterial calcifications. Pelvis: Normal urinary bladder. Absent uterus. Trace free pelvic fluid. Soft Tissues: Soft tissues and body wall unremarkable. Bones: No acute osseous finding. IMPRESSION: Left lung opacities concerning for infection, such as infectious airways disease. Atelectasis/consoli dation in the right lower lobe. Small right pleural effusion. Small pericardial effusion. Hepatomegal y. Diffuse mild small bowel dilation, may reflect ileus. Early/partial obstruction is not excluded. Reviewed, dictated and finalized at location K. IMPRESSION: Left lung opacities concerning for infection, such as infectious airways diseas e. Atelectasis/consolidation in the right lower lobe. Small right pleural effus ion. Small pericardial effusion. Hepatomegaly. Diffuse mild small bowel dilatio n, may reflect ileus. Early/partial obstruction is not excluded.
--- NOTE | ~2022-07-18 | XR_ITS ---
EXAMINATION: XR chest 2V Exam Date/Time: 07/18/2022 19:00 CDT HISTORY: SOB HEAD PAIN FOR 2 WEEKS. HX OF SMOKING, COPD Comparison: 07/05/2022, 06/20/2021. RESULT: Lines, tubes, and devices: Right axillary surgical clips. Surgical clips present over the superior m ediastinum. Lungs and pleura: Senescent and emphysematous change. Mild diffuse reticular opacities, similar to t he prior study. Subsegmental right lower lung airspace disease, likely localizing to the right middle lobe. Mild right lateral costophrenic angle blunting. Cardiomediastinal silhouette: Stable. Other: No acute osseous or upper abdominal finding. IMPRESSION: Subsegmental right middle lobe opacities may reflect infection or atelectasis, depending on the clini will context. Small right pleural effusion. Reviewed, dictated and finalized at [facility]. IMPRESSION: Subsegmental right middle lobe opacities may reflect infection or atelectasis, depending on the clinical context. Small right pleural effusion.
--- NOTE | ~2022-07-18 | CT_ITS ---
EXAMINATION: CT brain wo con DATE: 07/20/2022 16:38 INDICATION: Headache TECHNIQUE: Computed tomography (CT) of the head was performed without intravenous contrast. The dose- length product was 605.33 mGy-cm. Automated exposure control and iterative reconstruction technique were employed. COMPARISON: CT dated 07/05/2022 FINDINGS: Mild generalized atrophy. There are scattered mild periventricular and subcortical white ma tter changes, most likely related to small vessel ischemic disease (microangiopathy). No ventriculome julio cesar or midline shift. There is intracranial atherosclerosis. There is mild mucosal thickening of the ethmoid and sphenoid sinuses. Mastoids are pneumatized. IMPRESSION: 1. No acute intracranial abnormality. 2: Mild sinus disease. 3: Chronic age-related findings. Reviewed, dictated and finalized at location L.
--- NOTE | ~2022-07-18 | XR_ITS ---
EXAMINATION: XR chest 1V portable DATE: 07/20/2022 09:13 INDICATION: Shortness of breath. TECHNIQUE: A single frontal view of the chest was obtained. COMPARISON: Chest 2 views 07/18/2022, chest CT 06/05/2021 FINDINGS: Again seen is volume loss of right hemithorax. There are airspace opacities in right mid an d lower lung zones. There is a small right pleural effusion. A calcified left lung nodules consistent with old adenomatous disease. No pneumothorax. The heart size is normal. There are surgical clips fr om right hemithyroidectomy. There are surgical clips in right breast. IMPRESSION: 1. Chronic volume loss of right hemithorax with worsened airspace opacities in right mid and lower geni ng zones, consistent with radiation fibrosis and atelectasis versus pneumonia. 2. Worsened chronic small right pleural effusion. Reviewed, dictated and finalized at location A. IMPRESSION: 1. Chronic volume loss of right hemithorax with worsened airspace opacities in right mid and lower lung zones, consistent with radiation fibrosis and atelecta sis versus pneumonia. 2. Worsened chronic small right pleural effusion.
--- NOTE | ~2022-07-18 | XR_ITS ---
Supine and upright views of the abdomen Clinical history: Ileus COMPARISON: 06/08/2021 Findings:, Gas pattern is nonspecific, there is a relative paucity of bowel loops in the right abdome n. Probable small right pleural effusion present. No free air evident. No abnormal mass lesion or will cification is seen. Osseous structures are intact. Impression: Nonspecific bowel gas pattern, though there is possible displacement of bowel loops from the right ab domen. Correlate for underlying mass. Consider CT for further evaluation as indicated. Small right pleural effusion. Reviewed, dictated and finalized at location . Impression: Nonspecific bowel gas pattern, though there is possible displacement of bowel l oops from the right abdomen. Correlate for underlying mass. Consider CT for fur ther evaluation as indicated. Small right pleural effusion.
--- NOTE | 2022-07-18 18:47 | ECG_ITS ---
Measurements Intervals [place] Rate: 116 P: 60 VA: 122 QRS: 15 QRSD: 75 T: 94 QT: 266 QTc: 369 Interpretive Statements SINUS TACHYCARDIA POSSIBLE LEFT ATRIAL ENLARGEMENT POSSIBLE LEFT VENTRICULAR HYPERTROPHY BORDERLINE ST-T WAVE ABNORMALITY- LAT/HIGH LAT LEADS BASELINE ARTIFACT- I, II, III, AVR, AVL, AVF, V1, V3-V4 ABNORMAL ECG COMPARED TO ECG 07/05/2022 13:09:29 SINUS TACHYCARDIA NOW PRESENT Electronically Signed On 07-18-2022 22:04:03 CDT by Duane Torres D.O.
[2022-07-18 19:03] LABS: Basophils Percent Auto 0.7 % (0.2-1.2); Eosinophils Percent Auto 0.4 % (0-4.4); Hematocrit 27.3 % (37.0-47.0); Hemoglobin 8.3 g/dL (12.0-15.0); Immature Granulocyte Absolute 0.09 K/mm3 (0.00-0.031); Lymphocytes Absolute Auto 0.42 K/mm3 (0.9-3.2); Lymphocytes Percent Auto 9.2 % (18.3-44.2); Mean Corpuscular HGB Conc 30.4 g/dl (32-36); Mean Corpuscular Volume 105.4 fl (80-100); Mean Platelet Volume 12.3 fl (7.4-10.4); Monocytes Absolute Auto 0.9 K/mm3 (0.1-0.6); Monocytes Percent Auto 20.4 % (2.6-8.5); Neutrophils Absolute Auto 3.1 K/mm3 (1.3-6.7); Neutrophils Percent Auto 67.3 % (45.5-73.1); Nucleated Red Blood Cells Absolute Auto 0.1 K/mm3 (0.0-0.012); Nucleated Red Blood Cells Perc 1.8 % (0.0-0.2); Platelet Count Result 220 k/mm3 (150-375); Red Blood Count 2.59 M/mm3 (4.2-5.4); Red Cell Distribution Width 20.4 % (11.5-14.5); White Blood Count 4.6 K/mm3 (4.5-10.0)
[2022-07-18 19:14] LABS: Alanine Aminotransferase 15 U/L (6-35); Albumin Level 4.4 g/dL (3.5-5.1); Alkaline Phosphatase 73 U/L (38-126); Anion Gap 11 mmol/L (8-16); Aspartate Amino Transferase 28 U/L (14-36); Bilirubin,Total 0.6 mg/dL (0.2-1.3); Blood Urea Nitrogen 32 mg/dL (7-17); Calcium 10.4 mg/dL (8.4-10.2); Carbon Dioxide 23 mmol/L (22-30); Chloride 103 mmol/L (98-107); Estimated CRCL calculation 15 ml/min; Estimated Glomerular Filt Rate 37; Glucose 109 mg/dL (65-110); Potassium 4.4 mmol/L (3.4-5.0); Sodium 137 mmol/L (137-145)
[2022-07-18 19:27] LABS: Anisocytosis 1+ (NORMAL); Macrocytosis 1+ (NORMAL); Ovalocytes 1+ (NORMAL); Platelet Estimate Adequate (Adequate); Schistocytes None Seen (NORMAL)
[2022-07-18 19:41] LABS: Burr Cells 1+ (NORMAL)
[2022-07-18] MEDS: IPRATROPIUM BR 0.02% INH SOLN 0.5 MG/2.5 ML VIAL INHALATION (22:05)
[2022-07-18] MEDS: LEVALBUTEROL NEB 1.25 MG/3 ML INHALATION (22:07)
[2022-07-18 22:29] LABS: Prothrombin Time 13.7 Seconds (11.1-14.7)
[2022-07-18 22:30] LABS: Partial Thromboplastin Time 41.1 SECONDS (22.3-36.8)
--- NOTE | 2022-07-18 22:54 | ED.GENADULT ---
HPI - General Adult General Chief complaint: Shortness of Breath/Dyspnea Stated complaint: sob, headache Time Seen by Provider: 07/18/22 21:38 History of Present Illness HPI narrative: Patient 81-year-old female who presents the emergency department with chief complaint of cough shortness of breath and headache. Patient reports that for some time she has been having coughing that has been nonproductive and reports that she has had a headache and generalized malaise. Patient reports that she has history of COPD reports that he is symptoms or not improved by anything but are worsened whenever she exerts herself. Related Data Home Medications Medication Instructions Recorded Confirmed anastrozole 1 mg tablet 1 mg PO DAILY 05/30/21 08/17/21 calcitriol 0.25 mcg capsule 0.25 mcg PO 2XW 05/30/21 08/17/21 clonidine HCl 0.1 mg tablet 0.1 mg PO Q12H 05/30/21 08/17/21 levothyroxine 50 mcg tablet 50 mcg PO DAILY 05/30/21 08/17/21 nortriptyline 50 mg capsule 50 mg PO HS 05/30/21 08/17/21 olanzapine 20 mg tablet 20 mg PO DAILY 05/30/21 08/17/21 sodium bicarbonate 650 mg tablet 1,300 mg PO TID 05/30/21 08/17/21 umeclidinium 62.5 mcg-vilanterol 1 inh inhalation DAILY PRN 05/30/21 08/17/21 25 mcg/actuation powdr for Shortness Of Breath inhalation (Anoro Ellipta) aspirin 81 mg tablet 81 mg PO DAILY 06/02/21 08/17/21 Allergies Allergy/AdvReac Type Severity Reaction Status Date / Time No Known Allergies Allergy Verified 07/18/22 18:37 Review of Systems Review of Systems: A 10 system review of systems was completed on the patient and is negative except for what is stated in the HPI. Nursing and ancillary documentation was reviewed. FORMERLY [facility], [facility] Past Medical History Medical History Anxiety Cancer of right breast Status post lumpectomy and radiation therapy. Chronic kidney disease Baseline creatinine and GFR unknown. Diastolic dysfunction Emphysema of lung Hypothyroidism Tobacco dependence Vitamin D deficiency Surgical History Surgical History History of colonoscopy with polypectomy History of exploratory laparotomy (06/01/21) With adhesiolysis and small-bowel resection for obstruction. History of lumpectomy of right breast History of right hemicolectomy For a large, benign colon polyp. History of thyroidectomy For treatment of a goiter. Family History Family History Other Cancer Diabetes mellitus Social History Social History Social History: Surrogate decision maker: Stephanie Simental, daughter. Code status: Full code. Smoking packs per day: 1 Smoking cigarettes per day: 20.0 Years smoked: 50 Smoking pack-years: 50.00 Smoking status: Current every day smoker Tobacco type: cigarettes Second hand tobacco smoke exposure: No Smoking end date: 06/20/21 Alcohol intake: never Substance use: never Substance use type: does not use Additional living arrangements comments: The patient lives in [place] with her daughter and son-in-law. Additional occupation/education comments: Retired, worked in [place] at [employer] for many years. Spiritual care concerns: No Exam Narrative: GENERAL: Well-appearing, well-nourished, and in no acute distress. HEAD: Normocephalic, atraumatic. EYES: PERRLA and EOMI. ENT: Nares clear, no rhinorrhea or epistaxis. Mucous membranes moist. NECK: Supple. CHEST: Clear to auscultation. No respiratory distress. HEART: Regular rate and rhythm. No murmur heard. Normal peripheral pulses. ABDOMEN: Soft, nontender, nondistended, normal active bowel sounds. EXTREMITIES: Normal range of motion. No edema. SKIN: Warm, dry, no rash. NEURO: No focal deficits. Alert and oriented x3. PSYCH: Normal mood and affect. C
[2022-07-18] MEDS: BENZONATATE 100 MG CAPSULE 200 MG PO (23:03)
[2022-07-18 23:11] LABS: Appearance Urine Clear (Clear); Bacteria Urine None Seen /hpf; Bilirubin Urine Negative (Negative); Blood Urine Negative (Negative); Color Urine Yellow (Yellow); Glucose Urine UA Negative (Negative); Ketones Urine Trace mg/dL (Negative); Leukocyte Esterase Ur Negative LEU/UL (Negative); Nitrate Urine Negative (Negative); Non Pathogenic Casts 0-2; Protein Urine 1+ mg/dL (Negative); RBC Urine 0-2 /hpf (0-2); Specific Grav Ur 1.021 (1.001-1.035); Squamous Epithelial Cell Urine None seen /hpf (Few); WBC Urine 0-5 /hpf; pH Urine 5.5 (5.0-9.0)
[2022-07-18 23:13] LABS: Add Urine Microscopic? YES
[2022-07-18 23:17] LABS: Lactic Acid Reflex 0.9 mmol/L (0.7-2.0)
[2022-07-18 23:30] LABS: NT Pro B Type Natriuretic Pept 2360 pg/mL (19.9-100); Troponin I < 0.012 ng/mL (0.000-0.034)
[2022-07-18 23:41] LABS: Procalcitonin 2.7 ng/mL
--- NOTE | 2022-07-18 23:48 | PM.IMHP ---
H&P: HPI History of Present Illness Date/Time: 07/18/22 23:48 Chief Complaint: shortness of breath Narrative: This is an 81-year-old female with past medical history significant for chronic kidney disease, diastolic dysfunction, emphysema, tobacco dependence, breast CA. patient presents to the emergency room with complaints of shortness of breath, cough, body aches and pains, generalized malaise, poor appetite, chills, fevers, generalized weakness, fatigue. Preliminary workup was significant for chest x-ray was reported as: EXAMINATION:? XR chest 2V Exam Date/Time:? 07/18/2022 19:00 CDT HISTORY: SOB ? HEAD PAIN FOR 2 WEEKS. HX OF SMOKING, COPD ? Comparison:? 07/05/2022, 06/20/2021. RESULT: Lines, tubes, and devices:? Right axillary surgical clips. Surgical clips present over the superior mediastinum. Lungs and pleura:? Senescent and emphysematous change. Mild diffuse reticular opacities, similar to the prior study. Subsegmental right lower lung airspace disease, likely localizing to the right middle lobe. Mild right lateral costophrenic angle blunting. Cardiomediastinal silhouette:? Stable. Other:? No acute osseous or upper abdominal finding. ? IMPRESSION: Subsegmental right middle lobe opacities may reflect infection or atelectasis, depending on the clinical context. Small right pleural effusion. Review of Systems Review of Systems: generalized malaise, fatigue, shortness of breath, cough, poor appetite ,generalized weakness Constitutional: Constitutional: Reports chills, Reports fatigue, Reports fever(s), Reports malaise, Denies night sweats, Reports poor appetite and Reports weakness Eyes: Eyes: Denies change in vision ENT: Denies dysphagia and Denies odynophagia Cardiovascular: Cardiovascular: Denies chest pain, Denies radiating jaw, neck or arm pain and Denies palpitations Respiratory: Respiratory: Reports chest congestion, Reports cough and Reports dyspnea Gastrointestinal: Gastrointestinal: Denies abdominal pain, Denies dyspepsia, Denies diarrhea, Denies nausea and Denies vomiting Genitourinary: Genitourinary: Denies dysuria Musculoskeletal: Musculoskeletal: Reports muscle weakness Integumentary/Breasts: Skin/Breast: Denies rash Neurologic: Denies focal weakness and Denies Sensory deficit (Neuro) Psychiatric: Psychiatric: Reports no additional psychiatric complaints and Reports as per HPI Endocrine: Endocrine: Denies cold intolerance, Denies flushing, Denies heat intolerance, Denies polyphagia, Denies polydipsia and Denies palpitations Hematologic/Lymphatic: Hematologic/Lymphatic: Reports no additional hematologic/lymphatic complaints and Reports as per HPI Allergic/Immunologic: Allergic/Immunologic: Reports no additional allergic/immunologic complaints and Reports as per HPI PMFSH Past Medical History Medical History Anxiety Cancer of right breast Status post lumpectomy and radiation therapy. Chronic kidney disease Baseline creatinine and GFR unknown. Diastolic dysfunction Emphysema of lung Hypothyroidism Tobacco dependence Vitamin D deficiency Surgical History Surgical History History of colonoscopy with polypectomy History of exploratory laparotomy (06/01/21) With adhesiolysis and small-bowel resection for obstruction. History of lumpectomy of right breast History of right hemicolectomy For a large, benign colon polyp. History of thyroidectomy For treatment of a goiter. Family History Family History Other Cancer Diabetes mellitus Social History Social History Social History: Surrogate decision maker: Stephanie Simental, daughter. Code status: Full code. Smoking packs per day: 1 Smoking cigarettes per day: 20.0 Years smoked: 50
[2022-07-18] MEDS: AZITHROMYCIN 500 MG/NS 250 ML 500 MG/250 ML BAG 250 MG IVPB (23:53)
[2022-07-19] VITALS (30 sets, daily range): BP systolic 118–140; BP diastolic 38–108; PULSE 70–140; RESP 16–43; TEMP 36.3–37.2; O2SAT 92–99; BMI 16.9
[2022-07-19] MEDS: IPRATROPIUM BR 0.02% INH SOLN 0.5 MG/2.5 ML VIAL INHALATION ×4 (03:07→21:16)
[2022-07-19] MEDS: LEVALBUTEROL NEB 1.25 MG/3 ML 0.63 MG INHALATION ×4 (03:08→21:16)
--- NOTE | 2022-07-19 04:22 | PC.NURSE ---
This patient, Rachel Lazar, was admitted to IMU Room 213-01. Patient/family oriented to hospital policies and general routines including ID bracelet, bed and alarms, visiting hours, pain management, procedures, bathroom and other care routines, personal items, smoking policy, room service/diet, and visiting hours. Information on how to activate the Rapid Response Team has been discussed. Patient/Family are encouraged to report perceived risks to care and to ask questions if they do not understand what they are told or what they should do.
[2022-07-19] MEDS: ACETAMINOPHEN 325 MG TABLET 650 MG PO ×3 (05:33→20:38)
--- NOTE | 2022-07-19 08:53 | PM.IMPN ---
Progress Note: A&P Assessment and Plan (1) Pneumonia: Qualifiers: Laterality: unspecified laterality Lung location: unspecified part of lung Pneumonia type: due to unspecified organism Qualified Code(s): J18.9 - Pneumonia, unspecified organism Code(s): J18.9 - Pneumonia, unspecified organism Status: Acute Assessment and Plan: Started on rocephin and azithromycin 07/18, follow-up cultures Atelectasis vs pna on CXR 07/18 Check CRP, PCT 07/19 (2) Diastolic dysfunction: Code(s): I51.89 - Other ill-defined heart diseases Status: Acute Assessment and Plan: Check echo, continue diuresis with lasix 40 mg IV daily, monitor fluid status closely Daily weights, strict I&Os Right pleural effusion noted CXR 07/18 (3) COPD with emphysema: Code(s): J43.9 - Emphysema, unspecified Status: Acute Assessment and Plan: Continue nebulizers as needed, hold off on steroids for now (4) [id number] kidney injury: Qualifiers: Acute renal failure type: unspecified Chronic kidney disease stage: unspecified stage Qualified Code(s): N17.9 - Acute kidney failure, unspecified; N18.9 - Chronic kidney disease, unspecified Code(s): N17.9 - Acute kidney failure, unspecified; N18.9 - Chronic kidney disease, unspecified Status: Acute Assessment and Plan: Hold nephrotoxic agents, hold antihypertensives, monitor with lasix on board Monitor creatinine (5) Tobacco dependence: Code(s): F17.200 - Nicotine dependence, unspecified, uncomplicated Status: Acute Assessment and Plan: Nicotine patch as needed (6) Hypothyroidism: Qualifiers: Hypothyroidism type: unspecified Qualified Code(s): E03.9 - Hypothyroidism, unspecified Code(s): E03.9 - Hypothyroidism, unspecified Status: Acute Assessment and Plan: Check TSH, cont levothyroxine (7) Hypertension: Code(s): I10 - Essential (primary) hypertension Status: Acute Assessment and Plan: Blood pressures reviewed 07/19 Cont home meds Plan DVT prophylaxis with SCDs GI prophylaxis not indicated Code status full code Subjective Date/time seen: 07/19/22 08:53 Interval history: 81 year old female with PMH for CKD, diastolic HF, tobacco dependence, breast CA c/o SOB, malaise and body aches, fevers for 1-2 weeks, found to have pna. No overnight events noted. No chest pain. No nausea, vomiting or diarrhea. No fevers or chills. She is c/o sob and abdominal pain as well as a headache. Review of Systems Review of Systems: 12 point review of systems was assessed and was negative except as noted in the HPI Exam Narrative: General: No acute distress, alert and oriented per baseline HEENT: Atraumatic, normocephalic, mucous membranes moist CV: Regular rate and rhythm, S1, S2 Lungs: Crackles noted, diminished BS throughout, no wheeze Abdomen: Soft, mild TTP, nondistended Extremities: Normal to inspection, no edema Skin: No rashes noted, no lesions or wounds seen Psych: Euthymic, normal affect Objective Data Vital Signs Vital Signs: Vital Signs - 24 hr 07/18/22 18:47 07/18/22 22:07 07/18/22 22:24 Temperature 98.3 F Pulse Rate 116 H 112 H 114 H Respiratory Rate 19 18 18 Blood Pressure 164/72 H Pulse Oximetry 95 Oxygen Delivery Room Air Fraction of Inspired Oxygen 07/18/22 21:34 07/18/22 23:00 07/18/22 23:15 Temperature Pulse Rate 101 H 114 H 117 H Respiratory Rate 32 H 33 H 44 H Blood Pressure 131/80 Pulse Oximetry Oxygen Delivery Fraction of Inspired Oxygen 07/18/22 23:30 07/18/22 23:52 07/19/22 00:01 Temperature Pulse Rate 127 H 119 H 118 H Respiratory Rate 43 H 37 H 43 H Blood Pressure Pulse Oximetry 96 Oxygen Delivery Fraction of Inspired Oxygen 07/19/22 00:17 07/19/22 01:08 07/19/22 01:17 [facility]
[2022-07-19 09:24] LABS: Basophils Percent Auto 0.5 % (0.2-1.2); Hemoglobin 7.2 g/dL (12.0-15.0); Immature Granulocyte Absolute 0.35 K/mm3 (0.00-0.031); Immature Granulocyte Percent A 6.2 % (0-0.5); Lymphocytes Percent Auto 3.5 % (18.3-44.2); Mean Corpuscular Hemoglobin 32.1 pg (26-34); Mean Corpuscular Volume 107.1 fl (80-100); Mean Platelet Volume 13.3 fl (7.4-10.4); Monocytes Absolute Auto 1.5 K/mm3 (0.1-0.6); Monocytes Percent Auto 27.1 % (2.6-8.5); Neutrophils Absolute Auto 3.5 K/mm3 (1.3-6.7); Neutrophils Percent Auto 62.7 % (45.5-73.1); Nucleated Red Blood Cells Absolute Auto 0.1 K/mm3 (0.0-0.012); Nucleated Red Blood Cells Perc 1.4 % (0.0-0.2); Platelet Count Result 209 k/mm3 (150-375); Red Blood Count 2.24 M/mm3 (4.2-5.4); Red Cell Distribution Width 20.9 % (11.5-14.5); White Blood Count 5.7 K/mm3 (4.5-10.0)
[2022-07-19 09:29] LABS: Alanine Aminotransferase 14 U/L (6-35); Albumin Level 3.8 g/dL (3.5-5.1); Alkaline Phosphatase 48 U/L (38-126); Anion Gap 8 mmol/L (8-16); Aspartate Amino Transferase 21 U/L (14-36); Bilirubin,Total 0.4 mg/dL (0.2-1.3); Blood Urea Nitrogen 35 mg/dL (7-17); Calcium 10.5 mg/dL (8.4-10.2); Carbon Dioxide 23 mmol/L (22-30); Chloride 106 mmol/L (98-107); Estimated CRCL calculation 15 ml/min; Estimated Glomerular Filt Rate 37; Glucose 138 mg/dL (65-110); Sodium 137 mmol/L (137-145)
[2022-07-19 09:46] LABS: CRP 24.8 mg/dL (<1.0)
[2022-07-19 09:48] LABS: Procalcitonin 7.7 ng/mL
[2022-07-19] MEDS: guaiFENesin 12 HR 600 MG TABCR PO ×2 (10:24→20:30)
[2022-07-19] MEDS: FUROSEMIDE INJ 40 MG/4 ML VIAL IV PUSH (10:24)
[2022-07-19] MEDS: BENZONATATE 100 MG CAPSULE 200 MG PO ×3 (10:24→16:26)
[2022-07-19 11:12] LABS: Large Platelets Present; Platelet Estimate Adequate (Adequate)
[2022-07-19 11:13] LABS: Anisocytosis 1+ (NORMAL); Burr Cells 1+ (NORMAL); Schistocytes Rare (NORMAL)
[2022-07-19 11:14] LABS: Poikilocytosis 1+ (NORMAL)
[2022-07-19] MEDS: PANTOPRAZOLE 40 MG TABLET PO (12:40)
[2022-07-19] MEDS: SODIUM BICARBONATE TAB 650 MG TABLET 1300 MG PO ×2 (12:40→16:26)
[2022-07-19] MEDS: OLANZapine 5 MG TABLET 20 MG PO (12:41)
[2022-07-19] MEDS: calcitrioL 0.25 MCG CAPSULE 0.5 MCG PO (12:41)
[2022-07-19] MEDS: cloNIDine HCL 0.1 MG TABLET PO ×2 (12:43→20:30)
[2022-07-19] MEDS: FLUTICASONE/UMECLIDIN/VILANTER 100-62.5-25 MCG ELLIPTA 1 PUFF INHALATION (13:21)
[2022-07-19] MEDS: diphenhydrAMINE HCl INJ 50 MG/ML VIAL 25 MG IV PUSH (15:34)
[2022-07-19] MEDS: METOCLOPRAMIDE HCL INJ 10 MG/2 ML VIAL IV PUSH (15:34)
[2022-07-19] MEDS: KETOROLAC 15 MG/ML VIAL (*BKC) IV PUSH (15:36)
[2022-07-19] MEDS: MIRTAZAPINE 30 MG TABLET PO (20:28)
[2022-07-19] MEDS: NORTRIPTYLINE HCL 25 MG CAPSULE 50 MG PO (20:30)
[2022-07-19] MEDS: AZITHROMYCIN 500 MG/NS 250 ML 500 MG/250 ML BAG 250 MG IVPB (22:11)
[2022-07-20] VITALS (34 sets, daily range): BP systolic 115–162; BP diastolic 38–93; PULSE 98–128; RESP 16–30; TEMP 36.1–37.8; O2SAT 87–100
--- NOTE | 2022-07-20 | ECHO_ITS ---
Patient Info Name: Rachel Lazar Age: 81 years : 1940 Gender: Female Ht: 60 in Wt: 86 lbs BSA: 1.28 m2 HR: 112 bpm BP: 129 / 45 mmHg Technical Quality: Fair Exam Date: 07/20/2022 2:50 PM Exam Location: [facility] Pul[facility] Ex[facility] Patient Status: Inpatient Admit Date: 07/20/2022 Staff Ordering Physician: Odalis Morton DO Help Desk Analyst: Argenis Baird RDCS Attending Provider: Coleen Mustaaf MD Exam Type: CA echo doppler color flow Study Info Indications - SHORT OF BREATH Summary 1. Left ventricular chamber dimension is normal. 2. Left ventricular systolic function is normal, estimated at 65-70%. 3. The left ventricular diastolic function is grade I diastolic dysfunction. 4. E/e' 20 is elevated. 5. There is mild aortic valve sclerosis. 6. The mitral valve has not well visualized and severely calcified annulus. 7. There is mild tricuspid valve regurgitation. 8. Right ventricular systolic pressure is 44 mmHg suggestive of mild pulmonary hypertension. 9. There is trivial pericardial effusion. Left Ventricle E/e' 20 is elevated. Left ventricular chamber dimension is normal. Left ventricular systolic function is normal, estimated at 65-70%. The left ventricular diastolic function is grade I diastolic dysfunction. Right Ventricle Right ventricular chamber dimension is normal. Right ventricular systolic function is normal. Left Atria Left atrial chamber dimension is normal. Right Atria Right atrial chamber dimension is normal. Aortic Valve The aortic valve is trileaflet. There is mild aortic valve sclerosis. There is no aortic valve stenosis. There is no aortic valve regurgitation. Pulmonic Valve There is no pulmonic regurgitation. Mitral Valve The mitral valve has not well visualized and severely calcified annulus. There is no mitral valve stenosis. There is no mitral valve regurgitation. Tricuspid Valve Right ventricular systolic pressure is 44 mmHg suggestive of mild pulmonary hypertension. There is mild tricuspid valve regurgitation. Pericardium/Pleural There is trivial pericardial effusion. Inferior Vena Cava Normal inferior vena cava with >50% collapse upon inspiration consistent with normal right atrial pressure, 5 mmHg. Aorta The aortic root size at the sinus of Valsalva is normal. Tricuspid Valve Name Value Normal Estimated PAP/RSVP RA Pressure 5 mmHg <=5 Report Signatures
[2022-07-20] MEDS: LEVALBUTEROL NEB 1.25 MG/3 ML 0.63 MG INHALATION ×4 (02:50→20:57)
[2022-07-20] MEDS: IPRATROPIUM BR 0.02% INH SOLN 0.5 MG/2.5 ML VIAL INHALATION ×4 (02:50→20:57)
[2022-07-20] MEDS: ACETAMINOPHEN 325 MG TABLET 650 MG PO ×3 (04:57→14:22)
[2022-07-20 05:16] LABS: Hematocrit 21.6 % (37.0-47.0); Mean Corpuscular HGB Conc 30.1 g/dl (32-36); Mean Corpuscular Hemoglobin 31.9 pg (26-34); Mean Corpuscular Volume 105.9 fl (80-100); Mean Platelet Volume 12.6 fl (7.4-10.4); Platelet Count Result 185 k/mm3 (150-375); Red Blood Count 2.04 M/mm3 (4.2-5.4); Red Cell Distribution Width 20.2 % (11.5-14.5); White Blood Count 4.5 K/mm3 (4.5-10.0)
[2022-07-20 05:27] LABS: Hemoglobin 6.5 g/dL (12.0-15.0)
[2022-07-20 05:30] LABS: Alanine Aminotransferase 13 U/L (6-35); Albumin Level 3.6 g/dL (3.5-5.1); Alkaline Phosphatase 56 U/L (38-126); Anion Gap 8 mmol/L (8-16); Aspartate Amino Transferase 19 U/L (14-36); Bilirubin,Total 0.4 mg/dL (0.2-1.3); Blood Urea Nitrogen 46 mg/dL (7-17); Calcium 9.9 mg/dL (8.4-10.2); Carbon Dioxide 25 mmol/L (22-30); Chloride 107 mmol/L (98-107); Estimated CRCL calculation 14 ml/min; Estimated Glomerular Filt Rate 35; Glucose 132 mg/dL (65-110); Potassium 4.2 mmol/L (3.4-5.0); Sodium 140 mmol/L (137-145)
[2022-07-20 05:57] LABS: Thyroid Stimulating Hormone 0.584 uIU/mL (0.465-4.680)
[2022-07-20 06:03] LABS: Band Neutrophils Percent 16 % (0-6); Lymphocytes Absolute Manual 0.67 K/mm3 (1.1-4.5); Monocytes Absolute Manual 0.36 K/mm3 (0.1-0.90); Monocytes Percent Manual 8 % (3-9); Neutrophils Absolute Manual 3.46 K/mm3 (1.7-7.2); Neutrophils Percent Manual 61 % (46-73); Platelet Estimate Adequate (Adequate); Total Cells Counted 100
[2022-07-20 06:04] LABS: Anisocytosis 2+ (NORMAL)
[2022-07-20 06:05] LABS: Hypochromasia 2+ (NORMAL); Macrocytosis 1+ (NORMAL); Microcytosis 2+ (NORMAL); Ovalocytes 1+ (NORMAL); Poikilocytosis 2+ (NORMAL); Target Cells 1+ (NORMAL)
[2022-07-20 06:06] LABS: Schistocytes 1+ (NORMAL)
[2022-07-20] MEDS: LEVOTHYROXINE SODIUM 50 MCG TABLET PO (06:32)
[2022-07-20] MEDS: FLUTICASONE/UMECLIDIN/VILANTER 100-62.5-25 MCG ELLIPTA 1 PUFF INHALATION (07:50)
--- NOTE | 2022-07-20 08:03 | PM.IMPN ---
Progress Note: A&P Assessment and Plan (1) Anemia: Code(s): D64.9 - Anemia, unspecified Status: Chronic Assessment and Plan: Transfuse 2 units pRBCs, monitor fluid status, will give lasix in between Unsure of etiology, could be GI bleed? Check FOBT, start PPI, NPO, CT abd + pelvis (2) Pneumonia: Qualifiers: Laterality: unspecified laterality Lung location: unspecified part of lung Pneumonia type: due to unspecified organism Qualified Code(s): J18.9 - Pneumonia, unspecified organism Code(s): J18.9 - Pneumonia, unspecified organism Status: Acute Assessment and Plan: 07/18: Started on rocephin and azithromycin, blood cx NGTD, atelectasis vs pna on CXR 07/19: CRP 24.8 + PCT 7.7 quite elevated, recheck pending 07/20, AFVSS 07/20: Tmax 100, pulse ox stable on RA, recheck CXR, blood cultures, MRSA swab, add vancomycin + cefepime + levaquin, d/c rocephin + azithromycin, check COVID, flu, RSV, UA, add IS (3) Diastolic dysfunction: Code(s): I51.89 - Other ill-defined heart diseases Status: Acute Assessment and Plan: Hold lasix, daily weights, strict I&Os Right pleural effusion noted CXR 07/18 Prior echo 05/2021 showed an EF of 60-65% with grade 1 diastolic dysfunction severely calcified annulus of the mitral valve and no mention of further valvular disease or pulmonary hypertension noted Repeat echo pending (4) COPD with emphysema: Code(s): J43.9 - Emphysema, unspecified Status: Acute Assessment and Plan: Continue nebulizers, hold off on steroids for now (5) [id number] kidney injury: Qualifiers: Acute renal failure type: unspecified Chronic kidney disease stage: unspecified stage Qualified Code(s): N17.9 - Acute kidney failure, unspecified; N18.9 - Chronic kidney disease, unspecified Code(s): N17.9 - Acute kidney failure, unspecified; N18.9 - Chronic kidney disease, unspecified Status: Acute Assessment and Plan: Hold nephrotoxic agents, hold antihypertensives, creat continues to rise, will hold lasix for now, give 2 units pRBCs and reassess, may need lasix prn after transfusion, monitor fluid status closely Consult to nephrology pending, unsure why patient is on sodium bicarb + calcitriol, check PTH, calcium wnl (6) Tobacco dependence: Code(s): F17.200 - Nicotine dependence, unspecified, uncomplicated Status: Acute Assessment and Plan: Nicotine patch as needed (7) Hypothyroidism: Qualifiers: Hypothyroidism type: unspecified Qualified Code(s): E03.9 - Hypothyroidism, unspecified Code(s): E03.9 - Hypothyroidism, unspecified Status: Acute Assessment and Plan: Check TSH, cont levothyroxine H/o thyroidectomy for goiter (8) Hypertension: Code(s): I10 - Essential (primary) hypertension Status: Acute Assessment and Plan: Blood pressures reviewed 07/20, on the low side, hold clonidine (9) Psychiatric disorder: Code(s): F99 - Mental disorder, not otherwise specified Status: Acute Assessment and Plan: Unsure of underlying diagnosis, but patient on mirtazapine, olanzapine, nortriptyline, continue these for now (10) Headache: Code(s): R51.9 - Headache, unspecified Status: Acute Assessment and Plan: Tylenol prn, trialed benadryl + reglan + toradol yesterday without relief Check CT head STAT, no focal deficits, suspect tension headache? R/o bleed vs ischemic CVA? Plan H/o breast cancer noted in chart, unable to find details, h/o right lumpectomy H/o large, benign colon polyp s/p right hemicolectomy H/o lysis of adhesions and small bowel resection for SBO 06/19 DVT prophylaxis with SCDs GI prophylaxis not indicated Code status full code Subjective Date/time seen: 07/20/22 08:03 Interval history: 81 year old female with PMH for CKD, karis
[2022-07-20] MEDS: OLANZapine 5 MG TABLET 20 MG PO (08:20)
[2022-07-20] MEDS: PANTOPRAZOLE 40 MG TABLET PO (08:20)
[2022-07-20] MEDS: guaiFENesin 12 HR 600 MG TABCR PO ×2 (08:20→20:26)
[2022-07-20] MEDS: calcitrioL 0.25 MCG CAPSULE 0.5 MCG PO (08:20)
[2022-07-20] MEDS: BENZONATATE 100 MG CAPSULE 200 MG PO ×3 (08:20→16:48)
[2022-07-20] MEDS: SODIUM BICARBONATE TAB 650 MG TABLET 1300 MG PO ×3 (08:21→16:49)
[2022-07-20] MEDS: FUROSEMIDE INJ 40 MG/4 ML VIAL IV PUSH ×2 (08:21→16:48)
[2022-07-20] MEDS: cloNIDine HCL 0.1 MG TABLET PO (08:24)
[2022-07-20] MEDS: SODIUM CHLORIDE 0.9% IV 250 ML 30 ML IV CONT (08:25)
[2022-07-20 08:53] LABS: Hematocrit 21.9 % (37.0-47.0)
[2022-07-20 09:12] LABS: Hemoglobin 6.4 g/dL (12.0-15.0)
[2022-07-20 09:29] LABS: Iron 15 ug/dL (37-170)
[2022-07-20 09:39] LABS: Percent Iron Saturation 7 % (20-50)
[2022-07-20 10:12] LABS: Lactic Acid Reflex 2.3 mmol/L (0.7-2.0)
[2022-07-20] MEDS: TUBING, BLOOD PLUM PUMP TUBING 1 EACH XX ×2 (10:12→15:56)
[2022-07-20] MEDS: PANTOPRAZOLE SODIUM IV 40 MG VIAL IV PUSH ×2 (10:12→20:27)
[2022-07-20 10:30] LABS: Folic Acid 5.6 ng/mL (2.76->20)
--- NOTE | 2022-07-20 10:50 | PM.CNNEP ---
Assessment and Plan Assessment and plan (1) Chronic kidney disease, stage IV (severe): Code(s): N18.4 - Chronic kidney disease, stage 4 (severe) Status: Chronic Assessment and Plan: baseline creatinine running ~ 1.4 - 1.8mg/dl in the last 6 months if not longer follows with Dr. Juan C Young for management of CKD etiology of CKD thought to be secondary to hypertension and age-related change however, her extensive history of smoking as well as vascular disease likely playing a role follow trend of repeat labs (2) Pneumonia: Qualifiers: Laterality: unspecified laterality Lung location: unspecified part of lung Pneumonia type: due to unspecified organism Qualified Code(s): J18.9 - Pneumonia, unspecified organism Code(s): J18.9 - Pneumonia, unspecified organism Status: Acute Assessment and Plan: as suggested by admission imaging follow culture data on antibiotics follow respiratory status (3) Anemia: Code(s): D64.9 - Anemia, unspecified Status: Chronic Assessment and Plan: apparently a long standing issue/problem at least partly related to chronic kidney disease extensive GI work-up done including EGD and colonoscopy in the past follows with Hem/Onc and did have bone marrow biopsy (unknown results) she has required ongoing PRBC transfusions as needed will dose with Epogen while hospitalized (4) COPD with emphysema: Code(s): J43.9 - Emphysema, unspecified Status: Acute Assessment and Plan: continue breathing treatments supplemental oxygen PRN monitor respiratory status I will continue to follow the patient with you while he remains hospitalized and make further recommendations during his hospital course Thank you for allowing me to participate in care of this patient. History of Present Illness Reason for Consult Consult date: 07/20/22 Reason for consult: chronic renal failure Chief Complaint Chief complaint: Pneumonia History of Present Illness Narrative: The patient is an 81-year-old female with a past medical history as outlined below who presented to [facility] Emergency room with complaints of shortness of breath and cough. The patient reports that the cough has been nonproductive but persistent for last several days if not longer. Along with the shortness of breath, she is also reports a headache as well as generalized fatigue / malaise. She does have a known history of COPD and does state that her current shortness of breath does not appear to be improved by any other intervention and seems worse whenever she exerts herself. Given the persistence of the symptoms, she came to the emergency room for further assessment. Workup and evaluation in the emergency room demonstrated the patient to be hemodynamically stable and routine blood test demonstrated anemia which is somewhat chronic although somewhat better than baseline in comparison to her previous labs here at [facility] and her chemistry was significant for her known chronic kidney disease with no critical electrolyte abnormalities. Her EKG demonstrated tachycardia with no specific ischemic changes noted and her chest x-ray was somewhat suggestive of a possible pneumonia. She was subsequently started on IV antibiotic therapy for her presumed pneumonia after appropriate blood cultures were obtained and she was subsequently admitted to the hospital for further evaluation and therapy. Since her admission, her breathing/ respiratory status seems to be relatively stable if not improved but she still has not feel that she is back to baseline. Repeat labs showed that her creatinine is somewhat higher than what it was on admission as well. Renal consultation was requested due to her known history of chronic kidney disease. From what she tells me, she follows with Dr. Juan C Young at [facility] for management of her chronic
[2022-07-20 10:51] LABS: CRP 38.2 mg/dL (<1.0)
[2022-07-20 11:02] LABS: Influenza A QL RT-PCR Negative (Negative); Influenza B QL RT-PCR Negative (Negative); RSV RNA, RT-PCR Negative (Negative); SARS-CoV-2 RNA PCR Negative (Negative)
[2022-07-20 11:04] LABS: Procalcitonin 12.7 ng/mL
[2022-07-20 12:55] LABS: Reflex Lactic Acid Yes or No Add Lactic
[2022-07-20 13:53] LABS: Lactic Acid 1.4 mmol/L (0.7-2.0)
[2022-07-20 14:36] LABS: Appearance Urine Clear (Clear); Bilirubin Urine Negative (Negative); Blood Urine Negative (Negative); Color Urine Yellow (Yellow); Glucose Urine UA Negative (Negative); Ketones Urine Negative (Negative); Leukocyte Esterase Ur Negative LEU/UL (NEGATIVE); Nitrate Urine Negative (Negative); Protein Urine Negative (Negative); Specific Grav Ur 1.012 (1.001-1.035); Urobilinogen Urine 0.2 mg/dL (<2.0)
[2022-07-20 14:38] LABS: Add Urine Microscopic? NO
--- NOTE | 2022-07-20 15:20 | WPDGICN ---
Assessment and Plan Assessment and plan (1) Anemia: Code(s): D64.9 - Anemia, unspecified Status: Acute Assessment and Plan: patient has chronic anemia. Iron indices with a low iron, low TIBC elevated ferritin are consistent with anemia of chronic disease. Patient's folate B12 levels are normal. She does have chronic can do any disease suggesting this is the etiology for her chronic anemia. Patient had similar anemia 1 year ago when admitted to the hospital. She does have a history of bowel resection including small-bowel resection 1 year ago because of adhesions. She has distant history of right hemicolectomy for a lesion in the right colon the pathology which is unclear but described as being benign. At present suggest stool Hemoccult be obtained. I would defer invasive testing unless this is positive. Given her advanced age and poor medical condition invasive testing such as colonoscopy would be high risk in this elderly patient. (2) Chronic kidney disease, stage IV (severe): Code(s): N18.4 - Chronic kidney disease, stage 4 (severe) Status: Chronic (3) Pneumonia: Qualifiers: Laterality: unspecified laterality Lung location: unspecified part of lung Pneumonia type: due to unspecified organism Qualified Code(s): J18.9 - Pneumonia, unspecified organism Code(s): J18.9 - Pneumonia, unspecified organism Status: Acute (4) COPD with emphysema: Code(s): J43.9 - Emphysema, unspecified Status: Acute (5) History of bowel resection: Code(s): Z90.49 - Acquired absence of other specified parts of digestive tract Status: Acute GI Consult Note Consult date/time: 07/20/22 15:20 Reason for consult: Anemia HPI: Rachel Lazar is a 81 year old female I am asked to see at the request of the hospitalist service because of anemia. Patient admitted the hospital with pneumonia. Was found to have anemia. This appears to be chronic. Similar workup was identified 1 year ago. Patient denies any obvious blood in her stools. She denies abdominal pain. She does have a past medical history of chronic kidney disease. She has a history of a benign right colon lesion that required a right hemicolectomy in the distant past. One year ago underwent small bowel resection for adhesions and obstruction. Review of Systems Review of Systems: Review of systems noncontributory. PMFSH Past Medical History Medical History (Updated 07/20/22 @ 14:42 by Odalis Morton DO) Anxiety Cancer of right breast Status post lumpectomy and radiation therapy. Chronic kidney disease Baseline creatinine and GFR unknown. Diastolic dysfunction Emphysema of lung Hypertension Hypothyroidism Psychiatric disorder Tobacco dependence Vitamin D deficiency Surgical History Surgical History (Updated 07/20/22 @ 15:22 by Pepe Bender MD) History of colonoscopy with polypectomy History of exploratory laparotomy (06/01/21) With adhesiolysis and small-bowel resection for obstruction. History of lumpectomy of right breast History of right hemicolectomy For a large, benign colon polyp. History of thyroidectomy For treatment of a goiter. Family History Family History (Updated 07/19/22 @ 04:50 by Cindy Rogers RN) Father Emphysema lung Mother Cerebrovascular accident Social History Social History Social History: Surrogate decision maker: Stephanie Simental, daughter. Code status: Full code. Smoking packs per day: 1 Smoking cigarettes per day: 20.0 Years smoked: 50 Smoking pack-years: 50.00 Smoking status: Current every day smoker Tobacco type: cigarettes Second hand tobacco smoke exposure: No Smoking end date: 06/20/21 Alcohol intake: never Substance use: never Substance use type: does not use Lack of Transportation: No Lack of Food: Never True Current Housing: [facility] Have [facility]
[2022-07-20] MEDS: levoFLOXacin 250 MG/D5W 50 ML 250 MG/50 ML BAG 50 MG IVPB (15:56)
[2022-07-20] MEDS: CEFEPIME 1 GM/NS 50 ML 1 GM/50 ML BAG IVPB ×2 (15:56→20:26)
[2022-07-20] MEDS: ACETAMINOPHEN 500 MG TABLET 1000 MG PO (18:20)
--- NOTE | 2022-07-20 19:32 | PC.NURSE ---
Second unit of blood ([id number]) was started at 1725 during down time. Vitals were obtained at that time (1725), 15 minutes later (1740), at 1800, and 1900 by this nurse. Unable to back time/document blood start time at this time.
[2022-07-20] MEDS: MIRTAZAPINE 30 MG TABLET PO (20:27)
[2022-07-20] MEDS: NORTRIPTYLINE HCL 25 MG CAPSULE 50 MG PO (20:27)
[2022-07-21] VITALS (22 sets, daily range): BP systolic 122–159; BP diastolic 54–68; PULSE 89–108; RESP 16–20; TEMP 36.2–36.8; O2SAT 96–100
[2022-07-21] MEDS: IPRATROPIUM BR 0.02% INH SOLN 0.5 MG/2.5 ML VIAL INHALATION ×4 (02:40→20:43)
[2022-07-21] MEDS: LEVALBUTEROL NEB 1.25 MG/3 ML 0.63 MG INHALATION ×4 (02:40→20:43)
[2022-07-21] MEDS: ACETAMINOPHEN 500 MG TABLET 1000 MG PO ×3 (04:22→21:13)
[2022-07-21 05:14] LABS: Basophils Percent Auto 0.3 % (0.2-1.2); Eosinophils Percent Auto 0.4 % (0-4.4); Hemoglobin 10.5 g/dL (12.0-15.0); Immature Granulocyte Absolute 0.11 K/mm3 (0.00-0.031); Immature Granulocyte Percent A 1.6 % (0-0.5); Lymphocytes Absolute Auto 0.36 K/mm3 (0.9-3.2); Lymphocytes Percent Auto 5.1 % (18.3-44.2); Mean Corpuscular HGB Conc 32.8 g/dl (32-36); Mean Corpuscular Hemoglobin 30.6 pg (26-34); Mean Corpuscular Volume 93.3 fl (80-100); Mean Platelet Volume 12.7 fl (7.4-10.4); Monocytes Absolute Auto 1.8 K/mm3 (0.1-0.6); Neutrophils Absolute Auto 4.8 K/mm3 (1.3-6.7); Neutrophils Percent Auto 67.6 % (45.5-73.1); Nucleated Red Blood Cells Absolute Auto 0.1 K/mm3 (0.0-0.012); Nucleated Red Blood Cells Perc 1.4 % (0.0-0.2); Platelet Count Result 179 k/mm3 (150-375); Red Blood Count 3.43 M/mm3 (4.2-5.4); Red Cell Distribution Width 19.9 % (11.5-14.5); White Blood Count 7.1 K/mm3 (4.5-10.0)
[2022-07-21 05:25] LABS: Alanine Aminotransferase 13 U/L (6-35); Albumin Level 3.7 g/dL (3.5-5.1); Alkaline Phosphatase 64 U/L (38-126); Anion Gap 9 mmol/L (8-16); Aspartate Amino Transferase 19 U/L (14-36); Bilirubin,Total 0.6 mg/dL (0.2-1.3); Blood Urea Nitrogen 45 mg/dL (7-17); Calcium 9.9 mg/dL (8.4-10.2); Carbon Dioxide 28 mmol/L (22-30); Chloride 102 mmol/L (98-107); Estimated CRCL calculation 13 ml/min; Estimated Glomerular Filt Rate 33; Glucose 121 mg/dL (65-110); Potassium 3.6 mmol/L (3.4-5.0); Sodium 139 mmol/L (137-145)
[2022-07-21] MEDS: LEVOTHYROXINE SODIUM 50 MCG TABLET PO (05:27)
[2022-07-21 05:47] LABS: Platelet Clumps Present
[2022-07-21 05:48] LABS: Anisocytosis 1+ (NORMAL); Poikilocytosis 2+ (NORMAL)
[2022-07-21 05:49] LABS: Burr Cells 2+ (NORMAL); Schistocytes Rare (NORMAL)
[2022-07-21] MEDS: FLUTICASONE/UMECLIDIN/VILANTER 100-62.5-25 MCG ELLIPTA 1 PUFF INHALATION (07:26)
--- NOTE | 2022-07-21 08:32 | WPDGIPROGNO ---
Progress Note: A&P Assessment and Plan (1) Anemia: Code(s): D64.9 - Anemia, unspecified Status: Acute Assessment and Plan: Patient with chronic anemia. Patient was transfused with hemoglobin now 10.5. No evidence for active GI bleeding. Stool Hemoccult in progress. Likely related to chronic kidney disease. Nephrology following. She may need Epogen. (2) History of bowel resection: Code(s): Z90.49 - Acquired absence of other specified parts of digestive tract Status: Acute Assessment and Plan: Patient has a history of small-bowel obstruction. She has also had a previous right hemicolectomy. Good bowel function noted present. (3) Chronic kidney disease, stage IV (severe): Code(s): N18.4 - Chronic kidney disease, stage 4 (severe) Status: Chronic Assessment and Plan: Patient with stage 4 chronic kidney disease. Currently followed by renal service. Anemia likely on this basis. Subjective Date/time seen: 07/21/22 08:32 Interval history: Patient unchanged this morning. Appears comfortable at rest. No reported evidence for bleeding. Patient denies abdominal pain. Review of Systems Review of Systems: Review of systems noncontributory. Exam Narrative: Physical exam reveals patient be alert comfortable at rest. Vital signs stable. Lungs are clear. Heart without murmur. Abdomen bowel sounds present soft nontender with no organomegaly. Objective Data Vital Signs Vital Signs: Vital Signs - 24 hr 07/20/22 11:37 07/20/22 11:53 07/20/22 12:00 Temperature 97.8 F 97.6 F 98.6 F Pulse Rate 114 H 108 H 104 H Respiratory Rate 28 H 28 H 18 Blood Pressure 136/44 L 115/39 L 116/39 L Pulse Oximetry 97 91 92 Oxygen Delivery Oxygen Flow Rate Fraction of Inspired Oxygen 07/20/22 12:53 07/20/22 14:00 07/20/22 14:02 Temperature 98.2 F Pulse Rate 106 H 108 H Respiratory Rate 30 H 20 Blood Pressure 118/38 L Pulse Oximetry 87 L 92 Oxygen Delivery Nasal Cannula Oxygen Flow Rate 2 Fraction of Inspired Oxygen 07/20/22 14:14 07/20/22 10:00 07/20/22 12:00 Temperature Pulse Rate 111 H 113 H 113 H Respiratory Rate 20 Blood Pressure Pulse Oximetry Oxygen Delivery Oxygen Flow Rate Fraction of Inspired Oxygen 07/20/22 14:00 07/20/22 13:53 07/20/22 12:00 Temperature 98.9 F Pulse Rate 105 H 105 H Respiratory Rate 28 H Blood Pressure 131/45 L Pulse Oximetry 100 92 Oxygen Delivery Nasal Cannula Oxygen Flow Rate 2 Fraction of Inspired Oxygen 07/20/22 14:53 07/20/22 15:22 07/20/22 16:00 Temperature 97.6 F 98.6 F 98 F Pulse Rate 114 H 113 H 110 H Respiratory Rate 26 H 30 H 18 Blood Pressure 131/48 L 128/44 L 122/42 L Pulse Oximetry 97 98 97 Oxygen Delivery Oxygen Flow Rate Fraction of Inspired Oxygen 07/20/22 16:00 07/20/22 16:00 07/20/22 18:00 Temperature Pulse Rate 108 H 112 H Respiratory Rate Blood Pressure Pulse Oximetry 97 Oxygen Delivery Nasal Cannula Oxygen Flow Rate 2 Fraction of Inspired Oxygen 07/20/22 17:25 07/20/22 17:25 07/20/22 17:40 Temperature 97.3 F L 97.3 F L 97.3 F L Pulse Rate 107 H 107 H 105 H Respiratory Rate 26 H 26 H 30 H Blood Pressure 135/50 L 135/50 L 124/44 L Pulse Oximetry 98 98 100 Oxygen Delivery Oxygen Flow Rate Fraction of Inspired Oxygen 07/20/22 18:00 07/20/22 19:00 07/20/22 20:13 Temperature 98.6 F 98.3 F 97.6 F Pulse Rate 110 H 111 H 106 H Respiratory Rate 24 H 24 H 18 Blood Pressure 142/67 H 162/93 H 160/55 H Pulse Oximetry 100 98 100 Oxygen Delivery Oxygen Flow Rate Fraction of Inspired Oxygen 07/20/22 20:37 07/20/22 20:53 07/20/22 20:57 Temperature 98.1 F 97 F L Pulse Rate 99 98 100 Respiratory Rate 18 16 20 Blood Pressure 130/51 L 139/53 L Pulse Oximetry 100 100 Oxygen Delivery Oxygen Flow Rate Fraction of Inspired Oxygen 07/20/22 21:10
[2022-07-21] MEDS: PANTOPRAZOLE SODIUM IV 40 MG VIAL IV PUSH ×2 (08:59→21:14)
[2022-07-21] MEDS: guaiFENesin 12 HR 600 MG TABCR PO ×2 (08:59→21:14)
[2022-07-21] MEDS: calcitrioL 0.25 MCG CAPSULE 0.5 MCG PO (08:59)
[2022-07-21] MEDS: OLANZapine 5 MG TABLET 20 MG PO (08:59)
[2022-07-21] MEDS: BENZONATATE 100 MG CAPSULE 200 MG PO ×3 (08:59→16:54)
[2022-07-21] MEDS: SODIUM BICARBONATE TAB 650 MG TABLET 1300 MG PO ×3 (09:00→16:54)
[2022-07-21] MEDS: CEFEPIME 1 GM/NS 50 ML 1 GM/50 ML BAG IVPB ×2 (09:00→21:13)
--- NOTE | 2022-07-21 09:39 | P.CDI_ITS ---
CDI Query Clarification Request BMI 17.0 Nutritional Diagnostic Statement Severe protein calorie malnutrition related to chronic loss of appetite, as evidence by patient report of only eating one meal per day (intakes < 75% needs > 1 month); severe fat loss to temporalis, buccal and orbital fat pads; severe muscle wasting to temporalis, clavicles, backs of hands. Pleaser refer to the Comprehensive Nutrition Assessment for further information. Please clarify severity of protein calorie malnutrition: * Mild * Moderate * Severe * Other/Unspecified
[2022-07-21 12:53] LABS: Vancomycin Random 6.5 ug/mL (10-20)
--- NOTE | 2022-07-21 13:01 | PM.PNNEP ---
Progress Note: A&P Assessment and Plan (1) Chronic kidney disease, stage IV (severe): Code(s): N18.4 - Chronic kidney disease, stage 4 (severe) Status: Chronic Assessment and Plan: baseline creatinine running ~ 1.4 - 1.8mg/dl in the last 6 months if not longer follows with Dr. Juan C Young for management of CKD etiology of CKD thought to be secondary to hypertension and age-related change however, her extensive history of smoking as well as vascular disease likely playing a role follow trend of repeat labs (2) Pneumonia: Qualifiers: Laterality: unspecified laterality Lung location: unspecified part of lung Pneumonia type: due to unspecified organism Qualified Code(s): J18.9 - Pneumonia, unspecified organism Code(s): J18.9 - Pneumonia, unspecified organism Status: Acute Assessment and Plan: as suggested by admission imaging follow culture data on antibiotics follow respiratory status (3) Anemia: Code(s): D64.9 - Anemia, unspecified Status: Chronic Assessment and Plan: apparently a long standing issue/problem at least partly related to chronic kidney disease extensive GI work-up done in the past including EGD and colonoscopy follows with Hem/Onc and did have bone marrow biopsy (unknown results) she has required ongoing PRBC transfusions as needed in the past s/p PRBC transfusion on 07/20/22 dose with Epogen while hospitalized follow H/H (4) COPD with emphysema: Code(s): J43.9 - Emphysema, unspecified Status: Acute Assessment and Plan: continue breathing treatments supplemental oxygen PRN monitor respiratory status Will continue to follow. Subjective Date/time seen: 07/21/22 13:01 Interval history: Follow-up for chronic kidney disease. Renal function remains relatively stable and she tolerated PRBC transfusion yesterday with improvement in her H/H; seems to be doing better with regard to her shortness of breath in general; no other acute issues/events noted; seen by Gastroenterology with regard to her anemia. Exam Narrative: General: elderly but WD/WN AA female in NAD Heart: normal S1 and S2; no rub Lungs: coarse and decreased at bases Abdomen: soft, nontender, nondistended, positive bowel sounds Extremities: no cyanosis or clubbing; no edema Skin: warm and dry Objective Data Vital Signs Vital Signs: Vital Signs Temp Pulse Resp BP Pulse Ox O2 Del Method O2 Flow Rate 05/24/23 12:00 99 Nasal Cannula 2 07/21/22 12:00 93 07/21/22 13:00 92 20 07/21/22 12:00 97.2 F L 96 18 159/66 H 99 07/21/22 10:00 95 07/21/22 08:00 99 Nasal Cannula 2 07/21/22 08:00 95 07/21/22 07:47 97.5 F L 89 18 155/65 H 99 07/21/22 07:43 96 20 07/21/22 07:28 94 20 07/21/22 07:28 94 20 96 Nasal Cannula 2 07/21/22 06:00 96 07/21/22 04:00 97.9 F 105 H 20 146/54 H 97 07/21/22 04:00 108 H 20 100 Nasal Cannula 2 07/21/22 04:00 108 H 07/21/22 02:00 100 07/21/22 02:51 96 20 07/21/22 02:40 92 20 07/20/22 23:28 110 H 18 100 Nasal Cannula 2 07/20/22 23:28 111 H 07/20/22 23:08 97.9 F 106 H 18 131/50 L 100 07/20/22 22:00 109 H 07/20/22 20:00 103 H 20 100 Nasal Cannula 2 07/20/22 20:00 103 H 07/20/22 21:10 98 20 07/20/22 20:57 100 20 07/20/22 20:53 97 F L 98 16 139/53 L 100 07/20/22 20:37 98.1 F 99 18 130/51 L 100 07/20/22 20:13 97.6 F 106 H 18 160/55 H 100 07/20/22 19:00 98.3 F 111 H 24 H 162/93 H 98 07/20/22 18:00 98.6 F 110 H 24 H 142/67 H 100 07/20/22 17:40 97.3 F L 105 H 30 H 124/44 L 100 07/20/22 17:25 97.3 F L 107 H 26 H 135/50 L 98 07/20/22 17:25 97.3 F L 107 H 26 H 135/50 L 98 07/20/22 18:00 112 H 07/20/22 16:00 97 Nasal Cannula 2
--- NOTE | 2022-07-21 13:01 | P.PNNP_ITS ---
Progress Note: A&P Assessment and Plan (1) Chronic kidney disease, stage IV (severe): Code(s): N18.4 - Chronic kidney disease, stage 4 (severe) Status: Chronic Assessment and Plan: * baseline creatinine running ~ 1.4 - 1.8mg/dl in the last 6 months if not longer * follows with Dr. Juan C Young for management of CKD * etiology of CKD thought to be secondary to hypertension and age-related change * however, her extensive history of smoking as well as vascular disease likely playing a role * follow trend of repeat labs (2) Pneumonia: Qualifiers: Laterality: unspecified laterality Lung location: unspecified part of lung Pneumonia type: due to unspecified organism Qualified Code(s): J18.9 - Pneumonia, unspecified organism Code(s): J18.9 - Pneumonia, unspecified organism Status: Acute Assessment and Plan: * as suggested by admission imaging * follow culture data * on antibiotics * follow respiratory status (3) Anemia: Code(s): D64.9 - Anemia, unspecified Status: Chronic Assessment and Plan: * apparently a long standing issue/problem * at least partly related to chronic kidney disease * extensive GI work-up done in the past including EGD and colonoscopy * follows with Hem/Onc and did have bone marrow biopsy (unknown results) * she has required ongoing PRBC transfusions as needed in the past * s/p PRBC transfusion on 07/20/22 * dose with Epogen while hospitalized * follow H/H (4) COPD with emphysema: Code(s): J43.9 - Emphysema, unspecified Status: Acute Assessment and Plan: * continue breathing treatments * supplemental oxygen PRN * monitor respiratory status Will continue to follow. Subjective Date/time seen: 07/21/22 13:01 Interval history: Follow-up for chronic kidney disease. Renal function remains relatively stable and she tolerated PRBC transfusion yesterday with improvement in her H/H; seems to be doing better with regard to her shortness of breath in general; no other acute issues/events noted; seen by Gastroenterology with regard to her anemia. Exam Narrative: General: elderly but WD/WN AA female in NAD Heart: normal S1 and S2; no rub Lungs: coarse and decreased at bases Abdomen: soft, nontender, nondistended, positive bowel sounds Extremities: no cyanosis or clubbing; no edema Skin: warm and dry Objective Data Vital Signs Vital Signs: Vital Signs Temp Pulse Resp BP Pulse Ox O2 Del Method O2 Flow Rate 07/21/22 12:00 99 Nasal Cannula 2 07/21/22 12:00 93 07/21/22 13:00 92 20 07/21/22 12:00 97.2 F L 96 18 159/66 H 99 07/21/22 10:00 95 07/21/22 08:00 99 Nasal Cannula 2 07/21/22 08:00 95 07/21/22 07:47 97.5 F L 89 18 155/65 H 99 07/21/22 07:43 96 20 07/21/22 07:28 94 20 07/21/22 07:28 94 20 96 Nasal Cannula 2 07/21/22 06:00 96 07/21/22 04:00 97.9 F 105 H 20 146/54 H 97 07/21/22 04:00 108 H 20 100 Nasal Cannula 2 07/21/22 04:00 108 H 07/21/22 02:00 100 07/21/22 02:51 96 20 07/21/22 02:40 92 20 07/20/22 23:28 110 H 18 100 Nasal Cannula 2 07/20/22 23:28 111 H 07/20/22 23:08 97.9 F 106 H 18
[2022-07-21] MEDS: VANCOMYCIN 1,000 MG/NS 250 ML 1,000 MG/250 ML BAG 250 MG IVPB (13:55)
[2022-07-21] MEDS: EPOETIN ALFA-EPBX 10,000 UNITS/ML VIAL 20000 UNITS SUB-Q (15:05)
--- NOTE | 2022-07-21 16:08 | PM.IMPN ---
Progress Note: A&P Assessment and Plan (1) Anemia: Code(s): D64.9 - Anemia, unspecified Status: Chronic Assessment and Plan: Hemoglobin 6.4 yesterday. She was transfused 2 units pRBCs Unsure of etiology, could be GI bleed? Iron studies more likely anemia of chronic disease. B12 low end of normal so will replace. Stool guaiac ordered. CT of the abdomen pelvis showing hepatomegaly and diffuse mild small bowel dilatation which may reflect ileus. GI has been consulted. Continue Protonix. (2) Pneumonia: Qualifiers: Laterality: unspecified laterality Lung location: unspecified part of lung Pneumonia type: due to unspecified organism Qualified Code(s): J18.9 - Pneumonia, unspecified organism Code(s): J18.9 - Pneumonia, unspecified organism Status: Acute Assessment and Plan: Chest x-ray 07/18 showing right middle lobe opacity. Started on rocephin and azithromycin, blood cx NGTD. CRP 24.8 + PCT 7.[address] of the abdomen shows left lobe opacities concerning for pneumonia with atelectasis/consolidation in the right lower lobe. She also has a small right pleural effusion. She was having low-grade fevers and antibiotics were switched to vancomycin + cefepime + levaquin. White count remaining normal. No longer having fevers. Repeat blood cultures no growth to date. MRSA nasal swab is pending. Wean oxygen as tolerated (3) Diastolic dysfunction: Code(s): I51.89 - Other ill-defined heart diseases Status: Acute Assessment and Plan: Echo EF of 65-70% with grade 1 diastolic dysfunction and mild pulmonary hypertension Hold lasix. Continue daily weights, strict I&Os Right pleural effusion noted (4) COPD with emphysema: Code(s): J43.9 - Emphysema, unspecified Status: Acute Assessment and Plan: No wheezing. Continue nebulizers, hold off on steroids for now (5) Mqdmc-[id number]-ikefekj kidney injury: Qualifiers: Acute renal failure type: unspecified Chronic kidney disease stage: unspecified stage Qualified Code(s): N17.9 - Acute kidney failure, unspecified; N18.9 - Chronic kidney disease, unspecified Code(s): N17.9 - Acute kidney failure, unspecified; N18.9 - Chronic kidney disease, unspecified Status: Acute Assessment and Plan: Cr 1.6 earlier this month. Cr 1.6 on admission but climbed to 1.8 today. patient is on sodium bicarb + calcitriol. Holding nephrotoxic agents. Nephrology consulted appreciate their input. (6) Tobacco dependence: Code(s): F17.200 - Nicotine dependence, unspecified, uncomplicated Status: Acute Assessment and Plan: Patient was educated about the benefits of smoking cessation. (7) Hypothyroidism: Qualifiers: Hypothyroidism type: unspecified Qualified Code(s): E03.9 - Hypothyroidism, unspecified Code(s): E03.9 - Hypothyroidism, unspecified Status: Acute Assessment and Plan: H/o thyroidectomy for goiter. TSH normal. Cont levothyroxine (8) Hypertension: Code(s): I10 - Essential (primary) hypertension Status: Acute Assessment and Plan: Patient's blood pressure was reviewed on 07/20 Blood pressure remains well controlled. Will continue to monitor. Clonidine remains on hold (9) Psychiatric disorder: Code(s): F99 - Mental disorder, not otherwise specified Status: Acute Assessment and Plan: Unsure of underlying diagnosis, but patient on mirtazapine, olanzapine, nortriptyline Continue these for now (10) Headache: Code(s): R51.9 - Headache, unspecified Status: Acute Assessment and Plan: Tylenol prn, trialed benadryl + reglan + toradol yesterday without relief Check CT head STAT, no focal deficits, suspect tension headache; consider rebound TREJO Continue Tylenol prn Plan H/o breast cancer noted in chart, unable to find details, h/o right lumpectomy H/o
[2022-07-21] MEDS: CYANOCOBALAMIN INJ 1,000 MCG/ML VIAL 1000 MCG IM (16:53)
[2022-07-21] MEDS: NORTRIPTYLINE HCL 25 MG CAPSULE 50 MG PO (21:14)
[2022-07-21] MEDS: MIRTAZAPINE 30 MG TABLET PO (21:14)
[2022-07-22] VITALS (18 sets, daily range): BP systolic 145–176; BP diastolic 56–68; PULSE 89–110; RESP 16–22; TEMP 36.2–36.7; O2SAT 93–100
[2022-07-22] MEDS: LEVALBUTEROL NEB 1.25 MG/3 ML 0.63 MG INHALATION ×3 (01:37→20:34)
[2022-07-22] MEDS: IPRATROPIUM BR 0.02% INH SOLN 0.5 MG/2.5 ML VIAL INHALATION ×3 (01:37→20:33)
[2022-07-22 04:49] LABS: Basophils Percent Auto 0.5 % (0.2-1.2); Eosinophils Absolute Auto 0.1 K/mm3 (0-0.3); Eosinophils Percent Auto 2.3 % (0-4.4); Hematocrit 32.7 % (37.0-47.0); Hemoglobin 10.4 g/dL (12.0-15.0); Immature Granulocyte Absolute 0.19 K/mm3 (0.00-0.031); Immature Granulocyte Percent A 3.3 % (0-0.5); Lymphocytes Absolute Auto 0.22 K/mm3 (0.9-3.2); Lymphocytes Percent Auto 3.8 % (18.3-44.2); Mean Corpuscular HGB Conc 31.8 g/dl (32-36); Mean Corpuscular Hemoglobin 29.8 pg (26-34); Mean Corpuscular Volume 93.7 fl (80-100); Monocytes Absolute Auto 1.3 K/mm3 (0.1-0.6); Monocytes Percent Auto 22.6 % (2.6-8.5); Neutrophils Absolute Auto 3.9 K/mm3 (1.3-6.7); Neutrophils Percent Auto 67.5 % (45.5-73.1); Nucleated Red Blood Cells Absolute Auto 0.2 K/mm3 (0.0-0.012); Nucleated Red Blood Cells Perc 3.1 % (0.0-0.2); Platelet Count Result 197 k/mm3 (150-375); Red Blood Count 3.49 M/mm3 (4.2-5.4); Red Cell Distribution Width 20.3 % (11.5-14.5); White Blood Count 5.7 K/mm3 (4.5-10.0)
[2022-07-22 05:18] LABS: Acanthocytes 2+ (NORMAL); Anisocytosis 1+ (NORMAL); Ovalocytes 1+ (NORMAL); Platelet Estimate Adequate (Adequate); Schistocytes Rare (NORMAL)
[2022-07-22 05:27] LABS: Alanine Aminotransferase 16 U/L (6-35); Albumin Level 3.6 g/dL (3.5-5.1); Alkaline Phosphatase 72 U/L (38-126); Anion Gap 8 mmol/L (8-16); Aspartate Amino Transferase 25 U/L (14-36); Bilirubin,Total 0.6 mg/dL (0.2-1.3); Blood Urea Nitrogen 42 mg/dL (7-17); Calcium 10.4 mg/dL (8.4-10.2); Carbon Dioxide 30 mmol/L (22-30); Chloride 104 mmol/L (98-107); Estimated CRCL calculation 16 ml/min; Estimated Glomerular Filt Rate 40; Glucose 125 mg/dL (65-110); Magnesium 2.2 mg/dL (1.6-2.3); Phosphorus 3.1 mg/dL (2.5-4.5); Potassium 3.8 mmol/L (3.4-5.0); Sodium 142 mmol/L (137-145)
[2022-07-22 05:37] LABS: CRP 33.6 mg/dL (<1.0)
[2022-07-22] MEDS: LEVOTHYROXINE SODIUM 50 MCG TABLET PO (05:52)
[2022-07-22] MEDS: ACETAMINOPHEN 500 MG TABLET 1000 MG PO ×2 (05:52→18:00)
[2022-07-22] MEDS: levoFLOXacin 250 MG/D5W 50 ML 250 MG/50 ML BAG 50 MG IVPB (09:29)
[2022-07-22] MEDS: PANTOPRAZOLE SODIUM IV 40 MG VIAL IV PUSH ×2 (09:32→21:15)
[2022-07-22] MEDS: OLANZapine 5 MG TABLET 20 MG PO (09:33)
[2022-07-22] MEDS: BENZONATATE 100 MG CAPSULE 200 MG PO ×3 (09:33→18:00)
[2022-07-22] MEDS: calcitrioL 0.25 MCG CAPSULE 0.5 MCG PO (09:33)
[2022-07-22] MEDS: guaiFENesin 12 HR 600 MG TABCR PO ×2 (09:33→21:16)
[2022-07-22] MEDS: CYANOCOBALAMIN 1,000 MCG TABLET 1000 MCG PO (09:34)
[2022-07-22] MEDS: SODIUM BICARBONATE TAB 650 MG TABLET 1300 MG PO ×3 (09:34→21:15)
[2022-07-22] MEDS: FLUTICASONE/UMECLIDIN/VILANTER 100-62.5-25 MCG ELLIPTA 1 PUFF INHALATION (09:51)
--- NOTE | 2022-07-22 10:10 | PM.IMPN ---
Progress Note: A&P Assessment and Plan (1) Anemia: Code(s): D64.9 - Anemia, unspecified Status: Chronic Assessment and Plan: Hemoglobin dropped to 6.4 on 07/20 and was transfused 2 units pRBCs Unsure of etiology, could be GI bleed? Iron studies more likely anemia of chronic disease. B12 low end of normal so this was replaced. Stool guaiac ordered. CT of the abdomen pelvis showing hepatomegaly and diffuse mild small bowel dilatation which may reflect ileus. But KUB todayt showing nonspecific bowel gas pattern. Diet started yesterday. GI following. Continue Protonix. Miralax added. Advance diet? (2) Pneumonia: Qualifiers: Laterality: unspecified laterality Lung location: unspecified part of lung Pneumonia type: due to unspecified organism Qualified Code(s): J18.9 - Pneumonia, unspecified organism Code(s): J18.9 - Pneumonia, unspecified organism Status: Acute Assessment and Plan: Chest x-ray 07/18 showing right middle lobe opacity. Started on rocephin and azithromycin. CRP 24.8 + PCT 7.7. CT of the abdomen shows left lobe opacities concerning for pneumonia with atelectasis/consolidation in the right lower lobe. She also has a small right pleural effusion. She was having low-grade fevers and antibiotics were switched to vancomycin + cefepime + Levaquin. White count remaining normal and CRP/PCT levels trending down. No longer having fevers. Repeat blood cultures no growth to date. MRSA nasal swab is pending. Wean oxygen as tolerated (3) Diastolic dysfunction: Code(s): I51.89 - Other ill-defined heart diseases Status: Acute Assessment and Plan: Echo EF of 65-70% with grade 1 diastolic dysfunction and mild pulmonary hypertension Holding lasix. Continue daily weights, strict I&Os Right pleural effusion noted (4) COPD with emphysema: Code(s): J43.9 - Emphysema, unspecified Status: Acute Assessment and Plan: No wheezing. Continue nebulizers, hold off on steroids for now (5) Atswr-fj-lpbgtic kidney injury: Qualifiers: Acute renal failure type: unspecified Chronic kidney disease stage: unspecified stage Qualified Code(s): N17.9 - Acute kidney failure, unspecified; N18.9 - Chronic kidney disease, unspecified Code(s): N17.9 - Acute kidney failure, unspecified; N18.9 - Chronic kidney disease, unspecified Status: Acute Assessment and Plan: Cr 1.6 earlier this month. Cr 1.6 on admission but climbed to 1.8. patient is on sodium bicarb + calcitriol. Holding nephrotoxic agents. Cr back down. Potassium normal. Serum bicarb 30. Nephrology consulted appreciate their input. (6) Tobacco dependence: Code(s): F17.200 - Nicotine dependence, unspecified, uncomplicated Status: Acute Assessment and Plan: Patient was educated about the benefits of smoking cessation. (7) Hypothyroidism: Qualifiers: Hypothyroidism type: unspecified Qualified Code(s): E03.9 - Hypothyroidism, unspecified Code(s): E03.9 - Hypothyroidism, unspecified Status: Acute Assessment and Plan: H/o thyroidectomy for goiter. TSH normal. Cont levothyroxine (8) Hypertension: Code(s): I10 - Essential (primary) hypertension Status: Acute Assessment and Plan: Patient's blood pressure was reviewed on 07/22 Blood pressure elevated at times Will continue to monitor. Clonidine remains on hold (9) Psychiatric disorder: Code(s): F99 - Mental disorder, not otherwise specified Status: Acute Assessment and Plan: Unsure of underlying diagnosis but patient on mirtazapine, olanzapine, nortriptyline Continue home meds. (10) Headache: Code(s): R51.9 - Headache, unspecified Status: Acute Assessment and Plan: Tylenol prn, trialed benadryl + reglan + toradol without relief CT head showing no focal deficits Suspect tension headache; co
[2022-07-22] MEDS: CEFEPIME 1 GM/NS 50 ML 1 GM/50 ML BAG IVPB ×2 (10:26→21:16)
--- NOTE | 2022-07-22 12:58 | WPDGIPROGNO ---
Progress Note: A&P Assessment and Plan (1) Anemia: Code(s): D64.9 - Anemia, unspecified Status: Acute Assessment and Plan: Patient with chronic anemia attributed to kidney disease. Stool Hemoccult pending. Iron studies consistent with chronic disease. Okay with me to advance diet as tolerated. (2) Chronic kidney disease, stage IV (severe): Code(s): N18.4 - Chronic kidney disease, stage 4 (severe) Status: Chronic Assessment and Plan: Kidney disease appears to be etiology for her chronic anemia. (3) History of bowel resection: Code(s): Z90.49 - Acquired absence of other specified parts of digestive tract Status: Acute Assessment and Plan: Patient has a distant history of bowel resection and adhesions causing small bowel obstruction at 1 point. She has healed well from the surgeries. (4) Pneumonia: Qualifiers: Laterality: unspecified laterality Lung location: unspecified part of lung Pneumonia type: due to unspecified organism Qualified Code(s): J18.9 - Pneumonia, unspecified organism Code(s): J18.9 - Pneumonia, unspecified organism Status: Acute Assessment and Plan: Patient admitted with pneumonia. Clinically appears to be improving. (5) Psychiatric disorder: Code(s): F99 - Mental disorder, not otherwise specified Status: Acute Subjective Date/time seen: 07/22/22 12:58 Interval history: Patient admitted the hospital with pneumonia. Continues to have chronic anemia. Was transfused yesterday. No additional signs of bleeding. Previous GI workup noncontributory. She has a distant history of colon surgery on the right. Has a history of small-bowel obstruction in the past. Has underlying chronic kidney disease presumed to be the basis of her ongoing chronic anemia. Review of Systems Review of Systems: Review of systems noncontributory. Exam Narrative: Physical exam reveals abdomen being soft nontender with no organomegaly. Objective Data Vital Signs Vital Signs: Vital Signs - 24 hr 07/21/22 13:00 07/21/22 13:13 07/21/22 14:00 Temperature Pulse Rate 92 96 97 Respiratory Rate 20 20 Blood Pressure Pulse Oximetry Oxygen Delivery Oxygen Flow Rate Fraction of Inspired Oxygen 07/21/22 16:00 07/21/22 16:00 07/21/22 16:00 Temperature 98.2 F Pulse Rate 92 92 Respiratory Rate 20 Blood Pressure 146/59 H Pulse Oximetry 96 99 Oxygen Delivery Nasal Cannula Oxygen Flow Rate 2 Fraction of Inspired Oxygen 07/21/22 18:00 07/21/22 19:53 07/21/22 20:44 Temperature 97.9 F Pulse Rate 98 95 94 Respiratory Rate 20 18 Blood Pressure 145/65 H Pulse Oximetry 100 Oxygen Delivery Oxygen Flow Rate Fraction of Inspired Oxygen 07/21/22 20:51 07/21/22 20:00 07/21/22 20:00 Temperature Pulse Rate 95 93 93 Respiratory Rate 18 18 Blood Pressure Pulse Oximetry 100 Oxygen Delivery Nasal Cannula Oxygen Flow Rate 2 Fraction of Inspired Oxygen 28 07/21/22 22:00 07/21/22 23:20 07/22/22 00:00 Temperature 97.8 F Pulse Rate 92 105 H 99 Respiratory Rate 16 Blood Pressure 122/68 Pulse Oximetry 100 Oxygen Delivery Oxygen Flow Rate Fraction of Inspired Oxygen 07/22/22 00:00 07/22/22 01:37 07/22/22 01:50 Temperature Pulse Rate 99 89 91 Respiratory Rate 16 18 18 Blood Pressure Pulse Oximetry 100 Oxygen Delivery Nasal Cannula Oxygen Flow Rate 2 Fraction of Inspired Oxygen 07/22/22 02:00 07/22/22 04:00 07/22/22 04:00 Temperature 98.1 F Pulse Rate 110 H 98 99 Respiratory Rate 18 Blood Pressure 145/66 H Pulse Oximetry 100 Oxygen Delivery Oxygen Flow Rate Fraction of Inspired Oxygen 07/22/22 04:00 07/22/22 06:00 07/22/22 08:00 Temperature 97.4 F L Pulse Rate 98 92 95 Respiratory Rate 18 20 Blood Pressure 161/68 H Pulse Oximetry 100 98 Oxygen Deliver
[2022-07-22] MEDS: BISACODYL 10 MG SUPPOSITORY RECTAL (13:03)
--- NOTE | 2022-07-22 13:10 | P.PNNP_ITS ---
Progress Note: A&P Assessment and Plan (1) Chronic kidney disease, stage IV (severe): Code(s): N18.4 - Chronic kidney disease, stage 4 (severe) Status: Chronic Assessment and Plan: * baseline creatinine running ~ 1.4 - 1.8mg/dl in the last 6 months if not longer * follows with Dr. Juan C Young for management of CKD * etiology of CKD thought to be secondary to hypertension and age-related change * however, her extensive history of smoking as well as vascular disease likely playing a role * follow trend of repeat labs (2) Pneumonia: Qualifiers: Laterality: unspecified laterality Lung location: unspecified part of lung Pneumonia type: due to unspecified organism Qualified Code(s): J18.9 - Pneumonia, unspecified organism Code(s): J18.9 - Pneumonia, unspecified organism Status: Acute Assessment and Plan: * as suggested by admission imaging * follow culture data * on antibiotics * follow respiratory status (3) Anemia: Code(s): D64.9 - Anemia, unspecified Status: Chronic Assessment and Plan: * apparently a long standing issue/problem * at least partly related to chronic kidney disease * extensive GI work-up done in the past including EGD and colonoscopy * follows with Hem/Onc and did have bone marrow biopsy (unknown results) * she has required ongoing PRBC transfusions as needed in the past * s/p PRBC transfusion on 07/20/22 * Gastroenterology following * dose with Epogen while hospitalized * follow H/H (4) COPD with emphysema: Code(s): J43.9 - Emphysema, unspecified Status: Acute Assessment and Plan: * continue breathing treatments * supplemental oxygen PRN * monitor respiratory status Will continue to follow. Subjective Date/time seen: 07/22/22 13:10 Interval history: Follow-up for chronic kidney disease. Renal function as well as H/H remain relatively stable at this time; breathing/shortness of breath is better but still has non-productive cough; some intermittent abdominal pain but able to tolerate oral intake at this time; no other issues/events overnight or earlier this morning. Exam Narrative: General: elderly but WD/WN AA female in NAD Heart: normal S1 and S2; no rub Lungs: coarse and decreased at bases Abdomen: soft, nontender, nondistended, positive bowel sounds Extremities: no cyanosis or clubbing; no edema Skin: warm and intact Objective Data Vital Signs Vital Signs: Vital Signs Temp Pulse Resp BP Pulse Ox O2 Del Method O2 Flow Rate 07/22/22 12:00 97.7 F 105 H 22 H 160/66 H 98 07/22/22 13:06 Nasal Cannula 2 07/22/22 12:00 107 H 07/22/22 10:00 110 H 07/22/22 14:17 Nasal Cannula 2 07/22/22 08:00 94 07/22/22 10:01 97 07/22/22 09:45 103 H 18 07/22/22 09:40 96 Nasal Cannula 2 07/22/22 08:00 97.4 F L 95 20 161/68 H 98 07/22/22 06:00 92 07/22/22 04:00 98 18 100 Nasal Cannula 2 07/22/22 04:00 99 07/22/22 04:00 98.1 F 98 18 145/66 H 100 07/22/22 02:00 110 H 07/22/22 01:50 91 18 07/22/22 01:37 89 18 07/22/22 00:00 99 16 100 Nasal Cannula 2 07/22/22 00:00 99 07/21/22 23:20 97.8 F 105 H 16 122/68 100
--- NOTE | 2022-07-22 13:10 | PM.PNNEP ---
Progress Note: A&P Assessment and Plan (1) Chronic kidney disease, stage IV (severe): Code(s): N18.4 - Chronic kidney disease, stage 4 (severe) Status: Chronic Assessment and Plan: baseline creatinine running ~ 1.4 - 1.8mg/dl in the last 6 months if not longer follows with Dr. Juan C Young for management of CKD etiology of CKD thought to be secondary to hypertension and age-related change however, her extensive history of smoking as well as vascular disease likely playing a role follow trend of repeat labs (2) Pneumonia: Qualifiers: Laterality: unspecified laterality Lung location: unspecified part of lung Pneumonia type: due to unspecified organism Qualified Code(s): J18.9 - Pneumonia, unspecified organism Code(s): J18.9 - Pneumonia, unspecified organism Status: Acute Assessment and Plan: as suggested by admission imaging follow culture data on antibiotics follow respiratory status (3) Anemia: Code(s): D64.9 - Anemia, unspecified Status: Chronic Assessment and Plan: apparently a long standing issue/problem at least partly related to chronic kidney disease extensive GI work-up done in the past including EGD and colonoscopy follows with Hem/Onc and did have bone marrow biopsy (unknown results) she has required ongoing PRBC transfusions as needed in the past s/p PRBC transfusion on 07/20/22 Gastroenterology following dose with Epogen while hospitalized follow H/H (4) COPD with emphysema: Code(s): J43.9 - Emphysema, unspecified Status: Acute Assessment and Plan: continue breathing treatments supplemental oxygen PRN monitor respiratory status Will continue to follow. Subjective Date/time seen: 07/22/22 13:10 Interval history: Follow-up for chronic kidney disease. Renal function as well as H/H remain relatively stable at this time; breathing/shortness of breath is better but still has non-productive cough; some intermittent abdominal pain but able to tolerate oral intake at this time; no other issues/events overnight or earlier this morning. Exam Narrative: General: elderly but WD/WN AA female in NAD Heart: normal S1 and S2; no rub Lungs: coarse and decreased at bases Abdomen: soft, nontender, nondistended, positive bowel sounds Extremities: no cyanosis or clubbing; no edema Skin: warm and intact Objective Data Vital Signs Vital Signs: Vital Signs Temp Pulse Resp BP Pulse Ox O2 Del Method O2 Flow Rate 07/22/22 12:00 97.7 F 105 H 22 H 160/66 H 98 07/22/22 13:06 Nasal Cannula 2 07/22/22 12:00 107 H 07/22/22 10:00 110 H 07/22/22 14:17 Nasal Cannula 2 07/22/22 08:00 94 07/22/22 10:01 97 07/22/22 09:45 103 H 18 07/22/22 09:40 96 Nasal Cannula 2 07/22/22 08:00 97.4 F L 95 20 161/68 H 98 07/22/22 06:00 92 07/22/22 04:00 98 18 100 Nasal Cannula 2 07/22/22 04:00 99 07/22/22 04:00 98.1 F 98 18 145/66 H 100 07/22/22 02:00 110 H 07/22/22 01:50 91 18 07/22/22 01:37 89 18 07/22/22 00:00 99 16 100 Nasal Cannula 2 07/22/22 00:00 99 07/21/22 23:20 97.8 F 105 H 16 122/68 100 07/21/22 22:00 92 07/21/22 20:00 93 18 100 Nasal Cannula 2 07/21/22 20:00 93 07/21/22 20:51 95 18 07/21/22 20:44 94 18 07/21/22 19:53 97.9 F 95 20 145/65 H 100 07/21/22 18:00 98 07/21/22 16:00 92 07/21/22 16:00 98.2 F 92 20 146/59 H 99 07/21/22 16:00 96 Nasal Cannula 2 Intake/Output Intake/Output: Intake & Output 07/19/22 07/20/22 07/21/22 07/22/22 23:59 23:59 23:59 23:59 Intake Total 940 1640 1090 600 Output Total 0 850 300 300 Balance 940 790 790 300 Meds/Results Medications: Active Medications Generic Name Dose Route Start Last Admin Trade Name Freq PRN Reason
[2022-07-22] MEDS: VANCOMYCIN 1,000 MG/NS 250 ML 1,000 MG/250 ML BAG 250 MG IVPB (14:32)
--- NOTE | 2022-07-22 14:52 | PC.NURSE ---
This patient, Rachel Lazar, was transferred to [facility] on 07/22/22 at 1445. Personal belongings sent with patient. Report given to RN. Appropriate documentation sent with patient.
--- NOTE | 2022-07-22 15:02 | PC.NURSE ---
This patient, Rachel Lazar, was received from IMU on 07/22/22 at 1450. Patient/family oriented to unit policies and routines.
--- NOTE | 2022-07-22 16:33 | PCPTNOTE ---
On 07/22/22, the student, [ Yaquelin Hubbard], provided care and completed [facility] documentation on this patient. I have reviewed the student's documentation and agree with the findings.
[2022-07-22] MEDS: MIRTAZAPINE 30 MG TABLET PO (21:16)
[2022-07-22] MEDS: NORTRIPTYLINE HCL 25 MG CAPSULE 50 MG PO (21:16)
[2022-07-23] VITALS (12 sets, daily range): BP systolic 145–167; BP diastolic 55–64; PULSE 95–108; RESP 16–24; TEMP 36.4–36.7; O2SAT 90–100
[2022-07-23] MEDS: IPRATROPIUM BR 0.02% INH SOLN 0.5 MG/2.5 ML VIAL INHALATION ×3 (02:42→14:08)
[2022-07-23] MEDS: LEVALBUTEROL NEB 1.25 MG/3 ML 0.63 MG INHALATION ×3 (02:42→14:08)
[2022-07-23] MEDS: ACETAMINOPHEN 500 MG TABLET 1000 MG PO (03:07)
[2022-07-23 05:35] LABS: Basophils Absolute Auto 0.1 K/mm3 (0.0-0.1); Basophils Percent Auto 1.5 % (0.2-1.2); Eosinophils Absolute Auto 0.2 K/mm3 (0-0.3); Eosinophils Percent Auto 3.2 % (0-4.4); Hematocrit 32.8 % (37.0-47.0); Hemoglobin 10.4 g/dL (12.0-15.0); Immature Granulocyte Absolute 0.69 K/mm3 (0.00-0.031); Immature Platelet Fraction Pct 13.3 % (0.9-11.2); Lymphocytes Absolute Auto 0.52 K/mm3 (0.9-3.2); Lymphocytes Percent Auto 7.6 % (18.3-44.2); Mean Corpuscular HGB Conc 31.7 g/dl (32-36); Mean Corpuscular Hemoglobin 30.2 pg (26-34); Mean Corpuscular Volume 95.3 fl (80-100); Mean Platelet Volume 12.9 fl (7.4-10.4); Monocytes Absolute Auto 1.8 K/mm3 (0.1-0.6); Monocytes Percent Auto 26.2 % (2.6-8.5); Neutrophils Absolute Auto 3.5 K/mm3 (1.3-6.7); Neutrophils Percent Auto 51.5 % (45.5-73.1); Nucleated Red Blood Cells Absolute Auto 0.3 K/mm3 (0.0-0.012); Nucleated Red Blood Cells Perc 3.6 % (0.0-0.2); Platelet Count Result 243 k/mm3 (150-375); Red Blood Count 3.44 M/mm3 (4.2-5.4); Red Cell Distribution Width 19.9 % (11.5-14.5); White Blood Count 6.9 K/mm3 (4.5-10.0)
[2022-07-23 05:44] LABS: Alanine Aminotransferase 32 U/L (6-35); Albumin Level 3.7 g/dL (3.5-5.1); Alkaline Phosphatase 87 U/L (38-126); Anion Gap 6 mmol/L (8-16); Aspartate Amino Transferase 35 U/L (14-36); Bilirubin,Total 0.5 mg/dL (0.2-1.3); Blood Urea Nitrogen 34 mg/dL (7-17); Calcium 10.2 mg/dL (8.4-10.2); Carbon Dioxide 29 mmol/L (22-30); Chloride 104 mmol/L (98-107); Estimated CRCL calculation 20 ml/min; Estimated Glomerular Filt Rate 52; Glucose 136 mg/dL (65-110); Sodium 139 mmol/L (137-145)
[2022-07-23] MEDS: LEVOTHYROXINE SODIUM 50 MCG TABLET PO (06:07)
[2022-07-23 06:46] LABS: Platelet Estimate Adequate (Adequate)
[2022-07-23 06:47] LABS: Anisocytosis 2+ (NORMAL); Poikilocytosis 1+ (NORMAL); Schistocytes 1+ (NORMAL)
[2022-07-23] MEDS: FLUTICASONE/UMECLIDIN/VILANTER 100-62.5-25 MCG ELLIPTA 1 PUFF INHALATION (09:03)
[2022-07-23] MEDS: polyethylene glycoL 3350 17 GM POWD.PACK PO (09:33)
[2022-07-23] MEDS: CEFEPIME 1 GM/NS 50 ML 1 GM/50 ML BAG IVPB (09:33)
[2022-07-23] MEDS: CYANOCOBALAMIN 1,000 MCG TABLET 1000 MCG PO (09:38)
[2022-07-23] MEDS: SODIUM BICARBONATE TAB 650 MG TABLET 1300 MG PO (09:38)
[2022-07-23] MEDS: guaiFENesin 12 HR 600 MG TABCR PO (09:38)
[2022-07-23] MEDS: BENZONATATE 100 MG CAPSULE 200 MG PO (09:38)
[2022-07-23] MEDS: calcitrioL 0.25 MCG CAPSULE 0.5 MCG PO (09:38)
[2022-07-23] MEDS: OLANZapine 5 MG TABLET 20 MG PO (09:38)
[2022-07-23] MEDS: levoFLOXacin 250 MG TABLET PO (09:38)
[2022-07-23] MEDS: PANTOPRAZOLE SODIUM IV 40 MG VIAL IV PUSH (09:41)
--- NOTE | 2022-07-23 09:58 | WPDGIPROGNO ---
Progress Note: A&P Assessment and Plan (1) Pneumonia: Qualifiers: Laterality: unspecified laterality Lung location: unspecified part of lung Pneumonia type: due to unspecified organism Qualified Code(s): J18.9 - Pneumonia, unspecified organism Code(s): J18.9 - Pneumonia, unspecified organism Status: Acute Assessment and Plan: Patient hospitalized now with pneumonia. Currently on antibiotics. (2) Anemia: Code(s): D64.9 - Anemia, unspecified Status: Acute Assessment and Plan: Patient has anemia of chronic disease. Likely related to her chronic kidney disease. Stool Hemoccult pending. (3) Chronic kidney disease, stage IV (severe): Code(s): N18.4 - Chronic kidney disease, stage 4 (severe) Status: Chronic (4) History of bowel resection: Code(s): Z90.49 - Acquired absence of other specified parts of digestive tract Status: Acute Assessment and Plan: Patient has a history of adhesions and small-bowel resection. She has previous right hemicolectomy as well. mild small bowel dilatation described on recent imaging performed yesterday. Appears to me to be nonspecific. Small-bowel follow-through could be performed if necessary if this persists. (5) Psychiatric disorder: Code(s): F99 - Mental disorder, not otherwise specified Status: Acute Subjective Date/time seen: 07/23/22 09:58 Interval history: Patient alert no significant change in condition. She does report some modest suprapubic discomfort. she does report recent bowel movement. No obvious bleeding reported. Stool Hemoccult pending. Review of Systems Review of Systems: Review of systems noncontributory Exam Narrative: physical exam patient is alert. Comfortable at rest. HEENT exam reveals no icterus. Lungs reveal few rhonchi. Heart without murmur. Abdomen soft flat she has mild suprapubic tenderness. Extremities without clubbing cyanosis or edema. Objective Data Vital Signs Vital Signs: Vital Signs - 24 hr 07/22/22 10:01 07/22/22 14:17 07/22/22 10:00 Temperature Pulse Rate 97 110 H Respiratory Rate Blood Pressure Pulse Oximetry Oxygen Delivery Nasal Cannula Oxygen Flow Rate 2 07/22/22 12:00 07/22/22 13:56 07/22/22 12:00 Temperature 97.7 F Pulse Rate 107 H 105 H Respiratory Rate 22 H Blood Pressure 160/66 H Pulse Oximetry 98 Oxygen Delivery Nasal Cannula Oxygen Flow Rate 2 07/22/22 15:58 07/22/22 16:00 07/22/22 20:37 Temperature 97.2 F L Pulse Rate 105 H Respiratory Rate 18 Blood Pressure 171/66 H Pulse Oximetry 94 98 96 Oxygen Delivery Nasal Cannula Nasal Cannula Oxygen Flow Rate 2 2 07/22/22 20:37 07/22/22 20:00 07/22/22 20:00 Temperature 97.3 F L Pulse Rate 99 105 H Respiratory Rate 18 18 Blood Pressure 176/56 H Pulse Oximetry 96 100 Oxygen Delivery Nasal Cannula Oxygen Flow Rate 2 07/23/22 00:00 07/23/22 02:45 07/22/22 20:50 Temperature 97.9 F Pulse Rate 105 H 105 H 96 Respiratory Rate 16 16 18 Blood Pressure 145/55 H Pulse Oximetry 91 Oxygen Delivery Oxygen Flow Rate 07/22/22 21:10 07/23/22 02:56 07/23/22 03:05 Temperature Pulse Rate 103 H Respiratory Rate 16 Blood Pressure Pulse Oximetry 93 93 Oxygen Delivery Nasal Cannula Nasal Cannula Oxygen Flow Rate 1 2 07/23/22 04:00 07/23/22 07:53 07/23/22 07:53 Temperature 97.7 F Pulse Rate 101 H 95 Respiratory Rate 16 16 Blood Pressure 150/60 H Pulse Oximetry 99 100 Oxygen Delivery Nasal Cannula Oxygen Flow Rate 2 07/23/22 08:06 07/23/22 08:00 07/23/22 08:42 Temperature 97.6 F Pulse Rate 96 95 Respiratory Rate 16 24 H Blood Pressure 167/64 H Pulse Oximetry 100 90 Oxygen Delivery Room Air Oxygen Flow Rate Intake/Output Intake/Output: Intake & Output 07/20/22 07/21/22 07/22/22 07/23/22 23:59 23:59 23:59 23:59 Intake
[2022-07-23 11:19] LABS: IFOB Positive Control Positive; Immunochemical Fecal Occult Bl Positive (N)
--- NOTE | 2022-07-23 15:20 | PM.DS ---
DS: Admitting Diagnosis Discharge Date 07/23/22 Admitting Diagnosis Shortness of breath DS: Discharge Diagnosis Discharge Diagnosis (1) Anemia: Code(s): D64.9 - Anemia, unspecified Status: Chronic (2) Pneumonia: Qualifiers: Laterality: unspecified laterality Lung location: unspecified part of lung Pneumonia type: due to unspecified organism Qualified Code(s): J18.9 - Pneumonia, unspecified organism Code(s): J18.9 - Pneumonia, unspecified organism Status: Acute (3) Diastolic dysfunction: Code(s): I51.89 - Other ill-defined heart diseases Status: Acute (4) COPD with emphysema: Code(s): J43.9 - Emphysema, unspecified Status: Acute (5) Bubyo-oh-venkywc kidney injury: Qualifiers: Acute renal failure type: unspecified Chronic kidney disease stage: unspecified stage Qualified Code(s): N17.9 - Acute kidney failure, unspecified; N18.9 - Chronic kidney disease, unspecified Code(s): N17.9 - Acute kidney failure, unspecified; N18.9 - Chronic kidney disease, unspecified Status: Acute (6) Tobacco dependence: Code(s): F17.200 - Nicotine dependence, unspecified, uncomplicated Status: Acute (7) Hypothyroidism: Qualifiers: Hypothyroidism type: unspecified Qualified Code(s): E03.9 - Hypothyroidism, unspecified Code(s): E03.9 - Hypothyroidism, unspecified Status: Acute (8) Hypertension: Code(s): I10 - Essential (primary) hypertension Status: Acute (9) Psychiatric disorder: Code(s): F99 - Mental disorder, not otherwise specified Status: Acute (10) Headache: Code(s): R51.9 - Headache, unspecified Status: Acute DS: Summary Hospital Course Reason for hospitalization: 81yo female with PMH for CKD, diastolic HF, tobacco dependence, breast CA c/o SOB, malaise and body aches, fevers for 1-2 weeks, found to have PNA. please see H&P for details Hospital Course: Patient presents with shortness of breath. Chest x-ray 07/18 showing right middle lobe opacity.? She was started on rocephin and azithromycin. CRP 24.8 + PCT 7.7. CT of the abdomen shows left lobe opacities concerning for pneumonia with atelectasis/consolidation in the right lower lobe.? She also has a small right pleural effusion.? She was having low-grade fevers and antibiotics were switched to vancomycin + cefepime + Levaquin.? White count remainedcnormal and CRP/PCT levels trended down. No longer having fevers. Repeat blood cultures no growth to date.? MRSA nasal swab was negative.?She was weaned off oxygen. Hemoglobin dropped to 6.4 on 07/20 and was transfused 2 units pRBCs. Unsure of etiology, could be GI bleed? Iron studies more likely anemia of chronic disease. B12 low end of normal so this was replaced. Stool guaiac was positive.? CT of the abdomen pelvis showing hepatomegaly and diffuse mild small bowel dilatation which may reflect ileus. But KUB showing nonspecific bowel gas pattern. Diet started and she tolerated this well. Miralax added. Hgb remained stable int he 10 range. GI felt patietn could have further evaluation as outpatient. Echo EF of 65-70% with grade 1 diastolic dysfunction and mild pulmonary hypertension. Cr 1.6 earlier this month. Cr 1.6 on admission and climbed to 1.8. Patient is on sodium bicarb + calcitriol. we held nephrotoxic agents.?Cr back down. Potassium normal. Serum bicarb normal. Nephrology consulted and appreciate their input. Patient was educated about the benefits of smoking cessation. Patient with underlying psychiatric diagnosis. We continued her home mirtazapine, olanzapine, nortriptyline. Noted to have severe protein calorie malnutrition - BMI 17. Related to chronic loss of appetite. Patient reports only eating one meal per day and has evidence of muscle wasting. She feels better today. She has been up to the chair. She is walking to the bathroom with a walker. Abdominal pain has improved
[2022-07-26 14:15] LABS: Methylmalonic Acid 201 nmol/L (87-318)
== END 2022-07-23 16:22 | disposition home health service (06) | DRG 193 ==
LOC: ANHED 23:49 → ANHIMU 07-19 03:33 → ANH3MEDSUR 07-23 15:32 → ANHIMU 07-27 11:54
PROVIDERS: General Practice; Internal Medicine Gastroenterology; Student in an Organized Health Care Education/Training Program; Admitting Provider Internal Medicine; Emergency Provider Emergency Medicine; PCP Internal Medicine; Visit Provider Internal Medicine
DX: J18.9 Pneumonia, unspecified organism (principal); E43 Unspecified severe protein-calorie malnutrition; I50.32 Chronic diastolic (congestive) heart failure; J44.0 Chronic obstructive pulmonary disease with (acute) lower respiratory infection; N17.9 Acute kidney failure, unspecified; N18.4 Chronic kidney disease, stage 4 (severe); Z68.1 Body mass index [BMI] 19.9 or less, adult; D63.1 Anemia in chronic kidney disease; E55.9 Vitamin D deficiency, unspecified; E89.0 Postprocedural hypothyroidism; R51.9 Headache, unspecified; F41.9 Anxiety disorder, unspecified; F99 Mental disorder, not otherwise specified; F17.210 Nicotine dependence, cigarettes, uncomplicated; Z20.822 Contact with and (suspected) exposure to COVID-19; Z85.3 Personal history of malignant neoplasm of breast; Z79.82 Long term (current) use of aspirin
CPT/HCPCS: 36415; 36430; 70450; 71045; 71046; 74019; 74176; 80053; 80202; 81001; 81003; 82274; 82607; 82728; 82746; 83540; 83550; 83605; 83735; 83880; 83921; 84100; 84145; 84443; 84484; 85014; 85018; 85025; 85055; 85610; 85730; 86140; 86850; 86900; 86901; 86923; 87040; 87081; 87637; 93005; 93306; 94640; 96365; 96366; 96367; 96375; 97161; 97165; 97535; 99285; A9270; C8929; C9113; G0378; J0456; J0692; J0696; J1200; J1885; J1940; J1956; J2765; J3370; J3420; J7050; P9016; Q5105